=== PATIENT | female | born 1995 | race Two or more races ===

== ENCOUNTER 2023-10-29 06:31 | Emergency (ER) | payer OTHER, SELFPAY ==
[2023-10-29 06:33] VITALS: BP 134/87; PULSE 90; RESP 18; TEMP 36.7; O2SAT 97; BMI 39.5
[2023-10-29 06:59] LABS: Basophils Absolute Auto 0.1 10^3/uL (0.0-0.1); Basophils Percent Auto 0.5 % (0.2-2.0); Eosinophils Absolute Auto 0.4 10^3/uL (0.0-0.7); Eosinophils Percent Auto 3.2 % (0.9-7.0); Hematocrit 44.5 % (36.0-48.0); Hemoglobin 14.8 g/dL (12.0-16.0); Immature Granulocytes Abs Auto 0.02 10^3/uL (0.00-0.03); Immature Granulocytes Pct Auto 0.2 % (0.0-0.5); Lymphocytes Absolute Auto 3.5 10^3/uL (1.2-3.8); Lymphocytes Percent Auto 31.6 % (20.5-60.0); Mean Corpuscular HGB Conc 33.3 g/dL (29.9-35.2); Mean Corpuscular Hemoglobin 29.4 pg (26.7-34.0); Mean Corpuscular Volume 88.5 fL (81.0-99.0); Mean Platelet Volume 10.3 fL (9.5-13.5); Monocytes Absolute Auto 0.6 10^3/uL (0.3-0.8); Monocytes Percent Auto 5.1 % (1.7-12.0); Neutrophils Absolute Auto 6.6 10^3/uL (1.4-6.5); Neutrophils Percent Auto 59.4 % (43.0-75.0); Platelet Count 331 10^3/uL (150-450); Red Blood Count 5.03 10^6/uL (4.20-5.40); Red Cell Distribution Width 12.1 % (11.0-15.0); White Blood Count 11.1 10^3/uL (4.0-11.0)
[2023-10-29] MEDS: 0.9 % SODIUM CHLORIDE 1,000 ML 1000 ML IV (06:59)
[2023-10-29] MEDS: ONDANSETRON PF 4 MG/2 ML VIAL IV (07:00)
[2023-10-29 07:07] LABS: Anion Gap 16.4; BUN Creatinine Ratio 17.5; Calcium 9.3 mg/dL (8.5-10.1); Carbon Dioxide 25.1 mmol/L (21.0-32.0); Chloride 100 mmol/L (98-107); Estimated GFR (African America >60 (>=60); Estimated GFR (Non-African Ame >60 (>=60); Glucose 107 mg/dL (74-106); Potassium 3.5 mmol/L (3.5-5.1); Sodium 138 mmol/L (136-145)
[2023-10-29 07:09] LABS: HCG Qualitative NEGATIVE (NEGATIVE)
[2023-10-29 07:17] LABS: Bilirubin Urine NEGATIVE (NEGATIVE); Blood Urine NEGATIVE (NEGATIVE); Clarity Urine CLEAR (CLEAR); Color Urine YELLOW (YELLOW); Glucose Urine UA NEGATIVE (NEGATIVE); Ketones Urine NEGATIVE (NEGATIVE); Leukocyte Esterase Urine TRACE (NEGATIVE); Nitrite Urine NEGATIVE (NEGATIVE); Protein Urine 100 mg/dL (NEG/TRACE); Specific Gravity Urine >=1.030 (1.005-1.025); Urobilinogen Urine 0.2 EU/dL (0.2-1.0)
[2023-10-29 07:28] LABS: Urine Microscopic Indicated YES
--- NOTE | 2023-10-29 07:28 | ED.GENADUL1 ---
HPI - General Adult General Chief complaint: Abdominal Pain Stated complaint: abd pain Time Seen by Provider: 10/29/23 06:41 Source: patient Mode of arrival: walk-in Limitations: no limitations History of Present Illness HPI narrative: Patient is a 28-year-old female who is presenting to the Emergency Room today with chief complaint of 3-4 day history of nausea, vomiting with no diarrhea. Patient is a full-time homemaker, patient has 3 children at home. Patient states that she has been diagnosed with gastritis many years ago. Patient is not lightheaded dizzy, she has no headache. Patient has no chest pain or shortness of breath, patient does have midepigastric pain. Patient states she does not have her gallbladder. Patient has not been able to keep any liquid or food and yesterday, and she ate a piece of pizza last night it o'clock p.m. Patient had additional nausea and vomiting this morning with midepigastric pain. Patient had loose stool, no clear consistent black stool. Patient's not using any [id number]-[id number] antacid medication, no other acute complaints. All systems are negative except as noted/marked. All systems reviewed and otherwise negative. . Nurses note and vital signs reviewed and patient is not hypoxic. General: The patient appears well and in no apparent distress. Patient is resting comfortably on cart. Patient is not toxic, lethargic, or listless Skin: Warm, dry, no pallor noted. There is no rash noted. No petechiae, purpura. Head: Normocephalic, atraumatic Eye: Normal conjunctiva, no drainage, EOMI. PERRL Ears, Nose, Mouth, and Throat: oral mucosa is moist. Nares patent. Mouth without vesicles. Cardiovascular: Regular Rate and Rhythm, no murmur, gallop, rub Respiratory: Patient is in no distress, no accessory muscle use, lungs are clear to auscultation, no wheezing, rales or rhonchi Back: non-tender, no CVA tenderness bilaterally to percussion. No CT LS midline pain GI: soft, obese, Moderate midepigastric tenderness palpation, soft, no peritoneal signs, otherwise no tenderness to palpation, no masses appreciated. No rebound, Mild midepigastric guarding, or rigidity noted. No flank pain bilateral, No distention. Musculoskeletal: Patient has full range of motion of all of the extremities, no motor, sensory, or focal neurological deficits Neurological: A&O x3, normal speech Psychiatric: Cooperative Related Data Previous Rx's Medication Instructions Recorded dicyclomine 20 mg tablet 20 mg PO TID PRN abdominal pain #7 10/29/23 tabs ondansetron 4 mg disintegrating 4 mg PO Q4H PRN nausea and 10/29/23 tablet vomiting 3 days #6 tabs Allergies Allergy/AdvReac Type Severity Reaction Status Date / Time No Known Drug Allergies Allergy Verified 10/29/23 06:36 PFSH PFSH Social History Smoking status: Current every day smoker Exam Constitutional Vital Signs, click to edit/add: Last Vital Signs Temp 98.0 F 10/29/23 06:33 Pulse 90 10/29/23 06:33 Resp 18 10/29/23 06:33 BP 134/87 10/29/23 06:33 Pulse Ox 97 10/29/23 06:33 O2 Del Method Room Air 10/29/23 06:33 Course Vital Signs Vital signs: Vital Signs Temperature 98.0 F 10/29/23 06:33 Pulse Rate 90 10/29/23 06:33 Respiratory Rate 18 10/29/23 06:33 Blood Pressure 134/87 10/29/23 06:33 Pulse Oximetry 97 10/29/23 06:33 Oxygen Delivery Method Room Air 10/29/23 06:33 Temperature 98.0 F 10/29/23 06:33 Pulse Rate 90 10/29/23 06:33 Respiratory Rate 18 10/29/23 06:33 Blood Pressure 134/87 10/29/23 06:33 Pulse Oximetry 97 10/29/23 06:33 Oxygen Delivery Method Room Air 10/29/23 06:33 Medical Decision Making MDM Narrative Medical decision making narrative: Patient was initially given 1 L of IV fluid and IV Zofran. Patient was still having nausea, patient was given additional Compazine and Bentyl. Patient had a mild reaction to Bentyl Or Compazine were she felt slightly anxious, Flushed, a significant have one reading that was hypertensive. Patient labwork in urination no significant findings. Patient was given Pepcid gastrointestinal cocktail. Patient was sent home with prescription for Zofran, Bentyl, and use [id number] Maalox or Mylanta needed. Patient understands increase fluids at home. No questions at discharge. Patient looks well, feels much better than she did when she initially arrived. Lab Data Lab results reviewed: Yes I reviewed the patient's lab results Labs: Lab Results 10/29/23 Range/Units 06:45 WBC 11.1 H (4.0-11.0) 10^3/uL RBC 5.03 (4.20-5.40) 10^6/uL Hgb 14.8 (12.0-16.0) g/dL Hct 44.5 (36.0-48.0) % MCV 88.5 (81.0-99.0) fL MCH 29.4 (26.7-34.0) pg MCHC 33.3 (29.9-35.2) g/dL RDW 12.1 (11.0-15.0) % Plt Count 331 (150-450) 10^3/uL MPV 10.3 (9.5-13.5) fL Neut % (Auto) 59.4 (43.0-75.0) % Lymph % (Auto) 31.6 (20.5-60.0) % [place] % (Auto) 5.1 (1.7-12.0) % Eos % (Auto) 3.2 (0.9-7.0) % Baso % (Auto) 0.5 (0.2-2.0) % Neut # (Auto) 6.6 H (1.4-6.5) 10^3/uL Lymph # (Auto) 3.5 (1.2-3.8) 10^3/uL [place] # (Auto) 0.6 (0.3-0.8) 10^3/uL Eos # (Auto) 0.4 (0.0-0.7) 10^3/uL Baso # (Auto) 0.1 (0.0-0.1) 10^3/uL Abs Immat Gran (auto) 0.02 (0.00-0.03) 10^3/uL Imm/Tot Granulo (auto) 0.2 (0.0-0.5) % Sodium 138 (136-145) mmol/L Potassium 3.5 (3.5-5.1) mmol/L Chloride 100 (98-107) mmol/L Carbon Dioxide 25.1 (21.0-32.0) mmol/L Anion Gap 16.4 BUN 11.0 (7.0-18.0) mg/dL Creatinine 0.63 (0.55-1.02) mg/dL Est GFR ( Amer) >60 (>=60) Est GFR (Non-Af Amer) >60 (>=60) BUN/Creatinine Ratio 17.5 Glucose 107 H (74-106) mg/dL Calcium 9.3 (8.5-10.1) mg/dL Serum HCG, Qual Negative (NEGATIVE) Urine Color Yellow (YELLOW) Urine Clarity Clear (CLEAR) Urine pH 6.0 (5.0-9.0) Ur Specific [place] >=1.030 A (1.005-1.025) Urine Protein 100 A (NEG/TRACE) mg/dL Urine Glucose (UA) Negative (NEGATIVE) mg/dL Urine Ketones Negative (NEGATIVE) mg/dL Urine Occult Blood Negative (NEGATIVE) Urine Nitrite Negative (NEGATIVE) Urine Bilirubin Negative (NEGATIVE) Urine Urobilinogen 0.2 (0.2-1.0) EU/dL Ur Leukocyte Esterase Trace A (NEGATIVE) Urine RBC 0-2 (0-2) #/HPF Urine WBC 5-10 A (NONE SEEN) #/HPF Ur Squamous Epith Cells Moderate A (NONE/RARE) #/LPF Urine Crystals None seen (None Seen) #/HPF Urine Bacteria Small A (NONE SEEN) #/HPF Urine Casts None seen (NONE SEEN) #/LPF Urine Mucus Moderate A (NONE SEEN) Ur Culture Indicated? Yes Discharge Plan Discharge Chief Complaint: Abdominal Pain Clinical Impression: Gastritis, Flu-like symptoms, Midepigastric pain, Nausea & vomiting Patient Disposition: Home, Self-Care Time of Disposition Decision: 08:24 Condition: Fair Prescriptions / Home Meds: New dicyclomine 20 mg tablet 20 mg PO TID PRN (Reason: abdominal pain) Qty: 7 0RF ondansetron 4 mg tablet,disintegrating 4 mg PO Q4H PRN (Reason: nausea and vomiting) 3 Days Qty: 6 0RF Instructions: Gastritis (ED), Acute Nausea and Vomiting (ED), Abdominal Pain (ED) Additional Instructions: If having midepigastric discomfort of pain, use [id number] Maalox or Mylanta. Use nausea medicine help increase fluids at home. Use Bentyl as needed to help with abdominal cramping. Increase fluids at home,Clear liquid diet for the next 2-3 days. Follow-up with PCP if any other acute concerns. Stand Alone Forms: Portal Instructions Referrals: Physician,Non-Staff, MD [Primary Care Provider] - 1 week
[2023-10-29 07:35] LABS: Bacteria Urine SMALL #/HPF (NONE SEEN); RBC Urine 0-2 #/HPF (0-2)
[2023-10-29 07:36] LABS: Cast Seen? NONE SEEN #/LPF (NONE SEEN); Crystals Seen? None Seen #/HPF (None Seen); Mucus Urine MODERATE (NONE SEEN); Squamous Epithelial Cell Urine MODERATE #/LPF (NONE/RARE); Urine Culture Indicated YES
[2023-10-29] MEDS: DICYCLOMINE HCL 20 MG/2 ML VIAL 10 MG IM (07:36)
[2023-10-29] MEDS: PROCHLORPERAZINE 10 MG/2 ML VIAL IV (07:36)
[2023-10-29] MEDS: lidocaine HCL 15 ML, MAG HYDROX/ALUMINUM HYD/SIMETH 30 ML, HYOSCYAMINE SULFATE 0.25 MG PO (08:38)
[2023-10-29] MEDS: FAMOTIDINE/PF 20 MG/2 ML VIAL IV (08:38)
[2023-10-29 08:43] VITALS: BP 158/97; PULSE 74; RESP 16; O2SAT 97
== END 2023-10-29 08:46 | disposition home or self-care (01) ==
PROVIDERS: Emergency Provider Emergency Medicine
DX: K29.70 Gastritis, unspecified, without bleeding (principal); R10.13 Epigastric pain; R11.2 Nausea with vomiting, unspecified; F17.210 Nicotine dependence, cigarettes, uncomplicated
CPT/HCPCS: 36415; 80048; 81001; 84703; 85025; 87086; 96361; 96372; 96374; 96375; 99284; J0500; J0780; J2405

== ENCOUNTER 2024-01-19 13:42 | Outpatient (OUT) | payer OTHER, SELFPAY ==
--- NOTE | 2024-01-19 13:45 | US_ITS ---
The [address] [address] Patient Name: JUDIE RODRIGUEZ MRN: [id number] date: 1995 Sex: F Assigned Patient Location: [place] Current Patient Location: [place] Accession/Order Number: [id number] Exam Date: 01/19/2024 13:52 Report Date: 01/19/2024 16:27 At the request of: JUANCHO DE LEON Procedure: US extremity nonvascular RT EXAM: US extremity nonvascular RT HISTORY: Subcutaneous nodule of right lower extremity R22.41 COMPARISON: None. TECHNIQUE: Grayscale and color ultrasound FINDINGS: Ultrasound in the region of the patient's abnormality right medial thigh extending to the knee demonstrates normal skin, subcutaneous fat and muscle. No focal ultrasound abnormality US/US extremity nonvascular RT IMPRESSION: No focal ultrasound abnormality is observed to correspond to the patient's palpable abnormality Electronically authenticated by: JOLANTA REYNOLDS Date: 01/19/2024 16:27
== END 2024-01-19 13:43 | disposition home or self-care (01) ==
LOC: US 13:42
PROVIDERS: Visit Provider Nurse Practitioner Family
DX: R22.41 Localized swelling, mass and lump, right lower limb (principal)
CPT/HCPCS: 76882

== ENCOUNTER 2024-01-22 19:31 | Emergency (ER) | payer OTHER, SELFPAY ==
--- OUTSIDE RECORDS SUMMARY | 2024-01-22 19:38 | XMS_ITS | CCD ---
Author Organization [facility] Care Team Providers Care Track Grinder Operator Name Role Phone AMAURY, DR SHIVAM Bautista Primary Care Unavailable DAVID SILVA Attending Unavailable RODOLFO, DR JOLANTA Grant Consulting Unavailable DAVID SILVA Admitting Unavailable TEO ., DR SAM Consulting Unavailable DAVID SILVA Consulting Unavailable KANU .JOSE ROBERTO Attending Unavailable KANU ., JOSE ROBERTO Admitting Unavailable AMAURY, DR SHIVAM Bautista Primary Care Unavailable RICK, DR MAURICIO Killian Consulting Unavailable KANU ., JOSE ROBERTO Consulting Unavailable TEO ., DR SAM Admitting Unavailable TEO ., DR SAM Attending Unavailable JOSELO LEWIS Consulting Unavailable AMAURY, DR SHIVAM Bautista Primary Care Unavailable TEO ., DR SAM Consulting Unavailable TEO ., DR SAM Procedure Practitioner Unavail destin Oliveira APRN-POOJA, Gissel Mckenna Primary Care Provider Medications Current Medications Medication Drug Class(es) Dates Sig (Normalized) Sig (Original) DULoxetine 30 mg delayed release oral capsule (5 sources) Serotonin and Norepinephrine Reuptake Inhibitor Start: 01-16-2024 take 1 capsule by mouth once daily in the morning DULoxetine (CYMBALTA) 30 mg capsule Indications: Reactive depression take 1 capsule by mouth every morning for 14 days 14 capsule 0 01/16/2024 Active Start: 01-13-2024 End: 01-27-2024 take 1 capsule by mouth in the morning DULoxetine (CYMBALTA) 30 mg capsule Indications: Reactive depression Take 1 capsule (30 mg total) by mouth in the morning for 14 days. 14 capsule 0 01/13/2024 01/16/2024 Discontinued Start: 01-13-2024 take 1 capsule by [facility] in the morning DULoxetine (CYMBALTA) 60 mg capsule Indications: Reactive depression Take 1 capsule (60 mg total) by mouth in the morning. 30 capsule 2 01/13/2024 Active 168 hr ethinyl estradiol 0.67161 mg/hr / norelgestromin 0.50836 mg/hr transdermal system (2 sources) Progestin, Estrogen Start: 01-13-2024 apply 1 dose transdermal route every week norelgestromin-ethin.estradioL (XULANE) 150-35 mcg/24 hr Indications: Encounter for surveillance of transdermal patch hormonal contraceptive device Place 1 patch on the skin once a week. 3 patch 12 01/13/2024 Active labetalol hydrochloride 200 mg oral tablet (2 sources) beta-Adrener gic Leti Start: 01-13-2024 take 1 tablet by mouth in the morning, then take 1 tablet by mouth at bedtime labetaloL (NORMODYNE) 200 mg tablet Indications: Essential hypertension Take 1 tablet (200 mg total) by mouth in the morning and 1 tablet (200 mg total) before bedtime. 60 tablet 5 01/13/2024 Active Problems Active Problems Problem Classification Problem Date Documented Date Episodic/Chronic Contraceptive and procreative management (2 sources) Contraception status; Translations: [Encounter for surveillance of transdermal patch hormonal contraceptive device] 01-13-2024 Episodic Essential hypertension (1 source) Essential hypertension; Translations: [Essential (primary) hypertension] 01-13-2024 Chronic Hypertension complicating ; childbirth and the puerperium (2 sources) Pre-existing hypertension in obstetric context; Translations: [Unspecified pre-existing hypertension complicating , unspecified trimester] Onset: 03-12-2016 Resolved: 01-13-2024 01-13-2024 Chronic Mood disorders (2 sources) Reactive depression (situational); Translations: [Major depressive disorder, single episode, unspecified] 01-13-2024 Chronic Nonmalignant breast conditions (4 sources) Unspecified lump in unspecified breast; Translations: [Unspecified lump in the right breast, lower outer quadrant] Onset: 01-27-2023 Episodic Other nutritional; endocrine; and metabolic disorders (1 source) Obesity caused by energy imbalance; Translations: [Other obesity due to excess calories] 01-13-2024 Chronic Other skin disorders (1 source) Nodule of subcutaneous tissue of right lower limb; Translations: [Localized swelling, mass and lump, right lower limb] 01-13-2024 Episodic Unclassified (1 source) CONTACT W/AND (SUSP) EXPOS COVID-19; Translations: [CONTACT W/AND (SUSP) EXPOS COVID-19] Onset: 02-17-2022 Past or Other Problems Problem Classification Problem Date Documented Da te Episodic/Chronic Blindness and vision defects (4 sources) Myopia; Translations: [Myopia, unspecified eye] Onset: 04-05-2017 04-05-2017 Episodic Hypertension complicating ; childbirth and the puerperium (1 source) Unspecified pre-eclampsia, complicating the puerperium; Translations: [UNSPEC PRE-ECLAMP COMP PUERPERIUM] Onset: 02-17-2022 Episodic Mood disorders (2 sources) Mood disorders Onset: 01-13-2024 01-13-2024 Other complications of (2 sources) Maternal obesity complicating , childbirth and the puerperium, antepartum; Translations: [Obesity complicating , unspecified trimester] Onset: 01-22-2016 Resolved: 01-13-2024 01-13-2024 Chronic Other complications of (4 sources) Maternal care for excessive growth, third trimester, not applicable or unspecified; Translations: [MAT CARE EXCSS FTL GRTH 3RD TRI UNS] Onset: 02-09-2022 Episodic Other complications of (2 sources) Abnormal findings on screening of mother; Translations: [Unspecified abnormal findings on screening of mother] Onset: 01-22-2016 Resolved: 01-13-2024 01-13-2024 Episodic Other complications of (2 sources) High risk ; Translations: [Supervision of high risk , unspecified, unspecified trimester] Onset: 10-29-2015 Resolved: 01-13-2024 01-13-2024 Episodic Other complications of (2 sources) Maternal infection; Translations: [Unspecified maternal infectious and parasitic disease complicating , unspecified trimester] Onset: 10-29-2015 Resolved: 01-13-2024 01-13-2024 Episodic Other complications of (2 sources) Disorder of ; Translations: [Other specified related conditions, unspecified trimester] Onset: 01-22-2016 Resolved: 01-13-2024 01-13-2024 Episodic Other and delivery including normal (3 sources) Single live ; Translations: [Delivery normal] Onset: 06-04-2016 Resolved: 01-13-2024 01-13-2024 Episodic Residual codes; unclassified (1 source) 39 weeks gestation of ; Translations: [39 WEEKS GESTATION OF ] Onset: 02-17-2022 Episodic Residual codes; unclassified (1 source) Acquired absence of other specified parts of digestive tract; Translations: [ACQ ABSENCE OTH PART DIGESTV TRACT] Onset: 02-17-2022 Episodic Residual codes; unclassified (1 source) 38 weeks gestation of ; Translations: [38 WEEKS GESTATION OF ] Onset: 02-11-2022 Episodic Screening and history of mental health and substance abuse codes (2 sources) Tobacco use and exposure - finding; Translations: [Personal history of nicotine dependence] Onset: 10-29-2015 01-13-2024 Episodic Results Test Name Value Interpretation Reference Range Facil ity MG MAMM DIAGNOSTIC 3D NATHAN CA Don 01-27-2023 MG MAMM DIAGNOSTIC 3D NATHAN CAD Patient: JUDIE RODRIGUEZ Exam Date: 01/27/2023 : 1995 Gender:F Ordering : FATOU BOBBY . Admission #: [id number] Family : Order #: [id number] CLICK HERE TO VIEW EXAM RADIOLOGY REPORT PROCEDURE: MAMMOGRAM DIAGNOSTIC 3D BILATERAL CAD, 01/27/2023, 13:46 ULTRASOUND BREAST RIGHT LIMITED, 01/27/2023, 14:23 COMPARISON: None. INDICATIONS: Breast lump Calculator Name NCI Breast Cancer Risk Assessment Tool 5 Year Breast Cancer Risk Not Applicable. Lifetime Breast Cancer Risk Not Applicable. Personal Breast Cancer No Personal Ovarian Cancer No Treatments None Family Cancers None LOCATION: [facility] BREAST COMPOSITION: Scattered areas fibroglandular density. FINDINGS: DIAGNOSTIC CATEGORY 1--NEGATIVE. RIGHT BREAST: No significant suspicious finding on mammography and during ultrasound evaluation with specific attention to the posterior lower breast approximately 6 o'clock position where patient localizes the palpable lump. LEFT BREAST: No significant suspicious finding. RECOMMENDATIONS: CLINICAL EVALUATION. PLEASE NOTE: A NORMAL MAMMOGRAM DOES NOT EXCLUDE THE POSSIBILITY OF BREAST CANCER. A CLINICALLY SUSPICIOUS PALPABLE LUMP SHOULD BE BIOPSIED. Dictated by: Mauricio Baldwin M.D. on 01/27/2023 at 14:58 Approved by: Mauricio Baldwin M.D. on 01/27/2023 at 15:02 Normal [facility] US BREAST RIGHT LIMITEDon US BREAST RIGHT LIMITED Patient: JUDIE RODRIGUEZ Exam Date: 01/27/2023 : 1995 Gender:F Ordering : FATOU BOBBY . Admission #: [id number] Family : Order #: [id number] CLICK HERE TO VIEW EXAM RADIOLOGY REPORT PROCEDURE: MAMMOGRAM DIAGNOSTIC 3D BILATERAL CAD, 01/27/2023, 13:46 ULTRASOUND BREAST RIGHT LIMITED, 01/27/2023, 14:23 COMPARISON: None. INDICATIONS: Breast lump Calculator Name NCI Breast Cancer Risk Assessment Tool 5 Year Breast Cancer Risk Not Applicable. Lifetime Breast Cancer Risk Not Applicable. Personal Breast Cancer No Personal Ovarian Cancer No Treatments None Family Cancers None LOCATION: [facility] BREAST COMPOSITION: Scattered areas fibroglandular density. FINDINGS: DIAGNOSTIC CATEGORY 1--NEGATIVE. RIGHT BREAST: No significant suspicious finding on mammography and during ultrasound evaluation with specific attention to the posterior lower breast approximately 6 o'clock position where patient localizes the palpable lump. LEFT BREAST: No significant suspicious finding. RECOMMENDATIONS: CLINICAL EVALUATION. PLEASE NOTE: A NORMAL MAMMOGRAM DOES NOT EXCLUDE THE POSSIBILITY OF BREAST CANCER. A CLINICALLY SUSPICIOUS PALPABLE LUMP SHOULD BE BIOPSIED. Dictated by: Mauricio Baldwin M.D. on 01/27/2023 at 14:58 Approved by: Mauricio Baldwin M.D. on 01/27/2023 at 15:02 Normal [facility] PROTEIN 24HR URINEon 022 T PROT, 24 HR UR 554.3 mg/24 hr Critically high <=149.1 [facility] Comment on above: Performed By: #### P [id number] #### [facility] [address] [address] [address] Zainab John UR PROT 24.1 mg/dL Critically high <=11.9 [facility] Comment on above: Performed By: #### P [id number] #### [facility] [address] [address] [address] Zainab John UR TOT VOL 2300 ml/24 HR Normal [facility] Comment on above: Performed By: #### P [id number] #### [facility] [address] [place] [address] Dr. Zainab John UA (CLEAN/CATCH) INDUSTRIAL REFRIGERATION MECHANIC/MICRO I F IND.on 02-12-2022 Bilirubin Ql (U) Negative Normal NEGATIVE [facility] Comment on above: Performed By: #### T NS #### [facility] [address] [place] [address] Dr. Zainab John Clarity (U) CLEAR Normal CLEAR [facility] Comment on above: Performed By: #### T NS #### [facility] [address] [place] [address] Dr. Zainab John Color (U) LT. YELLOW Normal YELLOW [facility] Comment on above: Performed By: #### T NS #### [facility] [address] [place] [address] Dr. Zainab John Glucose Ql (U) Negative Normal NEGATIVE [facility] Comment on above: Performed By: #### T NS #### [facility] [address] [place] [address] Dr. Zainab John Hemoglobin Ql (U) LARGE Abnormal NEGATIVE [facility] Comment on above: Performed By: #### T NS #### [facility] [address] [place] [address] Dr. Zainab John Ketones Ql (U) Negative Normal NEGATIVE [facility] Comment on above: Performed By: #### T NS #### [facility] [address] [place] [address] Dr. Zainab John LEUKOCYTES Negative Normal NEGATIVE [facility] Comment on above: Performed By: #### T NS #### [facility] [address] [place] [address] Dr. Zainab John Nitrite Ql (U) Negative Normal NEGATIVE [facility] Comment on above: Performed By: #### T NS #### [facility] [address] [place] [address] Dr. Zainab John pH (U) 5.5 [pH] Normal 5-9 [facility] Comment on above: Performed By: #### T NS #### [facility] [address] [place] [address] Dr. Zainab John SPEC GRAVITY 1.030 Abnormal 1.005-<=1.025 [facility] Comment on above: Performed By: #### T NS #### [facility] [address] [place] [address] Dr. Zainab John UA PROTEIN Negative Normal NEGATIVE/ TRACE [facility] Comment on above: Performed By: #### T NS #### [facility] [address] [place] [address] Dr. Zainab John UR MICRO IND INDICATED Normal [facility] Comment on above: Performed By: #### T NS #### [facility] [address] [place] [address] Dr. Zainab John Urobilinogen Qn (U) 0.2 {Sarabjit'U}/dL Normal 0.2 - 1. 0 [facility] Comment on above: Performed By: #### T NS #### [facility] [address] [place] [address] Dr. Zainab John URINE MICROSCOPIC ONLYon BACTERIA NONE SEEN Normal NONE SEEN [facility] Comment on above: Performed By: #### T NS #### [facility] [address] [place] [address] Dr. Zainab John Bacteria identified Cx Nom (U) NOT INDICATED Normal [facility] Comment on above: Performed By: #### T NS #### [facility] [address] [place] [address] Dr. Zainab John CAST NONE SEEN Normal NONE SEEN [facility] Comment on above: Performed By: #### T NS #### [facility] [address] [place] [address] Dr. Zainab John Crystals LM Nom (Urine sed) NONE SEEN Normal NONE SEEN [facility] Comment on above: Performed By: #### T NS #### [facility] [address] [place] [address] Dr. Zainab John Epithelial cells LM Ql (Urine sed) RARE Normal NONE SEEN /RARE [facility] Comment on above: Performed By: #### T NS #### [facility] [address] [place] [address] Dr. Zainab John MUCOUS NONE SEEN Normal NONE SEEN [facility] Comment on above: Performed By: #### T NS #### [facility] [address] [place] [address] Dr. Zainab John RBC 20-50 Abnormal 0-2 [facility] Comment on above: Performed By: #### T NS #### [facility] [address] [place] [address] Dr. Zainab John WBC 0-2 Abnormal NONE SEEN [facility] Comment on above: Performed By: #### T NS #### [facility] [address] [place] [address] Dr. Zainab John CBC AUTO DIFFon 02-11-2022 BASO # 0.0 103/ul Normal 0.0-0.1 [facility] Comment on above: Performed By: #### C BC #### [facility] [address] [place] [address] Dr. Zainab John Basophils/100 WBC (Bld) 0.4 % Normal 0.2-2.0 [facility] Comment on above: Performed By: #### C BC #### [facility] [address] [place] [address] Dr. Zainab John EO # 0.3 103/ul Normal 0.0-0.7 [facility] Comment on above: Performed By: #### C BC #### [facility] [address] [place] [address] Dr. Zainab John Eosinophils/100 WBC (Bld) 2.5 % Normal 0.9-7.0 [facility] Comment on above: Performed By: #### C BC #### [facility] [address] [place] [address] Dr. Zainab John Erythrocyte distribution width (RBC) [Ratio] 13.2 % Normal 11.0-15.0 [facility] Comment on above: Performed By: #### C BC #### [facility] [address] [place] [address] Dr. Zainab John Hematocrit (Bld) [Volume fraction] 27.8 % Critically low 36.0-48.0 [facility] Comment on above: Performed By: #### C BC #### [facility] [address] [address] [address] Zainab John Hemoglobin (Bld) [Mass/Vol] 9.3 g/dL Critically low 12.0-16.0 [facility] Comment on above: Performed By: #### C BC #### [facility] [address] [address] [address] Zainab John IG # 0.08 10e3/ul Critically high 0.00-0.03 [facility] Comment on above: Performed By: #### C BC #### [facility] [address] [place] [address] Dr. Zainab John IG % 0.7 % Critically high 0.0-0.5 [facility] Comment on above: Performed By: #### C BC #### [facility] [address] [place] [address] Dr. Zainab John LYMPH # 2.7 103/ul Normal 1.2-3.8 [facility] Comment on above: Performed By: #### C BC #### [facility] [address] [place] [address] Dr. Zainab John Lymphocytes/100 WBC (Bld) 23.6 % Normal 20.5-60.0 [facility] Comment on above: Performed By: #### C BC #### [facility] [address] [place] [address] Dr. Zainab John MANUAL DIFF REQ NO Normal [facility] Comment on above: Performed By: #### C BC #### [facility] [address] [place] [address] Dr. Zainab John MCH (RBC) [Entitic mass] 29.6 pg Normal 26.7-34.0 [facility] Comment on above: Performed By: #### C BC #### [facility] [address] [place] [address] Dr. Zainab John MCHC (RBC) [Mass/Vol] 33.5 g/dL Normal 29.9-35.2 [facility] Comment on above: Performed By: #### C BC #### [facility] [address] [address] [address] Zainab John MCV (RBC) [Entitic vol] 88.5 fL Normal 81.0-99.0 [facility] Comment on above: Performed By: #### C BC #### [facility] [address] [address] [address] Zainab John MONO # 0.6 103/ul Normal 0.3-0.8 [facility] Comment on above: Performed By: #### C BC #### [facility] [address] [address] [address] Zainab John Monocytes/100 WBC (Bld) 5.1 % Normal 1.7-12.0 [facility] Comment on above: Performed By: #### C BC #### [facility] [address] [address] [address] Zainab John NEUT # 7.7 103/ul Critically high 1.4-6.5 [facility] Comment on above: Performed By: #### C BC #### [facility] [address] [address] [address] Zainab John Neutrophils/100 WBC (Bld) 67.7 % Normal 43.0-75.0 [facility] Comment on above: Performed By: #### C BC #### [facility] [address] [address] [address] Zainab John Platelet mean volume (Bld) [Entitic vol] 10.7 fL Normal 9.5-13.5 [facility] Comment on above: Performed By: #### C BC #### [facility] [address] [address] [address] Zainab John PLT 267 103/ul Normal 150-450 [facility] Comment on above: Performed By: #### C BC #### [facility] [address] [address] [address] Zainab John RBC 3.14 106/ul Critically low 4.20-5.40 [facility] Comment on above: Performed By: #### C BC #### [facility] [address] [place] [address] Dr. Zainab John WBC 11.4 103/ul Critically high 4.0-11.0 [facility] Comment on above: Performed By: #### C BC #### [facility] [address] [place] [address] Dr. Zainab John LDHon 02-11-2022 LDH 214 U/L Normal 81-234 [facility] Comment on above: Performed By: #### T NS #### [facility] [address] [place] [address] Dr. Zainab John PROF 14(COMP METB)on 022 Albumin [Mass/Vol] 2.4 g/dL Critically low 3.4-5.0 [facility] Comment on above: Performed By: #### T NS #### [facility] [address] [place] [address] Dr. Zainab John Albumin/Globulin [Mass ratio] 0.7 {ratio} Normal [facility] Comment on above: Performed By: #### T NS #### [facility] [address] [place] [address] Dr. Zainab John ALP [Catalytic activity/Vol] 98 U/L Normal 46-116 [facility] Comment on above: Performed By: #### T NS #### [facility] [address] [place] [address] Dr. Zainab John ALT [Catalytic activity/Vol] 12 U/L Critically low 14-59 [facility] Comment on above: Performed By: #### T NS #### [facility] [address] [place] [address] Dr. Zainab John Anion gap [Moles/Vol] 15.4 mmol/L Normal [facility] Comment on above: Performed By: #### T NS #### [facility] [address] [place] [address] Dr. Zainab John AST [Catalytic activity/Vol] 20 U/L Normal 15-37 [facility] Comment on above: Performed By: #### T NS #### [facility] [address] [address] [address] Zainab John Bilirubin [Mass/Vol] 0.1 mg/dL Critically low 0.2-1.0 [facility] Comment on above: Performed By: #### T NS #### [facility] [address] [address] [address] Zainab John Calcium [Mass/Vol] 8.1 mg/dL Critically low 8.5-10.1 [facility] Comment on above: Performed By: #### T NS #### [facility] [address] [address] [address] Zainab John Chloride [Moles/Vol] 102 mmol/L Normal 98-107 [facility] Comment on above: Performed By: #### T NS #### [facility] [address] [place] [address] Dr. Zainab John CO2 [Moles/Vol] 24.2 mmol/L Normal 21.0-32.0 [facility] Comment on above: Performed By: #### T NS #### [facility] [address] [place] [address] Dr. Zainab John Creatinine [Mass/Vol] 0.52 mg/dL Critically low 0.55-1.02 [facility] Comment on above: Performed By: #### T NS #### [facility] [address] [place] [address] Dr. Zainab John EGFR-AF CITIZEN OF [place] >60 Normal >=60 [facility] Comment on above: Performed By: #### T NS #### [facility] [address] [place] [address] Dr. Zainab John EGFR-NON AF CITIZEN OF [place] >60 Normal >=60 [facility] Comment on above: Performed By: #### T NS #### [facility] [address] [place] [address] Dr. Zainab John Globulin (S) [Mass/Vol] 3.4 g/dL Normal [facility] Comment on above: Performed By: #### T NS #### [facility] [address] [place] [address] Dr. Zainab John Glucose [Mass/Vol] 91 mg/dL Normal 74-106 [facility] Comment on above: Performed By: #### T NS #### [facility] [address] [place] [address] Dr. Zainab John Potassium [Moles/Vol] 3.6 mmol/L Normal 3.5-5.1 [facility] Comment on above: Performed By: #### T NS #### [facility] [address] [place] [address] Dr. Zainab John Protein [Mass/Vol] 5.8 g/dL Critically low 6.1-8.2 [facility] Comment on above: Performed By: #### T NS #### [facility] [address] [place] [address] Dr. Zainab John Sodium [Moles/Vol] 138 mmol/L Normal 136-145 [facility] Comment on above: Performed By: #### T NS #### [facility] [address] [place] [address] Dr. Zainab John Urea nitrogen [Mass/Vol] 8.0 mg/dL Normal 7.0-18.0 [facility] Comment on above: Performed By: #### T NS #### [facility] [address] [place] [address] Dr. Zainab John Urea nitrogen/Creatinine [Mass ratio] 15.4 mg/mg Normal [facility] Comment on above: Performed By: #### T NS #### [facility] [address] [place] [address] Dr. Zainab John URIC ACID SERUMon 02-11-2022 Urate [Mass/Vol] 5.2 mg/dL Normal 2.5-6.2 [facility] Comment on above: Performed By: #### U TRUPTI, LDH, CMP #### [facility] [address] [place] [address] Dr. Zainab John CBC AUTO DIFFon 02-10-2022 BASO # 0.0 103/ul Normal 0.0-0.1 [facility] [facility] Comment on above: Performed By: #### C BC #### [facility] [address] [place] [address] Dr. Zainab John Basophils/100 WBC (Bld) 0.3 % Normal 0.2-2.0 [facility] Comment on above: Performed By: #### C BC #### [facility] [address] [place] [address] Dr. Zainab John EO # 0.1 103/ul Normal 0.0-0.7 [facility] Comment on above: Performed By: #### C BC #### [facility] [address] [place] [address] Dr. Zainab John Eosinophils/100 WBC (Bld) 1.1 % Normal 0.9-7.0 [facility] Comment on above: Performed By: #### C BC #### [facility] [address] [place] [address] Dr. Zainab John Erythrocyte distribution width (RBC) [Ratio] 13.1 % Normal 11.0-15.0 [facility] Comment on above: Performed By: #### C BC #### [facility] [address] [place] [address] Dr. Zainab John Hematocrit (Bld) [Volume fraction] 27.9 % Critically low 36.0-48.0 [facility] Comment on above: Performed By: #### C BC #### [facility] [address] [place] [address] Dr. Zainab John Hemoglobin (Bld) [Mass/Vol] 9.4 g/dL Critically low 12.0-16.0 [facility] Comment on above: Performed By: #### C BC #### [facility] [address] [place] [address] Dr. Zainab John IG # 0.05 10e3/ul Critically high 0.00-0.03 [facility] Comment on above: Performed By: #### C BC #### [facility] [address] [place] [address] Dr. Zainab John IG % 0.4 % Normal 0.0-0.5 [facility] Comment on above: Performed By: #### C BC #### [facility] [address] [place] [address] Dr. Zainab John LYMPH # 2.6 103/ul Normal 1.2-3.8 [facility] Comment on above: Performed By: #### C BC #### [facility] [address] [place] [address] Dr. Zainab John Lymphocytes/100 WBC (Bld) 22.1 % Normal 20.5-60.0 [facility] Comment on above: Performed By: #### C BC #### [facility] [address] [place] [address] Dr. Zainab John MANUAL DIFF REQ NO Normal [facility] Comment on above: Performed By: #### C BC #### [facility] [address] [place] [address] Dr. Zainab John MCH (RBC) [Entitic mass] 30.1 pg Normal 26.7-34.0 [facility] Comment on above: Performed By: #### C BC #### [facility] [address] [place] [address] Dr. Zainab John MCHC (RBC) [Mass/Vol] 33.7 g/dL Normal 29.9-35.2 [facility] Comment on above: Performed By: #### C BC #### [facility] [address] [place] [address] Dr. Zainab John MCV (RBC) [Entitic vol] 89.4 fL Normal 81.0-99.0 [facility] Comment on above: Performed By: #### C BC #### [facility] [address] [place] [address] Dr. Zainab John MONO # 0.9 103/ul Critically high 0.3-0.8 [facility] Comment on above: Performed By: #### C BC #### [facility] [address] [place] [address] Dr. Zainab John Monocytes/100 WBC (Bld) 7.7 % Normal 1.7-12.0 [facility] Comment on above: Performed By: #### C BC #### [facility] [address] [place] [address] Dr. Zainab John NEUT # 8.1 103/ul Critically high 1.4-6.5 [facility] Comment on above: Performed By: #### C BC #### [facility] [address] [place] [address] Dr. Zainab John Neutrophils/100 WBC (Bld) 68.4 % Normal 43.0-75.0 [facility] Comment on above: Performed By: #### C BC #### [facility] [address] [place] [address] Dr. Zainab John Platelet mean volume (Bld) [Entitic vol] 10.4 fL Normal 9.5-13.5 [facility] Comment on above: Performed By: #### C BC #### [facility] [address] [place] [address] Dr. Zainab John PLT 224 103/ul Normal 150-450 [facility] Comment on above: Performed By: #### C BC #### [facility] [address] [place] [address] Dr. Zainab John RBC 3.12 106/ul Critically low 4.20-5.40 [facility] Comment on above: Performed By: #### C BC #### [facility] [address] [place] [address] Dr. Zainab John WBC 11.8 103/ul Critically high 4.0-11.0 [facility] Comment on above: Performed By: #### C BC #### [facility] [address] [place] [address] Dr. Zainab John CBC AUTO DIFFon 02-09-2022 BASO # 0.0 103/ul Normal 0.0-0.1 [facility] Comment on above: Performed By: #### C BC #### [facility] [address] [place] [address] Dr. Zainab John Basophils/100 WBC (Bld) 0.3 % Normal 0.2-2.0 [facility] Comment on above: Performed By: #### C BC #### [facility] [address] [place] [address] Dr. Zainab John EO # 0.2 103/ul Normal 0.0-0.7 [facility] Comment on above: Performed By: #### C BC #### [facility] [address] [place] [address] Dr. Zainab John Eosinophils/100 WBC (Bld) 1.1 % Normal 0.9-7.0 [facility] Comment on above: Performed By: #### C BC #### [facility] [address] [place] [address] Dr. Zainab John Erythrocyte distribution width (RBC) [Ratio] 12.9 % Normal 11.0-15.0 [facility] Comment on above: Performed By: #### C BC #### [facility] [address] [place] [address] Dr. Zainab John Hematocrit (Bld) [Volume fraction] 32.9 % Critically low 36.0-48.0 [facility] Comment on above: Performed By: #### C BC #### [facility] [address] [place] [address] Dr. Zainab John Hemoglobin (Bld) [Mass/Vol] 11.3 g/dL Critically low 12.0-16.0 [facility] Comment on above: Performed By: #### C BC #### [facility] [address] [place] [address] Dr. Zainab John IG # 0.07 10e3/ul Critically high 0.00-0.03 [facility] Comment on above: Performed By: #### C BC #### [facility] [address] [place] [address] Dr. Zainab John IG % 0.5 % Normal 0.0-0.5 [facility] Comment on above: Performed By: #### C BC #### [facility] [address] [place] [address] Dr. Zainab John LYMPH # 2.8 103/ul Normal 1.2-3.8 [facility] Comment on above: Performed By: #### C BC #### [facility] [address] [place] [address] Dr. Zainab John Lymphocytes/100 WBC (Bld) 21.5 % Normal 20.5-60.0 [facility] Comment on above: Performed By: #### C BC #### [facility] [address] [place] [address] Dr. Zainab John MANUAL DIFF REQ NO Normal [facility] Comment on above: Performed By: #### C BC #### [facility] [address] [place] [address] Dr. Zainab John MCH (RBC) [Entitic mass] 29.9 pg Normal 26.7-34.0 [facility] Comment on above: Performed By: #### C BC #### [facility] [address] [place] [address] Dr. Zainab John MCHC (RBC) [Mass/Vol] 34.3 g/dL Normal 29.9-35.2 [facility] Comment on above: Performed By: #### C BC #### [facility] [address] [place] [address] Dr. Zainab John MCV (RBC) [Entitic vol] 87.0 fL Normal 81.0-99.0 [facility] Comment on above: Performed By: #### C BC #### [facility] [address] [place] [address] Dr. Zainab John MONO # 0.9 103/ul Critically high 0.3-0.8 [facility] Comment on above: Performed By: #### C BC #### [facility] [address] [place] [address] Dr. Zainab John Monocytes/100 WBC (Bld) 6.5 % Normal 1.7-12.0 [facility] Comment on above: Performed By: #### C BC #### [facility] [address] [place] [address] Dr. Zainab John NEUT # 9.3 103/ul Critically high 1.4-6.5 [facility] Comment on above: Performed By: #### C BC #### [facility] [address] [place] [address] Dr. Zainab John Neutrophils/100 WBC (Bld) 70.1 % Normal 43.0-75.0 [facility] Comment on above: Performed By: #### C BC #### [facility] [address] [address] [address] Zainab John Platelet mean volume (Bld) [Entitic vol] 10.1 fL Normal 9.5-13.5 [facility] Comment on above: Performed By: #### C BC #### [facility] [address] [address] [address] Zainab John PLT 271 103/ul Normal 150-450 [facility] Comment on above: Performed By: #### C BC #### [facility] [address] [address] [address] Zainab John RBC 3.78 106/ul Critically low 4.20-5.40 [facility] Comment on above: Performed By: #### C BC #### [facility] [address] [address] [address] Zainab John WBC 13.2 103/ul Critically high 4.0-11.0 [facility] Comment on above: Performed By: #### C BC #### [facility] [address] [address] [address] Zainab John Covid-19 PCR ([facility])on SARS-CoV-2 (COVID-19) RNA PAOLA+probe Ql (Unsp spec) Not detected Normal NOT DETECTED [facility] Comment on above: Result Comment: When diagnostic testing is negative, the possibility of a false negative should be considered in the context of a patient's recent exposures and the presence of clinical signs and symptoms consistent with SARS-CoV-2. This test is not yet approved or cleared by the [place] FDA. When there are no FDA-approved or cleared tests available, and other criteria are met, FDA can make tests available under an emergency access mechanism called an Emergency Use Authorization (EUA). The EUA for this test is supported by the Pool Coordinator of Health and Human Service's declaration that circumstances exist to justify the emergency use of in vitro diagnostics for the detection and/or diagnosis of the virus that causes COVID-19. This EUA will remain in effect for the duration of the COVID-19 declaration justifying emergency of IVDs, unless it is terminated or revoked by the FDA (after which the test may no longer be used). Performed By: #### C VDTBH #### [facility] [address] [place] [address] Dr. Zainab John DRUG SCREEN RAPID (URINE)on 02-09-2022 AMP Negative Normal NEGATIVE [facility] Comment on above: Performed By: #### D RUGRPD #### [facility] [address] [place] [address] Dr. Zainab John BAR Negative Normal NEGATIVE [facility] Comment on above: Performed By: #### D RUGRPD #### [facility] [address] [place] [address] Dr. Zainab John BUP Negative Normal NEGATIVE [facility] Comment on above: Performed By: #### D RUGRPD #### [facility] [address] [place] [address] Dr. Zainab John BZO Negative Normal NEGATIVE [facility] Comment on above: Performed By: #### D RUGRPD #### [facility] [address] [place] [address] Dr. Zainab John BRISA Negative Normal NEGATIVE [facility] Comment on above: Performed By: #### D RUGRPD #### [facility] [address] [place] [address] Dr. Zainab John CUT-OFFS SEE BELOW Normal [facility] Comment on above: Result Comment: AMP (Amphetamine): 500ng/mL, BAR (Barbituates): 200 ng/mL, BZO (Benzodiazepines): 150 ng/mL, BUP (Buprenorphine): 10 ng/mL, BRISA (Cocaine): 150 ng/mL, mAMP (Methamphetamine): 500 ng/mL, MTD (Methadone): 200 ng/mL, OPI (Opiates): 100 ng/mL, OXY (Oxycodone): 100 ng/mL, PCP (Phencyclidine): 25 ng/mL, PPX (Propoxyphene): 300 ng/mL, THC (Cannabinoids): 50 ng/mL, TCA (Trycyclic Antidepressants): 300 ng/mL Performed By: #### D RUGRPD #### [facility] [address] [place] [address] Dr. Zainab John DRUG CUT HEADER DRUG CLASS TEST SYSTEM CUT-OFF CONCENTRATIONS ARE FOLLOWS: Normal [facility] Comment on above: Performed By: #### D RUGRPD #### [facility] [address] [place] [address] Dr. Zainab John mAMP Negative Normal NEGATIVE [facility] Comment on above: Performed By: #### D RUGRPD #### [facility] [address] [place] [address] Dr. Zainab John MTD Negative Normal NEGATIVE [facility] Comment on above: Performed By: #### D RUGRPD #### [facility] [address] [place] [address] Dr. Zainab John OPI Negative Normal NEGATIVE [facility] Comment on above: Performed By: #### D RUGRPD #### [facility] [address] [place] [address] Dr. Zainab John OXY Negative Normal NEGATIVE [facility] Comment on above: Performed By: #### D RUGRPD #### [facility] [address] [place] [address] Dr. Zainab John PCP Negative Normal NEGATIVE [facility] Comment on above: Performed By: #### D RUGRPD #### [facility] [address] [place] [address] Dr. Zainab John PPX Negative Normal NEGATIVE [facility] Comment on above: Performed By: #### D RUGRPD #### [facility] [address] [place] [address] Dr. Zainab John TCA Negative Normal NEGATIVE [facility] Comment on above: Performed By: #### D RUGRPD #### [facility] [address] [place] [address] Dr. Zainab John THC Negative Normal NEGATIVE [facility] Comment on above: Performed By: #### D RUGRPD #### [facility] [address] [place] [address] Dr. Zainab John TYPE AND SCREENon 05-02-2022 TYPE AND SCREEN Antibody Screen NEGATIVE ABO Rh Typing O Rh Positive Blood Bank Notes performed by ANTONIO Otto [facility] Comment on above: Performed By: #### T NS #### [facility] [address] [place] [address] Dr. Zainab John US PREG BIOPHY W NON STRESSo n 2022 US PREG BIOPHY W NON STRESS EXAMINATION: US PREG BIOPHY W NON STRESS HISTORY: Large for gestation age fetus COMPARISON: No relevant comparison available. TECHNIQUE: Ultrasound biophysical profile was performed in the radiology department. FINDINGS: BREATHING MOVEMENTS: 2.0 GROSS BODY MOVEMENTS: 2.0 TONE: 2.0 QUALITATIVE AMNIOTIC FLUID VOLUME: 2.0 PRESENTATION: CEPHALIC HEART RATE: 147.7 bpm H.B./min AMNIOTIC FLUID VOLUME: 16.9 cm cm GESTATIONAL AGE: 38 weeks 4 days CONCLUSION: Total biophysical profile score: 8.0 Electronically authenticated by: JOLANTA REYNOLDS Date: 2022 16:[address] [facility] Vital Signs Date Time Vital Sign Value Performing Clinician Facility 01-13-2024 13:190400 Body height 168.1 cm Gissel Oliveira APRN-WINDOW TREATMENT INSTALLER Work Phone: [facility] 01-13-2024 13:19-0400 Body mass index (BMI) [Ratio] 39.81 kg/m2 Gissel Oliveira APRN-WINDOW TREATMENT INSTALLER Work Phone: [facility] 01-13-2024 13:040 Body temperature 98.49 [degF] Gissel Oliveira APRNPamelaWINDOW TREATMENT INSTALLER Work Phone: [facility] 01-13-2024 13:19040 Body weight 112.49 kg Gissel Oliveira PHOTOGRAPHIC LITHOGRAPHER-WINDOW TREATMENT INSTALLER Work Phone: [facility] 01-13-2024 13:19040 Diastolic blood pressure 88 mm[Hg] Gissel Oliveira APRN-WINDOW TREATMENT INSTALLER Work Phone: [facility] 01-13-2024 13:19-0400 Heart rate 88 /min Gissel Oliveira APRN-WINDOW TREATMENT INSTALLER Work Phone: [facility] 01-13-2024 13:19-0400 Respiratory rate 20 /min Gissel Oliveira PHOTOGRAPHIC LITHOGRAPHER-WINDOW TREATMENT INSTALLER Work Phone: [employer] 01-13-2024 13:190400 SaO2% (BldA) [Mass fraction] 98 % Gissel Oliveira PHOTOGRAPHIC LITHOGRAPHER-WINDOW TREATMENT INSTALLER Work Phone: [employer] 01-13-2024 13:0400 Systolic blood pressure 150 mm[Hg] Gissel Oliveira PHOTOGRAPHIC LITHOGRAPHER-WINDOW TREATMENT INSTALLER [facility] Encounters Encounter Date Encounter Type Care Provider Facility Start: 01-16-2024 Refill Gissel Oliveira PHOTOGRAPHIC LITHOGRAPHER-WINDOW TREATMENT INSTALLER [facility] Comment on above: Reactive depression Start: 01-13-2024 End: 01-13-2024 Initial preventive medicine new pt age 18-39yrs Gissel Oliveira PHOTOGRAPHIC LITHOGRAPHER-WINDOW TREATMENT INSTALLER Work Phone: [facility] Internal Medicine - Family Medicine Comment on above: Encounter for [facility] ss examination (Primary Dx); Essential hypertension; Encounter for surveillance of transdermal patch hormonal contraceptive device; Subcutaneous nodule of right lower extremity; Consultation for female sterilization; Reactive depression; Class 2 obesity due to excess calories without serious comorbidity with body mass index (BMI) of 39.0 to 39.9 in adult Start: 01-13-2024 End: 01-13-2024 Patient encounter status Gissel Oliveira PHOTOGRAPHIC LITHOGRAPHER-WINDOW TREATMENT INSTALLER Work Phone: [employer] Work Phone: Start: 01-27-2023 End: 01-28-2023 ambulatory JOSE ROBERTO BOBBY . Facility:[facility] Start: 02-09-2022 End: 02-13-2022 Evaluation and management of inpatient DR FLACO FORD . Facility:[facility] Start: 2022 End: [address] SHIVAM REBOLLEDO Facility:[facility] Procedures Date Procedure Procedure Detail Performing Clinician Start: 01-13-2024 Adult depression scr eening assessment Gissel Oliveira PHOTOGRAPHIC LITHOGRAPHER-WINDOW TREATMENT INSTALLER Work Phone: Start: 02-09-2022 Delivery of Products of Conception, External Approach DR SHIVAM REBOLLEDO Start: 02-09-2022 Drainage of Amniotic Fluid, Therapeutic from Products of Conception, Via Natural or Artificial Opening DR SHIVAM REBOLLEDO Start: 02-09-2022 Introduction of Othe r Hormone into Peripheral Vein, Percutaneous Approach DR SHIVAM REBOLLEDO Plan of Treatment Date Care Activity Detail Author Start: 03-26-2026 DTaP,Tdap and Td Vac cines (7 - Td or Tdap) DTaP,Tdap and Td Vaccines (7 - Td or Tdap) [facility] Start: 01-12-2025 Adult BMI Screening Adult BMI Screen ing [facility] Start: 01-12-2025 Depression Screening Depression Scre ening [facility] Start: 01-12-2025 Tobacco Screening Tobacco Screening [facility] Start: 06-11-2024 Influenza vaccination Influenza Vacc ine [facility] Start: 03-07-2024 End: 03-07-2024 Patient encounter procedure 03/07/2024 11:00 AM EDT Appointment [facility] [address] [place] [id number] [facility] Start: 01-31-2024 End: 01-31-2024 Patient encounter procedure 01/31/2024 10:00 AM EDT Office Visit [facility] Obst[facility]/Gynecology [address] [id number] Betina aSravia MD [address] [address] [facility] Obstetrics/Gynecolog y Start: 01-13-2024 End: 01-12-2025 US Extremity musculoskeletal tissue Ultrasound extremity non vascular complete right for [facility] Imaging Routine Subcutaneous Nodule Of Right Lower Extremity Expected: 01/13/2024, Expires: 01/12/2025 [facility] Work Phone: Comment on above: Expected: 01/13/2024 , Expires: 01/12/2025 Start: 2014 Screening for malign ant neoplasm of cervix Pap Smear [facility] Start: 2011 Adult BMI Follow Up Plan Adult BMI Follow Up Plan [facility] Immunizations Immunization Date Immunization Notes Care Provider Fa lobo 03-26-2016 tetanus toxoid, redu sally diphtheria toxoid, and acellular pertussis vaccine, adsorbed Gissel Oliveira PHOTOGRAPHIC LITHOGRAPHER-WINDOW TREATMENT INSTALLER Work Phone: [facility] 08-16-2012 influenza virus vaccine, whole virus Gissel Oliveira PHOTOGRAPHIC LITHOGRAPHER-WINDOW TREATMENT INSTALLER Work Phone: [facility] 08-16-2012 influenza virus vaccine, unspecified formulation Gissel Oliveira PHOTOGRAPHIC LITHOGRAPHER-WINDOW TREATMENT INSTALLER Work Phone: [facility] 02-22-1998 diphtheria, tetanus toxoids and acellular pertussis vaccine, unspecified formulation Gissel Oliveira PHOTOGRAPHIC LITHOGRAPHER-WINDOW TREATMENT INSTALLER Work Phone: [facility] 02-22-1998 measles, mumps and rubella virus vaccine Gissel Oliveira PHOTOGRAPHIC LITHOGRAPHER-WINDOW TREATMENT INSTALLER Work Phone: [facility] 02-22-1998 trivalent poliovirus vaccine, live, oral Gissel Oliveira PHOTOGRAPHIC LITHOGRAPHER-WINDOW TREATMENT INSTALLER Work Phone: [facility] 04-26-1995 diphtheria, tetanus toxoids and acellular pertussis vaccine, unspecified formulation Gissel Oliveira PHOTOGRAPHIC LITHOGRAPHER-WINDOW TREATMENT INSTALLER Work Phone: [facility] 04-26-1995 haemophilus influenz ae type b vaccine, conjugate unspecified formulation Gissel Oliveira PHOTOGRAPHIC LITHOGRAPHER-WINDOW TREATMENT INSTALLER Work Phone: [facility] 04-26-1995 measles, mumps and rubella virus vaccine Gissel Oliveira PHOTOGRAPHIC LITHOGRAPHER-WINDOW TREATMENT INSTALLER Work Phone: [facility] 04-26-1995 trivalent poliovirus vaccine, live, oral Gissel Oliveira PHOTOGRAPHIC LITHOGRAPHER-WINDOW TREATMENT INSTALLER Work Phone: [facility] 1993 diphtheria, tetanus toxoids and pertussis vaccine Gissel Oliveira PHOTOGRAPHIC LITHOGRAPHER-WINDOW TREATMENT INSTALLER Work Phone: [facility] 1993 haemophilus influenz ae type b vaccine, conjugate unspecified formulation Gissel Oliveira PHOTOGRAPHIC LITHOGRAPHER-WINDOW TREATMENT INSTALLER Work Phone: [facility] 1993 hepatitis B vaccine, pediatric or pediatric/adolescent dosage Gissel Oliveira PHOTOGRAPHIC LITHOGRAPHER-WINDOW TREATMENT INSTALLER Work Phone: [facility] 1993 diphtheria, tetanus toxoids and pertussis vaccine Gissel Oliveira PHOTOGRAPHIC LITHOGRAPHER-WINDOW TREATMENT INSTALLER Work Phone: [facility] 1993 haemophilus influenz ae type b vaccine, conjugate unspecified formulation Gissel Oliveira PHOTOGRAPHIC LITHOGRAPHER-WINDOW TREATMENT INSTALLER Work Phone: [facility] 1993 trivalent poliovirus vaccine, live, oral Gissel Oliveira PHOTOGRAPHIC LITHOGRAPHER-WINDOW TREATMENT INSTALLER Work Phone: [facility] 1993 diphtheria, tetanus toxoids and pertussis vaccine Gissel Oliveira PHOTOGRAPHIC LITHOGRAPHER-WINDOW TREATMENT INSTALLER Work Phone: [facility] 1993 haemophilus influenz ae type b vaccine, conjugate unspecified formulation Gissel Oliveira PHOTOGRAPHIC LITHOGRAPHER-WINDOW TREATMENT INSTALLER Work Phone: [facility] 1993 trivalent poliovirus vaccine, live, oral Gissel Oliveira PHOTOGRAPHIC LITHOGRAPHER-WINDOW TREATMENT INSTALLER Work Phone: [facility] 1993 hepatitis B vaccine, pediatric or pediatric/adolescent dosage Gissel Oliveira PHOTOGRAPHIC LITHOGRAPHER-WINDOW TREATMENT INSTALLER Work Phone: [facility] 1993 hepatitis B vaccine, pediatric or pediatric/adolescent dosage Gissel Oliveira PHOTOGRAPHIC LITHOGRAPHER-WINDOW TREATMENT INSTALLER Work Phone: [facility] Payers Date Payer Category Payer Medicaid [employer] [place] [id number] 2023-Present [phone] [address] [place] [address] [id number] 1993 Unknown [id number] 1993 Unknown [id number] 1993 Unknown [id number] 1959 Unknown [id number] 1959 Unknown [id number] Social History Date Type Detail Facility Start: 01-13-2024 Tobacco smoking stat [facility] Never smoked tobacco [facility] Start: 01-13-2024 Tobacco use and exposure Smokeless tobacco non-user [facility] Start: 01-13-2024 Alcohol intake Ex-drinker (finding) [facility] Start: 11-21-2020 End: 01-13-2024 History of Social function [facility] Start: 11-21-2020 End: 01-13-2024 Tobacco use panel [facility] Adolescent depressio n screening assessment 11 [facility] Start: 1995 Sex Assigned At Not on file P [facility] History of Present illness Narrative 01-13-2024 Amy Kuns, PHOTOGRAPHIC LITHOGRAPHER-WINDOW TREATMENT INSTALLER - 01/13/2024 1:00 PM EDT Note Date & Type Note Facility 01-13-2024 History of Present illness Narrative Images from the original note were not included. Subjective Patient ID: Judie Rodriguez is a 28 y.o. female. Here today to get established She is not currently using anything for control except condoms as she was seeing Dr Ford but he no longer takes her insurance Her periods are now very heavy with lots of cramping and she would like to get back on the patch She has 3 children, the youngest of which is 2 years old and is interested in getting a tubal ligation Her last pap was 2 years ago and was normal, she is currently in a relationship of 10 years and feels very settled in this, they are going to be purchasing a home together She was on blood pressure medication as well but she has been off of that as well since she hasn't been able to see Dr Ford - she needs to get back on this She had previously been on celexa and it helped with her mood, lately she has been crying easily, been very [place] When asked how well celexa worked she states it was helpful but it didn't manage all of her symptoms she still felt some irritability and she was in the midst of adjustments when her insurance changed and she couldn't see Dr Ford anymore She also is complaining of some lumps in the medial aspect of her right thigh that are very painful to touch since her last child They are never prominent that you can see them, never red, but when touched they are tender and painful New Patient Associated symptoms include myalgias. The following portions of the patient's history were reviewed and updated as appropriate: allergies, current medications, past family history, past medical history, past social history, past surgical history, problem list, and medication reconciliation was completed including current medication and post discharge medication. Review of Systems Constitutional: Negative. HENT: Negative. Eyes: Negative. Respiratory: Negative. Cardiovascular: Negative. Gastrointestinal: Negative. Endocrine: Negative. Genitourinary: Positive for menstrual problem. Musculoskeletal: Positive for myalgias. Skin: Negative. Allergic/Immunologic: Negative. Neurological: Negative. Psychiatric/Behavioral: Positive for agitation and dysphoric mood. Objective Physical Exam Vitals and nursing note reviewed. Constitutional: Appearance: She is obese. HENT: Head: Normocephalic. Eyes: Conjunctiva/sclera: Conjunctivae normal. Cardiovascular: Rate and Rhythm: Normal rate and regular rhythm. Pulses: Normal pulses. Heart sounds: Normal heart sounds. No murmur heard. Pulmonary: Effort: Pulmonary effort is normal. No respiratory distress. Breath sounds: Normal breath sounds. Musculoskeletal: Cervical back: Neck supple. No tenderness. Right lower leg: No edema. Left lower leg: No edema. Legs: Comments: In the groove of mid thigh there is a tender cord that has multiple small tender nodules along its course they are firm but mobile In the calf area there is a similar tender area but unable to define any nodularity Lymphadenopathy: Cervical: No cervical adenopathy. Skin: General: Skin is warm and dry. Capillary Refill: Capillary refill takes less than 2 seconds. Neurological: Mental Status: She is alert and oriented to person, place, and time. Psychiatric: Attention and Perception: Attention normal. Mood and Affect: Mood is depressed. Affect is tearful. Speech: Speech normal. Behavior: Behavior normal. Thought Content: Thought content normal. Cognition and Memory: Cognition normal. Judgment: Judgment normal. Comments: Tearful when discussing current mood swings Assessment/Plan Judie was seen today for new patient. Diagnoses and all orders for this visit: Encounter for wellness examination Essential hypertension - labetaloL (NORMODYNE) 200 mg tablet; Take 1 tablet (200 mg total) by mouth in the morning and 1 tablet (200 mg total) before bedtime. Encounter for surveillance of transdermal patch hormonal contraceptive device - norelgestromin-ethin.estradioL (XULANE) 150-35 mcg/24 hr; Place 1 patch on the skin once a week. Subcutaneous nodule of right lower extremity - Ultrasound extremity non vascular complete right for MSK; Future Consultation for female sterilization - [facility] Physician's FOOD SELECTOR - [facility] - [place], [place] - Consult; Future Reactive depression - DULoxetine (CYMBALTA) 30 mg capsule; Take 1 capsule (30 mg total) by mouth in the morning for 14 days. - DULoxetine (CYMBALTA) 60 mg capsule; Take 1 capsule (60 mg total) by mouth in the morning. Class 2 obesity due to excess calories without serious comorbidity with body mass index (BMI) of 39.0 to 39.9 in adult Will obtain her pap results from Dr Ford Her blood pressure is elevated today initially and on recheck was still 140/90 She did have high blood pressure associated with her 3 pregnancies and it persisted following her deliveries Will resume the labetalol which worked well in the past and then she may resume her contraceptive patch Will recheck this in one month She is depressed and has had a somewhat adequate response to celexa in the past but would like something different, will try duloxetine at 30 mg for two weeks then titrate to 60 mg and see her back in one month Unsure what the nodules are on the medial aspect of the thigh, will get an ultrasound for further evaluation She does desire a tubal ligation, will make a referral for this Ultimately we will need to address her weight - deferred that for today MARY Rodriguez 01/13/24 1443 documented in this encounter [facility] Evaluation note Note Date & Type Note Facility Evaluation note Diagnosis Encounter for wellness examination- Primary Essential hypertension Unspecified essential hypertension Encounter for surveillance of transdermal patch hormonal contraceptive device Subcutaneous nodule of right lower extremity Consultation for female sterilization Reactive depression Class 2 obesity due to excess calories without serious comorbidity with body mass index (BMI) of 39.0 to 39.9 in adult documented in this encounter [facility] Evaluation note Note Date & Type Note Facility Evaluation note Diagnosis Reactive depression documented in this encounter [facility] Instructions Note Date & Type Note Facility Instructions Not on filedocumented in this en counter [facility] Instructions Note Date & Type Note Facility Instructions Not on filedocumented in this en counter [facility] Reason for referral (narrative) Consultation (Routine) - Authorized Note Date & Type Note Facility Reason for referral (narrati ve) Specialty Diagnoses / Procedures Referred By Karsten t Referred To Contact Obstetrics and Gynecology Diagnoses Consultation for female sterilization Gissel Oliveira APRN-FNP [address] [place] [address] [facility] [address] [place] [address] Referral ID Status Reason Start Date Expiration Date Visits Requested Visits Authorized [id number] Authorized Specialty Services Required 01/13/2024 01/12/2025 1 1 [facility] Summary Purpose Family History No Family History Records Found Advance Directives No Advanced Directives Records Found Additional Source Comments INFORMATION SOURCE (unrecogn ized section and content) DATE CREATED AUTHOR 01/31/2023 [facility] Reason for Visit (unrecogniz ed section and content) Reason Comments New Patient Lumps in legs Reason Comments Med Refill Care Teams (unrecognized sec tion and content) Track Grinder Operator Relationship Specialty Start Date End Date Gissel Oliveira APRN-FNP [address] [place] [address] PCP - General Internal Medicine 01/13/24 Track Grinder Operator Relationship Specialty Start Date End Date Gissel Oliveira, PHOTOGRAPHIC LITHOGRAPHER-WINDOW TREATMENT INSTALLER [address] [id number] PCP - General Internal Medicine 01/13/24 FOR RECORDS PERTAINING TO PATIENTS WHO ARE OR HAVE BEEN ENROLLED IN A CHEMICAL DEPENDENCY/SUBSTANCEABUSE PROGRAM, SOME INFORMATION MAY BE OMITTED. This clinical summary was aggregated from multiple sources. Caution should be exercised in using it in the provision of clinical care. This summary normalizes information from multiple sources, and as a consequence, information in this document may materially change the coding, format and clinical context of patient data. In addition, data may be omitted in some cases. CLINICAL DECISIONS SHOULD BE BASED ON THE PRIMARY CLINICAL RECORDS. [employer] provides no warranty or guarantee of the accuracy or completeness of information in this document.
[2024-01-22 19:48] VITALS: BP 188/94; PULSE 102; TEMP 36.7; O2SAT 99; BMI 40.4
--- NOTE | 2024-01-22 19:53 | XR_ITS ---
The [address] [address] Patient Name: JUDIE RODRIGUEZ MRN: [id number] date: 1995 Sex: F Assigned Patient Location: ER Current Patient Location: ER Accession/Order Number: [id number] Exam Date: 01/22/2024 20:12 Report Date: 01/22/2024 20:55 At the request of: KHADIJAH MENENDEZ Procedure: XR ankle LT min 3V EXAM: XR ankle LT min 3V HISTORY: FALL, MAY TAKE FROM LOBBY COMPARISON: None. TECHNIQUE: 3 views left ankle FINDINGS: The tibiotalar joint is congruent without large osteochondral defect. No acute fracture or aggressive osseous abnormality. No joint effusion. Soft tissue swelling overlies the medial malleolus. XR/XR ankle LT min 3V IMPRESSION: No acute osseous abnormality of the left ankle. Electronically authenticated by: HERMINIO ENGLE Date: 01/22/2024 20:55
--- NOTE | 2024-01-22 20:27 | ED_ITS ---
HPI HPI - Extremity Injury (Lower) General Chief Complaint: Extremity Injury, Lower Stated Complaint: LOWER EXTREMITY INJURY Time Seen by Provider: 01/22/24 20:24 Source: patient Mode of arrival: Wheelchair Limitations: no limitations History of Present Illness HPI Narrative: 28-year-old female presents to the emergency department for pain in her left ankle. An hour ago she was chasing her toddler and slipped on some steps because she was wearing slippers and she injured the lateral aspect of her left ankle. No other injury was sustained, she did not hit her head. The pain is severe. Related Data Previous Rx's ?Medication ?Instructions ?Recorded dicyclomine 20 mg tablet 20 mg PO TID PRN abdominal pain #7 10/29/23 tabs ondansetron 4 mg disintegrating 4 mg PO Q4H PRN nausea and 10/29/23 tablet vomiting 3 days #6 tabs Allergies Allergy/AdvReac Type Severity Reaction Status Date / Time No Known Drug Allergies Allergy Verified 01/22/24 19:48 Opioid HPI Opioid Management Most Recent Pain and Opioid Data: Last Pain Scale 7 01/22/24 20:11 Review of Systems ROS Narrative A ten point review of systems is negative except as noted above. PFSH PFSH Social History Smoking status: Current every day smoker Exam Narrative Exam Narrative: Nurses note and vital signs reviewed and patient is not hypoxic. General: The patient appears well and in no apparent distress. Patient is resting comfortably on cart. Skin: Warm, dry, no pallor noted. There is no rash noted. Head: Normocephalic, atraumatic Eye: Normal conjunctiva, no drainage Ears, Nose, Mouth, and Throat: oral mucosa is moist. Nares patent. Cardiovascular: Regular Rate and Rhythm Respiratory: Patient is in no distress, no accessory muscle use, lungs are clear to auscultation, no wheezing, rales or rhonchi Back: non-tender GI: Soft and nontender Musculoskeletal: No tenderness in the left foot including the fifth metatarsal area. She has some tenderness and swelling over the left lateral malleolar area and the skin is intact. Neurological: A&O, normal speech Psychiatric: Cooperative Constitutional Vital Signs, click to edit/add: Last Vital Signs Temp 98.1 F 01/22/24 19:48 Pulse 102 H 01/22/24 19:48 Resp 18 01/22/24 19:48 BP 188/94 H 01/22/24 19:48 Pulse Ox 99 01/22/24 19:48 O2 Del Method Room Air 01/22/24 19:48 Course Vital Signs Vital signs: Vital Signs Temperature 98.1 F 01/22/24 19:48 Pulse Rate 102 H 01/22/24 19:48 Respiratory Rate 18 01/22/24 19:48 Blood Pressure 188/94 H 01/22/24 19:48 Pulse Oximetry 99 01/22/24 19:48 Oxygen Delivery Method Room Air 01/22/24 19:48 Temperature 98.1 F 01/22/24 19:48 Pulse Rate 102 H 01/22/24 19:48 Respiratory Rate 18 01/22/24 19:48 Blood Pressure 188/94 H 01/22/24 19:48 Pulse Oximetry 99 01/22/24 19:48 Oxygen Delivery Method Room Air 01/22/24 19:48 MDM - Extremity Injury (Lower) MDM Narrative Medical decision making narrative: X-rays are negative per radiologist. Sergei wrap and air splint applied, application checked by me and found to be appropriate, she is neurovascular intact. She already has crutches. Treatment diagnosis and follow-up were discussed with the patient. Differential Diagnosis Differential diagnosis: Likely ankle sprain and strain and ankle fracture Imaging Data Ankle x-ray: Radiologist's impression: ITS Impressions Ankle X-Ray 01/22/24 19:53 IMPRESSION: No acute osseous abnormality of the left ankle. Electronically authenticated by: HERMINIO ENGLE Date: 01/22/2024 20:55 Discharge Plan Discharge Stand Alone Forms: Portal Instructions Chief Complaint: Extremity Injury, Lower Clinical Impression: Left ankle sprain Patient Disposition: Home, Self-Care Time of Disposition Decision: 21:07 Condition: Good Mode of Transportation: Private Vehicle Prescriptions / Home Meds: No Action dicyclomine 20 mg tablet 20 mg PO TID PRN (Reason: abdominal pain) Qty: 7 0RF ondansetron 4 mg tablet,disintegrating 4 mg PO Q4H PRN (Reason: nausea and vomiting) 3 Days Qty: 6 0RF Print Language: Amharic Instructions: Ankle Sprain (ED) Referrals: JUANCHO DE LEON [Primary Care Provider] - 1 week
== END 2024-01-22 21:26 | disposition home or self-care (01) ==
PROVIDERS: Emergency Provider Emergency Medicine; PCP Nurse Practitioner Family
DX: S93.402A Sprain of unspecified ligament of left ankle, initial encounter (principal); W18.40XA Slipping, tripping and stumbling without falling, unspecified, initial encounter; F17.210 Nicotine dependence, cigarettes, uncomplicated
CPT/HCPCS: 73610; 99283

== ENCOUNTER 2024-05-12 20:54 | Emergency (ER) | payer OTHER, SELFPAY ==
[2024-05-12 21:02] VITALS: BP 139/82; PULSE 99; TEMP 36.7; O2SAT 97; BMI 39.2
--- OUTSIDE RECORDS SUMMARY | 2024-05-12 21:03 | XMS_ITS | CCD ---
Author Organization [facility] Care Team Providers Care Crude Unit Operator Name Role Phone FURLOFARIHA, DR SHIVAM Bautista Primary Care Unavailable DAVID SILVA Attending Unavailable RODOLFO, DR JOLANTA Grant Consulting Unavailable DAVID SILVA Admitting Unavailable TEO ., DR SAM Consulting Unavailable DAVID SILVA Consulting Unavailable KANU ., JOSE ROBERTO Attending Unavailable KANU ., JOSE ROBERTO Admitting Unavailable JUANANG, DR SHIVAM Bautista Primary Care Unavailable RICK, DR MAURICIO Killian Consulting Unavailable KANU ., JOSE ROBERTO Consulting Unavailable TEO ., DR SAM Admitting Unavailable TEO ., DR SAM Attending Unavailable JOSELO LEWIS Consulting Unavailable JUANANG, DR SHIVAM Bautista Primary Care Unavailable TEO ., DR SAM Consulting Unavailable TEO ., DR SAM Procedure Practitioner Unavail able Moises CASAS-Gissel PATTON Primary Care Provider GISSEL OLIVEIRA Referring Unavailable KUNS, ANUPAM Primary Care Unavailable JOLANTA BEY Attending Unavailable JOLANTA BEY Referring Unavailable KUNS, ANUPAM Primary Care Unavailable JOLANTA BEY Referring Unavailable KUNS, ANUPAM Primary Care Unavailable ASPEN, BETINA L Admitting Unavailable ASPEN, BETINA L Attending Unavailable KUNS, ANUPAM Primary Care Unavailable JOLANTA BEY Attending Unavailable GREGGSGISSEL Primary Care Unavailable GREGGSGISSEL Attending Unavailable GREGGS, ANUPAM Primary Care Unavailable ASPEN, BETINA L Attending Unavailable KUNS, ANUPAM Referring Unavailable KUNS, ANUPAM Primary Care Unavailable SHIVAM REBOLLEDO Attending Unavailable GREGGS, ANUPAM Referring Unavailable KUNS, ANUPAM Primary Care Unavailable ELTON HERNANDEZ Attending Unavailable MOISES, GISSEL MILLER Referring Unavailable ELTON HERNANDEZ Primary Care Unavailable ELTON HERNANDEZ Referring Unavailable ELTON HERNANDEZ Primary Care Unavailable Medications Current Medications Medication Drug Class(es) Dates [...] Discontinued Start: 01-13-2024 take 1 capsule by mo uth in the morning DULoxetine (CYMBALTA) 60 mg capsule Indications: Reactive depression Take 1 capsule (60 mg total) by mouth in the morning. 30 capsule 2 01/13/2024 Active 168 hr ethinyl estradiol 0.51715 mg/hr / norelgestromin 0.84196 mg/hr transdermal system (2 sources) Progestin, Estrogen [...] Problem Classification Problem Date Documented Date Episodic/Chronic Essential hypertension (2 sources) Essential hypertension; Translations: [Essential (primary) hypertension] Onset: 01-13-2024 01-13-2024 Chronic Hypertension complicating ; childbirth and the puerperium (2 sources) Pre-existing hypertension in obstetric context; Translations: [Unspecified pre-existing hypertension complicating , unspecified trimester] Onset: 03-12-2016 Resolved: 01-13-2024 01-13-2024 Chronic Mood disorders (3 sources) Reactive depression (situational); Translations: [Major depressive disorder, single episode, unspecified] Onset: 01-13-2024 01-13-2024 Chronic Nonmalignant breast conditions (4 sources) Unspecified lump in unspecified breast; Translations: [Unspecified lump in the right breast, lower outer quadrant] Onset: 01-27-2023 Episodic Nutritional deficiencies (2 sources) Vitamin D deficiency, unspecified; Translations: [Vitamin D deficiency, unspecified] Onset: 04-26-2024 Chronic Other hematologic conditions (2 sources) Personal history of diseases of the blood and blood-forming organs and certain disorders involving the immune mechanism; Translations: [Personal history of diseases of the blood and blood-forming organs and certain disorders involving the immune mechanism] Onset: 04-26-2024 Episodic Other nervous system disorders (1 source) Other acute postprocedural pain; Translations: [Other acute postprocedural pain] Onset: 03-13-2024 Episodic Other nervous system disorders (2 sources) Anesthesia of skin; Translations: [Anesthesia of skin] Onset: 04-26-2024 Episodic Other nervous system disorders (2 sources) Paresthesia of skin; Translations: [Paresthesia of skin] Onset: 04-26-2024 Episodic Other nervous system disorders (1 source) Numbness Onset: 04-26-2024 Episodic Other nutritional; endocrine; and metabolic disorders (1 source) Obesity caused by energy imbalance; Translations: [Other obesity due to excess calories] 01-13-2024 Chronic Other nutritional; endocrine; and metabolic disorders (1 source) Body mass index (BMI) 40.0-44.9, adult; Translations: [Body mass index (BMI) 40.0-44.9, adult] Onset: 02-21-2024 Chronic Other skin disorders (1 source) Nodule of subcutaneous tissue of right lower limb; Translations: [Localized swelling, mass and lump, right lower limb] 01-13-2024 Episodic Screening and history of mental health and substance abuse codes (3 sources) Tobacco use and exposure - finding; Translations: [Personal history of nicotine dependence] Onset: 10-29-2015 01-13-2024 Episodic Unclassified (1 source) CONTACT W/AND (SUSP) EXPOS COVID-19; Translations: [CONTACT W/AND (SUSP) EXPOS COVID-19] Onset: 02-17-2022 Unclassified (1 source) undesired fertility Onset: 03-13-2024 Unclassified (1 source) Restless Leg Onset: 04-26-2024 Unclassified (1 source) Pre-op Exam Onset: 02-28-2024 Unclassified (1 source) Tubal Consult Onset: 01-31-2024 Unclassified (1 source) New Patient Onset: 01-13-2024 Past or Other Problems Problem Classification Problem Date Documented Date Episodic/Chronic Blindness and vision defects (4 sources) Myopia; Translations: [Myopia, unspecified eye] Onset: 04-05-2017 04-05-2017 Episodic Contraceptive and procreative management (4 sources) Contraception status; Translations: [Encounter for surveillance of transdermal patch hormonal contraceptive device] Onset: 01-13-2024 01-13-2024 Episodic Hypertension complicating ; childbirth and the [...] normal] Onset: 06-04-2016 Resolved: 01-13-2024 01-13-2024 Episodic Other skin disorders (1 source) Localized swelling, mass and lump, right lower limb; Translations: [Localized swelling, mass and lump, right lower limb] Onset: 01-13-2024 Episodic Residual codes; unclassified (1 source) [...] WEEKS GESTATION OF ] Onset: 02-11-2022 Episodic Results Test Name Value Interpretation Reference Range Facil ity CBC AND AUTO DIFFon 04-26-20 24 ABSOLUTE BASOPHIL 0.1 X10E9/L Normal 0.0-0.2 [facility] Comment on above: Performed By: #### C BCA, CMP, FEPR, 60015-3, 6-4, 2132-06, 71759-0 #### [facility] ([id number]) [address], [address] [place] [address] ABSOLUTE NEUTROPHIL 5.3 X10E9/L Normal 1.5-6.6 [facility] Comment on above: Performed By: #### C BCA, CMP, FEPR, 16640-9, 2275-4, 9, 37882-8 #### [facility] ([id number]) [address], [address] [place] [address] Basophils/100 WBC (Bld) 0.8 % Normal [facility] Comment on above: Performed By: #### C BCA, CMP, FEPR, 88060-1, 2275-4, 9, 74559-0 #### [facility] ([id number]) [address], [facility] [address] [place] [address] Eosinophils (Bld) [#/Vol] 0.4 10*3/uL Normal 0.0-0.4 [facility] Comment on above: Performed By: #### C BCA, CMP, FEPR, 73511-3, 2275-4, 2132-06, 06260-8 #### [facility] ([id number]) [address], [address] [place] [address] Eosinophils/100 WBC (Bld) 4.1 % Normal [facility] Comment on above: Performed By: #### C BCA, CMP, FEPR, 20564-8, 2275-, 2132-06, 84235-5 #### [facility] ([id number]) [address], [facility] [address] [place] [address] Erythrocyte distribution width (RBC) [Ratio] 13.6 % Normal 11.5-15.0 [facility] Comment on above: Performed By: #### C BCA, CMP, FEPR, 54171-5, 2275-4, 2131-9, 91580-7 #### [facility] ([id number]) [address], [address] [place] [address] Hematocrit (Bld) [Volume fraction] 39.2 % Normal 35-47 [facility] Comment on above: Performed By: #### C BCA, CMP, FEPR, 23858-6, 2275-4, 2132-06, 10033-6 #### [facility] ([id number]) [address], [address] [place] [address] Hemoglobin (Bld) [Mass/Vol] 13.4 g/dL Normal 11.7-15.5 [facility] Comment on above: Performed By: #### C BCA, CMP, FEPR, 06731-2, 2275-4, 9, 50501-2 #### [facility] ([id number]) [address], [address] [place] [address] Lymphocytes (Bld) [#/Vol] 2.7 10*3/uL Normal 1.0-3.5 [facility] Comment on above: Performed By: #### C BCA, CMP, FEPR, 72526-6, 2275-, 2132-06, 12134-9 #### [facility] ([id number]) [address], [address] [place] [address] Lymphocytes/100 WBC (Bld) 30.3 % Normal [facility] Comment on above: Performed By: #### C BCA, CMP, FEPR, , 2275-, 2132-06, 84800-0 #### [facility] ([id number]) [address], [address] [place] [address] MCH (RBC) [Entitic mass] 31.4 pg Normal 27-34 [facility] Comment on above: Performed By: #### C BCA, CMP, FEPR, 83825-7, 2275-4, 2132-06, 12940-1 #### [facility] ([id number]) [address], [address] [place] [address] MCHC (RBC) [Mass/Vol] 34.1 g/dL Normal 32-36 [facility] Comment on above: Performed By: #### C BCA, CMP, FEPR, 59538-3, 2275-, 2132-06, 81638-5 #### [facility] ([id number]) [address], [address] [place] [address] MCV (RBC) [Entitic vol] 92 fL Normal 80-100 [facility] Comment on above: Performed By: #### C BCA, CMP, FEPR, 46858-0, 6-4, 2131-9, 79042-3 #### [facility] ([id number]) [address], [address] [place] [address] Monocytes (Bld) [#/Vol] 0.4 10*3/uL Normal 0-0.9 [facility] Comment on above: Performed By: #### C BCA, CMP, FEPR, 56230-7, 2275-, 2132-06, 31333-3 #### [facility] ([id number]) [address], [address] [place] [address] Monocytes/100 WBC (Bld) 4.1 % Normal [facility] Comment on above: Performed By: #### C BCA, CMP, FEPR, 73548-9, 2275-, 2132-06, 78414-7 #### [facility] ([id number]) [address], [address] [place] [address] Neutrophils/100 WBC (Bld) 60.7 % Normal [facility] Comment on above: Performed By: #### C BCA, CMP, FEPR, 75540-6, 2275-4, 2132-06, 17869-7 #### [facility] ([id number]) [address], [address] [place] [address] Platelet mean volume (Bld) [Entitic vol] 8.9 fL Normal 7-12 [facility] Comment on above: Performed By: #### C BCA, CMP, FEPR, 04723-0, 2275-4, 9, 42112-4 #### [facility] ([id number]) [address], [address] [place] [address] Platelets (Bld) [#/Vol] 266 10*3/uL Normal 150-450 [facility] Comment on above: Performed By: #### C BCA, CMP, FEPR, 84712-9, 6-4, 2131-9, 24562-6 #### [facility] ([id number]) [address], [address] [place] [address] RBC COUNT 4.26 X10E12/L Normal 3.80-5.20 [facility] Comment on above: Performed By: #### C BCA, CMP, FEPR, 40129-6, 2275-4, 2131-9, 04966-4 #### [facility] ([id number]) [address], [address] [place] [address] WBC (Bld) [#/Vol] 8.8 10*3/uL Normal 4.0-11.0 [facility] Comment on above: Performed By: #### C BCA, CMP, FEPR, 20524-3, 2275-4, 2131-9, 43405-0 #### [facility] ([id number]) [address], [address] [place] [address] COMPREHENSIVE METABOLIC PANE [facility] 04-26-2024 Albumin [Mass/Vol] 4.4 g/dL Normal 3.2-5.3 [facility] Comment on above: Performed By: #### C BCA, CMP, FEPR, 12425-6, 2275-4, 2131-9, 87084-2 #### [facility] ([id number]) [address], [address] [place] [address] ALP [Catalytic activity/Vol] 71 U/L Normal 39-130 [facility] Comment on above: Performed By: #### C BCA, CMP, FEPR, 32923-4, 6-4, 2131-9, 24191-5 #### [facility] ([id number]) [address], [address] [place] [address] ALT [Catalytic activity/Vol] 145 U/L High 0-31 [facility] Comment on above: Performed By: #### C BCA, CMP, FEPR, 15151-8, 2275-, 2132-06, 73137-7 #### [facility] ([id number]) [address], [address] [place] [address] Anion gap [Moles/Vol] 11 mmol/L Normal 5-15 [facility] Comment on above: Performed By: #### C BCA, CMP, FEPR, , 2276-01, 2132-06, 44354-1 #### [facility] ([id number]) [address], [address] [place] [address] AST [Catalytic activity/Vol] 157 U/L High 0-41 [facility] Comment on above: Performed By: #### C BCA, CMP, FEPR, , 2276-01, 2132-06, 37044-1 #### [facility] ([id number]) [address], [address] [place] [address] Bilirubin [Mass/Vol] 0.3 mg/dL Normal 0.3-1.2 [facility] Comment on above: Performed By: #### C BCA, CMP, FEPR, , 2276-01, 2132-06, 04363-4 #### [facility] ([id number]) [address], [address] [place] [address] Calcium [Mass/Vol] 9.7 mg/dL Normal 8.5-10.5 [facility] Comment on above: Performed By: #### C BCA, CMP, FEPR, , 2276-01, 2132-06, 54220-2 #### [facility] ([id number]) [address], [address] [place] [address] Chloride [Moles/Vol] 104 mmol/L Normal 98-109 [facility] Comment on above: Performed By: #### C BCA, CMP, FEPR, 26648-2, 6-4, 2131-9, 76502-5 #### [facility] ([id number]) [address], [address] [place] [address] CO2 [Moles/Vol] 23 mmol/L Normal 22-32 [facility] Comment on above: Performed By: #### C BCA, CMP, FEPR, 29397-5, 6-4, 2131-9, 96443-5 #### [facility] ([id number]) [address] [facility] [address] [place] [address] Creatinine [Mass/Vol] 0.56 mg/dL Normal 0.40-1.00 [facility] Comment on above: Result Comment: METH OD TRACEABLE TO IDMS STANDARD Performed By: #### C BCA, CMP, FEPR, 50020-7, 2275-4, 9, 79535-0 #### [facility] ([id number]) [address], [facility] [address] [place] [address] eGFR (CKD-EPI) NON-RACE DEPENDENT >90 Normal >59 [facility] Comment on above: Result Comment: Reported eGFR is based on the CKD-EPI 2020 equation that does not use a race coefficient. Performed By: #### C BCA, CMP, FEPR, 49957-8, 2275-4, 9, 07376-9 #### [facility] ([id number]) [address], [address] [place] [address] Glucose [Mass/Vol] 118 mg/dL High 65-99 [facility] Comment on above: Performed By: #### C BCA, CMP, FEPR, 72072-1, 6-4, 2131-9, 68557-1 #### [facility] ([id number]) [address], [address] [place] [address] Potassium [Moles/Vol] 4.1 mmol/L Normal 3.5-5.0 [facility] Comment on above: Performed By: #### C BCA, CMP, FEPR, 15552-6, 2275-4, 9, 83060-5 #### [facility] ([id number]) [address], [facility] [address] [place] [address] Protein [Mass/Vol] 7.6 g/dL Normal 6.0-8.0 [facility] Comment on above: Performed By: #### C BCA, CMP, FEPR, 09412-0, 2276-01, 2132-06, 78235-0 #### [facility] ([id number]) [address], [address] [address] Sodium [Moles/Vol] 138 mmol/L Normal 134-146 [facility] Comment on above: Performed By: #### C BCA, CMP, FEPR, 52308-6, 2275-, 9, 91694-7 #### [facility] ([id number]) [address], [address] [address] Urea nitrogen [Mass/Vol] 11 mg/dL Normal 5-23 [facility] Comment on above: Performed By: #### C BCA, CMP, FEPR, 82748-6, 2275-, 2132-06, 57086-5 #### [facility] ([id number]) [address], [facility] [address] [place] [address] FERRITINon 04-26-2024 Ferritin [Mass/Vol] 94 ng/mL Normal 11-307 [facility] Comment on above: Performed By: #### C BCA, CMP, FEPR, 09267-1, 2275-, 9, 61020-5 #### [facility] ([id number]) [address], [facility] [address] [place] [address] IRON PROFILEon 04-26-2024 Iron [Mass/Vol] 66 ug/dL Normal 50-170 [facility] Comment on above: Performed By: #### C BCA, CMP, FEPR, 14026-3, 2275-4, 2132-06, 07872-6 #### [facility] ([id number]) [address], [address] [place] [address] IRON BINDING 451 ug/dL High 250-425 [facility] Comment on above: Performed By: #### C BCA, CMP, FEPR, 02251-8, 2275-, 9, 40738-5 #### [facility] ([id number]) [address], [address] [place] [address] IRON SATURATION 15 % SATURATION Normal 15-50 [facility] Comment on above: Performed By: #### C BCA, CMP, FEPR, , 2276-01, 2132-06, 71259-0 #### [facility] ([id number]) [address], [address] [place] [address] MAGNESIUMon 04-26-2024 Magnesium [Mass/Vol] 1.5 mg/dL Low 1.8-2.6 [facility] Comment on above: Performed By: #### C BCA, CMP, FEPR, 28419-8, 2276-01, 2132-06, 05043-7 #### [facility] ([id number]) [address], [address] [place] [address] VITAMIN B12on 04-26-2024 Cobalamin (Vitamin B12) [Mass/Vol] 416 pg/mL Normal 180-914 [facility] Comment on above: Performed By: #### C BCA, CMP, FEPR, 01236-7, 2275-, 2132-06, 65137-6 #### [facility] ([id number]) [address], [address] [place] [address] Vitamin D+Metabolites [Mass/ Vol]on 04-26-2024 VITAMIN D 25 HYD TOT 18.0 ng/mL Low 30-100 [facility] Comment on above: Result Comment: Vitamin D status 25 [place] Vitamin D Deficiency <20 ng/mL Insufficiency 20-29 ng/mL Sufficiency 30-100 ng/mL Toxicity >100 ng/mL NOTE: A pediatric reference range has not been established by the clinical quality analyst of this kit. The [place] [employer] recommends a Vitamin D level of = or >20ng/mL in infants and children. Performed By: #### C BCA, CMP, FEPR, 61353-8, 2276-4, 2132-9, 39598-3 #### [facility] ([id number]) [address] [place] [address], [address] [place] [address] HCG ( test) Ql (U)o n 03-13-2024 Beta HCG ( test) Ql (U) Negative Normal NEG [facility] Comment on above: Performed By: #### 2 106-3 #### [facility] ([id number]) [address] [place] [address], [place] [address] Surgical Pathologyon 024 Surgical Pathology Normal [facility] Comment on above: Result Comment: [facility] [address] [place] [address] Surgical Pathology Consultation Patient Name:JUDIE RODRIGUEZ:1995 (Age: 29)Gender:FTaken:4Reported:03/17/2024hysician(s):Betina Saravia M.D. ([phone])Copy To: Rec. #:[id number]: #[id number] Final Pathologic Diagnosis 1. Right fallopian tube, salpingectomy: Benign fallopian tube with fimbriated end, showing completely transected lumen. 2. Left fallopian tube, salpingectomy: Benign fallopian tube with fimbriated end, showing completely transected lumen. Report Electronically Signed Out /03/17/2024gina Ceja MD Interpretation performed at [facility], [address] [place] [address], License number: [id number]. Clinical History Undesired fertility. Gross Description 1. Received in formalin labeled RODRIGUEZ, right fallopian tube is a fimbriated fallopian tube segment, 5.5 x 0.6 cm. The serosa is purple-garcia, smooth and glistening. The fimbria are trisected and the remainder of the tubal segment is sectioned to reveal a pinpoint lumen. The entirety of the fimbria and community health representative cross-sections are submitted in a single cassette. (1, , [id number], m1) . 2. Received in formalin labeled RODRIGUEZ, left fallopian tube is a fimbriated fallopian tube segment, 3.5 x 0.6 cm. The serosa is purple-garcia, smooth and glistening. The fimbria are trisected and the remainder of the tubal segment is sectioned to reveal a pinpoint lumen. The entirety of the fimbria and community health representative cross-sections are submitted in a single cassette. (1, , [id number], m1) . 03/14/2024 Specimen(s) Received 1: Right fallopian tube 2: Left fallopian tube Fee Codes(s): 1; 03390 2; 96757 BASIC METABOLIC PANLon 02-20 Anion gap [Moles/Vol] 9 mmol/L Normal 5-15 [facility] Comment on above: Performed By: #### C BCA, BMP #### [facility] ([id number]) [address], [address] [place] [address] Calcium [Mass/Vol] 9.1 mg/dL Normal 8.5-10.5 [facility] Comment on above: Performed By: #### C BCA, BMP #### [facility] ([id number]) [address], [address] [place] [address] Chloride [Moles/Vol] 103 mmol/L Normal 98-109 [facility] Comment on above: Performed By: #### C KARINE, BMP #### [facility] ([id number]) [address], [facility] [address] [place] [address] CO2 [Moles/Vol] 26 mmol/L Normal 22-32 [facility] Comment on above: Performed By: #### C KARINE, BMP #### [facility] ([id number]) [address] [address] [place] [address] Creatinine [Mass/Vol] 0.49 mg/dL Normal 0.40-1.00 [facility] Comment on above: Result Comment: METH OD TRACEABLE TO IDMS STANDARD Performed By: #### C KARINE, BMP #### [facility] ([id number]) [address] [address] eGFR (CKD-EPI) NON-RACE DEPENDENT >90 Normal >59 [facility] Comment on above: Result Comment: Reported eGFR is based on the CKD-EPI 2020 equation that does not use a race coefficient. Performed By: #### C KARINE, BMP #### [facility] ([id number]) [address] [address] [place] [address] Glucose [Mass/Vol] 99 mg/dL Normal 65-99 [facility] Comment on above: Performed By: #### C KARINE, BMP #### [facility] ([id number]) [address] [address] [place] [address] Potassium [Moles/Vol] 3.8 mmol/L Normal 3.5-5.0 [facility] Comment on above: Performed By: #### C KARINE, BMP #### [facility] ([id number]) [address] [address] [place] [address] Sodium [Moles/Vol] 138 mmol/L Normal 134-146 [facility] Comment on above: Performed By: #### C KARINE, BMP #### [facility] ([id number]) [address], [address] [place] [address] Urea nitrogen [Mass/Vol] 11 mg/dL Normal 5-23 [facility] Comment on above: Performed By: #### C KARINE, BMP #### [facility] ([id number]) [address], [address] [place] [address] CBC AND AUTO DIFFon 02-21-20 24 ABSOLUTE BASOPHIL 0.0 X10E9/L Normal 0.0-0.2 [facility] Comment on above: Performed By: #### C KARINE, BMP #### [facility] ([id number]) [address] [address] [place] [address] ABSOLUTE NEUTROPHIL 5.3 X10E9/L Normal 1.5-6.6 [facility] Comment on above: Performed By: #### C KARINE, BMP #### [facility] ([id number]) [address], [address] [place] [address] Basophils/100 WBC (Bld) 0.5 % Normal [facility] Comment on above: Performed By: #### C KARINE, BMP #### [facility] ([id number]) [address], [address] [place] [address] Eosinophils (Bld) [#/Vol] 0.4 10*3/uL Normal 0.0-0.4 [facility] Comment on above: Performed By: #### C KARINE, BMP #### [facility] ([id number]) [address], [address] [place] [address] Eosinophils/100 WBC (Bld) 4.6 % Normal [facility] Comment on above: Performed By: #### C KARINE, BMP #### [facility] ([id number]) [address], [address] [place] [address] Erythrocyte distribution width (RBC) [Ratio] 12.9 % Normal 11.5-15.0 [facility] Comment on above: Performed By: #### C KARINE, BMP #### [facility] ([id number]) [address], [address] [place] [address] Hematocrit (Bld) [Volume fraction] 38.9 % Normal 35-47 [facility] Comment on above: Performed By: #### C KARINE, BMP #### [facility] ([id number]) [address] [address] [place] [address] Hemoglobin (Bld) [Mass/Vol] 13.0 g/dL Normal 11.7-15.5 [facility] Comment on above: Performed By: #### C KARINE, BMP #### [facility] ([id number]) [address], [address] [place] [address] Lymphocytes (Bld) [#/Vol] 2.9 10*3/uL Normal 1.0-3.5 [facility] Comment on above: Performed By: #### C KARINE, BMP #### [facility] ([id number]) [address] [place] [address] Lymphocytes/100 WBC (Bld) 31.5 % Normal [facility] Comment on above: Performed By: #### C KARINE, BMP #### [facility] ([id number]) [address] [place] [address] MCH (RBC) [Entitic mass] 30.1 pg Normal 27-34 [facility] Comment on above: Performed By: #### C BCA, BMP #### [facility] ([id number]) [address] [address] [place] [address] MCHC (RBC) [Mass/Vol] 33.3 g/dL Normal 32-36 [facility] Comment on above: Performed By: #### C BCA, BMP #### [facility] ([id number]) [address], [address] [place] [address] MCV (RBC) [Entitic vol] 90 fL Normal 80-100 [facility] Comment on above: Performed By: #### Kashif MILTON, BMP #### [facility] ([id number]) [address], [address] [place] [address] Monocytes (Bld) [#/Vol] 0.5 10*3/uL Normal 0-0.9 [facility] Comment on above: Performed By: #### Kashif MILTON, BMP #### [facility] ([id number]) [address], [address] [place] [address] Monocytes/100 WBC (Bld) 5.5 % Normal [facility] Comment on above: Performed By: #### Kashif MILTON, BMP #### [facility] ([id number]) [address], [address] [place] [address] Neutrophils/100 WBC (Bld) 57.9 % Normal [facility] Comment on above: Performed By: #### Kashif MILTON, BMP #### [facility] ([id number]) [address], [address] [place] [address] Platelet mean volume (Bld) [Entitic vol] 9.0 fL Normal 7-12 [facility] Comment on above: Performed By: #### Kashif MILTON, BMP #### [facility] ([id number]) [address], [address] [place] [address] Platelets (Bld) [#/Vol] 273 10*3/uL Normal 150-450 [facility] Comment on above: Performed By: #### Kashif MILTON, BMP #### [facility] ([id number]) [address], [address] [place] [address] RBC COUNT 4.30 X10E12/L Normal 3.80-5.20 [facility] Comment on above: Performed By: #### C BCA, BMP #### [facility] ([id number]) [address] [place] [address] WBC (Bld) [#/Vol] 9.1 10*3/uL Normal 4.0-11.0 [facility] Comment on above: Performed By: #### C BCA, BMP #### [facility] ([id number]) [address] [place] [address] MG MAMM DIAGNOSTIC 3D NATHAN CA Don 01-27-2023 MG MAMM DIAGNOSTIC 3D NATHAN CAD Patient: JUDIE RODRIGUEZ Exam Date: 01/27/2023 : 1995 Gender:F Ordering : FATOU BOBBY . Admission #: [id number] Family : Order #: [id number] CLICK HERE TO VIEW EXAM RADIOLOGY REPORT PROCEDURE: MAMMOGRAM DIAGNOSTIC 3D BILATERAL CAD, 01/27/2023, 13:46 ULTRASOUND BREAST RIGHT LIMITED, 01/27/2023, 14:23 COMPARISON: None. INDICATIONS: Breast lump Calculator Name NCI Breast Cancer Risk Assessment Tool 5 Year Breast Cancer Risk Not Applicable. Lifetime Breast Cancer Risk Not Applicable. Personal Breast Cancer No Personal Ovarian Cancer No Treatments None Family Cancers None LOCATION: [facility] BREAST COMPOSITION: Scattered areas fibroglandular density. FINDINGS: [...] LUMP SHOULD BE BIOPSIED. Dictated by: Mauricio aBldwin M.D. on 01/27/2023 at 14:58 Approved by: Mauricio Baldwin M.D. on 01/27/2023 at 15:02 Normal [facility] US BREAST RIGHT LIMITEDon US BREAST RIGHT LIMITED Patient: JUDIE RODRIGUEZ Exam Date: 01/27/2023 : 1995 Gender:F Ordering : FATUO BOBBY . Admission #: [id number] Family : Order #: [id number] CLICK HERE TO VIEW EXAM RADIOLOGY REPORT PROCEDURE: MAMMOGRAM DIAGNOSTIC 3D BILATERAL CAD, 01/27/2023, 13:46 ULTRASOUND BREAST RIGHT LIMITED, 01/27/2023, 14:23 COMPARISON: None. INDICATIONS: Breast lump Calculator Name NCI Breast Cancer Risk Assessment Tool 5 Year Breast Cancer Risk Not Applicable. Lifetime Breast Cancer Risk Not Applicable. Personal Breast Cancer No Personal Ovarian Cancer No Treatments None Family Cancers None LOCATION: [facility] BREAST COMPOSITION: Scattered areas fibroglandular density. [...] M.D. on 01/27/2023 at 15:02 Normal [facility] PROTEIN 24HR URINEon 022 T PROT, 24 HR UR 554.3 mg/24 hr Critically high <=149.1 [facility] Comment on above: Performed By: #### P [id number] #### [facility] [address] [place] [address] Dr. Zainab John UR PROT 24.1 mg/dL Critically high <=11.9 [facility] Comment on above: Performed By: #### P [id number] #### [facility] [address] [place] [address] Dr. Zainab John UR TOT VOL 2300 ml/24 HR Normal The [facility] Comment on above: Performed By: #### P [id number] #### [facility] [address] [place] [address] Dr. Zainab John UA (CLEAN/CATCH) ELECTROMECHANIC/MICRO I F IND.on 02-12-2022 Bilirubin Ql (U) Negative Normal NEGATIVE [facility] Comment on above: Performed By: #### T NS #### [facility] [address] [place] [address] Dr. Zainab John Clarity (U) CLEAR Normal CLEAR [facility] Comment on above: Performed By: #### T NS #### [facility] [address] [place] [address] Dr. Zainab John Color (U) LT. YELLOW Normal YELLOW [facility] Comment on above: Performed By: #### T NS #### [facility] [address] [place] [address] Dr. Zainab John Glucose Ql (U) Negative Normal NEGATIVE [facility] Comment on above: Performed By: #### T NS #### [facility] [address] [place] [address] Dr. Zainab John Hemoglobin Ql (U) LARGE Abnormal NEGATIVE [facility] Comment on above: Performed By: #### T NS #### [facility] [address] [place] [address] Dr. Zainab John Ketones Ql (U) Negative Normal NEGATIVE [facility] Comment on above: Performed By: #### T NS #### [facility] [address] [place] [address] Dr. Zainab John LEUKOCYTES Negative Normal NEGATIVE [facility] Comment on above: Performed By: #### T NS #### [facility] [address] [place] [address] Dr. Zainab John Nitrite Ql (U) Negative Normal NEGATIVE [facility] Comment on above: Performed By: #### T NS #### [facility] [address] [place] [address] Dr. Zainab John pH (U) 5.5 [pH] Normal 5-9 [facility] Comment on above: Performed By: #### T NS #### [facility] [address] [place] [address] Dr. Zainab John SPEC GRAVITY 1.030 Abnormal 1.005-<=1.025 [facility] Comment on above: Performed By: #### T NS #### [facility] [address] [place] [address] Dr. Zainab John UA PROTEIN Negative Normal NEGATIVE/ TRACE [facility] Comment on above: Performed By: #### T NS #### [facility] [address] [place] [address] Dr. Zainab John UR MICRO IND INDICATED Normal [facility] Comment on above: Performed By: #### T NS #### [facility] [address] [place] [address] Dr. Zainab John Urobilinogen Qn (U) 0.2 {Sarabjit'U}/dL Normal 0.2 - 1. 0 [facility] Comment on above: Performed By: #### T NS #### [facility] [address] [place] [address] Dr. Zainab John URINE MICROSCOPIC ONLYon BACTERIA NONE SEEN Normal NONE SEEN [facility] Comment on above: Performed By: #### T NS #### [facility] [address] [place] [address] Dr. Zainab John Bacteria identified Cx Nom (U) NOT INDICATED Normal [facility] Comment on above: Performed By: #### T NS #### [facility] [address] [place] [address] Dr. Zainab John CAST NONE SEEN Normal NONE SEEN [facility] Comment on above: Performed By: #### T NS #### [facility] [address] [place] [address] Dr. Zainab John Crystals LM Nom (Urine sed) NONE SEEN Normal NONE SEEN [facility] Comment on above: Performed By: #### T NS #### [facility] [address] [place] [address] Dr. Zainab John Epithelial cells LM Ql (Urine sed) RARE Normal NONE SEEN /RARE [facility] Comment on above: Performed By: #### T NS #### [facility] [address] [place] [address] Dr. Zainab John MUCOUS NONE SEEN Normal NONE SEEN [facility] Comment on above: Performed By: #### T NS #### [facility] [address] [place] [address] Dr. Zainab John RBC 20-50 Abnormal 0-2 [facility] Comment on above: Performed By: #### T NS #### [facility] [address] [address] [address] Zainab John WBC 0-2 Abnormal NONE SEEN [facility] Comment on above: Performed By: #### T NS #### [facility] [address] [place] [address] Dr. Zainab John CBC AUTO DIFFon 02-11-2022 BASO # 0.0 103/ul Normal 0.0-0.1 [facility] Comment on above: Performed By: #### C BC #### [facility] [address] [place] [address] Dr. Zainab John Basophils/100 WBC (Bld) 0.4 % Normal 0.2-2.0 [facility] Comment on above: Performed By: #### C BC #### [facility] [address] [place] [address] Dr. Zainab John EO # 0.3 103/ul Normal 0.0-0.7 [facility] Comment on above: Performed By: #### C BC #### [facility] [address] [place] [address] Dr. Zainab John Eosinophils/100 WBC (Bld) 2.5 % Normal 0.9-7.0 [facility] Comment on above: Performed By: #### C BC #### [facility] [address] [place] [address] Dr. Zainab John Erythrocyte distribution width (RBC) [Ratio] 13.2 % Normal 11.0-15.0 [facility] Comment on above: Performed By: #### C BC #### [facility] [address] [place] [address] Dr. Zainab John Hematocrit (Bld) [Volume fraction] 27.8 % Critically low 36.0-48.0 [facility] Comment on above: Performed By: #### C BC #### [facility] [address] [place] [address] Dr. Zainab John Hemoglobin (Bld) [Mass/Vol] 9.3 g/dL Critically low 12.0-16.0 [facility] Comment on above: Performed By: #### C BC #### [facility] [address] [address] [address] Zainab John IG # 0.08 10e3/ul Critically high 0.00-0.03 [facility] Comment on above: Performed By: #### C BC #### [facility] [address] [address] [address] Zainab John IG % 0.7 % Critically high 0.0-0.5 [facility] Comment on above: Performed By: #### C BC #### [facility] [address] [place] [address] Dr. Zainab John LYMPH # 2.7 103/ul Normal 1.2-3.8 [facility] Comment on above: Performed By: #### C BC #### [facility] [address] [place] [address] Dr. Zainab John Lymphocytes/100 WBC (Bld) 23.6 % Normal 20.5-60.0 [facility] Comment on above: Performed By: #### C BC #### [facility] [address] [place] [address] Dr. Zainab John MANUAL DIFF REQ NO Normal [facility] Comment on above: Performed By: #### C BC #### [facility] [address] [place] [address] Dr. Zainab John MCH (RBC) [Entitic mass] 29.6 pg Normal 26.7-34.0 [facility] Comment on above: Performed By: #### C BC #### [facility] [address] [place] [address] Dr. Zainab John MCHC (RBC) [Mass/Vol] 33.5 g/dL Normal 29.9-35.2 [facility] Comment on above: Performed By: #### C BC #### [facility] [address] [place] [address] Dr. Zainab John MCV (RBC) [Entitic vol] 88.5 fL Normal 81.0-99.0 [facility] Comment on above: Performed By: #### C BC #### [facility] [address] [place] [address] Dr. Zainab John MONO # 0.6 103/ul Normal 0.3-0.8 [facility] Comment on above: Performed By: #### C BC #### [facility] [address] [address] [address] Zainab John Monocytes/100 WBC (Bld) 5.1 % Normal 1.7-12.0 [facility] Comment on above: Performed By: #### C BC #### [facility] [address] [place] [address] Dr. Zainab John NEUT # 7.7 103/ul Critically high 1.4-6.5 [facility] Comment on above: Performed By: #### C BC #### [facility] [address] [place] [address] Dr. Zainab John Neutrophils/100 WBC (Bld) 67.7 % Normal 43.0-75.0 [facility] Comment on above: Performed By: #### C BC #### [facility] [address] [place] [address] Dr. Zainab John Platelet mean volume (Bld) [Entitic vol] 10.7 fL Normal 9.5-13.5 [facility] Comment on above: Performed By: #### C BC #### [facility] [address] [place] [address] Dr. Zainab John PLT 267 103/ul Normal 150-450 [facility] Comment on above: Performed By: #### C BC #### [facility] [address] [place] [address] Dr. Zainab John RBC 3.14 106/ul Critically low 4.20-5.40 [facility] Comment on above: Performed By: #### C BC #### [facility] [address] [place] [address] Dr. Zainab John WBC 11.4 103/ul Critically high 4.0-11.0 [facility] Comment on above: Performed By: #### C BC #### [facility] [address] [place] [address] Dr. Zainab John LDHon 02-11-2022 LDH 214 U/L Normal 81-234 [facility] Comment on above: Performed By: #### T NS #### [facility] [address] [place] [address] Dr. Zainab John PROF 14(COMP METB)on 022 Albumin [Mass/Vol] 2.4 g/dL Critically low 3.4-5.0 [facility] Comment on above: Performed By: #### T NS #### [facility] [address] [place] [address] Dr. Zainab John Albumin/Globulin [Mass ratio] 0.7 {ratio} Normal [facility] Comment on above: Performed By: #### T NS #### [facility] [address] [place] [address] Dr. Zainab John ALP [Catalytic activity/Vol] 98 U/L Normal 46-116 [facility] Comment on above: Performed By: #### T NS #### [facility] [address] [place] [address] Dr. Zainab John ALT [Catalytic activity/Vol] 12 U/L Critically low 14-59 [facility] Comment on above: Performed By: #### T NS #### [facility] [address] [place] [address] Dr. Zainab John Anion gap [Moles/Vol] 15.4 mmol/L Normal [facility] Comment on above: Performed By: #### T NS #### [facility] [address] [place] [address] Dr. Zainab John AST [Catalytic activity/Vol] 20 U/L Normal 15-37 [facility] Comment on above: Performed By: #### T NS #### [facility] [address] [place] [address] Dr. Zainab John Bilirubin [Mass/Vol] 0.1 mg/dL Critically low 0.2-1.0 [facility] Comment on above: Performed By: #### T NS #### [facility] [address] [place] [address] Dr. Zainab John Calcium [Mass/Vol] 8.1 mg/dL Critically low 8.5-10.1 [facility] Comment on above: Performed By: #### T NS #### [facility] [address] [place] [address] Dr. Zainab John Chloride [Moles/Vol] 102 mmol/L Normal 98-107 [facility] Comment on above: Performed By: #### T NS #### [facility] [address] [address] [address] Zainab John CO2 [Moles/Vol] 24.2 mmol/L Normal 21.0-32.0 [facility] Comment on above: Performed By: #### T NS #### [facility] [address] [place] [address] Dr. Zainab John Creatinine [Mass/Vol] 0.52 mg/dL Critically low 0.55-1.02 [facility] Comment on above: Performed By: #### T NS #### [facility] [address] [place] [address] Dr. Zainab John EGFR-AF SAUDI ARABIAN >60 Normal >=60 [facility] Comment on above: Performed By: #### T NS #### [facility] [address] [place] [address] Dr. Zainab John EGFR-NON AF SAUDI ARABIAN >60 Normal >=60 [facility] Comment on above: Performed By: #### T NS #### [facility] [address] [place] [address] Dr. Zainab John Globulin (S) [Mass/Vol] 3.4 g/dL Normal [facility] Comment on above: Performed By: #### T NS #### [facility] [address] [place] [address] Dr. Zainab John Glucose [Mass/Vol] 91 mg/dL Normal 74-106 [facility] Comment on above: Performed By: #### T NS #### [facility] [address] [place] [address] Dr. Zainab John Potassium [Moles/Vol] 3.6 mmol/L Normal 3.5-5.1 [facility] Comment on above: Performed By: #### T NS #### [facility] [address] [place] [address] Dr. Zainab John Protein [Mass/Vol] 5.8 g/dL Critically low 6.1-8.2 [facility] Comment on above: Performed By: #### T NS #### [facility] [address] [place] [address] Dr. Zainab John Sodium [Moles/Vol] 138 mmol/L Normal 136-145 [facility] Comment on above: Performed By: #### T NS #### [facility] [address] [place] [address] Dr. Zainab John Urea nitrogen [Mass/Vol] 8.0 mg/dL Normal 7.0-18.0 [facility] Comment on above: Performed By: #### T NS #### [facility] [address] [place] [address] Dr. Zainab John Urea nitrogen/Creatinine [Mass ratio] 15.4 mg/mg Normal [facility] Comment on above: Performed By: #### T NS #### [facility] [address] [place] [address] Dr. Zainab John URIC ACID SERUMon 02-11-2022 Urate [Mass/Vol] 5.2 mg/dL Normal 2.5-6.2 [facility] Comment on above: Performed By: #### U TRUPTI, LDH, CMP #### [facility] [address] [place] [address] Dr. Zainab John CBC AUTO DIFFon 02-10-2022 BASO # 0.0 103/ul Normal 0.0-0.1 [facility] Comment on above: Performed By: #### C BC #### [facility] [address] [place] [address] Dr. Zainab John Basophils/100 WBC (Bld) 0.3 % Normal 0.2-2.0 [facility] Comment on above: Performed By: #### C BC #### [facility] [address] [place] [address] Dr. Zainab John EO # 0.1 103/ul Normal 0.0-0.7 [facility] Comment on above: Performed By: #### C BC #### [facility] [address] [place] [address] Dr. Zainab John Eosinophils/100 WBC (Bld) 1.1 % Normal 0.9-7.0 [facility] Comment on above: Performed By: #### C BC #### [facility] [address] [place] [address] Dr. Zainab John Erythrocyte distribution width (RBC) [Ratio] 13.1 % Normal 11.0-15.0 [facility] Comment on above: Performed By: #### C BC #### [facility] [address] [place] [address] Dr. Zainab John Hematocrit (Bld) [Volume fraction] 27.9 % Critically low 36.0-48.0 [facility] Comment on above: Performed By: #### C BC #### [facility] [address] [place] [address] Dr. Zainab John Hemoglobin (Bld) [Mass/Vol] 9.4 g/dL Critically low 12.0-16.0 [facility] Comment on above: Performed By: #### C BC #### [facility] [address] [place] [address] Dr. Zainab John IG # 0.05 10e3/ul Critically high 0.00-0.03 [facility] Comment on above: Performed By: #### C BC #### [facility] [address] [place] [address] Dr. Zainab John IG % 0.4 % Normal 0.0-0.5 [facility] Comment on above: Performed By: #### C BC #### [facility] [address] [place] [address] Dr. Zainab John LYMPH # 2.6 103/ul Normal 1.2-3.8 [facility] Comment on above: Performed By: #### C BC #### [facility] [address] [place] [address] Dr. Zainab John Lymphocytes/100 WBC (Bld) 22.1 % Normal 20.5-60.0 [facility] Comment on above: Performed By: #### C BC #### [facility] [address] [place] [address] Dr. Zainab John MANUAL DIFF REQ NO Normal [facility] Comment on above: Performed By: #### C BC #### [facility] [address] [place] [address] Dr. Zainab John MCH (RBC) [Entitic mass] 30.1 pg Normal 26.7-34.0 [facility] Comment on above: Performed By: #### C BC #### [facility] [address] [place] [address] Dr. Zainab John MCHC (RBC) [Mass/Vol] 33.7 g/dL Normal 29.9-35.2 [facility] [facility] Comment on above: Performed By: #### C BC #### [facility] [address] [place] [address] Dr. Zainab John MCV (RBC) [Entitic vol] 89.4 fL Normal 81.0-99.0 [facility] Comment on above: Performed By: #### C BC #### [facility] [address] [place] [address] Dr. Zainab John MONO # 0.9 103/ul Critically high 0.3-0.8 [facility] Comment on above: Performed By: #### C BC #### [facility] [address] [place] [address] Dr. Zainab John Monocytes/100 WBC (Bld) 7.7 % Normal 1.7-12.0 [facility] Comment on above: Performed By: #### C BC #### [facility] [address] [place] [address] Dr. Zainab John NEUT # 8.1 103/ul Critically high 1.4-6.5 [facility] Comment on above: Performed By: #### C BC #### [facility] [address] [place] [address] Dr. Zainab John Neutrophils/100 WBC (Bld) 68.4 % Normal 43.0-75.0 [facility] Comment on above: Performed By: #### C BC #### [facility] [address] [place] [address] Dr. Zainab John Platelet mean volume (Bld) [Entitic vol] 10.4 fL Normal 9.5-13.5 [facility] Comment on above: Performed By: #### C BC #### [facility] [address] [place] [address] Dr. Zainab John PLT 224 103/ul Normal 150-450 [facility] Comment on above: Performed By: #### C BC #### [facility] [address] [place] [address] Dr. Zainab John RBC 3.12 106/ul Critically low 4.20-5.40 [facility] Comment on above: Performed By: #### C BC #### [facility] [address] [place] [address] Dr. Zainab John WBC 11.8 103/ul Critically high 4.0-11.0 [facility] Comment on above: Performed By: #### C BC #### [facility] [address] [place] [address] Dr. Zainab John CBC AUTO DIFFon 02-09-2022 BASO # 0.0 103/ul Normal 0.0-0.1 [facility] Comment on above: Performed By: #### C BC #### [facility] [address] [place] [address] Dr. Zainab John Basophils/100 WBC (Bld) 0.3 % Normal 0.2-2.0 [facility] Comment on above: Performed By: #### C BC #### [facility] [address] [place] [address] Dr. Zainab John EO # 0.2 103/ul Normal 0.0-0.7 [facility] Comment on above: Performed By: #### C BC #### [facility] [address] [place] [address] Dr. Zainab John Eosinophils/100 WBC (Bld) 1.1 % Normal 0.9-7.0 [facility] Comment on above: Performed By: #### C BC #### [facility] [address] [place] [address] Dr. Zainab John Erythrocyte distribution width (RBC) [Ratio] 12.9 % Normal 11.0-15.0 [facility] Comment on above: Performed By: #### C BC #### [facility] [address] [place] [address] Dr. Zainab John Hematocrit (Bld) [Volume fraction] 32.9 % Critically low 36.0-48.0 [facility] Comment on above: Performed By: #### C BC #### [facility] [address] [place] [address] Dr. Zainab John Hemoglobin (Bld) [Mass/Vol] 11.3 g/dL Critically low 12.0-16.0 [facility] Comment on above: Performed By: #### C BC #### [facility] [address] [place] [address] Dr. Zainab John IG # 0.07 10e3/ul Critically high 0.00-0.03 [facility] Comment on above: Performed By: #### C BC #### [facility] [address] [place] [address] Dr. Zainab John IG % 0.5 % Normal 0.0-0.5 [facility] Comment on above: Performed By: #### C BC #### [facility] [address] [place] [address] Dr. Zainab John LYMPH # 2.8 103/ul Normal 1.2-3.8 [facility] Comment on above: Performed By: #### C BC #### [facility] [address] [place] [address] Dr. Zainab John Lymphocytes/100 WBC (Bld) 21.5 % Normal 20.5-60.0 [facility] Comment on above: Performed By: #### C BC #### [facility] [address] [place] [address] Dr. Zainab John MANUAL DIFF REQ NO Normal [facility] Comment on above: Performed By: #### C BC #### [facility] [address] [address] [address] Zainab John MCH (RBC) [Entitic mass] 29.9 pg Normal 26.7-34.0 [facility] Comment on above: Performed By: #### C BC #### [facility] [address] [place] [address] Dr. Zainab John MCHC (RBC) [Mass/Vol] 34.3 g/dL Normal 29.9-35.2 [facility] Comment on above: Performed By: #### C BC #### [facility] [address] [place] [address] Dr. Zainab John MCV (RBC) [Entitic vol] 87.0 fL Normal 81.0-99.0 [facility] Comment on above: Performed By: #### C BC #### [facility] [address] [place] [address] Dr. Zainab John MONO # 0.9 103/ul Critically high 0.3-0.8 [facility] Comment on above: Performed By: #### C BC #### [facility] [address] [place] [address] Dr. Zainab John Monocytes/100 WBC (Bld) 6.5 % Normal 1.7-12.0 [facility] Comment on above: Performed By: #### C BC #### [facility] [address] [place] [address] Dr. Zainab John NEUT # 9.3 103/ul Critically high 1.4-6.5 [facility] Comment on above: Performed By: #### C BC #### [facility] [address] [place] [address] Dr. Zainab John Neutrophils/100 WBC (Bld) 70.1 % Normal 43.0-75.0 [facility] Comment on above: Performed By: #### C BC #### [facility] [address] [place] [address] Dr. Zainab John Platelet mean volume (Bld) [Entitic vol] 10.1 fL Normal 9.5-13.5 [facility] Comment on above: Performed By: #### C BC #### [facility] [address] [address] [address] Zainab John PLT 271 103/ul Normal 150-450 [facility] Comment on above: Performed By: #### C BC #### [facility] [address] [address] [address] Zainab John RBC 3.78 106/ul Critically low 4.20-5.40 [facility] Comment on above: Performed By: #### C BC #### [facility] [address] [place] [address] Dr. Zainab John WBC 13.2 103/ul Critically high 4.0-11.0 [facility] Comment on above: Performed By: #### C BC #### [facility] [address] [place] [address] Dr. Zainab John Covid-19 PCR ([facility])on SARS-CoV-2 (COVID-19) RNA PAOLA+probe Ql (Unsp spec) Not detected Normal NOT DETECTED [facility] Comment on above: Result Comment: When [...] for this test is supported by the [place] of [employer] and Human Service's declaration that [...] used). Performed By: #### C VDTBH #### [facility] [address] [place] [address] Dr. Zainab John DRUG SCREEN RAPID (URINE)on 02-09-2022 AMP Negative Normal NEGATIVE [facility] Comment on above: Performed By: #### D RUGRPD #### [facility] [address] [place] [address] Dr. Zainab John BAR Negative Normal NEGATIVE [facility] Comment on above: Performed By: #### D RUGRPD #### [facility] [address] [place] [address] Dr. Zaniab John BUP Negative Normal NEGATIVE [facility] Comment on above: Performed By: #### D RUGRPD #### [facility] [address] [place] [address] Dr. Zainab John BZO Negative Normal NEGATIVE [facility] Comment on above: Performed By: #### D RUGRPD #### [facility] [address] [place] [address] Dr. Zainab John BRISA Negative Normal NEGATIVE [facility] Comment on above: Performed By: #### D RUGRPD #### [facility] [address] [place] [address] Dr. Zainab John CUT-OFFS SEE BELOW Normal [facility] Comment on above: Result Comment: AMP (Amphetamine): 500ng/mL, BAR (Barbituates): 200 ng/mL, BZO (Benzodiazepines): 150 ng/mL, BUP (Buprenorphine): 10 ng/mL, BRISA (Cocaine): 150 ng/mL, mAMP (Methamphetamine): 500 ng/mL, MTD (Methadone): 200 ng/mL, OPI (Opiates): 100 ng/mL, OXY (Oxycodone): 100 ng/mL, PCP (Phencyclidine): 25 ng/mL, PPX (Propoxyphene): 300 ng/mL, THC (Cannabinoids): 50 ng/mL, TCA (Trycyclic Antidepressants): 300 ng/mL Performed By: #### D RUGRPD #### [facility] [address] [place] [address] Dr. Zainab John DRUG CUT HEADER DRUG CLASS TEST SYSTEM CUT-OFF CONCENTRATIONS ARE FOLLOWS: Normal [facility] Comment on above: Performed By: #### D RUGRPD #### [facility] [address] [place] [address] Dr. Zainab John mAMP Negative Normal NEGATIVE [facility] Comment on above: Performed By: #### D RUGRPD #### [facility] [address] [address] [address] Zainab John MTD Negative Normal NEGATIVE [facility] Comment on above: Performed By: #### D RUGRPD #### [facility] [address] [place] [address] Dr. Zainab John OPI Negative Normal NEGATIVE [facility] Comment on above: Performed By: #### D RUGRPD #### [facility] [address] [place] [address] Dr. Zainab John OXY Negative Normal NEGATIVE [facility] Comment on above: Performed By: #### D RUGRPD #### [facility] [address] [place] [address] Dr. Zainab John PCP Negative Normal NEGATIVE [facility] Comment on above: Performed By: #### D RUGRPD #### [facility] [address] [place] [address] Dr. Zainab John PPX Negative Normal NEGATIVE [facility] Comment on above: Performed By: #### D RUGRPD #### [facility] [address] [place] [address] Dr. Zainab John TCA Negative Normal NEGATIVE [facility] Comment on above: Performed By: #### D RUGRPD #### [facility] [address] [place] [address] Dr. Zainab John THC Negative Normal NEGATIVE [facility] Comment on above: Performed By: #### D RUGRPD #### [facility] [address] [place] [address] Dr. Zainab John TYPE AND SCREENon 02-09-2022 TYPE AND SCREEN Antibody Screen NEGATIVE ABO Rh Typing O Rh Positive Blood Bank Notes performed by ANTONIO [facility] Comment on above: Performed By: #### T NS #### [facility] [address] [place] [address] Dr. Zainab John US PREG BIOPHY W [...] authenticated by: JOLANTA REYNOLDS Date: 2022 16:57 Normal [facility] Vital Signs Date Time Vital Sign Value Performing Clinician Facility 01-13-2024 13:190400 Body height 168.1 cm Gissel HANNALEGAL COORDINATOR Work Phone: [facility] 01-13-2024 13:19-0400 Body mass index (BMI) [Ratio] 39.81 kg/m2 Gissel HANNALEGAL COORDINATOR Work Phone: [facility] 01-13-2024 13:19-0400 Body temperature 98.49 [degF] Gissel Oliveira APRN-LEGAL COORDINATOR Work Phone: [facility] 01-13-2024 13:19-0400 Body weight 112.49 kg Gissel Oliveira APRN-LEGAL COORDINATOR Work Phone: [facility] 01-13-2024 13:19-0400 Diastolic blood pressure 88 mm[Hg] Gissel HANNALEGAL COORDINATOR Work Phone: [facility] 01-13-2024 13:19-0400 Heart rate 88 /min Gissel Oliveira APRN-LEGAL COORDINATOR Work Phone: [facility] 01-13-2024 13:19-0400 Respiratory rate 20 /min Gissel Olievira APRN-LEGAL COORDINATOR Work Phone: [facility] 01-13-2024 13:19-0400 SaO2% (BldA) [Mass fraction] 98 % Gissel Oliveira APRN-LEGAL COORDINATOR Work Phone: [facility] 01-13-2024 13:19-0400 Systolic blood pressure 150 mm[Hg] Gissel Oliveira QUALITY CONTROL TESTER-LEGAL COORDINATOR Work Phone: [facility] Encounters Encounter Date Encounter Type Care Provider Facility Start: 04-26-2024 End: 04-26-2024 ambulatory [facility] Start: 04-26-2024 End: 04-26-2024 ambulatory [facility] Start: 03-13-2024 End: 03-13-2024 Evaluation and management of inpatient [facility] Start: 03-13-2024 End: 03-13-2024 Evaluation and management of inpatient [facility] Start: 02-28-2024 End: 02-28-2024 ambulatory SHIVAM G [facility] Start: 02-21-2024 End: 02-21-2024 ambulatory [facility] Start: 02-21-2024 Encounter for other preprocedural examination [facility] Start: 01-31-2024 End: 01-31-2024 ambulatory [facility] Start: 01-16-2024 Refill Gissel Oliveira QUALITY CONTROL TESTER-LEGAL COORDINATOR [facility] Comment on above: Reactive depression Start: 01-13-2024 End: 01-13-2024 ambulatory [facility] Start: 01-13-2024 Encounter for genera l adult medical examination without abnormal findings [facility] Start: 01-13-2024 End: 01-13-2024 Initial preventive medicine new pt age 18-39yrs Gissel Oliveira QUALITY CONTROL TESTER-LEGAL COORDINATOR Work Phone: [facility] Comment on above: Encounter for wellne ss examination (Primary Dx); Essential hypertension; Encounter for surveillance of transdermal patch hormonal contraceptive device; Subcutaneous nodule of right lower extremity; Consultation for female sterilization; Reactive depression; Class 2 obesity due to excess calories without serious comorbidity with body mass index (BMI) of 39.0 to 39.9 in adult Start: 01-13-2024 End: 01-13-2024 Patient encounter status Gissel Oliveira QUALITY CONTROL TESTER-LEGAL COORDINATOR Work Phone: [facility] Work Phone: Start: 01-27-2023 End: 01-28-2023 ambulatory JOSE ROBERTO BOBBY . Facility: Start: 02-09-2022 End: 02-13-2022 Evaluation and management of inpatient DR FLACO FORD . Facility:[facility] Start: 2022 End: [address] SHIVAM REBOLLEDO Facility: Procedures Date Procedure Procedure Detail Performing Clinician Start: 01-13-2024 Adult depression scr eening assessment Gissel Oliveira QUALITY CONTROL TESTER-LEGAL COORDINATOR Work Phone: Start: 02-09-2022 Delivery of Products [...] Td Vaccines (7 - Td or Tdap) [facility] Start: 01-12-2025 Adult BMI Screening Adult BMI Screen ing [facility] Start: 01-12-2025 Depression Screening Depression Scre ening [facility] Start: 01-12-2025 Tobacco Screening Tobacco Screening [facility] Start: 06-11-2024 Influenza vaccination Influenza Vacc ine [facility] Start: 03-07-2024 End: 03-07-2024 Patient encounter procedure 03/07/2024 11:00 AM EDT Appointment [facility] -Ul[facility]ound [address] [place] [id number] [facility] Start: 01-31-2024 End: 01-31-2024 Patient encounter procedure 01/31/2024 10:00 AM EDT Office Visit [facility] [address] [place] [address] Betina Saravia MD [address] [place] [address] [facility] Start: 01-13-2024 End: 01-12-2025 US Extremity musculoskeletal tissue Ultrasound extremity non vascular complete right for [facility] Imaging Routine Subcutaneous Nodule Of Right Lower Extremity Expected: 01/13/2024, Expires: 01/12/2025 [facility] Work Phone: Comment on above: Expected: 01/13/2024 , Expires: 01/12/2025 Start: 2014 Screening for malign ant neoplasm of cervix Pap Smear [facility] Start: 2011 Adult BMI Follow Up Plan Adult BMI Follow Up Plan [facility] Immunizations Immunization Date Immunization Notes Care Provider Fa cility 03-26-2016 tetanus toxoid, redu sally diphtheria toxoid, and acellular pertussis vaccine, adsorbed Gissel Oliveira QUALITY CONTROL TESTER-LEGAL COORDINATOR Work Phone: [facility] 08-16-2012 influenza virus vaccine, whole virus Gissel Oliveira QUALITY CONTROL TESTER-LEGAL COORDINATOR Work Phone: [facility] 08-16-2012 influenza virus vaccine, unspecified formulation Gissel Oliveira QUALITY CONTROL TESTER-LEGAL COORDINATOR Work Phone: [facility] 02-22-1998 diphtheria, tetanus toxoids and acellular pertussis vaccine, unspecified formulation Gissel Oliveira QUALITY CONTROL TESTER-LEGAL COORDINATOR Work Phone: [facility] 02-22-1998 measles, mumps and rubella virus vaccine Gissel Oliveira QUALITY CONTROL TESTER-LEGAL COORDINATOR Work Phone: [facility] 02-22-1998 trivalent poliovirus vaccine, live, oral Gissel Oliveira QUALITY CONTROL TESTER-LEGAL COORDINATOR Work Phone: [facility] 04-26-1995 diphtheria, tetanus toxoids and acellular pertussis vaccine, unspecified formulation Gissel Oliveira QUALITY CONTROL TESTER-LEGAL COORDINATOR Work Phone: [facility] 04-26-1995 haemophilus influenz ae type b vaccine, conjugate unspecified formulation Gissel Oliveira QUALITY CONTROL TESTER-LEGAL COORDINATOR Work Phone: [facility] 04-26-1995 measles, mumps and rubella virus vaccine Gissel Oliveira QUALITY CONTROL TESTER-LEGAL COORDINATOR Work Phone: [facility] 04-26-1995 trivalent poliovirus vaccine, live, oral Gissel Oliveira QUALITY CONTROL TESTER-LEGAL COORDINATOR Work Phone: [facility] 1993 diphtheria, tetanus toxoids and pertussis vaccine Gissel Oliveira QUALITY CONTROL TESTER-LEGAL COORDINATOR Work Phone: [facility] 1993 haemophilus influenz ae type b vaccine, conjugate unspecified formulation Gissel Oliveira QUALITY CONTROL TESTER-[facility] Work Phone: [facility] 1993 hepatitis B vaccine, pediatric or pediatric/adolescent dosage Gissel Oliveira QUALITY CONTROL TESTER-LEGAL COORDINATOR Work Phone: [facility] 1993 diphtheria, tetanus toxoids and pertussis vaccine Gissel Oliveira QUALITY CONTROL TESTER-LEGAL COORDINATOR Work Phone: [facility] 1993 haemophilus influenz ae type b vaccine, conjugate unspecified formulation Gissel Oliveira QUALITY CONTROL TESTER-[facility] Work Phone: [facility] 1993 trivalent poliovirus vaccine, live, oral Gissel Oliveira QUALITY CONTROL TESTER-LEGAL COORDINATOR Work Phone: [facility] 1993 diphtheria, tetanus toxoids and pertussis vaccine Gissel Oliveira QUALITY CONTROL TESTER-LEGAL COORDINATOR Work Phone: [facility] 1993 haemophilus influenz ae type b vaccine, conjugate unspecified formulation Gissel Oliveira QUALITY CONTROL TESTER-LEGAL COORDINATOR Work Phone: [facility] 1993 trivalent poliovirus vaccine, live, oral Gissel Oliveira QUALITY CONTROL TESTER-LEGAL COORDINATOR Work Phone: [facility] 1993 hepatitis B vaccine, pediatric or pediatric/adolescent dosage Gissel Oliveira QUALITY CONTROL TESTER-LEGAL COORDINATOR Work Phone: [facility] 1993 hepatitis B vaccine, pediatric or pediatric/adolescent dosage Gissel Oliveira QUALITY CONTROL TESTER-LEGAL COORDINATOR Work Phone: [facility] Payers Date Payer Category Payer Medicaid [employer] [place] [id number] 2023-Present [phone] [address] [place] [id number] 1993 Unknown [id number] 1993 Unknown [id number] 1993 Unknown [id number] 1993 Unknown [id number] [id number] 1993 Unknown [id number] 1993 Unknown [id number] 1993 Unknown [id number] [id number] 1993 Unknown [id number] [id number] 1993 Unknown [id number] [id number] 1993 Unknown [id number] [id number] 1993 Unknown [id number] [id number] 1993 Unknown [id number] [id number] 1993 Unknown [id number] [id number] 1993 Unknown [id number] 1959 Unknown [id number] 1959 Unknown [id number] Social History Date Type Detail Facility Start: 01-13-2024 Tobacco smoking stat [facility] Never smoked tobacco [facility] Start: 01-13-2024 Tobacco use and exposure Smokeless tobacco non-user [facility] Start: 01-13-2024 Alcohol intake Ex-drinker (finding) [facility] Start: 11-21-2020 End: 01-13-2024 History of Social function [facility] Start: 11-21-2020 End: 01-13-2024 Tobacco use panel [facility] Adolescent depressio n screening assessment 11 [facility] Start: 1993 Sex Assigned At Not on file [facility] History of Present illness Narrative 01-13-2024 Gissel Oliveira, QUALITY CONTROL TESTER-LEGAL COORDINATOR - 01/13/2024 1:00 PM EDT Note Date [...] [facility]; Future Consultation for female sterilization - [facility] - [facility] [place], [place] - Consult; Future Reactive depression - [...] Rodriguez 01/13/24 1443 documented in this encounter [facility] Evaluation note Note Date [...] 39.9 in adult documented in this encounter [facility] Evaluation note Note Date & Type Note Facility Evaluation note Diagnosis Reactive depression documented in this encounter [facility] Instructions Note Date & Type Note Facility Instructions Not on filedocumented in this en counter [facility] Instructions Note Date & Type Note Facility Instructions Not on filedocumented in this en counter [facility] Reason for referral (narrative) Consultation (Routine) - Authorized Note Date & Type Note Facility Reason for referral (narrati ve) Specialty Diagnoses / Procedures Referred By Karsten friedman Referred To Contact Obstetrics and Gynecology Diagnoses Consultation for female sterilization Gissel Oliveira APRN-FNP [address] [place] [address] [facility] [address] [place] [address] Referral ID Status Reason Start Date Expiration Date Visits Requested Visits Authorized [id number] Authorized Specialty Services Required 01/13/2024 01/12/2025 1 1 [facility] Summary Purpose Family History No Family History Records FoundNo Family History Records FoundNo Family History Records FoundNo Family History Records Found Advance Directives No Advanced Directives Records FoundNo Advanced Directives Records FoundNo Advanced Directives Records FoundNo Advanced Directives Records Found Additional Source Comments INFORMATION SOURCE (unrecogn ized section and content) DATE CREATED AUTHOR 01/31/2023 [facility] DATE CREATED AUTHOR AUTHOR'S ORGANIZ ATION 03/18/2024 [facility] DATE CREATED AUTHOR AUTHOR'S ORGANIZ ATION 04/29/2024 [facility] DATE CREATED AUTHOR AUTHOR'S ORGANIZ ATION 04/30/2024 [facility] Reason for Visit (unrecogniz ed section and content) Reason Comments New Patient Lumps in legs Reason Comments Med Refill Care Teams (unrecognized sec tion and content) Crude Unit Operator Relationship Specialty Start Date End Date Gissel Oliveira, QUALITY CONTROL TESTER[facility] [address] [place] [address] PCP - General Internal Medicine 01/13/24 Crude Unit Operator Relationship Specialty Start Date End Date Gissel Oliveira, AUGUSTO-LEGAL COORDINATOR [address] [place] [address] PCP - General Internal Medicine 01/13/24 FOR [...] BE BASED ON THE PRIMARY CLINICAL RECORDS. [employer] provides no warranty or guarantee of the accuracy or completeness of information in this document.
--- NOTE | 2024-05-12 21:16 | XR_ITS ---
The [address] [address] Patient Name: JUDIE RODRIGUEZ MRN: [id number] date: 1995 Sex: F Assigned Patient Location: ED.MAIN Current Patient Location: ER Accession/Order Number: [id number] Exam Date: 05/12/2024 22:20 Report Date: 05/12/2024 22:55 At the request of: JOSE ROBERTO BOBBY Procedure: XR elbow LT min 3V EXAM: XR elbow LT min 3V HISTORY: The patient is a 29-year-old female, fall COMPARISON: None. FINDINGS: The lateral view demonstrates elevation of the anterior and posterior elbow fat pads. In the setting of acute trauma this typically indicates the presence of a radial head fracture. The AP view demonstrates a subtle longitudinal lucency within the radial head, and this could represent a nondisplaced radial head fracture. No fractures or cortical discontinuities are seen within the distal humerus or proximal ulna. The articular surfaces are anatomically aligned. XR/XR elbow LT min 3V IMPRESSION: Nondisplaced radial head fracture. Electronically authenticated by: SALVADOR HAWTHORNE Date: 05/12/2024 22:55
--- NOTE | 2024-05-12 21:25 | ED_ITS ---
Documented by User: Rahel Ramirez 05/12/24 21:30 HPI HPI - General Adult General Chief complaint: Extremity Injury, Upper Stated complaint: UPPER EXTREMITY INJURY Time Seen by Provider: 05/12/24 21:15 Source: patient Mode of arrival: walk-in Limitations: no limitations History of Present Illness HPI narrative: 29-year-old female presents for chief complaint of left elbow injury. Patient was wrestling with her around 330. She felt immediate pop in her elbow and they were wrestling. Now she has difficulty supinating and pronating. She states she took Tylenol earlier today without help. She is tearful. Had previous fracture to this extremity Related Data Home Medications ?Medication ?Instructions ?Recorded ?Confirmed duloxetine 60 mg capsule,delayed 60 mg PO DAILY 05/12/24 05/12/24 release lisinopril 20 mg tablet 40 mg PO DAILY 05/12/24 05/12/24 magnesium oxide 400 mg (241.3 mg 400 mg PO DAILY 05/12/24 05/12/24 magnesium) tablet Allergies Allergy/AdvReac Type Severity Reaction Status Date / Time No Known Drug Allergies Allergy Verified 01/22/24 19:48 Opioid HPI Opioid Management Most Recent Opioid Data: Last Pain Scale 10 05/12/24 21:30 Review of Systems ROS Narrative All Systems are negative except as noted/marked.All systems reviewed and otherwise negative PFSH PFSH Social History Smoking status: Current every day smoker Exam Narrative Exam Narrative: Nurses note and vital signs reviewed and patient is not hypoxic. General: The patient appears well and in no apparent distress. Patient is resting comfortably on cart. Skin: Warm, dry, no pallor noted. There is no rash noted. Head: Normocephalic, atraumatic Eye: Normal conjunctiva, no drainage, EOMI. PERRL Ears, Nose, Mouth, and Throat: oral mucosa is moist. Nares patent. Mouth without vesicles. Ear canals patent. Tm's without Erythema Musculoskeletal: Left elbow extremities neurovascularly intact difficulty with supination and pronation. The patient has no evidence of calf tenderness, no pitting edema, symmetrical pulses noted bilaterally Neurological: A&O x4, normal speech Psychiatric: Cooperative Constitutional Vital Signs, click to edit/add: Last Vital Signs Temp 98.1 F 05/12/24 21:02 Pulse 99 H 05/12/24 21:02 Resp 18 05/12/24 21:02 BP 139/82 05/12/24 21:02 Pulse Ox 97 05/12/24 21:02 O2 Del Method Room Air 05/12/24 21:02 Course Vital Signs Vital signs: Vital Signs Temperature 98.1 F 05/12/24 21:02 Pulse Rate 99 H 05/12/24 21:02 Respiratory Rate 18 05/12/24 21:02 Blood Pressure 139/82 05/12/24 21:02 Pulse Oximetry 97 05/12/24 21:02 Oxygen Delivery Method Room Air 05/12/24 21:02 Temperature 98.1 F 05/12/24 21:02 Pulse Rate 99 H 05/12/24 21:02 Respiratory Rate 18 05/12/24 21:02 Blood Pressure 139/82 05/12/24 21:02 Pulse Oximetry 97 05/12/24 21:02 Oxygen Delivery Method Room Air 05/12/24 21:02 Medical Decision Making Differential Diagnosis Differential Diagnosis: sprain, Fracture, contusion Medical Records Medical records reviewed: Yes I reviewed the patient's medical records Imaging Data elbow: Radiologist's impression: ITS Impressions Elbow X-Ray 05/12/24 21:16 IMPRESSION: Nondisplaced radial head fracture. Electronically authenticated by: SALVADOR HAWTHORNE Date: 05/12/2024 22:55 Discharge Plan Discharge Stand Alone Forms: Portal Instructions Chief Complaint: Extremity Injury, Upper Clinical Impression: Closed fracture of left elbow Patient Disposition: Home, Self-Care Condition: Good Prescriptions / Home Meds: No Action lisinopril 20 mg tablet 40 mg PO DAILY magnesium oxide 400 mg (241.3 mg magnesium) tablet 400 mg PO DAILY duloxetine 60 mg capsule,delayed release(DR/EC) 60 mg PO DAILY Print Language: Lithuanian Instructions: Elbow Fracture (ED), How to Use a Sling (ED), P.R.I.C.E. Treatment (ED) Referrals: JUANCHO DE LEON [Primary Care Provider] - 1 week Mauricio Pandya MD [Physician] - 05/15/24 11:30 am Documented by User: Tadeo Iverson MD 05/12/24 23:32 HPI HPI - General Adult General Chief complaint: Extremity Injury, Upper Stated complaint: UPPER EXTREMITY INJURY Time Seen by Provider: 05/12/24 21:15 Related Data Home Medications ?Medication ?Instructions ?Recorded ?Confirmed duloxetine 60 mg capsule,delayed 60 mg PO DAILY 05/12/24 05/12/24 release lisinopril 20 mg tablet 40 mg PO DAILY 05/12/24 05/12/24 magnesium oxide 400 mg (241.3 mg 400 mg PO DAILY 05/12/24 05/12/24 magnesium) tablet Allergies Allergy/AdvReac Type Severity Reaction Status Date / Time No Known Drug Allergies Allergy Verified 01/22/24 19:48 Opioid HPI Opioid Management Most Recent Opioid Data: Last Pain Scale 10 05/12/24 21:30 PFSH PFSH Social History Smoking status: Current every day smoker Exam Constitutional Vital Signs, click to edit/add: Last Vital Signs Temp 98.1 F 05/12/24 21:02 Pulse 99 H 05/12/24 21:02 Resp 18 05/12/24 21:02 BP 139/82 05/12/24 21:02 Pulse Ox 97 05/12/24 21:02 O2 Del Method Room Air 05/12/24 21:02 Course Vital Signs Vital signs: Vital Signs Temperature 98.1 F 05/12/24 21:02 Pulse Rate 99 H 05/12/24 21:02 Respiratory Rate 18 05/12/24 21:02 Blood Pressure 139/82 05/12/24 21:02 Pulse Oximetry 97 05/12/24 21:02 Oxygen Delivery Method Room Air 05/12/24 21:02 Temperature 98.1 F 05/12/24 21:02 Pulse Rate 99 H 05/12/24 21:02 Respiratory Rate 18 05/12/24 21:02 Blood Pressure 139/82 05/12/24 21:02 Pulse Oximetry 97 05/12/24 21:02 Oxygen Delivery Method Room Air 05/12/24 21:02 Medical Decision Making MDM Narrative Medical decision making narrative: patient wrestling with her boyfriend and injured left elbow. xray with nondisplaced radial head fracture. Patient place in a sling and splint and disc harged to followup with ortho Imaging Data elbow: Radiologist's impression: ITS Impressions Elbow X-Ray 05/12/24 21:16 IMPRESSION: Nondisplaced radial head fracture. Electronically authenticated by: SALVADOR HAWTHORNE Date: 05/12/2024 22:55 Discharge Plan Discharge Stand Alone Forms: Portal Instructions Chief Complaint: Extremity Injury, Upper Clinical Impression: Closed fracture of left elbow Patient Disposition: Home, Self-Care Condition: Good Prescriptions / Home Meds: No Action lisinopril 20 mg tablet 40 mg PO DAILY magnesium oxide 400 mg (241.3 mg magnesium) tablet 400 mg PO DAILY duloxetine 60 mg capsule,delayed release(DR/EC) 60 mg PO DAILY Print Language: Lithuanian Instructions: Elbow Fracture (ED), How to Use a Sling (ED), P.R.I.C.EVesna friedman (ED) Referrals: JUANCHO DE LEON [Primary Care Provider] - 1 week Mauricio Pandya MD [Physician] - 05/15/24 11:30 am Procedures ED Procedure Instructions Procedures Procedures: left radial head fracture. nondisplaced. fiber glass splint placed. Posterior elbow splint. Tolerated well. N/V post splint placement WNL
[2024-05-12] MEDS: HYDROCODONE/ACET 5-325 MG TABLET 1 TAB PO (21:30)
== END 2024-05-12 23:39 | disposition home or self-care (01) ==
PROVIDERS: Emergency Provider Internal Medicine; PCP Nurse Practitioner Family
DX: S52.125A Nondisplaced fracture of head of left radius, initial encounter for closed fracture (principal); X50.9XXA Other and unspecified overexertion or strenuous movements or postures, initial encounter; Y93.83 Activity, rough housing and horseplay; F17.210 Nicotine dependence, cigarettes, uncomplicated
CPT/HCPCS: 29105; 73080; 99284

== ENCOUNTER 2024-05-16 15:21 | Emergency (ER) | payer OTHER, SELFPAY ==
[2024-05-16] VITALS (12 sets, daily range): BP systolic 148; BP diastolic 100; PULSE 77–99; TEMP 37; O2SAT 99; BMI 39.2
--- NOTE | 2024-05-16 15:47 | ECG_ITS ---
The [facility] Test Date: 2024-05-16 Pat Name: JUDIE RODRIGUEZ Department: Room: - Gender: Female Side Stitcher: : 1995 Requested By: SHIVAM REBOLLEDO Order Number: [id number] Reading MD: ELIANA LAWLER Measurements Intervals [place] Rate: 84 P: 24 NM: 176 QRS: 88 QRSD: 94 T: 40 QT: 400 QTc: 440 Interpretive Statements 1100 Sinus rhythm low voltage across the precordium 9110 normal ECG No previous ECG available for comparison Electronically Signed On 05-16-2024 22:29:55 EDT by ELIANA LAWLER
--- NOTE | 2024-05-16 15:48 | XR_ITS ---
The [address] [address] Patient Name: JUDIE RODRIGUEZ MRN: [id number] date: 1995 Sex: F Assigned Patient Location: ER Current Patient Location: ER Accession/Order Number: [id number] Exam Date: 05/16/2024 16:00 Report Date: 05/16/2024 16:19 At the request of: PAVEL DUNBAR Procedure: XR chest 1V EXAM: XR chest 1V HISTORY: Palpitations. COMPARISON: None. TECHNIQUE: Single AP portable chest x-ray. FINDINGS: The lungs are clear bilaterally and the cardiomediastinal silhouette is within normal limits. XR/XR chest 1V IMPRESSION: 1. No acute cardiopulmonary disease. Electronically authenticated by: ANILA HERNANDEZ Date: 05/16/2024 16:19
--- NOTE | 2024-05-16 15:49 | ED_ITS ---
HPI HPI - General Adult General Chief complaint: Abdominal Pain Stated complaint: Abdominal Pain Time Seen by Provider: 05/16/24 15:41 Source: patient Mode of arrival: walk-in Limitations: no limitations History of Present Illness HPI narrative: Patient presented to the emergency department for evaluation of multiple complaints. Patient states for the last 3 to 4 days she has not felt well. Patient states that she cannot exactly explain what that means, but she notes she is felt crying, tearful, she states that her right pinky has been numb and tingling, she is feeling diffuse cramping to every muscle in her body, her feet, her legs, her abdominal wall. She states she not having any abdominal pain, but it is included in the muscles that are cramping all over her body. Patient states that she has also been feeling flushed, feeling palpitations, feels like sometimes she is going to pass out. Has not fully passed out, has noted her head, no blurry vision, double vision. Mom is at bedside states that she is not altered. No other, at this time Related Data Home Medications ?Medication ?Instructions ?Recorded ?Confirmed duloxetine 60 mg capsule,delayed 60 mg PO DAILY 05/12/24 05/16/24 release lisinopril 20 mg tablet 40 mg PO DAILY 05/12/24 05/16/24 magnesium oxide 400 mg (241.3 mg 400 mg PO DAILY 05/12/24 05/16/24 magnesium) tablet hydrocodone 5 mg-acetaminophen 325 1 tab PO Q6H PRN pain 05/16/24 05/16/24 mg tablet Previous Rx's ?Medication ?Instructions ?Recorded cyclobenzaprine 10 mg tablet 10 mg PO TID PRN muscle spasm #14 05/16/24 tabs naproxen 500 mg tablet 500 mg PO Q12H PRN pain #20 tabs 05/16/24 Allergies Allergy/AdvReac Type Severity Reaction Status Date / Time No Known Drug Allergies Allergy Verified 05/16/24 15:32 Opioid HPI Opioid Management Most Recent Opioid Data: Last Pain Scale 1 05/16/24 16:11 Last MAR Pain Assessment 05/16/24 16:11 Ur Phencyclidine Scrn Negative (NEGATIVE) 05/16/24 15:54 Review of Systems ROS Narrative Negative unless otherwise stated in the HPI [facility] Medical History (Updated 05/16/24 @ 17:37 by Donnell Nam MD) Hypertension ?I10 - Essential (primary) hypertension (ICD-10) Surgical History (Updated 05/16/24 @ 15:34 by Inna Del Valle) H/O right knee surgery ?Z98.890 - Other specified postprocedural states (ICD-10) Tubal ligation status ?Z98.51 - Tubal ligation status (ICD-10) Social History Smoking status: Current every day smoker Exam Narrative Exam Narrative: General: NAD, AAOx3, no distress Neck: Supple, no LAD, negative Kernig/Brudzinski, non meningeal, no bruit Respiratory: respiratory effort normal, speaks in full sentences, no tripod position, no accessory muscle use. Lungs clear to auscultation without rhonchi, wheezes, rales Cardiac: Regular rate and rhythm, no edema, regular s1/s2, no m/g/r Abdomen: Soft, ND/NT. No evidence of fluid wave. No pulsatile masses on exam, rebound tenderness, Enriquez sign or pain over Mcburney's point. Ext: No abnormal range of motion, no swelling. Neuro: Speech is clear and appropriate. Normal level of consciousness. Gait and coordination are normal. 5/5 strength in all extremities. Psych: Normal mood and affect. Judgement/competence is appropriate Constitutional Vital Signs, click to edit/add: Last Vital Signs Temp 98.6 F 05/16/24 15:26 Pulse 89 05/16/24 15:26 Resp 18 05/16/24 15:26 BP 148/100 H 05/16/24 15:26 Pulse Ox 99 05/16/24 15:26 Course Vital Signs Vital signs: Vital Signs Temperature 98.6 F 05/16/24 15:26 Pulse Rate 89 05/16/24 15:26 Respiratory Rate 18 05/16/24 15:26 Blood Pressure 148/100 H 05/16/24 15:26 Pulse Oximetry 99 05/16/24 15:26 Temperature 98.6 F 05/16/24 15:26 Pulse Rate 89 05/16/24 15:26 Respiratory Rate 18 05/16/24 15:26 Blood Pressure 148/100 H 05/16/24 15:26 Pulse Oximetry 99 05/16/24 15:26 Medical Decision Making MDM Narrative Medical decision making narrative: MDM Patient with history as above presented with palpitations, shortness of breath, flushing, muscle cramping. History obtained from patient. Patient was nontoxic, stable. Ambulatory. Exam as above. EKG reviewed. Labs reviewed. PERC negative Independently reviewed imaging. Reviewed external records. Differential diagnosis considered. Overall presentation is consistent with hyponatremia, muscle cramping, improved after Toradol and Valium. Patient is asymptomatic on reevaluation Advanced guidance has been given. Vss, pex is benign at this time. Pt to fu with pcp 1-2 days for reeval, rter should sx worsen, persist or become worrysome in any way. All incidental laboratory studies, EKG, radiologic findings have been noted and discussed with patient. Patient was reevaluated with a benign exam at this time. Pt expressed understanding and agreement with plan of care at this time. Will fu as planned. Pt stable for discharge. Medical Records Medical records reviewed: Yes I reviewed the patient's medical records Lab Data Lab results reviewed: Yes I reviewed the patient's lab results Labs: Lab Results 05/16/24 05/16/24 Range/Units 15:54 16:00 WBC 14.6 H (4.0-11.0) 10^3/uL RBC 5.13 (4.20-5.40) 10^6/uL Hgb 15.5 (12.0-16.0) g/dL Hct 45.4 (36.0-48.0) % MCV 88.5 (81.0-99.0) fL MCH 30.2 (26.7-34.0) pg MCHC 34.1 (29.9-35.2) g/dL RDW 12.1 (11.0-15.0) % Plt Count 378 (150-450) 10^3/uL MPV 10.0 (9.5-13.5) fL Neut % (Auto) 64.1 (43.0-75.0) % Lymph % (Auto) 26.5 (20.5-60.0) % Barton % (Auto) 6.3 (1.7-12.0) % Eos % (Auto) 2.3 (0.9-7.0) % Baso % (Auto) 0.5 (0.2-2.0) % Neut # (Auto) 9.4 H (1.4-6.5) 10^3/uL Lymph # (Auto) 3.9 H (1.2-3.8) 10^3/uL Barton # (Auto) 0.9 H (0.3-0.8) 10^3/uL Eos # (Auto) 0.3 (0.0-0.7) 10^3/uL Baso # (Auto) 0.1 (0.0-0.1) 10^3/uL Abs Immat Gran (auto) 0.05 H (0.00-0.03) 10^3/uL Imm/Tot Granulo (auto) 0.3 (0.0-0.5) % Sodium 132 L (136-145) mmol/L Potassium 3.7 (3.5-5.1) mmol/L Chloride 97 L (98-107) mmol/L Carbon Dioxide 23.9 (21.0-32.0) mmol/L Anion Gap 14.8 BUN 15.0 (7.0-18.0) mg/dL Creatinine 0.63 (0.55-1.02) mg/dL Est GFR ( Amer) >60 (>=60) Est GFR (Non-Af Amer) >60 (>=60) BUN/Creatinine Ratio 23.8 Glucose 114 H (74-106) mg/dL Calcium 9.6 (8.5-10.1) mg/dL Magnesium 1.8 (1.8-2.4) mg/dL TSH & Free T4 Interp 2.154 (0.358-3.740) uIU/mL Urine Color Yellow (YELLOW) Urine Clarity Clear (CLEAR) Urine pH 6.5 (5.0-9.0) Ur Specific [place] 1.020 (1.005-1.025) Urine Protein Trace (NEG/TRACE) mg/dL Urine Glucose (UA) Negative (NEGATIVE) mg/dL Urine Ketones Negative (NEGATIVE) mg/dL Urine Occult Blood Negative (NEGATIVE) Urine Nitrite Negative (NEGATIVE) Urine Bilirubin Negative (NEGATIVE) Urine Urobilinogen 0.2 (0.2-1.0) EU/dL Ur Leukocyte Esterase Negative (NEGATIVE) Urine HCG, Qual Negative (NEGATIVE) Urine Opiates Screen Positive A (NEGATIVE) Ur Buprenorphine Scrn Negative (NEGATIVE) Ur Oxycodone Screen Negative (NEGATIVE) Urine Methadone Screen Negative (NEGATIVE) Ur Barbiturates Screen Negative (NEGATIVE) U Tricyclic Antidepress Negative (NEGATIVE) Ur Phencyclidine Scrn Negative (NEGATIVE) Ur Amphetamines Screen Negative (NEGATIVE) U Methamphetamines Scrn Negative (NEGATIVE) U Benzodiazepines Scrn Negative (NEGATIVE) Urine Cocaine Screen Negative (NEGATIVE) U Cannabinoids Screen Positive A (NEGATIVE) Imaging Data Abdominal x-ray: Radiologist's impression: ITS Impressions Chest X-Ray 05/16/24 15:48 IMPRESSION: 1. No acute cardiopulmonary disease. Electronically authenticated by: ANILA HERNANDEZ Date: 05/16/2024 16:19 Discharge Plan Discharge Stand Alone Forms: Portal Instructions Chief Complaint: Abdominal Pain Clinical Impression: Acute hyponatremia, Muscle spasm, Heart palpitations Patient Disposition: Home, Self-Care Prescriptions / Home Meds: New naproxen 500 mg tablet 500 mg PO Q12H PRN (Reason: pain) Qty: 20 0RF cyclobenzaprine 10 mg tablet 10 mg PO TID PRN (Reason: muscle spasm) Qty: 14 0RF No Action hydrocodone-acetaminophen 5-325 mg tablet 1 tab PO Q6H PRN (Reason: pain) lisinopril 20 mg tablet 40 mg PO DAILY magnesium oxide 400 mg (241.3 mg magnesium) tablet 400 mg PO DAILY duloxetine 60 mg capsule,delayed release(DR/EC) 60 mg PO DAILY Print Language: Filipino Instructions: Heart Palpitations (ED), Hyponatremia (ED), Muscle Spasm (ED) Additional Instructions: Follow-up with your PCP in the next 1 to 2 days. Return to the emergency department should symptoms worsen or become worrisome in any way. Referrals: SHIVAM REBOLLEDO [Primary Care Provider] - 1 week
[2024-05-16 16:08] LABS: Basophils Absolute Auto 0.1 10^3/uL (0.0-0.1); Basophils Percent Auto 0.5 % (0.2-2.0); Eosinophils Absolute Auto 0.3 10^3/uL (0.0-0.7); Eosinophils Percent Auto 2.3 % (0.9-7.0); Hematocrit 45.4 % (36.0-48.0); Hemoglobin 15.5 g/dL (12.0-16.0); Immature Granulocytes Abs Auto 0.05 10^3/uL (0.00-0.03); Immature Granulocytes Pct Auto 0.3 % (0.0-0.5); Lymphocytes Absolute Auto 3.9 10^3/uL (1.2-3.8); Lymphocytes Percent Auto 26.5 % (20.5-60.0); Mean Corpuscular HGB Conc 34.1 g/dL (29.9-35.2); Mean Corpuscular Hemoglobin 30.2 pg (26.7-34.0); Mean Corpuscular Volume 88.5 fL (81.0-99.0); Monocytes Absolute Auto 0.9 10^3/uL (0.3-0.8); Monocytes Percent Auto 6.3 % (1.7-12.0); Neutrophils Absolute Auto 9.4 10^3/uL (1.4-6.5); Neutrophils Percent Auto 64.1 % (43.0-75.0); Platelet Count 378 10^3/uL (150-450); Red Blood Count 5.13 10^6/uL (4.20-5.40); Red Cell Distribution Width 12.1 % (11.0-15.0); White Blood Count 14.6 10^3/uL (4.0-11.0)
[2024-05-16] MEDS: DIAZEPAM 10 MG/2 ML SYRINGE 5 MG IV (16:10)
[2024-05-16 16:11] LABS: Bilirubin Urine NEGATIVE (NEGATIVE); Blood Urine NEGATIVE (NEGATIVE); Clarity Urine CLEAR (CLEAR); Color Urine YELLOW (YELLOW); Glucose Urine UA NEGATIVE (NEGATIVE); Ketones Urine NEGATIVE (NEGATIVE); Leukocyte Esterase Urine NEGATIVE (NEGATIVE); Nitrite Urine NEGATIVE (NEGATIVE); Protein Urine TRACE mg/dL (NEG/TRACE); Urobilinogen Urine 0.2 EU/dL (0.2-1.0); pH Urine 6.5 (5.0-9.0)
[2024-05-16] MEDS: KETOROLAC TROMETHAMINE 30 MG/ML VIAL 15 MG IVP (16:11)
--- OUTSIDE RECORDS SUMMARY | 2024-05-16 16:12 | XMS_ITS | CCD ---
Author Organization [facility] Care Team Providers Care Taxonomy Teacher Name Role Phone FURLOFARIHA, DR SHIVAM Bautista [...] Unavailable ASPEN, BETINA L Admitting Unavailable ASPEN, BETIAN L Attending Unavailable KUNS, ANUPAM Primary Care [...] 2 01/13/2024 Active 168 hr ethinyl estradiol 0.14946 mg/hr / norelgestromin 0.40273 mg/hr transdermal system (2 sources) Progestin, Estrogen [...] 24 ABSOLUTE BASOPHIL 0.1 X10E9/L Normal 0.0-0.2 [facility] Comment on above: Performed By: #### C BCA, CMP, FEPR, 04193-7, 6-4, 2132-06, 94401-8 #### [facility] ([id number]) [address], [address] [place] [address] ABSOLUTE NEUTROPHIL 5.3 X10E9/L Normal 1.5-6.6 [facility] Comment on above: Performed By: #### C BCA, CMP, FEPR, 88714-3, 2275-4, 9, 80219-2 #### [facility] ([id number]) [address], [address] [place] [address] Basophils/100 WBC (Bld) 0.8 % Normal [facility] Comment on above: Performed By: #### C BCA, CMP, FEPR, 62697-3, 2275-4, 9, 19327-5 #### [facility] ([id number]) [address], [facility] [address] [place] [address] Eosinophils (Bld) [#/Vol] 0.4 10*3/uL Normal 0.0-0.4 [facility] Comment on above: Performed By: #### C BCA, CMP, FEPR, 89470-4, 2275-4, 2132-06, 74909-5 #### [facility] ([id number]) [address], [address] [place] [address] Eosinophils/100 WBC (Bld) 4.1 % Normal [facility] Comment on above: Performed By: #### C BCA, CMP, FEPR, 04162-2, 2275-, 2132-06, 39105-4 #### [facility] ([id number]) [address], [facility] [address] [place] [address] Erythrocyte distribution width (RBC) [Ratio] 13.6 % Normal 11.5-15.0 [facility] Comment on above: Performed By: #### C BCA, CMP, FEPR, 88483-3, 2275-4, 2131-9, 95998-1 #### [facility] ([id number]) [address], [address] [place] [address] Hematocrit (Bld) [Volume fraction] 39.2 % Normal 35-47 [facility] Comment on above: Performed By: #### C BCA, CMP, FEPR, 06309-4, 2275-4, 2132-06, 77499-3 #### [facility] ([id number]) [address], [address] [place] [address] Hemoglobin (Bld) [Mass/Vol] 13.4 g/dL Normal 11.7-15.5 [facility] Comment on above: Performed By: #### C BCA, CMP, FEPR, 14172-5, 2275-4, 9, 54218-6 #### [facility] ([id number]) [address], [address] [place] [address] Lymphocytes (Bld) [#/Vol] 2.7 10*3/uL Normal 1.0-3.5 [facility] Comment on above: Performed By: #### C BCA, CMP, FEPR, 95433-3, 2275-, 2132-06, 24291-1 #### [facility] ([id number]) [address], [address] [place] [address] Lymphocytes/100 WBC (Bld) 30.3 % Normal [facility] Comment on above: Performed By: #### C BCA, CMP, FEPR, , 2275-, 2132-06, 38517-6 #### [facility] ([id number]) [address], [address] [place] [address] MCH (RBC) [Entitic mass] 31.4 pg Normal 27-34 [facility] Comment on above: Performed By: #### C BCA, CMP, FEPR, 71613-8, 2275-4, 2132-06, 20640-7 #### [facility] ([id number]) [address], [address] [place] [address] MCHC (RBC) [Mass/Vol] 34.1 g/dL Normal 32-36 [facility] Comment on above: Performed By: #### C BCA, CMP, FEPR, 74434-6, 2275-, 2132-06, 19324-8 #### [facility] ([id number]) [address], [address] [place] [address] MCV (RBC) [Entitic vol] 92 fL Normal 80-100 [facility] Comment on above: Performed By: #### C BCA, CMP, FEPR, 41232-7, 6-4, 2131-9, 21830-2 #### [facility] ([id number]) [address], [address] [place] [address] Monocytes (Bld) [#/Vol] 0.4 10*3/uL Normal 0-0.9 [facility] Comment on above: Performed By: #### C BCA, CMP, FEPR, 21110-2, 2275-, 2132-06, 37793-8 #### [facility] ([id number]) [address], [address] [place] [address] Monocytes/100 WBC (Bld) 4.1 % Normal [facility] Comment on above: Performed By: #### C BCA, CMP, FEPR, 11269-7, 2275-, 2132-06, 36950-6 #### [facility] ([id number]) [address], [address] [place] [address] Neutrophils/100 WBC (Bld) 60.7 % Normal [facility] Comment on above: Performed By: #### C BCA, CMP, FEPR, 88058-4, 2275-4, 2132-06, 51650-4 #### [facility] ([id number]) [address], [address] [place] [address] Platelet mean volume (Bld) [Entitic vol] 8.9 fL Normal 7-12 [facility] Comment on above: Performed By: #### C BCA, CMP, FEPR, 16736-2, 2275-4, 9, 04220-5 #### [facility] ([id number]) [address], [address] [place] [address] Platelets (Bld) [#/Vol] 266 10*3/uL Normal 150-450 [facility] Comment on above: Performed By: #### C BCA, CMP, FEPR, 22157-4, 6-4, 2131-9, 24775-2 #### [facility] ([id number]) [address], [address] [place] [address] RBC COUNT 4.26 X10E12/L Normal 3.80-5.20 [facility] Comment on above: Performed By: #### C BCA, CMP, FEPR, 24713-0, 2275-4, 2131-9, 11297-6 #### [facility] ([id number]) [address], [address] [place] [address] WBC (Bld) [#/Vol] 8.8 10*3/uL Normal 4.0-11.0 [facility] Comment on above: Performed By: #### C BCA, CMP, FEPR, 46205-3, 2275-4, 2131-9, 24381-1 #### [facility] ([id number]) [address] [place] [address] COMPREHENSIVE METABOLIC PANE [facility] 04-26-2024 Albumin [Mass/Vol] 4.4 g/dL Normal 3.2-5.3 [facility] Comment on above: Performed By: #### C BCA, CMP, FEPR, 37859-5, 2275-4, 2131-9, 40100-9 #### [facility] ([id number]) [address], [address] [place] [address] ALP [Catalytic activity/Vol] 71 U/L Normal 39-130 [facility] Comment on above: Performed By: #### C BCA, CMP, FEPR, 27016-3, 6-4, 2131-9, 87050-1 #### [facility] ([id number]) [address], [address] [place] [address] ALT [Catalytic activity/Vol] 145 U/L High 0-31 [facility] Comment on above: Performed By: #### C BCA, CMP, FEPR, 73022-8, 2275-, 2132-06, 04346-6 #### [facility] ([id number]) [address], [address] [place] [address] Anion gap [Moles/Vol] 11 mmol/L Normal 5-15 [facility] Comment on above: Performed By: #### C BCA, CMP, FEPR, , 2276-01, 2132-06, 69823-8 #### [facility] ([id number]) [address], [address] [place] [address] AST [Catalytic activity/Vol] 157 U/L High 0-41 [facility] Comment on above: Performed By: #### C BCA, CMP, FEPR, , 2276-01, 2132-06, 96079-4 #### [facility] ([id number]) [address], [address] [place] [address] Bilirubin [Mass/Vol] 0.3 mg/dL Normal 0.3-1.2 [facility] Comment on above: Performed By: #### C BCA, CMP, FEPR, , 2276-01, 2132-06, 05048-5 #### [facility] ([id number]) [address], [address] [place] [address] Calcium [Mass/Vol] 9.7 mg/dL Normal 8.5-10.5 [facility] Comment on above: Performed By: #### C BCA, CMP, FEPR, , 2276-01, 2132-06, 75263-2 #### [facility] ([id number]) [address], [address] [place] [address] Chloride [Moles/Vol] 104 mmol/L Normal 98-109 [facility] Comment on above: Performed By: #### C BCA, CMP, FEPR, 28889-6, 6-4, 2131-9, 66406-2 #### [facility] ([id number]) [address], [address] [place] [address] CO2 [Moles/Vol] 23 mmol/L Normal 22-32 [facility] Comment on above: Performed By: #### C BCA, CMP, FEPR, 29537-7, 6-4, 2131-9, 31326-2 #### [facility] ([id number]) [address], [facility] [address] [place] [address] Creatinine [Mass/Vol] 0.56 mg/dL Normal 0.40-1.00 [facility] Comment on above: Result Comment: METH OD TRACEABLE TO IDMS STANDARD Performed By: #### C BCA, CMP, FEPR, 71350-9, 2275-4, 9, 57749-1 #### [facility] ([id number]) [address], [facility] [address] [place] [address] eGFR (CKD-EPI) NON-RACE DEPENDENT >90 Normal >59 [facility] Comment on above: Result Comment: Reported eGFR is based on the CKD-EPI 2020 equation that does not use a race coefficient. Performed By: #### C BCA, CMP, FEPR, 99625-0, 2275-4, 9, 50892-1 #### [facility] ([id number]) [address], [address] [place] [address] Glucose [Mass/Vol] 118 mg/dL High 65-99 [facility] Comment on above: Performed By: #### C BCA, CMP, FEPR, 65644-9, 6-4, 2131-9, 29337-6 #### [facility] ([id number]) [address], [address] [place] [address] Potassium [Moles/Vol] 4.1 mmol/L Normal 3.5-5.0 [facility] Comment on above: Performed By: #### C BCA, CMP, FEPR, 46334-3, 2275-4, 9, 31081-7 #### [facility] ([id number]) [address], [facility] [address] [place] [address] Protein [Mass/Vol] 7.6 g/dL Normal 6.0-8.0 [facility] Comment on above: Performed By: #### C BCA, CMP, FEPR, 72056-2, 2276-01, 2132-06, 25967-6 #### [facility] ([id number]) [address], [address] [address] Sodium [Moles/Vol] 138 mmol/L Normal 134-146 [facility] Comment on above: Performed By: #### C BCA, CMP, FEPR, 70942-4, 2275-, 9, 01813-2 #### [facility] ([id number]) [address], [address] [address] Urea nitrogen [Mass/Vol] 11 mg/dL Normal 5-23 [facility] Comment on above: Performed By: #### C BCA, CMP, FEPR, 42815-6, 2275-, 2132-06, 62650-4 #### [facility] ([id number]) [address], [facility] [address] [place] [address] FERRITINon 04-26-2024 Ferritin [Mass/Vol] 94 ng/mL Normal 11-307 [facility] Comment on above: Performed By: #### C BCA, CMP, FEPR, 15840-3, 2275-, 9, 51996-4 #### [facility] ([id number]) [address], [facility] [address] [place] [address] IRON PROFILEon 04-26-2024 Iron [Mass/Vol] 66 ug/dL Normal 50-170 [facility] Comment on above: Performed By: #### C BCA, CMP, FEPR, 48762-3, 2275-4, 2132-06, 11604-2 #### [facility] ([id number]) [address], [address] [place] [address] IRON BINDING 451 ug/dL High 250-425 [facility] Comment on above: Performed By: #### C BCA, CMP, FEPR, 81887-3, 2275-, 9, 66146-2 #### [facility] ([id number]) [address], [address] [place] [address] IRON SATURATION 15 % SATURATION Normal 15-50 [facility] Comment on above: Performed By: #### C BCA, CMP, FEPR, , 2276-01, 2132-06, 15615-2 #### [facility] ([id number]) [address], [address] [place] [address] MAGNESIUMon 04-26-2024 Magnesium [Mass/Vol] 1.5 mg/dL Low 1.8-2.6 [facility] Comment on above: Performed By: #### C BCA, CMP, FEPR, 29031-3, 2276-01, 2132-06, 68255-3 #### [facility] ([id number]) [address], [address] [place] [address] VITAMIN B12on 04-26-2024 Cobalamin (Vitamin B12) [Mass/Vol] 416 pg/mL Normal 180-914 [facility] Comment on above: Performed By: #### C BCA, CMP, FEPR, 30670-8, 2275-, 2132-06, 60597-4 #### [facility] ([id number]) [address], [address] [place] [address] Vitamin D+Metabolites [Mass/ Vol]on 04-26-2024 VITAMIN D 25 HYD TOT 18.0 ng/mL Low 30-100 [facility] Comment on above: Result Comment: Vitamin D status 25 [place] Vitamin D Deficiency <20 ng/mL Insufficiency 20-29 ng/mL Sufficiency 30-100 ng/mL Toxicity >100 ng/mL NOTE: A pediatric reference range has not been established by the slab lifting supervisor of this kit. The [place] [employer] recommends a Vitamin D level of = or >20ng/mL in infants and children. Performed By: #### C BCA, CMP, FEPR, 71736-7, 2276-4, 2132-9, 49321-3 #### [facility] ([id number]) [address] [place] [address], [address] [place] [address] HCG ( test) Ql (U)o n 03-13-2024 Beta HCG ( test) Ql (U) Negative Normal NEG [facility] Comment on above: Performed By: #### 2 106-3 #### [facility] ([id number]) [address] [place] [address], [place] [address] Surgical Pathologyon 024 Surgical Pathology Normal [facility] Comment on above: Result Comment: [facility] [address] [place] [address] Surgical Pathology Consultation Patient Name:JUDIE RODRIGUEZ:1995 (Age: 29)Gender:FTaken:4Reported:03/17/2024hysician(s):Betina Saravia M.D. ([phone])Copy To: Rec. #:[id number]: #[id number] Final Pathologic Diagnosis 1. Right fallopian tube, salpingectomy: Benign fallopian tube with fimbriated end, showing completely transected lumen. 2. Left fallopian tube, salpingectomy: Benign fallopian tube with fimbriated end, showing completely transected lumen. Report Electronically Signed Out /03/17/2024gina Ceja MD Interpretation performed at [facility], [address] [place] [address], License number: [id number]. Clinical History Undesired fertility. Gross Description 1. Received in formalin labeled RODRIGUEZ, right fallopian tube is a fimbriated fallopian tube segment, 5.5 x 0.6 cm. The serosa is purple-garcia, smooth and glistening. The fimbria are trisected and the remainder of the tubal segment is sectioned to reveal a pinpoint lumen. The entirety of the fimbria and sales representative meats cross-sections are submitted in a single cassette. (1, , [id number], m1) . 2. Received in formalin labeled RODRIGUEZ, left fallopian tube is a fimbriated fallopian tube segment, 3.5 x 0.6 cm. The serosa is purple-garcia, smooth and glistening. The fimbria are trisected and the remainder of the tubal segment is sectioned to reveal a pinpoint lumen. The entirety of the fimbria and sales representative meats cross-sections are submitted in a single cassette. (1, , [id number], m1) . 03/14/2024 Specimen(s) Received 1: Right fallopian tube 2: Left fallopian tube Fee Codes(s): 1; 20954 2; 33180 BASIC METABOLIC PANLon 02-20 Anion gap [Moles/Vol] 9 mmol/L Normal 5-15 [facility] Comment on above: Performed By: #### C BCA, BMP #### [facility] ([id number]) [address], [address] [place] [address] Calcium [Mass/Vol] 9.1 mg/dL Normal 8.5-10.5 [facility] Comment on above: Performed By: #### C BCA, BMP #### [facility] ([id number]) [address], [address] [place] [address] Chloride [Moles/Vol] 103 mmol/L Normal 98-109 [facility] Comment on above: Performed By: #### C KARINE, BMP #### [facility] ([id number]) [address], [facility] [address] [place] [address] CO2 [Moles/Vol] 26 mmol/L Normal 22-32 [facility] Comment on above: Performed By: #### C KARINE, BMP #### [facility] ([id number]) [address] [address] [place] [address] Creatinine [Mass/Vol] 0.49 mg/dL Normal 0.40-1.00 [facility] Comment on above: Result Comment: METH OD TRACEABLE TO IDMS STANDARD Performed By: #### C KARINE, BMP #### [facility] ([id number]) [address] [address] eGFR (CKD-EPI) NON-RACE DEPENDENT >90 Normal >59 [facility] Comment on above: Result Comment: Reported eGFR is based on the CKD-EPI 2020 equation that does not use a race coefficient. Performed By: #### C KARINE, BMP #### [facility] ([id number]) [address] [address] [place] [address] Glucose [Mass/Vol] 99 mg/dL Normal 65-99 [facility] Comment on above: Performed By: #### C KARINE, BMP #### [facility] ([id number]) [address] [address] [place] [address] Potassium [Moles/Vol] 3.8 mmol/L Normal 3.5-5.0 [facility] Comment on above: Performed By: #### C KARINE, BMP #### [facility] ([id number]) [address] [address] [place] [address] Sodium [Moles/Vol] 138 mmol/L Normal 134-146 [facility] Comment on above: Performed By: #### C KARINE, BMP #### [facility] ([id number]) [address], [address] [place] [address] Urea nitrogen [Mass/Vol] 11 mg/dL Normal 5-23 [facility] Comment on above: Performed By: #### C KARINE, BMP #### [facility] ([id number]) [address], [address] [place] [address] CBC AND AUTO DIFFon 02-21-20 24 ABSOLUTE BASOPHIL 0.0 X10E9/L Normal 0.0-0.2 [facility] Comment on above: Performed By: #### C KARINE, BMP #### [facility] ([id number]) [address] [address] [place] [address] ABSOLUTE NEUTROPHIL 5.3 X10E9/L Normal 1.5-6.6 [facility] Comment on above: Performed By: #### C KARINE, BMP #### [facility] ([id number]) [address], [address] [place] [address] Basophils/100 WBC (Bld) 0.5 % Normal [facility] Comment on above: Performed By: #### C KARINE, BMP #### [facility] ([id number]) [address], [address] [place] [address] Eosinophils (Bld) [#/Vol] 0.4 10*3/uL Normal 0.0-0.4 [facility] Comment on above: Performed By: #### C KARINE, BMP #### [facility] ([id number]) [address], [address] [place] [address] Eosinophils/100 WBC (Bld) 4.6 % Normal [facility] Comment on above: Performed By: #### C KARINE, BMP #### [facility] ([id number]) [address], [address] [place] [address] Erythrocyte distribution width (RBC) [Ratio] 12.9 % Normal 11.5-15.0 [facility] Comment on above: Performed By: #### C KARINE, BMP #### [facility] ([id number]) [address], [address] [place] [address] Hematocrit (Bld) [Volume fraction] 38.9 % Normal 35-47 [facility] Comment on above: Performed By: #### C KARINE, BMP #### [facility] ([id number]) [address] [address] [place] [address] Hemoglobin (Bld) [Mass/Vol] 13.0 g/dL Normal 11.7-15.5 [facility] Comment on above: Performed By: #### C KARINE, BMP #### [facility] ([id number]) [address], [address] [place] [address] Lymphocytes (Bld) [#/Vol] 2.9 10*3/uL Normal 1.0-3.5 [facility] Comment on above: Performed By: #### C KARINE, BMP #### [facility] ([id number]) [address], [address] [place] [address] Lymphocytes/100 WBC (Bld) 31.5 % Normal [facility] Comment on above: Performed By: #### C KARINE, BMP #### [facility] ([id number]) [address], [address] [place] [address] MCH (RBC) [Entitic mass] 30.1 pg Normal 27-34 [facility] Comment on above: Performed By: #### C BCA, BMP #### [facility] ([id number]) [address] [address] [place] [address] MCHC (RBC) [Mass/Vol] 33.3 g/dL Normal 32-36 [facility] Comment on above: Performed By: #### C BCA, BMP #### [facility] ([id number]) [address], [address] [place] [address] MCV (RBC) [Entitic vol] 90 fL Normal 80-100 [facility] Comment on above: Performed By: #### Kashif MILTON, BMP #### [facility] ([id number]) [address], [address] [place] [address] Monocytes (Bld) [#/Vol] 0.5 10*3/uL Normal 0-0.9 [facility] Comment on above: Performed By: #### Kashif MILTON, BMP #### [facility] ([id number]) [address], [address] [place] [address] Monocytes/100 WBC (Bld) 5.5 % Normal [facility] Comment on above: Performed By: #### Kashif MILTON, BMP #### [facility] ([id number]) [address], [address] [place] [address] Neutrophils/100 WBC (Bld) 57.9 % Normal [facility] Comment on above: Performed By: #### Kashif MILTON, BMP #### [facility] ([id number]) [address], [address] [place] [address] Platelet mean volume (Bld) [Entitic vol] 9.0 fL Normal 7-12 [facility] Comment on above: Performed By: #### Kashif MILTON, BMP #### [facility] ([id number]) [address], [address] [place] [address] Platelets (Bld) [#/Vol] 273 10*3/uL Normal 150-450 [facility] Comment on above: Performed By: #### Kashif MILTON, BMP #### [facility] ([id number]) [address], [address] [place] [address] RBC COUNT 4.30 X10E12/L Normal 3.80-5.20 [facility] Comment on above: Performed By: #### C BCA, BMP #### [facility] ([id number]) [address], [address] [place] [address] WBC (Bld) [#/Vol] 9.1 10*3/uL Normal 4.0-11.0 [facility] Comment on above: Performed By: #### C BCA, BMP #### [facility] ([id number]) [address], [address] [place] [address] [facility] 3D NATHAN CA Don 01-27-2023 [facility] 3D NATHAN CAD Patient: JUDIE RODRIGUEZ Exam Date: 01/27/2023 : 1995 Gender:F Ordering : FATOU BOBBY . Admission #: [id number] Family : Order #: [id number] CLICK HERE TO VIEW EXAM RADIOLOGY REPORT PROCEDURE: MAMMOGRAM DIAGNOSTIC 3D BILATERAL CAD, 01/27/2023, 13:46 ULTRASOUND BREAST RIGHT LIMITED, 01/27/2023, 14:23 COMPARISON: None. INDICATIONS: Breast lump Calculator Name NCI Breast Cancer Risk Assessment Tool 5 Year Breast Cancer Risk Not Applicable. Lifetime Breast Cancer Risk Not Applicable. Personal Breast Cancer No Personal Ovarian Cancer No Treatments None Family Cancers None LOCATION: [facility] BREAST COMPOSITION: Scattered areas fibroglandular density. [...] M.D. on 01/27/2023 at 15:02 Normal [facility] US BREAST RIGHT LIMITEDon US BREAST RIGHT LIMITED Patient: JUDIE RODRIGUEZ Exam Date: 01/27/2023 : 1995 Gender:F Ordering : FATOU BOBBY . Admission #: [id number] Family : Order #: [id number] CLICK HERE TO VIEW EXAM RADIOLOGY REPORT PROCEDURE: MAMMOGRAM DIAGNOSTIC 3D BILATERAL CAD, 01/27/2023, 13:46 ULTRASOUND BREAST RIGHT LIMITED, 01/27/2023, 14:23 COMPARISON: None. INDICATIONS: Breast lump Calculator Name NCI Breast Cancer Risk Assessment Tool 5 Year Breast Cancer Risk Not Applicable. Lifetime Breast Cancer Risk Not Applicable. Personal Breast Cancer No Personal Ovarian Cancer No Treatments None Family Cancers None LOCATION: [facility] BREAST COMPOSITION: Scattered areas fibroglandular density. [...] PALPABLE LUMP SHOULD BE BIOPSIED. Dictated by: Mauircio Baldwin M.D. on 01/27/2023 at 14:58 Approved by: Mauricio Baldwin M.D. on 01/27/2023 at 15:02 Normal [facility] PROTEIN 24HR URINEon 022 T PROT, 24 HR UR 554.3 mg/24 hr Critically high <=149.1 [facility] Comment on above: Performed By: #### P [id number] #### [facility] [address] [place] [address] Dr. Zainab John UR PROT 24.1 mg/dL Critically high <=11.9 [facility] Comment on above: Performed By: #### P [id number] #### [facility] [address] [place] [address] Dr. Zainab John UR TOT VOL 2300 ml/24 HR Normal [facility] Comment on above: Performed By: #### P [id number] #### [facility] [address] [place] [address] Dr. Zainab John UA (CLEAN/CATCH) CORPORATE INVESTIGATOR/MICRO I F IND.on 02-12-2022 Bilirubin Ql (U) Negative Normal NEGATIVE [facility] Comment on above: Performed By: #### T NS #### [facility] [address] [place] [address] Dr. Zainab John Clarity (U) CLEAR Normal CLEAR [facility] Comment on above: Performed By: #### T NS #### [facility] [address] [place] [address] Dr. Zainab John Color (U) LT. YELLOW Normal YELLOW [facility] Comment on above: Performed By: #### T NS #### [facility] [address] [place] [address] Dr. Zainab John Glucose Ql (U) Negative Normal NEGATIVE [facility] Comment on above: Performed By: #### T NS #### [facility] [address] [place] [address] Dr. Zainab John Hemoglobin Ql (U) LARGE Abnormal NEGATIVE [facility] Comment on above: Performed By: #### T NS #### [facility] [address] [place] [address] Dr. Zainab John Ketones Ql (U) Negative Normal NEGATIVE [facility] Comment on above: Performed By: #### T NS #### [facility] [address] [place] [address] Dr. Zainab John LEUKOCYTES Negative Normal NEGATIVE [facility] Comment on above: Performed By: #### T NS #### [facility] [address] [place] [address] Dr. Zainab John Nitrite Ql (U) Negative Normal NEGATIVE [facility] Comment on above: Performed By: #### T NS #### [facility] [address] [place] [address] Dr. Zainab John pH (U) 5.5 [pH] Normal 5-9 [facility] Comment on above: Performed By: #### T NS #### [facility] [address] [place] [address] Dr. Zainab John SPEC GRAVITY 1.030 Abnormal 1.005-<=1.025 [facility] Comment on above: Performed By: #### T NS #### [facility] [address] [place] [address] Dr. Zainab John UA PROTEIN Negative Normal NEGATIVE/ TRACE [facility] Comment on above: Performed By: #### T NS #### [facility] [address] [place] [address] Dr. Zainab John UR MICRO IND INDICATED Normal [facility] Comment on above: Performed By: #### T NS #### [facility] [address] [place] [address] Dr. Zainab John Urobilinogen Qn (U) 0.2 {Sarabjit'U}/dL Normal 0.2 - 1. 0 [facility] Comment on above: Performed By: #### T NS #### [facility] [address] [place] [address] Dr. Zainab John URINE MICROSCOPIC ONLYon BACTERIA NONE SEEN Normal NONE SEEN [facility] Comment on above: Performed By: #### T NS #### [facility] [address] [place] [address] Dr. Zainab John Bacteria identified Cx Nom (U) NOT INDICATED Normal [facility] Comment on above: Performed By: #### T NS #### [facility] [address] [place] [address] Dr. Zainab John CAST NONE SEEN Normal NONE SEEN [facility] Comment on above: Performed By: #### T NS #### [facility] [address] [place] [address] Dr. Zainab John Crystals LM Nom (Urine sed) NONE SEEN Normal NONE SEEN [facility] Comment on above: Performed By: #### T NS #### [facility] [address] [place] [address] Dr. Zainab John Epithelial cells LM Ql (Urine sed) RARE Normal NONE SEEN /RARE [facility] Comment on above: Performed By: #### T NS #### [facility] [address] [place] [address] Dr. Zainab John MUCOUS NONE SEEN Normal NONE SEEN [facility] Comment on above: Performed By: #### T NS #### [facility] [address] [place] [address] Dr. Zainab John RBC 20-50 Abnormal 0-2 [facility] Comment on above: Performed By: #### T NS #### [facility] [address] [address] [address] Zainab John WBC 0-2 Abnormal NONE SEEN [facility] Comment on above: Performed By: #### T NS #### [facility] [address] [place] [address] Dr. Zainab John CBC AUTO DIFFon 02-11-2022 BASO # 0.0 103/ul Normal 0.0-0.1 [facility] Comment on above: Performed By: #### C BC #### [facility] [address] [place] [address] Dr. Zainab John Basophils/100 WBC (Bld) 0.4 % Normal 0.2-2.0 [facility] Comment on above: Performed By: #### C BC #### [facility] [address] [place] [address] Dr. Zainab John EO # 0.3 103/ul Normal 0.0-0.7 [facility] Comment on above: Performed By: #### C BC #### [facility] [address] [place] [address] Dr. Zainab John Eosinophils/100 WBC (Bld) 2.5 % Normal 0.9-7.0 [facility] Comment on above: Performed By: #### C BC #### [facility] [address] [place] [address] Dr. Zainab John Erythrocyte distribution width (RBC) [Ratio] 13.2 % Normal 11.0-15.0 [facility] Comment on above: Performed By: #### C BC #### [facility] [address] [place] [address] Dr. Zainab John Hematocrit (Bld) [Volume fraction] 27.8 % Critically low 36.0-48.0 [facility] Comment on above: Performed By: #### C BC #### [facility] [address] [place] [address] Dr. Zainab John Hemoglobin (Bld) [Mass/Vol] 9.3 g/dL Critically low 12.0-16.0 [facility] Comment on above: Performed By: #### C BC #### [facility] [address] [address] [address] Zainab John IG # 0.08 10e3/ul Critically high 0.00-0.03 [facility] Comment on above: Performed By: #### C BC #### [facility] [address] [address] [address] Zainab John IG % 0.7 % Critically high 0.0-0.5 [facility] Comment on above: Performed By: #### C BC #### [facility] [address] [place] [address] Dr. Zainab John LYMPH # 2.7 103/ul Normal 1.2-3.8 [facility] Comment on above: Performed By: #### C BC #### [facility] [address] [place] [address] Dr. Zainab John Lymphocytes/100 WBC (Bld) 23.6 % Normal 20.5-60.0 [facility] Comment on above: Performed By: #### C BC #### [facility] [address] [place] [address] Dr. Zainab John MANUAL DIFF REQ NO Normal [facility] Comment on above: Performed By: #### C BC #### [facility] [address] [place] [address] Dr. Zainab John MCH (RBC) [Entitic mass] 29.6 pg Normal 26.7-34.0 [facility] Comment on above: Performed By: #### C BC #### [facility] [address] [place] [address] Dr. Zainab John MCHC (RBC) [Mass/Vol] 33.5 g/dL Normal 29.9-35.2 [facility] Comment on above: Performed By: #### C BC #### [facility] [address] [place] [address] Dr. Zainab John MCV (RBC) [Entitic vol] 88.5 fL Normal 81.0-99.0 [facility] Comment on above: Performed By: #### C BC #### [facility] [address] [place] [address] Dr. Zainab John MONO # 0.6 103/ul Normal 0.3-0.8 [facility] Comment on above: Performed By: #### C BC #### [facility] [address] [address] [address] Zainab John Monocytes/100 WBC (Bld) 5.1 % Normal 1.7-12.0 [facility] Comment on above: Performed By: #### C BC #### [facility] [address] [place] [address] Dr. Zainab John NEUT # 7.7 103/ul Critically high 1.4-6.5 [facility] Comment on above: Performed By: #### C BC #### [facility] [address] [place] [address] Dr. Zainab John Neutrophils/100 WBC (Bld) 67.7 % Normal 43.0-75.0 [facility] Comment on above: Performed By: #### C BC #### [facility] [address] [place] [address] Dr. Zainab John Platelet mean volume (Bld) [Entitic vol] 10.7 fL Normal 9.5-13.5 [facility] Comment on above: Performed By: #### C BC #### [facility] [address] [place] [address] Dr. Zainab John PLT 267 103/ul Normal 150-450 [facility] Comment on above: Performed By: #### C BC #### [facility] [address] [place] [address] Dr. Zainab John RBC 3.14 106/ul Critically low 4.20-5.40 [facility] Comment on above: Performed By: #### C BC #### [facility] [address] [place] [address] Dr. Zainab John WBC 11.4 103/ul Critically high 4.0-11.0 [facility] Comment on above: Performed By: #### C BC #### [facility] [address] [place] [address] Dr. Zainab John LDHon 02-11-2022 LDH 214 U/L Normal 81-234 [facility] Comment on above: Performed By: #### T NS #### [facility] [address] [place] [address] Dr. Zainab John PROF 14(COMP METB)on 022 Albumin [Mass/Vol] 2.4 g/dL Critically low 3.4-5.0 Th e [facility] Comment on above: Performed By: #### T NS #### [facility] [address] [place] [address] Dr. Zainab John Albumin/Globulin [Mass ratio] 0.7 {ratio} Normal [facility] Comment on above: Performed By: #### T NS #### [facility] [address] [place] [address] Dr. Zainab John ALP [Catalytic activity/Vol] 98 U/L Normal 46-116 [facility] Comment on above: Performed By: #### T NS #### [facility] [address] [place] [address] Dr. Zainab John ALT [Catalytic activity/Vol] 12 U/L Critically low 14-59 [facility] Comment on above: Performed By: #### T NS #### [facility] [address] [place] [address] Dr. Zainab John Anion gap [Moles/Vol] 15.4 mmol/L Normal [facility] Comment on above: Performed By: #### T NS #### [facility] [address] [place] [address] Dr. Zainab John AST [Catalytic activity/Vol] 20 U/L Normal 15-37 [facility] Comment on above: Performed By: #### T NS #### [facility] [address] [place] [address] Dr. Zainab John Bilirubin [Mass/Vol] 0.1 mg/dL Critically low 0.2-1.0 [facility] Comment on above: Performed By: #### T NS #### [facility] [address] [place] [address] Dr. Zainab John Calcium [Mass/Vol] 8.1 mg/dL Critically low 8.5-10.1 Th [facility] Comment on above: Performed By: #### T NS #### [facility] [address] [place] [address] Dr. Zainab John Chloride [Moles/Vol] 102 mmol/L Normal 98-107 [facility] Comment on above: Performed By: #### T NS #### [facility] [address] [address] [address] Zainab John CO2 [Moles/Vol] 24.2 mmol/L Normal 21.0-32.0 [facility] Comment on above: Performed By: #### T NS #### [facility] [address] [place] [address] Dr. Zainab John Creatinine [Mass/Vol] 0.52 mg/dL Critically low 0.55-1.02 [facility] Comment on above: Performed By: #### T NS #### [facility] [address] [place] [address] Dr. Zainab John EGFR-AF UKRAINIAN >60 Normal >=60 [facility] Comment on above: Performed By: #### T NS #### [facility] [address] [place] [address] Dr. Zainab John EGFR-NON AF UKRAINIAN >60 Normal >=60 [facility] Comment on above: Performed By: #### T NS #### [facility] [address] [place] [address] Dr. Zainab John Globulin (S) [Mass/Vol] 3.4 g/dL Normal [facility] Comment on above: Performed By: #### T NS #### [facility] [address] [place] [address] Dr. Zainab John Glucose [Mass/Vol] 91 mg/dL Normal 74-106 [facility] Comment on above: Performed By: #### T NS #### [facility] [address] [place] [address] Dr. Zainab John Potassium [Moles/Vol] 3.6 mmol/L Normal 3.5-5.1 [facility] Comment on above: Performed By: #### T NS #### [facility] [address] [place] [address] Dr. Zainab John Protein [Mass/Vol] 5.8 g/dL Critically low 6.1-8.2 Th e [facility] Comment on above: Performed By: #### T NS #### [facility] [address] [place] [address] Dr. Zainab John Sodium [Moles/Vol] 138 mmol/L Normal 136-145 [facility] Comment on above: Performed By: #### T NS #### [facility] [address] [place] [address] Dr. Zainab John Urea nitrogen [Mass/Vol] 8.0 mg/dL Normal 7.0-18.0 [facility] Comment on above: Performed By: #### T NS #### [facility] [address] [place] [address] Dr. Zainab John Urea nitrogen/Creatinine [Mass ratio] 15.4 mg/mg Normal [facility] Comment on above: Performed By: #### T NS #### [facility] [address] [place] [address] Dr. Zainab John URIC ACID SERUMon 02-11-2022 Urate [Mass/Vol] 5.2 mg/dL Normal 2.5-6.2 [facility] Comment on above: Performed By: #### U TRUPTI, LDH, CMP #### [facility] [address] [place] [address] Dr. Zainab John CBC AUTO DIFFon 02-10-2022 BASO # 0.0 103/ul Normal 0.0-0.1 [facility] Comment on above: Performed By: #### C BC #### [facility] [address] [place] [address] Dr. Zainab John Basophils/100 WBC (Bld) 0.3 % Normal 0.2-2.0 [facility] Comment on above: Performed By: #### C BC #### [facility] [address] [place] [address] Dr. Zainab John EO # 0.1 103/ul Normal 0.0-0.7 [facility] Comment on above: Performed By: #### C BC #### [facility] [address] [place] [address] Dr. Zainab John Eosinophils/100 WBC (Bld) 1.1 % Normal 0.9-7.0 [facility] Comment on above: Performed By: #### C BC #### [facility] [address] [place] [address] Dr. Zainab John Erythrocyte distribution width (RBC) [Ratio] 13.1 % Normal 11.0-15.0 [facility] Comment on above: Performed By: #### C BC #### [facility] [address] [place] [address] Dr. Zainab John Hematocrit (Bld) [Volume fraction] 27.9 % Critically low 36.0-48.0 [facility] Comment on above: Performed By: #### C BC #### [facility] [address] [place] [address] Dr. Zainab John Hemoglobin (Bld) [Mass/Vol] 9.4 g/dL Critically low 12.0-16.0 [facility] Comment on above: Performed By: #### C BC #### [facility] [address] [place] [address] Dr. Zainab John IG # 0.05 10e3/ul Critically high 0.00-0.03 [facility] Comment on above: Performed By: #### C BC #### [facility] [address] [place] [address] Dr. Zainab John IG % 0.4 % Normal 0.0-0.5 [facility] Comment on above: Performed By: #### C BC #### [facility] [address] [place] [address] Dr. Zainab John LYMPH # 2.6 103/ul Normal 1.2-3.8 [facility] Comment on above: Performed By: #### C BC #### [facility] [address] [place] [address] Dr. Zainab John Lymphocytes/100 WBC (Bld) 22.1 % Normal 20.5-60.0 [facility] Comment on above: Performed By: #### C BC #### [facility] [address] [place] [address] Dr. Zainab John MANUAL DIFF REQ NO Normal [facility] Comment on above: Performed By: #### C BC #### [facility] [address] [place] [address] Dr. Zainab John MCH (RBC) [Entitic mass] 30.1 pg Normal 26.7-34.0 [facility] Comment on above: Performed By: #### C BC #### [facility] [address] [place] [address] Dr. Zainab John MCHC (RBC) [Mass/Vol] 33.7 g/dL Normal 29.9-35.2 [facility] Comment on above: Performed By: #### C BC #### [facility] [address] [place] [address] Dr. Zainab John MCV (RBC) [Entitic vol] 89.4 fL Normal 81.0-99.0 [facility] Comment on above: Performed By: #### C BC #### [facility] [address] [place] [address] Dr. Zainab John MONO # 0.9 103/ul Critically high 0.3-0.8 [facility] Comment on above: Performed By: #### C BC #### [facility] [address] [place] [address] Dr. Zainab John Monocytes/100 WBC (Bld) 7.7 % Normal 1.7-12.0 [facility] Comment on above: Performed By: #### C BC #### [facility] [address] [place] [address] Dr. Zainab John NEUT # 8.1 103/ul Critically high 1.4-6.5 [facility] Comment on above: Performed By: #### C BC #### [facility] [address] [place] [address] Dr. Zainab John Neutrophils/100 WBC (Bld) 68.4 % Normal 43.0-75.0 [facility] Comment on above: Performed By: #### C BC #### [facility] [address] [place] [address] Dr. Zainab John Platelet mean volume (Bld) [Entitic vol] 10.4 fL Normal 9.5-13.5 [facility] Comment on above: Performed By: #### C BC #### [facility] [address] [place] [address] Dr. Zainab John PLT 224 103/ul Normal 150-450 [facility] Comment on above: Performed By: #### C BC #### [facility] [address] [place] [address] Dr. Zainab John RBC 3.12 106/ul Critically low 4.20-5.40 [facility] Comment on above: Performed By: #### C BC #### [facility] [address] [place] [address] Dr. Zainab John WBC 11.8 103/ul Critically high 4.0-11.0 [facility] Comment on above: Performed By: #### C BC #### [facility] [address] [place] [address] Dr. Zainab John CBC AUTO DIFFon 02-09-2022 BASO # 0.0 103/ul Normal 0.0-0.1 [facility] Comment on above: Performed By: #### C BC #### [facility] [address] [place] [address] Dr. Zainab John Basophils/100 WBC (Bld) 0.3 % Normal 0.2-2.0 [facility] Comment on above: Performed By: #### C BC #### [facility] [address] [place] [address] Dr. Zainab John EO # 0.2 103/ul Normal 0.0-0.7 [facility] Comment on above: Performed By: #### C BC #### [facility] [address] [place] [address] Dr. Zainab John Eosinophils/100 WBC (Bld) 1.1 % Normal 0.9-7.0 [facility] Comment on above: Performed By: #### C BC #### [facility] [address] [place] [address] Dr. Zainab John Erythrocyte distribution width (RBC) [Ratio] 12.9 % Normal 11.0-15.0 [facility] Comment on above: Performed By: #### C BC #### [facility] [address] [place] [address] Dr. Zainab John Hematocrit (Bld) [Volume fraction] 32.9 % Critically low 36.0-48.0 [facility] Comment on above: Performed By: #### C BC #### [facility] [address] [place] [address] Dr. Zainab John Hemoglobin (Bld) [Mass/Vol] 11.3 g/dL Critically low 12.0-16.0 [facility] Comment on above: Performed By: #### C BC #### [facility] [address] [place] [address] Dr. Zainab John IG # 0.07 10e3/ul Critically high 0.00-0.03 [facility] Comment on above: Performed By: #### C BC #### [facility] [address] [place] [address] Dr. Zainab John IG % 0.5 % Normal 0.0-0.5 [facility] Comment on above: Performed By: #### C BC #### [facility] [address] [place] [address] Dr. Zainab John LYMPH # 2.8 103/ul Normal 1.2-3.8 [facility] Comment on above: Performed By: #### C BC #### [facility] [address] [place] [address] Dr. Zainab John Lymphocytes/100 WBC (Bld) 21.5 % Normal 20.5-60.0 [facility] Comment on above: Performed By: #### C BC #### [facility] [address] [place] [address] Dr. Zainab John MANUAL DIFF REQ NO Normal [facility] Comment on above: Performed By: #### C BC #### [facility] [address] [address] [address] Zainab John MCH (RBC) [Entitic mass] 29.9 pg Normal 26.7-34.0 [facility] Comment on above: Performed By: #### C BC #### [facility] [address] [place] [address] Dr. Zainab John MCHC (RBC) [Mass/Vol] 34.3 g/dL Normal 29.9-35.2 [facility] Comment on above: Performed By: #### C BC #### [facility] [address] [place] [address] Dr. Zainab John MCV (RBC) [Entitic vol] 87.0 fL Normal 81.0-99.0 [facility] Comment on above: Performed By: #### C BC #### [facility] [address] [place] [address] Dr. Zainab John MONO # 0.9 103/ul Critically high 0.3-0.8 [facility] Comment on above: Performed By: #### C BC #### [facility] [address] [place] [address] Dr. Zainab John Monocytes/100 WBC (Bld) 6.5 % Normal 1.7-12.0 [facility] Comment on above: Performed By: #### C BC #### [facility] [address] [place] [address] Dr. Zainab John NEUT # 9.3 103/ul Critically high 1.4-6.5 [facility] Comment on above: Performed By: #### C BC #### [facility] [address] [place] [address] Dr. Zainab John Neutrophils/100 WBC (Bld) 70.1 % Normal 43.0-75.0 [facility] Comment on above: Performed By: #### C BC #### [facility] [address] [place] [address] Dr. Zainab John Platelet mean volume (Bld) [Entitic vol] 10.1 fL Normal 9.5-13.5 [facility] Comment on above: Performed By: #### C BC #### [facility] [address] [address] [address] Zainab John PLT 271 103/ul Normal 150-450 [facility] Comment on above: Performed By: #### C BC #### [facility] [address] [address] [address] Zainab John RBC 3.78 106/ul Critically low 4.20-5.40 [facility] Comment on above: Performed By: #### C BC #### [facility] [address] [place] [address] Dr. Zainab John WBC 13.2 103/ul Critically high 4.0-11.0 [facility] Comment on above: Performed By: #### C BC #### [facility] [address] [place] [address] Dr. Zainab John Covid-19 PCR ([facility])on SARS-CoV-2 (COVID-19) RNA PAOLA+probe Ql (Unsp spec) Not detected Normal NOT DETECTED [facility] Comment on above: Result Comment: When [...] for this test is supported by the [place] of [employer] and Human Service's declaration that [...] used). Performed By: #### C VDTBH #### [facility] [address] [place] [address] Dr. Zainab John DRUG SCREEN RAPID (URINE)on 02-09-2022 AMP Negative Normal NEGATIVE [facility] Comment on above: Performed By: #### D RUGRPD #### [facility] [address] [place] [address] Dr. Zaniab John BAR Negative Normal NEGATIVE [facility] Comment on above: Performed By: #### D RUGRPD #### [facility] [address] [place] [address] Dr. Zainab John BUP Negative Normal NEGATIVE [facility] Comment on above: Performed By: #### D RUGRPD #### [facility] [address] [place] [address] Dr. Zainab John BZO Negative Normal NEGATIVE [facility] Comment on above: Performed By: #### D RUGRPD #### [facility] [address] [place] [address] Dr. Zainab John BRISA Negative Normal NEGATIVE [facility] Comment on above: Performed By: #### D RUGRPD #### [facility] [address] [place] [address] Dr. Zainab John CUT-OFFS SEE BELOW Normal [facility] Comment on above: Result Comment: AMP [...] ng/mL Performed By: #### D RUGRPD #### [facility] [address] [place] [address] Dr. Zainab John DRUG CUT HEADER DRUG CLASS TEST SYSTEM CUT-OFF CONCENTRATIONS ARE FOLLOWS: Normal [facility] Comment on above: Performed By: #### D RUGRPD #### [facility] [address] [place] [address] Dr. Zainab John mAMP Negative Normal NEGATIVE [facility] Comment on above: Performed By: #### D RUGRPD #### [facility] [address] [address] [address] Zainab John MTD Negative Normal NEGATIVE [facility] Comment on above: Performed By: #### D RUGRPD #### [facility] [address] [place] [address] Dr. Zainab John OPI Negative Normal NEGATIVE [facility] Comment on above: Performed By: #### D RUGRPD #### [facility] [address] [place] [address] Dr. Zainab John OXY Negative Normal NEGATIVE [facility] Comment on above: Performed By: #### D RUGRPD #### [facility] [address] [place] [address] Dr. Zainab John PCP Negative Normal NEGATIVE [facility] Comment on above: Performed By: #### D RUGRPD #### [facility] [address] [place] [address] Dr. Zainab John PPX Negative Normal NEGATIVE [facility] Comment on above: Performed By: #### D RUGRPD #### [facility] [address] [place] [address] Dr. Zainab John TCA Negative Normal NEGATIVE [facility] Comment on above: Performed By: #### D RUGRPD #### [facility] [address] [place] [address] Dr. Zainab John THC Negative Normal NEGATIVE [facility] Comment on above: Performed By: #### D RUGRPD #### [facility] [address] [place] [address] Dr. Zainab John TYPE AND SCREENon 02-09-2022 TYPE AND SCREEN Antibody Screen NEGATIVE ABO Rh Typing O Rh Positive Blood Bank Notes performed by ANTONIO [facility] Comment on above: Performed By: #### T NS #### [facility] [address] [place] [address] Dr. Zainab John US PREG BIOPHY W [...] by: JOLANTA REYNOLDS Date: 2022 16:57 Normal [facility] Vital Signs Date Time Vital Sign Value Performing Clinician Facility 01-13-2024 13:190400 Body height 168.1 cm Gissel HANNARELIABILITY SPECIALIST Work Phone: [facility] 01-13-2024 13:19-0400 Body mass index (BMI) [Ratio] 39.81 kg/m2 Gissel HANNARELIABILITY SPECIALIST Work Phone: [facility] 01-13-2024 13:19-0400 Body temperature 98.49 [degF] Gissel Oliveira APRN-RELIABILITY SPECIALIST Work Phone: [facility] 01-13-2024 13:19-0400 Body weight 112.49 kg Gissel Oliveira APRN-RELIABILITY SPECIALIST Work Phone: [facility] 01-13-2024 13:19-0400 Diastolic blood pressure 88 mm[Hg] Gissel HANNARELIABILITY SPECIALIST Work Phone: [facility] 01-13-2024 13:19-0400 Heart rate 88 /min Gissel Oliveira APRN-RELIABILITY SPECIALIST Work Phone: [facility] 01-13-2024 13:19-0400 Respiratory rate 20 /min Gissel Oliveira APRN-RELIABILITY SPECIALIST Work Phone: [facility] 01-13-2024 13:19-0400 SaO2% (BldA) [Mass fraction] 98 % Gissel Oliveira APRN-RELIABILITY SPECIALIST Work Phone: [facility] 01-13-2024 13:19-0400 Systolic blood pressure 150 mm[Hg] Gissel Oliveira INTEGRITY ENGINEER-RELIABILITY SPECIALIST Work Phone: [facility] Encounters Encounter Date Encounter Type Care Provider Facility Start: 04-26-2024 End: 04-26-2024 ambulatory [facility] Start: 04-26-2024 End: 04-26-2024 ambulatory [facility] Start: 03-13-2024 End: 03-13-2024 Evaluation and management of inpatient [facility] Start: 03-13-2024 End: 03-13-2024 Evaluation and management of inpatient [facility] Start: 02-28-2024 End: 02-28-2024 ambulatory SHIVAM G [facility] Start: 02-21-2024 End: 02-21-2024 ambulatory [facility] Start: 02-21-2024 Encounter for other preprocedural examination [facility] Start: 01-31-2024 End: 01-31-2024 ambulatory [facility] Start: 01-16-2024 Refill Gissel Oliveira INTEGRITY ENGINEER-RELIABILITY SPECIALIST [facility] Phone[facility] Comment on above: Reactive depression Start: 01-13-2024 End: 01-13-2024 ambulatory [facility] Start: 01-13-2024 Encounter for genera l adult medical examination without abnormal findings [facility] Start: 01-13-2024 End: 01-13-2024 Initial preventive medicine new pt age 18-39yrs Gissel Oliveira INTEGRITY ENGINEER-RELIABILITY SPECIALIST Work Phone: [facility] - [facility] Medicine Comment [...] End: 01-13-2024 Patient encounter status Gissel Oliveira INTEGRITY ENGINEER-RELIABILITY SPECIALIST Work Phone: [facility] Work Phone: Start: 01-27-2023 End: 01-28-2023 ambulatory JOSE ROBERTO BOBBY . Facility: Start: 02-09-2022 End: 02-13-2022 Evaluation and management of inpatient DR FLACO FORD . Facility:[facility] Start: 2022 End: [address] SHIVAM REBOLLEDO Facility: Procedures Date Procedure Procedure Detail Performing Clinician Start: 01-13-2024 Adult depression scr eening assessment Gissel Oliveira INTEGRITY ENGINEER-RELIABILITY SPECIALIST Work Phone: Start: 02-09-2022 Delivery of Products [...] Td Vaccines (7 - Td or Tdap) [facility] Start: 01-12-2025 Adult BMI Screening Adult BMI Screen ing [facility] Start: 01-12-2025 Depression Screening Depression Scre ening [facility] Start: 01-12-2025 Tobacco Screening Tobacco Screening [facility] Start: 06-11-2024 Influenza vaccination Influenza Vacc ine [facility] Start: 03-07-2024 End: 03-07-2024 Patient encounter procedure 03/07/2024 11:00 AM EDT Appointment [facility] -[facility] [address] [place] [id number] [facility] -[facility]tras[facility] Start: 01-31-2024 End: 01-31-2024 Patient encounter procedure 01/31/2024 10:00 AM EDT Office Visit [facility] [address] [place] [address] Betina Saravia MD [address] [place] [address] [facility] Start: 01-13-2024 End: 01-12-2025 US Extremity musculoskeletal tissue Ultrasound extremity non vascular complete right for [facility] Imaging Routine Subcutaneous Nodule Of Right Lower Extremity Expected: 01/13/2024, Expires: 01/12/2025 [facility] Work Phone: Comment on above: Expected: 01/13/2024 , Expires: 01/12/2025 Start: 2014 Screening for malign ant neoplasm of cervix Pap Smear [facility] Start: 2011 Adult BMI Follow Up Plan Adult BMI Follow Up Plan [facility] Immunizations Immunization Date Immunization Notes Care Provider Fa cility 03-26-2016 tetanus toxoid, redu sally diphtheria toxoid, and acellular pertussis vaccine, adsorbed Gissel Oliveira INTEGRITY ENGINEER-RELIABILITY SPECIALIST Work Phone: [facility] 08-16-2012 influenza virus vaccine, whole virus Gissel Oliveira INTEGRITY ENGINEER-RELIABILITY SPECIALIST Work Phone: [facility] 08-16-2012 influenza virus vaccine, unspecified formulation Gissel Oliveira INTEGRITY ENGINEER-RELIABILITY SPECIALIST Work Phone: [facility] 02-22-1998 diphtheria, tetanus toxoids and acellular pertussis vaccine, unspecified formulation Gissel Oliveira INTEGRITY ENGINEER-RELIABILITY SPECIALIST Work Phone: [facility] 02-22-1998 measles, mumps and rubella virus vaccine Gissel Oliveira INTEGRITY ENGINEER-RELIABILITY SPECIALIST Work Phone: [facility] 02-22-1998 trivalent poliovirus vaccine, live, oral Gissel Oliviera INTEGRITY ENGINEER-RELIABILITY SPECIALIST Work Phone: [facility] 04-26-1995 diphtheria, tetanus toxoids and acellular pertussis vaccine, unspecified formulation Gissel Oliveira INTEGRITY ENGINEER-RELIABILITY SPECIALIST Work Phone: [facility] 04-26-1995 haemophilus influenz ae type b vaccine, conjugate unspecified formulation Gissel Oliveira INTEGRITY ENGINEER-RELIABILITY SPECIALIST Work Phone: [facility] 04-26-1995 measles, mumps and rubella virus vaccine Gissel Oliveira INTEGRITY ENGINEER-RELIABILITY SPECIALIST Work Phone: [facility] 04-26-1995 trivalent poliovirus vaccine, live, oral Gissel Oliveira INTEGRITY ENGINEER-RELIABILITY SPECIALIST Work Phone: [facility] 1993 diphtheria, tetanus toxoids and pertussis vaccine Gissel Oliveira INTEGRITY ENGINEER-RELIABILITY SPECIALIST Work Phone: [facility] 1993 haemophilus influenz ae type b vaccine, conjugate unspecified formulation Gissel Oliveira INTEGRITY ENGINEER-[facility] Work Phone: [facility] 1993 hepatitis B vaccine, pediatric or pediatric/adolescent dosage Gissel Oliveira INTEGRITY ENGINEER-RELIABILITY SPECIALIST Work Phone: [facility] 1993 diphtheria, tetanus toxoids and pertussis vaccine Gissel Oliveira INTEGRITY ENGINEER-RELIABILITY SPECIALIST Work Phone: [facility] 1993 haemophilus influenz ae type b vaccine, conjugate unspecified formulation Gissel Oliveira INTEGRITY ENGINEER-[facility] Work Phone: [facility] 1993 trivalent poliovirus vaccine, live, oral Gissel Oliveira INTEGRITY ENGINEER-RELIABILITY SPECIALIST Work Phone: [facility] 1993 diphtheria, tetanus toxoids and pertussis vaccine Gissel Oliveira INTEGRITY ENGINEER-RELIABILITY SPECIALIST Work Phone: [facility] 1993 haemophilus influenz ae type b vaccine, conjugate unspecified formulation Gissel Oliveira INTEGRITY ENGINEER-RELIABILITY SPECIALIST Work Phone: [facility] 1993 trivalent poliovirus vaccine, live, oral Gissel Oliveira INTEGRITY ENGINEER-RELIABILITY SPECIALIST Work Phone: [facility] 1993 hepatitis B vaccine, pediatric or pediatric/adolescent dosage Gissel Oliveira INTEGRITY ENGINEER-RELIABILITY SPECIALIST Work Phone: [facility] 1993 hepatitis B vaccine, pediatric or pediatric/adolescent dosage Gissel Oliveira INTEGRITY ENGINEER-RELIABILITY SPECIALIST Work Phone: [facility] Payers Date Payer Category Payer Medicaid [employer] [place] [id number] 2023-Present [phone] [address] [place] [id number] 1993 Unknown [id number] 1993 Unknown [id number] 1993 Unknown [id number] [id number] 1993 Unknown [id number] [id number] 1993 Unknown [id number] [id number] 1993 Unknown [id number] [id number] 1993 Unknown [id number] [id number] 1993 Unknown [id number] [id number] 1993 Unknown [id number] 2.16.840.1.863459.3.579.2.1286 1993 Unknown [id number] 2.16.840.1.500116.3.579.2.1286 1993 Unknown [id number] [id number] 1993 Unknown [id number] 2.16.840.1.446411.3.579.2.1286 1993 Unknown [id number] [id number] 1993 Unknown [id number] [id number] 1959 Unknown [id number] 1959 Unknown [id number] Social History Date Type Detail Facility Start: 01-13-2024 Tobacco smoking stat [facility] Never smoked tobacco [facility] Start: 01-13-2024 Tobacco use and exposure Smokeless tobacco non-user [facility] Start: 01-13-2024 Alcohol intake Ex-drinker (finding) [facility] Start: 11-21-2020 End: 01-13-2024 History of Social function [facility] Start: 11-21-2020 End: 01-13-2024 Tobacco use panel [facility] Adolescent depressio n screening assessment 11 [facility] Start: 1995 Sex Assigned At Not on file P [facility] History of Present illness Narrative 01-13-2024 Gissel Oliveira, INTEGRITY ENGINEER-RELIABILITY SPECIALIST - 01/13/2024 1:00 PM EDT Note Date [...] Consultation for female sterilization - [facility] SEAL DELIVERY VEHICLE TEAM TECHNICIAN - [facility] [place], [place] - Consult; Future Reactive depression - [...] Rodriguez 01/13/24 1443 documented in this encounter [facility] Evaluation note Note Date & [...] 39.9 in adult documented in this encounter [facility] Evaluation note Note Date & Type Note Facility Evaluation note Diagnosis Reactive depression documented in this encounter [facility] Instructions Note Date & Type Note Facility Instructions Not on filedocumented in this en counter [facility] Instructions Note Date & Type Note Facility Instructions Not on filedocumented in this en counter [facility] Reason for referral (narrative) Consultation (Routine) - Authorized Note Date & Type Note Facility Reason for referral (narrati ve) Specialty Diagnoses / Procedures Referred By Karsten friedman Referred To Contact Obstetrics and Gynecology Diagnoses Consultation for female sterilization Gissel Oliveira APRN-FNP [address] [place] [address] [facility] [address] [place] [address] Referral ID Status Reason Start Date Expiration Date Visits Requested Visits Authorized [id number] Authorized Specialty Services Required 01/13/2024 01/12/2025 1 1 [facility] Summary Purpose Family History No Family History Records FoundNo Family History Records FoundNo Family History Records FoundNo Family History Records Found Advance Directives No Advanced Directives Records FoundNo Advanced Directives Records FoundNo Advanced Directives Records FoundNo Advanced Directives Records Found Additional Source Comments INFORMATION SOURCE (unrecogn ized section and content) DATE CREATED AUTHOR 01/31/2023 [facility] DATE CREATED AUTHOR AUTHOR'S ORGANIZ ATION 03/18/2024 [facility] DATE CREATED AUTHOR AUTHOR'S ORGANIZ ATION 04/29/2024 [facility] DATE CREATED AUTHOR AUTHOR'S ORGANIZ ATION 04/30/2024 [facility] Reason for Visit (unrecogniz ed section and content) Reason Comments New Patient Lumps in legs Reason Comments Med Refill Care Teams (unrecognized sec tion and content) Taxonomy Teacher Relationship Specialty Start Date End Date Gissel Oliveira, INTEGRITY ENGINEER-[facility] [address] [place] [address] PCP - General Internal Medicine 01/13/24 Taxonomy Teacher Relationship Specialty Start Date End Date Gissel Oliveira, AUGUSTO-RELIABILITY SPECIALIST [address] [place] [address] PCP - General Internal Medicine 01/13/24 FOR [...] BE BASED ON THE PRIMARY CLINICAL RECORDS. [employer] provides no warranty or guarantee of the accuracy or completeness of information in this document.
[2024-05-16 16:17] LABS: HCG Qualitative Urine* NEGATIVE (NEGATIVE); Internal Control Within Normal Limits
[2024-05-16 16:18] LABS: Urine Microscopic Indicated NO
[2024-05-16 16:21] LABS: Amphetamine Screen Urine NEGATIVE (NEGATIVE); Barbiturates Screen Urine NEGATIVE (NEGATIVE); Benzodiazepines Screen Urine NEGATIVE (NEGATIVE); Buprenorphine Screen Urine NEGATIVE (NEGATIVE); Cannabinoid Screen Urine POSITIVE (NEGATIVE); Cocaine Screen Urine NEGATIVE (NEGATIVE); Methadone Screen Urine NEGATIVE (NEGATIVE); Methamphetamines Screen Urine NEGATIVE (NEGATIVE); Opiate Screen Urine POSITIVE (NEGATIVE); Oxycodone Screen Urine NEGATIVE (NEGATIVE); Phencyclidine Screen Urine NEGATIVE (NEGATIVE); Tricyclic Antidepressant Urine NEGATIVE (NEGATIVE)
[2024-05-16 16:31] LABS: Anion Gap 14.8; BUN Creatinine Ratio 23.8; Calcium 9.6 mg/dL (8.5-10.1); Carbon Dioxide 23.9 mmol/L (21.0-32.0); Chloride 97 mmol/L (98-107); Estimated GFR (African America >60 (>=60); Estimated GFR (Non-African Ame >60 (>=60); Glucose 114 mg/dL (74-106); Magnesium 1.8 mg/dL (1.8-2.4); Potassium 3.7 mmol/L (3.5-5.1); Sodium 132 mmol/L (136-145); TSH W/ REFLEX FT4 2.154 uIU/mL (0.358-3.740)
[2024-05-16] MEDS: 0.9 % SODIUM CHLORIDE 1,000 ML 999 ML IV (17:25)
== END 2024-05-16 18:16 | disposition home or self-care (01) ==
PROVIDERS: Emergency Provider Emergency Medicine; PCP Family Medicine
DX: E87.1 Hypo-osmolality and hyponatremia (principal); R00.2 Palpitations; M62.838 Other muscle spasm; F17.200 Nicotine dependence, unspecified, uncomplicated
CPT/HCPCS: 36415; 71045; 80048; 80307; 81003; 83735; 84443; 84703; 85025; 93005; 96374; 96375; 99285; J1885; J3360

== ENCOUNTER 2024-05-22 13:20 | Outpatient (OUT) | payer OTHER, SELFPAY ==
--- NOTE | 2024-05-22 13:24 | MR_ITS ---
[facility] [place] [id number] Patient Name: JUDIE RODRIGUEZ MRN: [id number] date: 1995 Sex: F Assigned Patient Location: MRI Current Patient Location: Accession/Order Number: [id number] Exam Date: 05/22/2024 13:35 Report Date: 05/23/2024 16:39 At the request of: AISHA ESCOBAR Procedure: MR elbow LT wo con EXAM: MR elbow LT wo con REASON FOR EXAM: Closed Nondisplaced Fracture Of Left Radius S52.125A. TECHNIQUE: Multiplanar, multisequence imaging of the left elbow was performed without contrast COMPARISON: Radiographs 05/30/2024. FINDINGS: Laterally, the common extensor tendon origin demonstrates normal thickness and signal without tendinosis or tear. Visualized portions of the radial collateral, lateral ulnar collateral and annular ligaments are grossly intact. Medially, the common flexor tendon origin demonstrates normal thickness and signal without tendinosis or tear. The ulnar collateral ligament appears intact. The cubital tunnel is patent. The ulnar nerve is nonedematous. The distal triceps tendon is intact. The distal biceps and brachialis tendons are intact. The bone marrow signal is without fracture. Trace nonspecific joint effusion. No osteoarthritis. Soft tissues are unremarkable. MR/MR elbow LT wo con IMPRESSION: 1. No MRI evidence of fracture. 2. No acute ligamentous or tendinous injury. Electronically authenticated by: LAURENCE CRAWFORD Date: 05/23/2024 16:39
== END 2024-05-22 13:21 | disposition home or self-care (01) ==
LOC: MRI 13:20
PROVIDERS: PCP Family Medicine; Visit Provider Orthopaedic Surgery
DX: S52.125A Nondisplaced fracture of head of left radius, initial encounter for closed fracture (principal)
CPT/HCPCS: 73221

== ENCOUNTER 2024-12-26 23:33 | Emergency (ER) | payer OTHER, SELFPAY ==
[2024-12-26 23:36] VITALS: BP 159/93; PULSE 98; TEMP 36.9; O2SAT 99; BMI 38.0
--- NOTE | 2024-12-26 23:50 | ED_ITS ---
HPI HPI - General Adult General Chief complaint: Skin/Abscess/Foreign Body Stated complaint: SKIN IRRITATION, FACE Time Seen by Provider: 12/26/24 23:35 Source: patient Mode of arrival: walk-in Limitations: no limitations History of Present Illness HPI narrative: 29-year-old female presents for a lump in front of her right ear. She states has been there for 2 to 3 months and over the past week or so it has been getting a little bit bigger. No drainage or injury. Related Data Home Medications ?Medication ?Instructions ?Recorded ?Confirmed duloxetine 60 mg capsule,delayed 60 mg PO DAILY 05/12/24 12/26/24 release magnesium oxide 400 mg (241.3 mg 400 mg PO DAILY 05/12/24 12/26/24 magnesium) tablet cholecalciferol (vitamin D3) 125 12/26/24 mcg (5,000 unit) tablet fluoxetine 10 mg capsule mg 12/26/24 lisinopril 40 mg tablet 40 mg PO DAILY 12/26/24 12/26/24 ropinirole 0.25 mg tablet mg 12/26/24 Previous Rx's ?Medication ?Instructions ?Recorded cyclobenzaprine 10 mg tablet 10 mg PO TID PRN muscle spasm #14 05/16/24 tabs naproxen 500 mg tablet 500 mg PO Q12H PRN pain #20 tabs 05/16/24 cephalexin 500 mg capsule 500 mg PO QID 10 days #40 caps 12/26/24 ibuprofen 800 mg tablet 800 mg PO Q8H PRN pain #20 tabs 12/26/24 Allergies Allergy/AdvReac Type Severity Reaction Status Date / Time No Known Drug Allergies Allergy Verified 12/26/24 23:39 Opioid HPI Opioid Management Most Recent Opioid Data: Last Pain Scale 8 12/26/24 23:45 12/26/24 Ur Phencyclidine Scrn Negative (NEGATIVE) 05/16/24 15:54 08/0 04/03 Review of Systems ROS Narrative A ten point review of systems is negative except as noted above. PFSH PFSH Medical History (Updated 12/26/24 @ 23:48 by Tam Danielle MD) Hypertension ?I10 - Essential (primary) hypertension (ICD-10) Surgical History (Updated 05/16/24 @ 15:34 by Inna Del Valle) H/O right knee surgery ?Z98.890 - Other specified postprocedural states (ICD-10) Tubal ligation status ?Z98.51 - Tubal ligation status (ICD-10) Social History Smoking status: Current every day smoker Little interest or pleasure in doing things: not at all Feeling down, depressed, or hopeless: not at all Exam Narrative Exam Narrative: Nurses note and vital signs reviewed and patient is not hypoxic. General: The patient appears well and in no apparent distress. Patient is resting comfortably on cart. Skin: Warm, dry, no pallor noted. There is no rash noted. Head: Normocephalic, atraumatic. Anterior to her right ear is a subcutaneous nodule which appears to be spherical. There is no overlying erythema or open area or drainage. It is tender but not fluctuant. She has a burn on her hairline on the right side but that only happened 2 weeks ago from a curling iron. Eye: Normal conjunctiva, no drainage Ears, Nose, Mouth, and Throat: oral mucosa is moist. Nares patent. Cardiovascular: Regular Rate and Rhythm Respiratory: Patient is in no distress, no accessory muscle use, lungs are clear to auscultation, no wheezing, rales or rhonchi Back: non-tender GI: Soft and nontender Musculoskeletal: No joint spine Neurological: A&O, normal speech Psychiatric: Cooperative Constitutional Vital Signs, click to edit/add: Last Vital Signs Temp 98.4 F 12/26/24 23:36 Pulse 98 H 12/26/24 23:36 Resp 20 12/26/24 23:36 BP 159/93 H 12/26/24 23:36 Pulse Ox 99 12/26/24 23:36 O2 Del Method Room Air 12/26/24 23:36 Course Vital Signs Vital signs: Vital Signs Temperature 98.4 F 12/26/24 23:36 Pulse Rate 98 H 12/26/24 23:36 Respiratory Rate 20 12/26/24 23:36 Blood Pressure 159/93 H 12/26/24 23:36 Pulse Oximetry 99 12/26/24 23:36 Oxygen Delivery Method Room Air 12/26/24 23:36 Temperature 98.4 F 12/26/24 23:36 Pulse Rate 98 H 12/26/24 23:36 Respiratory Rate 20 12/26/24 23:36 Blood Pressure 159/93 H 12/26/24 23:36 Pulse Oximetry 99 12/26/24 23:36 Oxygen Delivery Method Room Air 12/26/24 23:36 Medical Decision Making MDM Narrative Medical decision making narrative: She likely has a cyst. She was prescribed Keflex and ibuprofen and referred to general surgery for follow-up. Treatment diagnosis and follow-up were discussed with the patient. Discharge Plan Discharge Chief Complaint: Skin/Abscess/Foreign Body Clinical Impression: Cyst Patient Disposition: Home, Self-Care Time of Disposition Decision: 23:48 Condition: Good Mode of Transportation: Private Vehicle Prescriptions / Home Meds: New ibuprofen 800 mg tablet 800 mg PO Q8H PRN (Reason: pain) Qty: 20 0RF cephalexin 500 mg capsule 500 mg PO QID 10 Days Qty: 40 0RF No Action naproxen 500 mg tablet 500 mg PO Q12H PRN (Reason: pain) Qty: 20 0RF cyclobenzaprine 10 mg tablet 10 mg PO TID PRN (Reason: muscle spasm) Qty: 14 0RF magnesium oxide 400 mg (241.3 mg magnesium) tablet 400 mg PO DAILY duloxetine 60 mg capsule,delayed release(DR/EC) 60 mg PO DAILY ropinirole 0.25 mg tablet fluoxetine 10 mg capsule lisinopril 40 mg tablet 40 mg PO DAILY cholecalciferol (vitamin D3) 125 mcg (5,000 unit) tablet Print Language: Czech Instructions: Cyst (ED) Referrals: SHIVAM REBOLLEDO [Primary Care Provider] - 1 week Solo Sheehan MD [Physician] - 1 week Solo Whitten MD [Physician] - 1 week
--- OUTSIDE RECORDS SUMMARY | 2024-12-26 23:51 | XMS_ITS | CCD ---
Author Organization [facility] Care Team Providers Care Surveying Technician Name Role Phone AMAURY, DR GEORGES Bautista Primary Care Unavailable DAVID SILVA Attending Unavailable RODOLFO, DR JOLANTA Grant Consulting Unavailable DAVID SILVA Admitting Unavailable TEO ., DR SAM Consulting Unavailable DAVID SILVA Consulting Unavailable KANU ., JOSE ROBERTO Attending Unavailable KANU ., JOSE ROBERTO Admitting Unavailable FURLONG, DR GEORGES Bautista Primary Care Unavailable ZIEBER, DR AISHA Killian Consulting Unavailable KANU ., JOSE ROBERTO Consulting Unavailable TEO ., DR SAM Admitting Unavailable TEO ., DR SAM Attending Unavailable JOSELO LEWIS Consulting Unavailable FURIRA, DR GEORGES Bautista Primary Care Unavailable TEO ., DR SAM Consulting Unavailable TEO ., DR SAM Procedure Practitioner Unavail able GISSEL OLIVEIRA Referring Unavailable KUNS, ANUPAM Primary Care Unavailable JOLANTA BEY Attending Unavailable JOLANTA BEY Referring Unavailable GREGGS, ANUPAM Primary Care Unavailable JOLANTA BEY Referring Unavailable GREGGS, ANUPAM Primary Care Unavailable BETINA LOUISE Admitting Unavailable BETINA LOUISE Attending Unavailable MOISES ANUPAM Primary Care Unavailable JOLANTA BEY Attending Unavailable GERGGS, ANUPAM Primary Care Unavailable ELTON YARBROUGH Referring Unavailable ELTON YARBROUGH Primary Care Unavailable Zenon COMPUTER TRAINING SPECIALIST-AS400 PROGRAMMERElton Primary Care Provid er GISSEL OLIVEIRA Attending Unavailable GREGGS, ANUPAM Primary Care Unavailable BETINA LOIUSE Attending Unavailable GREGGS ANUPAM Referring Unavailable KUNS, ANUPAM Primary Care Unavailable GEORGES PINEDA Attending Unavailable GREGGSGISSEL Referring Unavailable KUNS, ANUPAM Primary Care Unavailable ELTON YARBROUGH Attending Unavailable GREGGS, ANUPAM Referring Unavailable ELTON YARBROUGH Primary Care Unavailable ELTON YARBROUGH Attending Unavailable ELTON YARBROUGH Referring Unavailable ELTON YARBROUGH Primary Care Unavailable ELTON YARBROUGH Attending Unavailable ELTON YARBROUGH Referring Unavailable ELTON YARBROUGH Primary Care Unavailable Moises HERNANDEZ, Gissel Mckenna Primary Care Provider Medications Current Medications Medication Drug Class(es) Dates Sig (Normalized) Sig (Original) cariprazine 1.5 mg oral capsule (1 source) Atypical Antipsychotic Start: 12-26-2024 take 1 capsule by mouth in the morning cariprazine (VRAYLAR) 1.5 mg capsule Indications: Current severe episode of major depressive disorder without psychotic features without prior episode (CMS-HCC) Take 1 capsule (1.5 mg total) by mouth in the morning. 30 capsule 2 12/26/2024 Active Start: 12-26-2024 take 1 capsule by mo uth in the morning cariprazine (VRAYLAR) 1.5 mg capsule Indications: Current severe episode of major depressive disorder without psychotic features without prior episode (CMS-HCC) Take 1 capsule (1.5 mg total) by mouth in the morning. 30 capsule 2 12/26/2024 Active cholecalciferol 0.125 mg oral tablet (18 sources) Vitamin D Start: 12-25-2024 take 1 tablet by mouth once in the morning cholecalciferol, vitamin D3, 5,000 units tablet Indications: Vitamin D deficiency Take 1 tablet (5,000 Units total) by mouth in the morning. 30 each 5 12/25/2024 Active Start: 10-09-2024 End: 12-25-2024 take 1 tablet by mouth once in the morning cholecalciferol, vitamin D3, 5,000 units tablet Indications: Vitamin D deficiency Take 1 tablet (5,000 Units total) by mouth in the morning. 30 each 5 11/23/2024 12/25/2024 Discontinued (Reorder) Start: 09-25-2024 take 1 tablet by hermes th once in the morning cholecalciferol, vitamin D3, 5,000 units tablet Indications: Vitamin D deficiency Take 1 tablet (5,000 Units total) by mouth in the morning. 30 each 5 09/25/2024 Active Start: 04-27-2024 End: 09-22-2024 take 1 tablet by mouth once in the morning cholecalciferol, vitamin D3, 5,000 units tablet Indications: Vitamin D deficiency Take 1 tablet (5,000 Units total) by mouth in the morning. 30 each 5 08/23/2024 09/22/2024 Discontinued (Reorder) DULoxetine 60 mg delayed release oral capsule (20 sources) Serotonin and Norepinephrine Reuptake Inhibitor Start: 12-25-2024 take 1 capsule by mouth in the morning DULoxetine (CYMBALTA) 60 mg capsule Indications: Reactive depression Take 1 capsule (60 mg total) by mouth in the morning. 30 capsule 5 12/25/2024 Active Start: 10-09-2024 End: 12-25-2024 take 1 capsule by mouth in the morning DULoxetine (CYMBALTA) 60 mg capsule Indications: Reactive depression Take 1 capsule (60 mg total) by mouth in the morning. 30 capsule 2 11/23/2024 12/25/2024 Discontinued (Reorder) Start: 01-16-2024 take 1 capsule by mo ut once daily in the morning DULoxetine (CYMBALTA) 30 mg capsule Indications: Reactive depression take 1 capsule by mouth every morning for 14 days 14 capsule 0 01/16/2024 Active Start: 01-13-2024 End: 09-04-2024 take 1 capsule by mouth in the morning DULoxetine (CYMBALTA) 60 mg capsule Indications: Reactive depression Take 1 capsule (60 mg total) by mouth in the morning. 30 capsule 2 09/04/2024 Active Start: 01-13-2024 End: 01-31-2024 take 1 capsule by mouth once daily in the morning DULoxetine (CYMBALTA) 30 mg capsule Indications: Reactive depression take 1 capsule by mouth every morning for 14 days 14 capsule 01/16/2024 01/31/2024 Discontinued FLUoxetine 10 mg oral capsule (10 sources) Serotonin Reuptake Inhibitor Start: 12-25-2024 take 1 capsule by mouth in the morning FLUoxetine (PROzac) 10 mg capsule Indications: Reactive depression Take 1 capsule (10 mg total) by mouth in the morning. 30 capsule 5 12/25/2024 Active Start: 09-25-2024 End: 12-25-2024 take 1 capsule by mouth in the morning FLUoxetine (PROzac) 10 mg capsule Indications: Reactive depression Take 1 capsule (10 mg total) by mouth in the morning. 30 capsule 2 11/23/2024 12/25/2024 Discontinued (Reorder) Start: 08-23-2024 End: 09-22-2024 take 1 capsule by mouth in the morning FLUoxetine (PROzac) 10 mg capsule Indications: Reactive depression Take 1 capsule (10 mg total) by mouth in the morning. 30 capsule 2 08/23/2024 09/22/2024 Discontinued (Reorder) lisinopril 40 mg oral tablet (18 sources) Angiotensin Converting Enzyme Inhibitor Start: 12-25-2024 take 1 tablet by mouth in the morning lisinopriL (PRINIVIL,ZESTRIL) 40 mg tablet Indications: Essential hypertension Take 1 tablet (40 mg total) by mouth in the morning. 90 tablet 1 12/25/2024 Active Start: 10-09-2024 End: 12-25-2024 take 1 tablet by mouth in the morning lisinopriL (PRINIVIL,ZESTRIL) 40 mg tablet Indications: Essential hypertension Take 1 tablet (40 mg total) by mouth in the morning. 90 tablet 1 10/09/2024 12/25/2024 Discontinued (Reorder) Start: 06-26-2024 take 1 tablet by hermes th in the morning lisinopriL (PRINIVIL,ZESTRIL) 40 mg tablet Indications: Essential hypertension Take 1 tablet (40 mg total) by mouth in the morning. 90 tablet 1 06/26/2024 Active Start: 05-03-2024 End: 06-23-2024 take 1 tablet by mouth in the morning lisinopriL (PRINIVIL,ZESTRIL) 40 mg tablet Indications: Essential hypertension Take 1 tablet (40 mg total) by mouth in the morning. 30 tablet 3 05/03/2024 06/23/2024 Discontinued (Reorder) Start: 04-26-2024 End: 05-03-2024 take 1 tablet by mouth in the morning lisinopriL (PRINIVIL,ZESTRIL) 20 mg tablet Indications: Essential hypertension Take 1 tablet (20 mg total) by mouth in the morning. 90 tablet 1 04/26/2024 05/03/2024 Discontinued (Reorder) magnesium oxide 400 mg oral tablet (17 sources) Start: 12-25-2024 take 1 tablet by mouth in the morning magnesium oxide (MAGOX) 400 mg tablet Indications: Hypomagnesemia Take 1 tablet (400 mg total) by mouth in the morning. 30 tablet 5 12/25/2024 Active Start: 10-09-2024 End: 12-25-2024 take 1 tablet by mouth in the morning magnesium oxide (MAGOX) 400 mg tablet Indications: Hypomagnesemia Take 1 tablet (400 mg total) by mouth in the morning. 30 tablet 5 11/23/2024 12/25/2024 Discontinued (Reorder) Start: 04-27-2024 End: 09-04-2024 take 1 tablet by mouth in the morning magnesium oxide (MAGOX) 400 mg tablet Indications: Hypomagnesemia Take 1 tablet (400 mg total) by mouth in the morning. 30 tablet 5 09/04/2024 Active norethindrone 0.35 mg oral tablet (5 sources) Start: 01-31-2024 take 1 tablet by mouth in the morning norethindrone (MICRONOR) 0.35 mg tablet Indications: Consultation for female sterilization Take 1 tablet (0.35 mg total) by mouth in the morning. 28 tablet 11 01/31/2024 Active rOPINIRole 0.25 mg oral tablet (1 source) Nonergot Dopamine Agonist Start: 12-26-2024 take 1 tablet by mouth once daily rOPINIRole (REQUIP) 0.25 mg tablet Indications: Restless leg syndrome Take 1 tablet (0.25 mg total) by mouth nightly. 30 tablet 1 12/26/2024 Active Start: 12-26-2024 take 1 tablet by hermes once daily rOPINIRole (REQUIP) 0.25 mg tablet Indications: Restless leg syndrome Take 1 tablet (0.25 mg total) by mouth nightly. 30 tablet 1 12/26/2024 Active Completed/Discontinued Medications Medication Drug Class(es) Dates Sig (Normalized) Sig (Original) 168 hr ethinyl estradiol 0.80129 mg/hr / norelgestromin 0.80306 mg/hr transdermal system (4 sources) Progestin, Estrogen Start: 01-13-2024 End: 01-31-2024 apply 1 dose transdermal route every week norelgestromin-eth in.estradioL (XULANE) 150-35 mcg/24 hr Indications: Encounter for surveillance of transdermal patch hormonal contraceptive device Place 1 patch on the skin once a week. 3 patch 12 01/13/2024 01/31/2024 Discontinued (Side effects) ibuprofen 800 mg oral tablet (10 sources) Nonsteroidal Anti-inflammatory Drug Start: 03-13-2024 End: 08-23-2024 take 1 tablet by mouth every eight hours as needed for pain ibuprofen (MOTRIN) 800 mg tablet Take 1 tablet (800 mg total) by mouth every 8 (eight) hours as needed for pain. 30 tablet 03/13/2024 08/23/2024 Discontinued (Therapy completed) labetalol hydrochloride 200 mg oral tablet (11 sources) beta-Adrenergic Leti Start: 01-13-2024 End: 04-26-2024 take 1 tablet by mouth in the morning, then take 1 tablet by mouth at bedtime labetaloL (NORMODYNE) 200 mg tablet Indications: Essential hypertension Take 1 tablet (200 mg total) by mouth in the morning and 1 tablet (200 mg total) before bedtime. 60 tablet 5 01/13/2024 04/26/2024 Discontinued (Therapy completed) tiZANidine 2 mg oral tablet (6 sources) Central alpha-2 Adrenergic Agonist Start: 05-03-2024 End: 08-23-2024 take 1 tablet by mouth every six hours as needed for muscle spasms and muscle spasms tiZANidine (ZANAFLEX) 2 mg tablet Indications: Muscle spasm Take 1 tablet (2 mg total) by mouth every 6 (six) hours as needed for muscle spasms. May cause drowsiness 30 tablet 05/03/2024 08/23/2024 Discontinued (Therapy completed) Problems Active Problems Problem Classification Problem Date Documented Date Episodic/Chronic Essential hypertension (7 sources) Essential (primary) hypertension; Translations: [Essential hypertension] Onset: 01-13-2024 02-28-2024 Chronic Hypertension complicating ; childbirth and the puerperium (20 sources) Pre-existing hypertension in obstetric context; Translations: [Unspecified pre-existing hypertension complicating , unspecified trimester] Onset: 03-12-2016 Resolved: 01-13-2024 02-28-2024 Chronic Mood disorders (14 sources) Reactive depression (situational); Translations: [Major depressive disorder, single episode, unspecified] Onset: 01-13-2024 08-21-2024 Chronic Nonmalignant breast conditions (6 sources) Unspecified lump in unspecified breast; Translations: [Unspecified lump in the right breast, lower outer quadrant] Onset: 01-27-2023 Episodic Nutritional deficiencies (8 sources) Vitamin D deficiency, unspecified; Translations: [Vitamin D deficiency] Onset: 04-26-2024 11-23-2024 Chronic Other hereditary and degenerative nervous system conditions (1 source) Restless legs; Translations: [Restless legs syndrome] 12-26-2024 Chronic Other nervous system disorders (1 source) Other acute postprocedural pain; Translations: [Other acute postprocedural pain] Onset: 03-13-2024 Episodic Other nervous system disorders (2 sources) Paresthesia of hand ; Translations: [Anesthesia of skin] 04-26-2024 Episodic Other nutritional; endocrine; and metabolic disorders (1 source) Body mass index (BMI) 40.0-44.9, adult; Translations: [Body mass index (BMI) 40.0-44.9, adult] Onset: 02-21-2024 Chronic Other nutritional; endocrine; and metabolic disorders (5 sources) Hypomagnesemia; Translations: [Hypomagnesemia] 11-23-2024 Chronic Other nutritional; endocrine; and metabolic disorders (1 source) Body mass index 40+ - severely obese; Translations: [Body mass index (BMI) 40.0-44.9, adult] 02-15-2024 Chronic Other nutritional; endocrine; and metabolic disorders (1 source) Obesity caused by energy imbalance; Translations: [Other obesity due to excess calories] 01-13-2024 Chronic Unclassified (1 source) CONTACT W/AND (SUSP) EXPOS COVID-19; Translations: [CONTACT W/AND (SUSP) EXPOS COVID-19] Onset: 02-17-2022 Unclassified (1 source) undesired fertility Onset: 03-13-2024 Unclassified (1 source) Breast Mass Onset: 08-23-2024 Unclassified (1 source) Restless Leg Onset: 04-26-2024 Unclassified (1 source) Pre-op Exam Onset: 02-28-2024 Unclassified (1 source) Tubal Consult Onset: 01-31-2024 Unclassified (1 source) New Patient Onset: 01-13-2024 Past or Other Problems Problem Classification Problem Date Documented Date Episodic/Chronic Blindness and vision defects (20 sources) Myopia; Translations: [Myopia, unspecified eye] Onset: 04-05-2017 04-05-2017 Episodic Contraceptive and procreative management (5 sources) Encounter for surveillance of transdermal patch hormonal contraceptive device; Translations: [Encounter for other general counseling and advice on contraception] Onset: 01-13-2024 01-31-2024 Episodic Hypertension complicating ; childbirth and the puerperium (1 source) Unspecified pre-eclampsia, complicating the puerperium; Translations: [UNSPEC PRE-ECLAMP COMP PUERPERIUM] Onset: 02-17-2022 Episodic Mood disorders (20 sources) Mood disorders Onset: 04-26-2024 Resolved: 12-26-2024 04-26-2024 Other complications of (20 sources) Maternal obesity complicating , childbirth and the puerperium, antepartum; Translations: [Obesity complicating , unspecified trimester] Onset: 01-22-2016 Resolved: 01-13-2024 01-13-2024 Chronic Other complications of (4 sources) Maternal care for excessive growth, third trimester, not applicable or unspecified; Translations: [MAT CARE EXCSS FTL GRTH 3RD TRI UNS] Onset: 02-09-2022 Episodic Other complications of (20 sources) Abnormal findings on screening of mother; Translations: [Unspecified abnormal findings on screening of mother] Onset: 01-22-2016 Resolved: 01-13-2024 01-13-2024 Episodic Other complications of (20 sources) High risk ; Translations: [Supervision of high risk , unspecified, unspecified trimester] Onset: 10-29-2015 Resolved: 01-13-2024 01-13-2024 Episodic Other complications of (20 sources) Maternal infection; Translations: [Unspecified maternal infectious and parasitic disease complicating , unspecified trimester] Onset: 10-29-2015 Resolved: 01-13-2024 01-13-2024 Episodic Other complications of (20 sources) Disorder of ; Translations: [Other specified related conditions, unspecified trimester] Onset: 01-22-2016 Resolved: 01-13-2024 01-13-2024 Episodic Other connective tissue disease (1 source) Other muscle spasm; Translations: [Other muscle spasm] Onset: 05-03-2024 Episodic Other connective tissue disease (1 source) Hand pain Onset: 05-03-2024 Episodic Other connective tissue disease (1 source) Spasm; Translations: [Other muscle spasm] 05-03-2024 Episodic Other hematologic conditions (2 sources) Personal history of diseases of the blood and blood-forming organs and certain disorders involving the immune mechanism; Translations: [Personal history of diseases of the blood and blood-forming organs and certain disorders involving the immune mechanism] Onset: 04-26-2024 Episodic Other hematologic conditions (1 source) History of anemia; Translations: [Personal history of diseases of the blood and blood-forming organs and certain disorders involving the immune mechanism] 04-26-2024 Episodic Other nervous system disorders (2 sources) Anesthesia of skin; Translations: [Anesthesia of skin] Onset: 04-26-2024 Episodic Other nervous system disorders (2 sources) Paresthesia of skin; Translations: [Paresthesia of skin] Onset: 04-26-2024 Episodic Other nervous system disorders (1 source) Numbness Onset: 04-26-2024 Episodic Other and delivery including normal (20 sources) Single live ; Translations: [Delivery normal] Onset: 06-04-2016 Resolved: 01-13-2024 01-13-2024 Episodic Other skin disorders (1 source) Localized swelling, mass and lump, right lower limb; Translations: [Localized swelling, mass and lump, right lower limb] Onset: 01-13-2024 Episodic Other skin disorders (1 source) Nodule of subcutaneous tissue of right lower limb; Translations: [Localized swelling, mass and lump, right lower limb] 01-13-2024 Episodic Residual codes; unclassified (1 source) [...] of mental health and substance abuse codes (20 sources) Personal history of nicotine dependence; Translations: [Tobacco use and exposure - finding] Onset: 10-29-2015 01-13-2024 Episodic Unclassified (15 sources) Onset: 05-03-2024 Resolved: 12-26-2024 05-03-2024 Results Test Name Value Interpretation Reference Range Facility CBC AND AUTO DIFFon 04-26-20 ABSOLUTE BASOPHIL 0.1 X10E9/L Normal 0.0-0.2 [facility] Comment on above: Performed By: #### C BCA, CMP, FEPR, 55993-9, 2275-4, 9, 82389-1 #### [facility] ([id number]) [address], [address] [place] [address] ABSOLUTE NEUTROPHIL 5.3 X10E9/L Normal 1.5-6.6 [facility] Comment on above: Performed By: #### C BCA, CMP, FEPR, 10523-1, 2276-01, 2132-06, 29623-8 #### [facility] ([id number]) [address], [address] [place] [address] Basophils/100 WBC (Bld) 0.8 % Normal [facility] Comment on above: Performed By: #### C BCA, CMP, FEPR, 22993-6, 2275-, 9, 60293-1 #### [facility] ([id number]) [address], [address] [place] [address] Eosinophils (Bld) [#/Vol] 0.4 10*3/uL Normal 0.0-0.4 [facility] Comment on above: Performed By: #### C BCA, CMP, FEPR, 29040-1, 2275-, 9, 46757-4 #### [facility] ([id number]) [address], [address] [place] [address] Eosinophils/100 WBC (Bld) 4.1 % Normal [facility] Comment on above: Performed By: #### C BCA, CMP, FEPR, , 2275-, 2132-06, 77514-0 #### [facility] ([id number]) [address] [place] [address] Erythrocyte distribution width (RBC) [Ratio] 13.6 % Normal 11.5-15.0 [facility] Comment on above: Performed By: #### C BCA, CMP, FEPR, , 2276-01, 2132-06, 52617-7 #### [facility] ([id number]) [address] [address] Hematocrit (Bld) [Volume fraction] 39.2 % Normal 35-47 [facility] Comment on above: Performed By: #### C BCA, CMP, FEPR, , 2276-01, 2132-06, 89475-1 #### [facility] ([id number]) [address] [address] Hemoglobin (Bld) [Mass/Vol] 13.4 g/dL Normal 11.7-15.5 [facility] Comment on above: Performed By: #### C BCA, CMP, FEPR, , 2276-01, 2132-06, 24753-1 #### [facility] ([id number]) [address] [address] Lymphocytes (Bld) [#/Vol] 2.7 10*3/uL Normal 1.0-3.5 [facility] Comment on above: Performed By: #### C BCA, CMP, FEPR, , 2276-01, 2132-06, 09538-1 #### [facility] ([id number]) [address] [address] Lymphocytes/100 WBC (Bld) 30.3 % Normal [facility] Comment on above: Performed By: #### C BCA, CMP, FEPR, , 2275-4, 2132-06, 46119-0 #### [facility] ([id number]) [address], [address] [place] [address] MCH (RBC) [Entitic mass] 31.4 pg Normal 27-34 [facility] Comment on above: Performed By: #### C BCA, CMP, FEPR, 20506-3, 2275-4, 2132-06, 80896-5 #### [facility] ([id number]) [address], [address] [place] [address] MCHC (RBC) [Mass/Vol] 34.1 g/dL Normal 32-36 [facility] Comment on above: Performed By: #### C BCA, CMP, FEPR, 91419-5, 2275-, 2132-06, 10509-3 #### [facility] ([id number]) [address], [address] [place] [address] MCV (RBC) [Entitic vol] 92 fL Normal 80-100 [facility] Comment on above: Performed By: #### C BCA, CMP, FEPR, 32300-2, 2275-, 2132-06, 83707-9 #### [facility] ([id number]) [address], [address] [place] [address] Monocytes (Bld) [#/Vol] 0.4 10*3/uL Normal 0-0.9 [facility] Comment on above: Performed By: #### C BCA, CMP, FEPR, 68357-9, 2275-4, 2132-06, 65035-3 #### [facility] ([id number]) [address], [address] [place] [address] Monocytes/100 WBC (Bld) 4.1 % Normal [facility] Comment on above: Performed By: #### C BCA, CMP, FEPR, 17128-3, 2275-, 2132-06, 77102-2 #### [facility] ([id number]) [address], [address] [place] [address] Neutrophils/100 WBC (Bld) 60.7 % Normal [facility] Comment on above: Performed By: #### C BCA, CMP, FEPR, 17677-7, 6-4, 9, 20602-8 #### [facility] ([id number]) [address], [address] [place] [address] Platelet mean volume (Bld) [Entitic vol] 8.9 fL Normal 7-12 [facility] Comment on above: Performed By: #### C BCA, CMP, FEPR, 68361-1, 2275-4, 2132-06, 19010-7 #### [facility] ([id number]) [address], [address] [place] [address] Platelets (Bld) [#/Vol] 266 10*3/uL Normal 150-450 [facility] Comment on above: Performed By: #### C BCA, CMP, FEPR, 33830-1, 2275-4, 2132-06, 65734-8 #### [facility] ([id number]) [address], [address] [place] [address] RBC COUNT 4.26 X10E12/L Normal 3.80-5.20 [facility] Comment on above: Performed By: #### C BCA, CMP, FEPR, 41611-3, 2275-4, 2132-06, 71386-8 #### [facility] ([id number]) [address], [address] [place] [address] WBC (Bld) [#/Vol] 8.8 10*3/uL Normal 4.0-11.0 [facility] Comment on above: Performed By: #### C BCA, CMP, FEPR, 02377-9, 2275-4, 9, 99782-5 #### [facility] ([id number]) [address], [address] [place] [address] COMPREHENSIVE METABOLIC PANE Wilver 04-26-2024 Albumin [Mass/Vol] 4.4 g/dL Normal 3.2-5.3 [facility] Comment on above: Performed By: #### C BCA, CMP, FEPR, 11691-2, 6-4, 9, 77285-9 #### [facility] ([id number]) [address], [address] [place] [address] ALP [Catalytic activity/Vol] 71 U/L Normal 39-130 [facility] Comment on above: Performed By: #### C BCA, CMP, FEPR, 14337-4, 2275-4, 2131-9, 32824-8 #### [facility] ([id number]) [address], [address] [place] [address] ALT [Catalytic activity/Vol] 145 U/L High 0-31 [facility] Comment on above: Performed By: #### C BCA, CMP, FEPR, 46629-6, 2275-4, 2131-9, 97937-6 #### [facility] ([id number]) [address], [address] [place] [address] Anion gap [Moles/Vol] 11 mmol/L Normal 5-15 [facility] Comment on above: Performed By: #### C BCA, CMP, FEPR, 44166-6, 2275-4, 2131-9, 44559-7 #### [facility] ([id number]) [address], [address] [place] [address] AST [Catalytic activity/Vol] 157 U/L High 0-41 [facility] Comment on above: Performed By: #### C BCA, CMP, FEPR, 23275-8, 6-4, 2131-9, 31362-8 #### [facility] ([id number]) [address], [address] [place] [address] Bilirubin [Mass/Vol] 0.3 mg/dL Normal 0.3-1.2 [facility] Comment on above: Performed By: #### C BCA, CMP, FEPR, 22706-5, 6-4, 2131-9, 85686-8 #### [facility] ([id number]) [address], [address] [place] [address] Calcium [Mass/Vol] 9.7 mg/dL Normal 8.5-10.5 [facility] Comment on above: Performed By: #### C BCA, CMP, FEPR, 65114-6, 2275-4, 2132-06, 30129-1 #### [facility] ([id number]) [address], [address] [place] [address] Chloride [Moles/Vol] 104 mmol/L Normal 98-109 [facility] Comment on above: Performed By: #### C BCA, CMP, FEPR, 73486-5, 6-4, 2131-9, 31176-6 #### [facility] ([id number]) [address], [address] [place] [address] CO2 [Moles/Vol] 23 mmol/L Normal 22-32 [facility] Comment on above: Performed By: #### C BCA, CMP, FEPR, 29408-4, 6-4, 2131-9, 62413-2 #### [facility] ([id number]) [address], [address] [place] [address] Creatinine [Mass/Vol] 0.56 mg/dL Normal 0.40-1.00 [facility] Comment on above: Result Comment: METH OD TRACEABLE TO IDMS STANDARD Performed By: #### C BCA, CMP, FEPR, 21209-1, 6-4, 2131-9, 69881-6 #### [facility] ([id number]) [address], [address] [place] [address] eGFR (CKD-EPI) NON-RACE DEPENDENT >90 Normal >59 [facility] Comment on above: Result Comment: Reported eGFR is based on the CKD-EPI 2020 equation that does not use a race coefficient. Performed By: #### C BCA, CMP, FEPR, 19828-2, 2276-4, 2131-9, 87207-5 #### [facility] ([id number]) [address], [address] [place] [address] Glucose [Mass/Vol] 118 mg/dL High 65-99 [facility] Comment on above: Performed By: #### C BCA, CMP, FEPR, 13797-2, 6-4, 9, 58621-2 #### [facility] ([id number]) [address] [address] Potassium [Moles/Vol] 4.1 mmol/L Normal 3.5-5.0 [facility] Comment on above: Performed By: #### C BCA, CMP, FEPR, 10341-1, 6-4, 2131-9, 17084-5 #### [facility] ([id number]) [address] [address] Protein [Mass/Vol] 7.6 g/dL Normal 6.0-8.0 [facility] Comment on above: Performed By: #### C BCA, CMP, FEPR, 93963-8, 6-4, 2131-9, 21383-1 #### [facility] ([id number]) [address] [address] [place] [address] Sodium [Moles/Vol] 138 mmol/L Normal 134-146 [facility] Comment on above: Performed By: #### C BCA, CMP, FEPR, 52781-2, 6-4, 2131-9, 02163-2 #### [facility] ([id number]) [address] [place] [address] Urea nitrogen [Mass/Vol] 11 mg/dL Normal 5-23 [facility] Comment on above: Performed By: #### C BCA, CMP, FEPR, 01765-0, 2275-4, 9, 01567-6 #### [facility] ([id number]) [address] [place] [address] FERRITINon 04-26-2024 Ferritin [Mass/Vol] 94 ng/mL Normal 11-307 [facility] Comment on above: Performed By: #### C BCA, CMP, FEPR, 39091-5, 2275-4, 2132-06, 47317-3 #### [facility] ([id number]) [address] [place] [address] IRON PROFILEon 04-26-2024 Iron [Mass/Vol] 66 ug/dL Normal 50-170 [facility] Comment on above: Performed By: #### C BCA, CMP, FEPR, 48047-4, 2275-4, 2131-9, 17459-9 #### [facility] ([id number]) [address] [place] [address] IRON BINDING 451 ug/dL High 250-425 [facility] Comment on above: Performed By: #### C BCA, CMP, FEPR, 71948-6, 2275-4, 9, 58197-0 #### [facility] ([id number]) [address], [address] [place] [address] IRON SATURATION 15 % SATURATION Normal 15-50 [facility] Comment on above: Performed By: #### C BCA, CMP, FEPR, 74700-3, 2275-4, 9, 10843-7 #### [facility] ([id number]) [address] [place] [address] MAGNESIUMon 04-26-2024 Magnesium [Mass/Vol] 1.5 mg/dL Low 1.8-2.6 [facility] Comment on above: Performed By: #### C BCA, CMP, FEPR, 99678-6, 2275-4, 2132-06, 31516-4 #### [facility] ([id number]) [address], [address] [place] [address] VITAMIN B12on 04-26-2024 Cobalamin (Vitamin B12) [Mass/Vol] 416 pg/mL Normal 180-914 [facility] Comment on above: Performed By: #### C BCA, CMP, FEPR, 11629-7, 2276-01, 2132-06, 75384-9 #### [facility] ([id number]) [address] [place] [address] Vitamin D+Metabolites [Mass/ Vol]on 04-26-2024 VITAMIN D 25 HYD TOT 18.0 ng/mL Low 30-100 [facility] Comment on above: Result Comment: Vitamin D status 25 [place] Vitamin D Deficiency <20 ng/mL Insufficiency 20-29 ng/mL Sufficiency 30-100 ng/mL Toxicity >100 ng/mL NOTE: A pediatric reference range has not been established by the repairer kiln car of this kit. The [place] [employer] recommends a Vitamin D level of = or >20ng/mL in infants and children. Performed By: #### C BCA, CMP, FEPR, 27534-6, 2275-4, 9, 75920-8 #### [facility] ([id number]) [address] [place] [address] HCG ( test) Ql (U)o n 03-13-2024 Beta HCG ( test) Ql (U) Negative Normal NEG [facility] Comment on above: Performed By: #### 2 106-3 #### [facility] ([id number]) [address] [facility], [place] [address] Surgical Pathologyon 024 Surgical Pathology Normal [facility] Comment on above: Result Comment: [facility] [address] [place] [address] Surgical Pathology Consultation Patient Name:JUDIE RODRIGUEZ:1995 (Age: 29)Gender:FTaken:4Reported:4Physician(s):Betina Louise M.D. ([phone])Copy To: Rec. #:[id number]: #[id number] Final Pathologic Diagnosis 1. Right fallopian tube, salpingectomy: Benign fallopian tube with fimbriated end, showing completely transected lumen. 2. Left fallopian tube, salpingectomy: Benign fallopian tube with fimbriated end, showing completely transected lumen. Report Electronically Signed Out ao/4Agina Ceja MD Interpretation performed at [facility], [address] [place] [address], License number: [id number]. Clinical History Undesired fertility. Gross Description 1. Received in formalin labeled RODRIGUEZ, right fallopian tube is a fimbriated fallopian tube segment, 5.5 x 0.6 cm. The serosa is purple-garcia, smooth and glistening. The fimbria are trisected and the remainder of the tubal segment is sectioned to reveal a pinpoint lumen. The entirety of the fimbria and event sales representative cross-sections are submitted in a single cassette. (1, , [id number], m1) . 2. Received in formalin labeled RODRIGUEZ, left fallopian tube is a fimbriated fallopian tube segment, 3.5 x 0.6 cm. The serosa is purple-garcia, smooth and glistening. The fimbria are trisected and the remainder of the tubal segment is sectioned to reveal a pinpoint lumen. The entirety of the fimbria and event sales representative cross-sections are submitted in a single cassette. (1, ss, [id number], m1) /03/14/2024O Specimen(s) Received 1: Right fallopian tube 2: Left fallopian tube Fee Codes(s): 1; 64809 2; 83361 BASIC METABOLIC PANLon 02-20 Anion gap [Moles/Vol] 9 mmol/L Normal 5-15 [facility] Comment on above: Performed By: #### C BCA, BMP #### [facility] ([id number]) [address] [place] [address] Calcium [Mass/Vol] 9.1 mg/dL Normal 8.5-10.5 [facility] Comment on above: Performed By: #### C BCA, BMP #### [facility] ([id number]) [address] [place] [address] Chloride [Moles/Vol] 103 mmol/L Normal 98-109 [facility] Comment on above: Performed By: #### C BCA, BMP #### [facility] ([id number]) [address] [place] [address] CO2 [Moles/Vol] 26 mmol/L Normal 22-32 [facility] Comment on above: Performed By: #### C BCA, BMP #### [facility] ([id number]) [address] [place] [address] Creatinine [Mass/Vol] 0.49 mg/dL Normal 0.40-1.00 [facility] Comment on above: Result Comment: METH OD TRACEABLE TO IDMS STANDARD Performed By: #### C BCA, BMP #### [facility] ([id number]) [address] [place] [address] eGFR (CKD-EPI) NON-RACE DEPENDENT >90 Normal >59 [facility] Comment on above: Result Comment: Reported eGFR is based on the CKD-EPI 2020 equation that does not use a race coefficient. Performed By: #### C BCA, BMP #### [facility] ([id number]) [address] [place] [address] Glucose [Mass/Vol] 99 mg/dL Normal 65-99 [facility] Comment on above: Performed By: #### C BCA, BMP #### [facility] ([id number]) [address] [place] [address] Potassium [Moles/Vol] 3.8 mmol/L Normal 3.5-5.0 [facility] Comment on above: Performed By: #### C BCA, BMP #### [facility] ([id number]) [address] [place] [address] Sodium [Moles/Vol] 138 mmol/L Normal 134-146 [facility] Comment on above: Performed By: #### C BCA, BMP #### [facility] ([id number]) [address] [place] [address] Urea nitrogen [Mass/Vol] 11 mg/dL Normal 5-23 [facility] Comment on above: Performed By: #### C BCA, BMP #### [facility] ([id number]) [address] [place] [address] Basic Metabolic Panelon 05-1 Anion gap [Moles/Vol] 9 mmol/L 5 - 15 mmol/L [facility] Calcium [Mass/Vol] 9.1 mg/dL 8.5 - 10. 5 mg/dL [facility] Chloride [Moles/Vol] 103 mmol/L 98 - 109 mmol/L [facility] CO2 [Moles/Vol] 26 mmol/L 22 - 32 mmol/L [facility] Creatinine [Mass/Vol] 0.49 mg/dL 0.40 - 1.00 mg/dL [facility] Comment on above: METHOD TRACEABLE TO IDMS STANDARD eGFR (CKD-EPI)non-race dependent - PINF [facility] Comment on above: Reported eGFR is based on the CKD-EPI 2020 equation that does not use a race coefficient. Glucose [Mass/Vol] 99 mg/dL 65 - 99 mg/dL [facility] Potassium [Moles/Vol] 3.8 mmol/L 3.5 - 5.0 mmol/L [facility] Sodium [Moles/Vol] 138 mmol/L 134 - 146 mmol/L [facility] Urea nitrogen [Mass/Vol] 11 mg/dL 5 - 23 mg/dL [facility] CBC AND AUTO DIFFon 02-21-20 ABSOLUTE BASOPHIL 0.0 X10E9/L Normal 0.0-0.2 [facility] Comment on above: Performed By: #### Kashif MILTON, BMP #### [facility] ([id number]) [address] [place] [address] ABSOLUTE NEUTROPHIL 5.3 X10E9/L Normal 1.5-6.6 [facility] Comment on above: Performed By: #### Kashif MILTON, BMP #### [facility] ([id number]) [address] [address] [place] [address] Basophils/100 WBC (Bld) 0.5 % Normal [facility] Comment on above: Performed By: #### Kashif MILTON, BMP #### [facility] ([id number]) [address] [address] [place] [address] Eosinophils (Bld) [#/Vol] 0.4 10*3/uL Normal 0.0-0.4 [facility] Comment on above: Performed By: #### Kashif MILTON, BMP #### [facility] ([id number]) [address] [address] [place] [address] Eosinophils/100 WBC (Bld) 4.6 % Normal [facility] Comment on above: Performed By: #### Kashif MILTON, BMP #### [facility] ([id number]) [address] [place] [address] Erythrocyte distribution width (RBC) [Ratio] 12.9 % Normal 11.5-15.0 [facility] Comment on above: Performed By: #### C KARINE, BMP #### [facility] ([id number]) [address] [place] [address] Hematocrit (Bld) [Volume fraction] 38.9 % Normal 35-47 [facility] Comment on above: Performed By: #### C KARINE, BMP #### [facility] ([id number]) [address] [address] [place] [address] Hemoglobin (Bld) [Mass/Vol] 13.0 g/dL Normal 11.7-15.5 [facility] Comment on above: Performed By: #### C KARINE, BMP #### [facility] ([id number]) [address] [place] [address] Lymphocytes (Bld) [#/Vol] 2.9 10*3/uL Normal 1.0-3.5 [facility] Comment on above: Performed By: #### C KARINE, BMP #### [facility] ([id number]) [address] [place] [address] Lymphocytes/100 WBC (Bld) 31.5 % Normal [facility] Comment on above: Performed By: #### C KARINE, BMP #### [facility] ([id number]) [address] [place] [address] MCH (RBC) [Entitic mass] 30.1 pg Normal 27-34 [facility] Comment on above: Performed By: #### C BCA, BMP #### [facility] ([id number]) [address] [address] [place] [address] MCHC (RBC) [Mass/Vol] 33.3 g/dL Normal 32-36 [facility] Comment on above: Performed By: #### C BCA, BMP #### [facility] ([id number]) [address] [place] [address] MCV (RBC) [Entitic vol] 90 fL Normal 80-100 [facility] Comment on above: Performed By: #### Kashif MILTON, BMP #### [facility] ([id number]) [address] [place] [address] Monocytes (Bld) [#/Vol] 0.5 10*3/uL Normal 0-0.9 [facility] Comment on above: Performed By: #### Kashif MILTON, BMP #### [facility] ([id number]) [address] [place] [address] Monocytes/100 WBC (Bld) 5.5 % Normal [facility] Comment on above: Performed By: #### Kashif MILTON, BMP #### [facility] ([id number]) [address] [place] [address] Neutrophils/100 WBC (Bld) 57.9 % Normal [facility] Comment on above: Performed By: #### Kashif MILTON, BMP #### [facility] ([id number]) [address] [place] [address] Platelet mean volume (Bld) [Entitic vol] 9.0 fL Normal 7-12 [facility] Comment on above: Performed By: #### Kashif MILTON, BMP #### [facility] ([id number]) [address] [place] [address] Platelets (Bld) [#/Vol] 273 10*3/uL Normal 150-450 [facility] Comment on above: Performed By: #### Kashif MILTON, BMP #### [facility] ([id number]) [address] [place] [address] RBC COUNT 4.30 X10E12/L Normal 3.80-5.20 [facility] Comment on above: Performed By: #### C KARINE, CATA #### [facility] ([id number]) [address] [place] [address] WBC (Bld) [#/Vol] 9.1 10*3/uL Normal 4.0-11.0 [facility] Comment on above: Performed By: #### Kashif MILTON, BMP #### [facility] ([id number]) [address] [place] [address] CBC auto differentialon 05- Basophils (Bld) [#/Vol] 0.0 10*3/uL [facility] Basophils/100 WBC (Bld) 0.5 % [facility] Eosinophils (Bld) [#/Vol] 0.4 10*3/uL [facility] Eosinophils/100 WBC (Bld) 4.6 % [facility] Erythrocyte distribution width (RBC) [Ratio] 12.9 % 11.5 - 15.0 % [facility] Hematocrit (Bld) [Volume fraction] 38.9 % 35 - 47 % [facility] Hemoglobin (Bld) [Mass/Vol] 13.0 g/dL 11.7 - 15.5 g/dL [facility] Lymphocytes (Bld) [#/Vol] 2.9 10*3/uL [facility] Lymphocytes/100 WBC (Bld) 31.5 % [facility] MCH (RBC) [Entitic mass] 30.1 pg 27 - 34 pg [facility] MCHC (RBC) [Mass/Vol] 33.3 g/dL 32 - 36 g/dL [facility] MCV (RBC) [Entitic vol] 90 fL 80 - 100 fL [facility] Monocytes (Bld) [#/Vol] 0.5 10*3/uL [facility] Monocytes/100 WBC (Bld) 5.5 % [facility] Neutrophils (Bld) [#/Vol] 5.3 10*3/uL [facility] Neutrophils/100 WBC (Bld) 57.9 % [facility] Platelet mean volume (Bld) [Entitic vol] 9.0 fL 7 - 12 fL [facility] Platelets (Bld) [#/Vol] 273 10*3/uL [facility] RBC (Bld) [#/Vol] 4.30 10*6/uL [facility] WBC corrected for nucl RBC Auto (Bld) [#/Vol] 9.1 [facility] ECG 12 leadon 02-21-2024 TRACEMASTERVUE [facility] MG MAMM DIAGNOSTIC 3D NATHAN CA Don 01-27-2023 MG MAMM DIAGNOSTIC 3D NATHAN CAD Patient: JUDIE RODRIGUEZ Exam Date: 01/27/2023 : 1995 Gender:F Ordering : FATOU BOBBY . Admission #: [id number] Family : Order #: [id number] CLICK HERE TO VIEW EXAM RADIOLOGY REPORT PROCEDURE: MAMMOGRAM DIAGNOSTIC 3D BILATERAL CAD, 01/27/2023, 13:46 ULTRASOUND BREAST RIGHT LIMITED, 01/27/2023, 14:23 COMPARISON: None. INDICATIONS: Breast lump Calculator Name NCI Breast Cancer Risk Assessment Tool 5 Year Breast Cancer Risk Not Applicable. Lifetime Breast Cancer Risk Not Applicable. Personal Breast Cancer No Personal Ovarian Cancer No Treatments None Family Cancers None LOCATION: [facility] BREAST COMPOSITION: Scattered areas fibroglandular density. [...] PALPABLE LUMP SHOULD BE BIOPSIED. Dictated by: Aisha Baldwin M.D. on 01/27/2023 at 14:58 Approved by: Aisha Baldwin M.D. on 01/27/2023 at 15:02 Normal [facility] US BREAST RIGHT LIMITEDon US BREAST RIGHT LIMITED Patient: JUDIE RODIRGUEZ Exam Date: 01/27/2023 : 1995 Gender:F Ordering : FATOU BOBBY . Admission #: [id number] Family : Order #: [id number] CLICK HERE TO VIEW EXAM RADIOLOGY REPORT PROCEDURE: MAMMOGRAM DIAGNOSTIC 3D BILATERAL CAD, 01/27/2023, 13:46 ULTRASOUND BREAST RIGHT LIMITED, 01/27/2023, 14:23 COMPARISON: None. INDICATIONS: Breast lump Calculator Name NCI Breast Cancer Risk Assessment Tool 5 Year Breast Cancer Risk Not Applicable. Lifetime Breast Cancer Risk Not Applicable. Personal Breast Cancer No Personal Ovarian Cancer No Treatments None Family Cancers None LOCATION: [facility] BREAST COMPOSITION: Scattered areas fibroglandular density. [...] PALPABLE LUMP SHOULD BE BIOPSIED. Dictated by: Aisha Baldwin M.D. on 01/27/2023 at 14:58 Approved by: Aisha Baldwin M.D. on 01/27/2023 at 15:02 Normal [facility] PROTEIN 24HR URINEon 022 T PROT, 24 HR UR 554.3 mg/24 hr Critically high <=149.1 [facility] Comment on above: Performed By: #### P ROT24U #### [facility] [address] [place] [address] Dr. Zainab John UR PROT 24.1 mg/dL Critically high <=11.9 [facility] Comment on above: Performed By: #### P ROT24U #### [facility] [address] [address] [address] Zainab John UR TOT VOL 2300 ml/24 HR Normal [facility] Comment on above: Performed By: #### P ROT24U #### [facility] [address] [place] [address] Dr. Zainab John UA (CLEAN/CATCH) FOXING CUTTING MACHINE OPERATOR/MICRO I F IND.on 02-12-2022 Bilirubin Ql (U) Negative Normal NEGATIVE [facility] Comment on above: Performed By: #### T NS #### [facility] [address] [place] [address] Dr. Zainab John Clarity (U) CLEAR Normal CLEAR [facility] Comment on above: Performed By: #### T NS #### [facility] [address] [place] [address] Dr. Zainab John Color (U) LT. YELLOW Normal YELLOW [facility] Comment on above: Performed By: #### T NS #### [facility] [address] [place] [address] Dr. Zainab John Glucose Ql (U) Negative Normal NEGATIVE [facility] Comment on above: Performed By: #### T NS #### [facility] [address] [place] [address] Dr. Zainab John Hemoglobin Ql (U) LARGE Abnormal NEGATIVE [facility] Comment on above: Performed By: #### T NS #### [facility] [address] [place] [address] Dr. Zainab John Ketones Ql (U) Negative Normal NEGATIVE [facility] Comment on above: Performed By: #### T NS #### [facility] [address] [place] [address] Dr. Zainab John LEUKOCYTES Negative Normal NEGATIVE [facility] Comment on above: Performed By: #### T NS #### [facility] [address] [place] [address] Dr. Zainab John Nitrite Ql (U) Negative Normal NEGATIVE [facility] Comment on above: Performed By: #### T NS #### [facility] [address] [place] [address] Dr. Zainab John pH (U) 5.5 [pH] Normal 5-9 [facility] Comment on above: Performed By: #### T NS #### [facility] [address] [place] [address] Dr. Zainab John SPEC GRAVITY 1.030 Abnormal 1.005-<=1.025 [facility] Comment on above: Performed By: #### T NS #### [facility] [address] [place] [address] Dr. Zainab John UA PROTEIN Negative Normal NEGATIVE/ TRACE [facility] Comment on above: Performed By: #### T NS #### [facility] [address] [place] [address] Dr. Zainab John UR MICRO IND INDICATED Normal [facility] Comment on above: Performed By: #### T NS #### [facility] [address] [place] [address] Dr. Zainab John Urobilinogen Qn (U) 0.2 {Sarabjit'U}/dL Normal 0.2 - 1. 0 [facility] Comment on above: Performed By: #### T NS #### [facility] [address] [place] [address] Dr. Zainab John URINE MICROSCOPIC ONLYon BACTERIA NONE SEEN Normal NONE SEEN [facility] Comment on above: Performed By: #### T NS #### [facility] [address] [place] [address] Dr. Zainab John Bacteria identified Cx Nom (U) NOT INDICATED Normal [facility] Comment on above: Performed By: #### T NS #### [facility] [address] [place] [address] Dr. Zainab John CAST NONE SEEN Normal NONE SEEN [facility] Comment on above: Performed By: #### T NS #### [facility] [address] [place] [address] Dr. Zainab John Crystals LM Nom (Urine sed) NONE SEEN Normal NONE SEEN [facility] Comment on above: Performed By: #### T NS #### [facility] [address] [place] [address] Dr. Zainab John Epithelial cells LM Ql (Urine sed) RARE Normal NONE SEEN /RARE [facility] Comment on above: Performed By: #### T NS #### [facility] [address] [place] [address] Dr. Zainab John MUCOUS NONE SEEN Normal NONE SEEN [facility] Comment on above: Performed By: #### T NS #### [facility] [address] [place] [address] Dr. Zainab John RBC 20-50 Abnormal 0-2 [facility] Comment on above: Performed By: #### T NS #### [facility] [address] [place] [address] Dr. Zainab John WBC 0-2 Abnormal NONE SEEN [facility] Comment on above: Performed By: #### T NS #### [facility] [address] [place] [address] Dr. Zainab John CBC AUTO DIFFon 02-11-2022 BASO # 0.0 103/ul Normal 0.0-0.1 [facility] Comment on above: Performed By: #### C BC #### [facility] [address] [place] [address] Dr. Zainab John Basophils/100 WBC (Bld) 0.4 % Normal 0.2-2.0 [facility] Comment on above: Performed By: #### C BC #### [facility] [address] [place] [address] Dr. Zainab John EO # 0.3 103/ul Normal 0.0-0.7 [facility] Comment on above: Performed By: #### C BC #### [facility] [address] [place] [address] Dr. Zainab John Eosinophils/100 WBC (Bld) 2.5 % Normal 0.9-7.0 [facility] Comment on above: Performed By: #### C BC #### [facility] [address] [place] [address] Dr. Zainab John Erythrocyte distribution width (RBC) [Ratio] 13.2 % Normal 11.0-15.0 [facility] Comment on above: Performed By: #### C BC #### [facility] [address] [place] [address] Dr. Zainab John Hematocrit (Bld) [Volume fraction] 27.8 % Critically low 36.0-48.0 [facility] Comment on above: Performed By: #### C BC #### [facility] [address] [place] [address] Dr. Zainab John Hemoglobin (Bld) [Mass/Vol] 9.3 g/dL Critically low 12.0-16.0 [facility] Comment on above: Performed By: #### C BC #### [facility] [address] [address] [address] Zainab John IG # 0.08 10e3/ul Critically high 0.00-0.03 [facility] Comment on above: Performed By: #### C BC #### [facility] [address] [address] [address] Zainab John IG % 0.7 % Critically high 0.0-0.5 [facility] Comment on above: Performed By: #### C BC #### [facility] [address] [address] [address] Zainab John LYMPH # 2.7 103/ul Normal 1.2-3.8 [facility] Comment on above: Performed By: #### C BC #### [facility] [address] [place] [address] Dr. Zainab John Lymphocytes/100 WBC (Bld) 23.6 % Normal 20.5-60.0 [facility] Comment on above: Performed By: #### C BC #### [facility] [address] [place] [address] Dr. Zainab John MANUAL DIFF REQ NO Normal [facility] Comment on above: Performed By: #### C BC #### [facility] [address] [place] [address] Dr. Zainab John MCH (RBC) [Entitic mass] 29.6 pg Normal 26.7-34.0 [facility] Comment on above: Performed By: #### C BC #### [facility] [address] [address] [address] Zainab John MCHC (RBC) [Mass/Vol] 33.5 g/dL Normal 29.9-35.2 [facility] Comment on above: Performed By: #### C BC #### [facility] [address] [place] [address] Dr. Zainab John MCV (RBC) [Entitic vol] 88.5 fL Normal 81.0-99.0 [facility] Comment on above: Performed By: #### C BC #### [facility] [address] [address] [address] Zainab John MONO # 0.6 103/ul Normal 0.3-0.8 [facility] Comment on above: Performed By: #### C BC #### [facility] [address] [place] [address] Dr. Zainab John Monocytes/100 WBC (Bld) 5.1 % Normal 1.7-12.0 [facility] Comment on above: Performed By: #### C BC #### [facility] [address] [place] [address] Dr. Zainab John NEUT # 7.7 103/ul Critically high 1.4-6.5 [facility] Comment on above: Performed By: #### C BC #### [facility] [address] [place] [address] Dr. Zainab John Neutrophils/100 WBC (Bld) 67.7 % Normal 43.0-75.0 [facility] Comment on above: Performed By: #### C BC #### [facility] [address] [place] [address] Dr. Zainab John Platelet mean volume (Bld) [Entitic vol] 10.7 fL Normal 9.5-13.5 [facility] Comment on above: Performed By: #### C BC #### [facility] [address] [place] [address] Dr. Zainab John PLT 267 103/ul Normal 150-450 [facility] Comment on above: Performed By: #### C BC #### [facility] [address] [place] [address] Dr. Zainab John RBC 3.14 106/ul Critically low 4.20-5.40 [facility] Comment on above: Performed By: #### C BC #### [facility] [address] [place] [address] Dr. Zainab John WBC 11.4 103/ul Critically high 4.0-11.0 [facility] Comment on above: Performed By: #### C BC #### [facility] [address] [place] [address] Dr. Zainab John LDHon 02-11-2022 LDH 214 U/L Normal 81-234 [facility] Comment on above: Performed By: #### T NS #### [facility] [address] [place] [address] Dr. Zainab John PROF 14(COMP METB)on 022 Albumin [Mass/Vol] 2.4 g/dL Critically low 3.4-5.0 [facility] Comment on above: Performed By: #### T NS #### [facility] [address] [place] [address] Dr. Zainab John Albumin/Globulin [Mass ratio] 0.7 {ratio} Normal [facility] Comment on above: Performed By: #### T NS #### [facility] [address] [place] [address] Dr. Zainab John ALP [Catalytic activity/Vol] 98 U/L Normal 46-116 [facility] Comment on above: Performed By: #### T NS #### [facility] [address] [place] [address] Dr. Zainab John ALT [Catalytic activity/Vol] 12 U/L Critically low 14-59 [facility] Comment on above: Performed By: #### T NS #### [facility] [address] [place] [address] Dr. Zainab John Anion gap [Moles/Vol] 15.4 mmol/L Normal [facility] Comment on above: Performed By: #### T NS #### [facility] [address] [place] [address] Dr. Zainab John AST [Catalytic activity/Vol] 20 U/L Normal 15-37 [facility] Comment on above: Performed By: #### T NS #### [facility] [address] [place] [address] Dr. Zainab John Bilirubin [Mass/Vol] 0.1 mg/dL Critically low 0.2-1.0 [facility] Comment on above: Performed By: #### T NS #### [facility] [address] [place] [address] Dr. Zainab John Calcium [Mass/Vol] 8.1 mg/dL Critically low 8.5-10.1 [facility] Comment on above: Performed By: #### T NS #### [facility] [address] [place] [address] Dr. Zainab John Chloride [Moles/Vol] 102 mmol/L Normal 98-107 [facility] Comment on above: Performed By: #### T NS #### [facility] [address] [address] [address] Zainab John CO2 [Moles/Vol] 24.2 mmol/L Normal 21.0-32.0 [facility] Comment on above: Performed By: #### T NS #### [facility] [address] [place] [address] Dr. Zainab John Creatinine [Mass/Vol] 0.52 mg/dL Critically low 0.55-1.02 [facility] Comment on above: Performed By: #### T NS #### [facility] [address] [place] [address] Dr. Zainab John EGFR-AF TAIWANESE >60 Normal >=60 [facility] Comment on above: Performed By: #### T NS #### [facility] [address] [place] [address] Dr. Zainab John EGFR-NON AF TAIWANESE >60 Normal >=60 [facility] Comment on above: Performed By: #### T NS #### [facility] [address] [place] [address] Dr. Zainab John Globulin (S) [Mass/Vol] 3.4 g/dL Normal [facility] Comment on above: Performed By: #### T NS #### [facility] [address] [place] [address] Dr. Zainab John Glucose [Mass/Vol] 91 mg/dL Normal 74-106 [facility] Comment on above: Performed By: #### T NS #### [facility] [address] [place] [address] Dr. Zainab John Potassium [Moles/Vol] 3.6 mmol/L Normal 3.5-5.1 [facility] Comment on above: Performed By: #### T NS #### [facility] [address] [address] [address] Zainab John Protein [Mass/Vol] 5.8 g/dL Critically low 6.1-8.[address] [facility] Comment on above: Performed By: #### T NS #### [facility] [address] [address] [address] Zainab John Sodium [Moles/Vol] 138 mmol/L Normal 136-145 [facility] Comment on above: Performed By: #### T NS #### [facility] [address] [address] [address] Zainab John Urea nitrogen [Mass/Vol] 8.0 mg/dL Normal 7.0-18.0 [facility] Comment on above: Performed By: #### T NS #### [facility] [address] [place] [address] Dr. Zianab John Urea nitrogen/Creatinine [Mass ratio] 15.4 mg/mg Normal [facility] Comment on above: Performed By: #### T NS #### [facility] [address] [place] [address] Dr. Zainab John URIC ACID SERUMon 02-11-2022 Urate [Mass/Vol] 5.2 mg/dL Normal 2.5-6.2 [facility] Comment on above: Performed By: #### U TRUPTI, LDH, CMP #### [facility] [address] [place] [address] Dr. Zainab John CBC AUTO DIFFon 02-10-2022 BASO # 0.0 103/ul Normal 0.0-0.1 [facility] Comment on above: Performed By: #### C BC #### [facility] [address] [place] [address] Dr. Zainab John Basophils/100 WBC (Bld) 0.3 % Normal 0.2-2.0 [facility] Comment on above: Performed By: #### C BC #### [facility] [address] [place] [address] Dr. Zainab John EO # 0.1 103/ul Normal 0.0-0.7 [facility] Comment on above: Performed By: #### C BC #### [facility] [address] [place] [address] Dr. Zainab John Eosinophils/100 WBC (Bld) 1.1 % Normal 0.9-7.0 [facility] Comment on above: Performed By: #### C BC #### [facility] [address] [place] [address] Dr. Zainab John Erythrocyte distribution width (RBC) [Ratio] 13.1 % Normal 11.0-15.0 [facility] Comment on above: Performed By: #### C BC #### [facility] [address] [place] [address] Dr. Zainab John Hematocrit (Bld) [Volume fraction] 27.9 % Critically low 36.0-48.0 [facility] Comment on above: Performed By: #### C BC #### [facility] [address] [place] [address] Dr. Zainab John Hemoglobin (Bld) [Mass/Vol] 9.4 g/dL Critically low 12.0-16.0 [facility] Comment on above: Performed By: #### C BC #### [facility] [address] [place] [address] Dr. Zainab John IG # 0.05 10e3/ul Critically high 0.00-0.03 [facility] Comment on above: Performed By: #### C BC #### [facility] [address] [place] [address] Dr. Zainab John IG % 0.4 % Normal 0.0-0.5 [facility] Comment on above: Performed By: #### C BC #### [facility] [address] [place] [address] Dr. Zainab John LYMPH # 2.6 103/ul Normal 1.2-3.8 [facility] Comment on above: Performed By: #### C BC #### [facility] [address] [place] [address] Dr. Zainab John Lymphocytes/100 WBC (Bld) 22.1 % Normal 20.5-60.0 [facility] Comment on above: Performed By: #### C BC #### [facility] [address] [place] [address] Dr. Zainab John MANUAL DIFF REQ NO Normal [facility] Comment on above: Performed By: #### C BC #### [facility] [address] [place] [address] Dr. Zainab John MCH (RBC) [Entitic mass] 30.1 pg Normal 26.7-34.0 [facility] Comment on above: Performed By: #### C BC #### [facility] [address] [place] [address] Dr. Zainab John MCHC (RBC) [Mass/Vol] 33.7 g/dL Normal 29.9-35.2 [facility] Comment on above: Performed By: #### C BC #### [facility] [address] [place] [address] Dr. Zainab John MCV (RBC) [Entitic vol] 89.4 fL Normal 81.0-99.0 [facility] Comment on above: Performed By: #### C BC #### [facility] [address] [place] [address] Dr. Zainab John MONO # 0.9 103/ul Critically high 0.3-0.8 [facility] Comment on above: Performed By: #### C BC #### [facility] [address] [place] [address] Dr. Zainab John Monocytes/100 WBC (Bld) 7.7 % Normal 1.7-12.0 [facility] Comment on above: Performed By: #### C BC #### [facility] [address] [place] [address] Dr. Zainab John NEUT # 8.1 103/ul Critically high 1.4-6.5 [facility] Comment on above: Performed By: #### C BC #### [facility] [address] [place] [address] Dr. Zainab John Neutrophils/100 WBC (Bld) 68.4 % Normal 43.0-75.0 [facility] Comment on above: Performed By: #### C BC #### [facility] [address] [place] [address] Dr. Zainab John Platelet mean volume (Bld) [Entitic vol] 10.4 fL Normal 9.5-13.5 [facility] Comment on above: Performed By: #### C BC #### [facility] [address] [place] [address] Dr. Zainab John PLT 224 103/ul Normal 150-450 [facility] Comment on above: Performed By: #### C BC #### [facility] [address] [place] [address] Dr. Zainab John RBC 3.12 106/ul Critically low 4.20-5.40 [facility] Comment on above: Performed By: #### C BC #### [facility] [address] [place] [address] Dr. Zainab John WBC 11.8 103/ul Critically high 4.0-11.0 [facility] Comment on above: Performed By: #### C BC #### [facility] [address] [place] [address] Dr. Zainab John CBC AUTO DIFFon 02-09-2022 BASO # 0.0 103/ul Normal 0.0-0.1 [facility] Comment on above: Performed By: #### C BC #### [facility] [address] [place] [address] Dr. Zainab John Basophils/100 WBC (Bld) 0.3 % Normal 0.2-2.0 [facility] Comment on above: Performed By: #### C BC #### [facility] [address] [place] [address] Dr. Zainab John EO # 0.2 103/ul Normal 0.0-0.7 [facility] Comment on above: Performed By: #### C BC #### [facility] [address] [place] [address] Dr. Zainab John Eosinophils/100 WBC (Bld) 1.1 % Normal 0.9-7.0 [facility] Comment on above: Performed By: #### C BC #### [facility] [address] [place] [address] Dr. Zainab John Erythrocyte distribution width (RBC) [Ratio] 12.9 % Normal 11.0-15.0 [facility] Comment on above: Performed By: #### C BC #### [facility] [address] [place] [address] Dr. Zainab John Hematocrit (Bld) [Volume fraction] 32.9 % Critically low 36.0-48.0 [facility] Comment on above: Performed By: #### C BC #### [facility] [address] [place] [address] Dr. Zainab John Hemoglobin (Bld) [Mass/Vol] 11.3 g/dL Critically low 12.0-16.0 [facility] Comment on above: Performed By: #### C BC #### [facility] [address] [place] [address] Dr. Zainab John IG # 0.07 10e3/ul Critically high 0.00-0.03 [facility] Comment on above: Performed By: #### C BC #### [facility] [address] [place] [address] Dr. Zainab John IG % 0.5 % Normal 0.0-0.5 [facility] Comment on above: Performed By: #### C BC #### [facility] [address] [place] [address] Dr. Zainab John LYMPH # 2.8 103/ul Normal 1.2-3.8 [facility] Comment on above: Performed By: #### C BC #### [facility] [address] [place] [address] Dr. Zainab John Lymphocytes/100 WBC (Bld) 21.5 % Normal 20.5-60.0 [facility] Comment on above: Performed By: #### C BC #### [facility] [address] [place] [address] Dr. Zainab John MANUAL DIFF REQ NO Normal [facility] Comment on above: Performed By: #### C BC #### [facility] [address] [address] [address] Zainab John MCH (RBC) [Entitic mass] 29.9 pg Normal 26.7-34.0 [facility] Comment on above: Performed By: #### C BC #### [facility] [address] [place] [address] Dr. Zainab John MCHC (RBC) [Mass/Vol] 34.3 g/dL Normal 29.9-35.2 [facility] Comment on above: Performed By: #### C BC #### [facility] [address] [place] [address] Dr. Zainab John MCV (RBC) [Entitic vol] 87.0 fL Normal 81.0-99.0 [facility] Comment on above: Performed By: #### C BC #### [facility] [address] [place] [address] Dr. Zainab John MONO # 0.9 103/ul Critically high 0.3-0.8 [facility] Comment on above: Performed By: #### C BC #### [facility] [address] [place] [address] Dr. Zainab John Monocytes/100 WBC (Bld) 6.5 % Normal 1.7-12.0 [facility] Comment on above: Performed By: #### C BC #### [facility] [address] [place] [address] Dr. Zainab John NEUT # 9.3 103/ul Critically high 1.4-6.5 [facility] Comment on above: Performed By: #### C BC #### [facility] [address] [place] [address] Dr. Zainab John Neutrophils/100 WBC (Bld) 70.1 % Normal 43.0-75.0 [facility] Comment on above: Performed By: #### C BC #### [facility] [address] [place] [address] Dr. Zainab John Platelet mean volume (Bld) [Entitic vol] 10.1 fL Normal 9.5-13.5 [facility] Comment on above: Performed By: #### C BC #### [facility] [address] [address] [address] Zainab John PLT 271 103/ul Normal 150-450 [facility] Comment on above: Performed By: #### C BC #### [facility] [address] [address] [address] Zainab John RBC 3.78 106/ul Critically low 4.20-5.40 [facility] Comment on above: Performed By: #### C BC #### [facility] [address] [address] [address] Zainab John WBC 13.2 103/ul Critically high 4.0-11.0 [facility] Comment on above: Performed By: #### C BC #### [facility] [address] [place] [address] Dr. Zainab John Covid-19 PCR ([facility])on SARS-CoV-2 (COVID-19) RNA PAOLA+probe Ql (Unsp spec) Not detected Normal NOT DETECTED [facility] Comment on above: Result Comment: When [...] for this test is supported by the [employer] of [employer] and Human Service's declaration that [...] used). Performed By: #### C VDTBH #### [facility] [address] [place] [address] Dr. Zainab John DRUG SCREEN RAPID (URINE)on 02-09-2022 AMP Negative Normal NEGATIVE [facility] Comment on above: Performed By: #### D RUGRPD #### [facility] [address] [place] [address] Dr. Zainab John BAR Negative Normal NEGATIVE [facility] Comment on above: Performed By: #### D RUGRPD #### [facility] [address] [place] [address] Dr. Zainab John BUP Negative Normal NEGATIVE [facility] Comment on above: Performed By: #### D RUGRPD #### [facility] [address] [place] [address] Dr. Zainab John BZO Negative Normal NEGATIVE [facility] Comment on above: Performed By: #### D RUGRPD #### [facility] [address] [place] [address] Dr. Zainab John BRISA Negative Normal NEGATIVE [facility] Comment on above: Performed By: #### D RUGRPD #### [facility] [address] [place] [address] Dr. Zainab John CUT-OFFS SEE BELOW Normal [facility] Comment on above: Result Comment: AMP [...] ng/mL Performed By: #### D RUGRPD #### [facility] [address] [place] [address] Dr. Zainab John DRUG CUT HEADER DRUG CLASS TEST SYSTEM CUT-OFF CONCENTRATIONS ARE FOLLOWS: Normal [facility] Comment on above: Performed By: #### D RUGRPD #### [facility] [address] [place] [address] Dr. Zainab John mAMP Negative Normal NEGATIVE [facility] Comment on above: Performed By: #### D RUGRPD #### [facility] [address] [address] [address] Zainab John MTD Negative Normal NEGATIVE [facility] Comment on above: Performed By: #### D RUGRPD #### [facility] [address] [place] [address] Dr. Zainab John OPI Negative Normal NEGATIVE [facility] Comment on above: Performed By: #### D RUGRPD #### [facility] [address] [place] [address] Dr. Zainab John OXY Negative Normal NEGATIVE [facility] Comment on above: Performed By: #### D RUGRPD #### [facility] [address] [place] [address] Dr. Zainab John PCP Negative Normal NEGATIVE [facility] Comment on above: Performed By: #### D RUGRPD #### [facility] [address] [place] [address] Dr. Zainab John PPX Negative Normal NEGATIVE [facility] Comment on above: Performed By: #### D RUGRPD #### [facility] [address] [place] [address] Dr. Zainab John TCA Negative Normal NEGATIVE [facility] Comment on above: Performed By: #### D RUGRPD #### [facility] [address] [place] [address] Dr. Zainab John THC Negative Normal NEGATIVE [facility] Comment on above: Performed By: #### D RUGRPD #### [facility] [address] [place] [address] Dr. Zainab John TYPE AND SCREENon 02-09-2022 TYPE AND SCREEN Antibody Screen NEGATIVE ABO Rh Typing O Rh Positive Blood Bank Notes performed by [facility] Comment on above: Performed By: #### T NS #### [facility] [address] [place] [address] Dr. Zainab John US PREG BIOPHY W [...] by: JOLANTA REYNOLDS Date: 2022 16:57 Normal [facility] Vital Signs Date Time Vital Sign Value Performing Clinician Facility 12-26-2024 06:49-0400 Body height 167 cm Elton Yarbrough APRN-AS400 PROGRAMMER Work Phone: [facility] 12-26-2024 06:49-0400 Body mass index (BMI) [Ratio] 42.12 kg/m2 Elton Yarbrough APRN-AS400 PROGRAMMER Work Phone: [facility] 12-26-2024 06:49-0400 Body temperature 97.81 [degF] Elton Yarbrough APRN-AS400 PROGRAMMER Work Phone: [facility] 12-26-2024 06:49-0400 Body weight 117.48 kg Elton Yarbrough APRN-AS400 PROGRAMMER Work Phone: [facility] 12-26-2024 06:49-0400 Diastolic blood pressure 70 mm[Hg] Elton Yarbrough APRN-AS400 PROGRAMMER Work Phone: [facility] 12-26-2024 06:49-0400 Heart rate 108 /min Elton Yarbrough APRN-AS400 PROGRAMMER [facility] 12-26-2024 06:49-0400 Respiratory rate 18 /min Elton Yarbrough APRN-AS400 PROGRAMMER Work Phone: [facility] 12-26-2024 06:49-0400 SaO2% (BldA) [Mass fraction] 99 % Elton Yarbrough APRN-AS400 PROGRAMMER Work Phone: [facility] 12-26-2024 06:49-0400 Systolic blood pressure 120 mm[Hg] Elton Yarbrough COMPUTER TRAINING SPECIALIST-[employer] PROGRAMMER Work Phone: [facility] 08-23-2024 13:40-0500 Body height 167 cm Elton Yarbrough APRN-AS400 PROGRAMMER Work Phone: [facility] 08-23-2024 13:40-0500 Body mass index (BMI) [Ratio] 41.7 kg/m2 Elton Yarbrough COMPUTER TRAINING SPECIALIST-AS400 PROGRAMMER Work Phone: [facility] 08-23-2024 13:40-0500 Body temperature 98.01 [degF] Elton Yarbrough APRN-AS400 PROGRAMMER Work Phone: [facility] 08-23-2024 13:40-0500 Body weight 116.3 kg Elton Yarbrough APRN-AS400 PROGRAMMER Work Phone: [facility] 08-23-2024 13:40-0500 Diastolic blood pressure 78 mm[Hg] Elton Yarbrough APRN-AS400 PROGRAMMER Work Phone: [facility] 08-23-2024 13:40-0500 Heart rate 90 /min Elton Yarbrough APRN-AS400 PROGRAMMER Work Phone: [facility] 08-23-2024 13:40-0500 Respiratory rate 18 /min Elton Yarbrough APRN-AS400 PROGRAMMER Work Phone: [facility] 08-23-2024 13:40-0500 SaO2% (BldA) [Mass fraction] 98 % Elton Yarbrough COMPUTER TRAINING SPECIALIST-AS400 PROGRAMMER Work Phone: [facility] 08-23-2024 13:40-0500 Systolic blood pressure 112 mm[Hg] Elton Yarbrough COMPUTER TRAINING SPECIALIST-AS400 PROGRAMMER Work Phone: [facility] 05-03-2024 14:55-0400 Body height 167 cm Elton Yarbrough COMPUTER TRAINING SPECIALIST-AS400 PROGRAMMER Work Phone: [facility] 05-03-2024 14:55-0400 Body mass index (BMI) [Ratio] 42.5 kg/m2 Elton Yarbrough COMPUTER TRAINING SPECIALIST-AS400 PROGRAMMER Work Phone: [facility] 05-03-2024 14:55-0400 Body temperature 98.49 [degF] Elton Yarbrough COMPUTER TRAINING SPECIALIST-AS400 PROGRAMMER Work Phone: [facility] 05-03-2024 14:55-0400 Body weight 118.53 kg Elton Yarbrough COMPUTER TRAINING SPECIALIST-AS400 PROGRAMMER Work Phone: [facility] 05-03-2024 14:55-0400 Diastolic blood pressure 90 mm[Hg] Elton Yarbrough COMPUTER TRAINING SPECIALIST-AS400 PROGRAMMER Work Phone: [facility] 05-03-2024 14:55-0400 Heart rate 99 /min Elton Yarbrough COMPUTER TRAINING SPECIALIST-AS400 PROGRAMMER Work Phone: [facility] 05-03-2024 14:55-0400 Respiratory rate 18 /min Elton Yarbrough COMPUTER TRAINING SPECIALIST-AS400 PROGRAMMER Work Phone: [facility] 05-03-2024 14:55-0400 SaO2% (BldA) [Mass fraction] 97 % Elton Yarbrough APRN-AS400 PROGRAMMER Work Phone: [facility] 05-03-2024 14:55-0400 Systolic blood pressure 150 mm[Hg] Elton Yarbrough COMPUTER TRAINING SPECIALIST-AS400 PROGRAMMER Work Phone: [facility] 04-26-2024 09:48-0400 Body height 167 cm Elton Yarbrough COMPUTER TRAINING SPECIALIST-AS400 PROGRAMMER Work Phone: [facility] 04-26-2024 09:48-0400 Body mass index (BMI) [Ratio] 41.44 kg/m2 Elton Yarbrough COMPUTER TRAINING SPECIALIST-AS400 PROGRAMMER Work Phone: [facility] 04-26-2024 09:48-0400 Body temperature 98.29 [degF] Eltonfawn SANTOS Work Phone: [facility] 04-26-2024 09:48-0400 Body weight 115.58 kg Elton SANTOS Work Phone: [facility] 04-26-2024 09:48-0400 Diastolic blood pressure 80 mm[Hg] Elton Yarbrough APRN-SONALI Work Phone: [facility] 04-26-2024 09:48-0400 Heart rate 84 /min Elton SANTOS Work Phone: [facility] 04-26-2024 09:48-0400 Respiratory rate 18 /min Elton SANTOS Work Phone: [facility] 04-26-2024 09:48-0400 SaO2% (BldA) [Mass fraction] 99 % Elton SANTOS Work Phone: [facility] 04-26-2024 09:48-0400 Systolic blood pressure 110 mm[Hg] Elton SANTOS Work Phone: [facility] 02-28-2024 14:21-0400 Body height 167.6 cm Georges Furlong DO Work Phone: [facility] 02-28-2024 14:21-0400 Body mass index (BMI) [Ratio] 41.05 kg/m2 Georges Furlong DO Work Phone: [facility] 02-28-2024 14:21-0400 Body temperature 98.4 [degF] Georges Furlong DO Work Phone: [facility] 02-28-2024 14:21-0400 Body weight 115.35 kg Georges Furlong DO Work Phone: [facility] 02-28-2024 14:21-0400 Diastolic blood pressure 80 mm[Hg] Georges Furlong DO Work Phone: [facility] 02-28-2024 14:21-0400 Heart rate 86 /min Georges Amayang DO Work Phone: [facility] 02-28-2024 14:21-0400 Respiratory rate 18 /min Georges Amayang DO Work Phone: [facility] 02-28-2024 14:21-0400 SaO2% (BldA) [Mass fraction] 98 % Georges Amayang DO Work Phone: [facility] 02-28-2024 14:21-0400 Systolic blood pressure 110 mm[Hg] Georges Pineda DO Work Phone: [facility] 02-21-2024 09:03-0400 Body height 167.6 cm Pm 2 [facility] 02-21-2024 09:03-0400 Body mass index (BMI) [Ratio] 40.35 kg/m2 Pm 2 [facility] 02-21-2024 09:03-0400 Body weight 113.4 kg Pm 2 [facility] 01-31-2024 10:19-0400 Body height 167.6 cm Betina Louise MD Work Phone: [facility] 01-31-2024 10:19-0400 Body mass index (BMI) [Ratio] 40.96 kg/m2 Betina Louise MD Work Phone: [facility] 01-31-2024 10:19-0400 Body weight 115.12 kg Betina Louise MD Work Phone: [facility] 01-31-2024 10:19-0400 Diastolic blood pressure 108 mm[Hg] Betina Louise MD Work Phone: [facility] Comment on above: Did not take BP medication this morning 01-31-2024 10:19-0400 Systolic blood pressure 150 mm[Hg] Betina Louise MD Work Phone: [facility] Comment on above: Did not take BP medication this morning 01-13-2024 13:19-0400 Body height 168.1 cm Gissel Oliveira COMPUTER TRAINING SPECIALIST-FINANCIAL SERVICES TECHNICIAN [facility] 01-13-2024 13:19-0400 Body mass index (BMI) [Ratio] 39.81 kg/m2 Gissel Oliveira COMPUTER TRAINING SPECIALIST-FINANCIAL SERVICES TECHNICIAN [facility] 01-13-2024 13:19-0400 Body temperature 98.49 [degF] Gissel Oliveira COMPUTER TRAINING SPECIALIST-FINANCIAL SERVICES TECHNICIAN [facility] 01-13-2024 13:19-0400 Body weight 112.49 kg Gissel Oliveira COMPUTER TRAINING SPECIALIST-FINANCIAL SERVICES TECHNICIAN [facility] [employer] [facility] 01-13-2024 13:19-0400 Diastolic blood pressure 88 mm[Hg] Gissel Oliveira COMPUTER TRAINING SPECIALIST-FINANCIAL SERVICES TECHNICIAN [facility] 01-13-2024 13:19-0400 Heart rate 88 /min Gissel Oliveira COMPUTER TRAINING SPECIALIST-FINANCIAL SERVICES TECHNICIAN [facility] 01-13-2024 13:19-0400 Respiratory rate 20 /min Gissel Oliveira COMPUTER TRAINING SPECIALIST-FINANCIAL SERVICES TECHNICIAN [facility] 01-13-2024 13:19-0400 SaO2% (BldA) [Mass fraction] 98 % Gissel Oliveira COMPUTER TRAINING SPECIALIST-FINANCIAL SERVICES TECHNICIAN [facility] 01-13-2024 13:19-0400 Systolic blood pressure 150 mm[Hg] Gissel Oliveira COMPUTER TRAINING SPECIALIST-FINANCIAL SERVICES TECHNICIAN Work Phone[facility] Encounters Encounter Date Encounter Type Care Provider Facility Start: 12-26-2024 End: 12-26-2024 Office outpatient visit 25 minutes Elton Yarbrough APRN-AS400 PROGRAMMER Work Phone: [facility] Comment on above: 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 ([facility]) (Primary Dx); Numbness and tingling in both hands; Hypomagnesemia; Restless leg syndrome Start: 12-25-2024 End: 12-25-2024 [facility] Work Phone: [facility] Medicine Comment on above: Essential hypertensi on; Reactive depression; Vitamin D deficiency; Hypomagnesemia Start: 11-23-2024 End: 11-23-2024 [facility] Work Phone: [facility] Family Medicine Comment on above: Vitamin D deficiency ; Hypomagnesemia; Reactive depression Reactive depression Start: 09-22-2024 End: 09-25-2024 [facility]ill [facility]fawn [facility]rough [facility] Work Phone: [facility] Comment on above: Reactive depression; Vitamin D deficiency Start: 09-04-2024 End: 09-04-2024 Refill [facility]fawn [facility]rough [facility] Work Phone: [facility] Comment on above: Hypomagnesemia; Reactive depression Start: 08-23-2024 End: 08-23-2024 Office outpatient visit 25 minutes [facility] Work Phone: [facility] Medicine Comment on above: Mass of left breast, unspecified quadrant (Primary Dx); Reactive depression; Vitamin D deficiency Start: 08-23-2024 End: 08-23-[address] [facility]guy[facility]n [facility] Start: 08-21-2024 End: 08-21-2024 Refill Alondraleigh ann Velasco [facility] Medicine Comment on above: Reactive depression Start: 06-23-2024 End: 06-26-2024 Refill Carol Tobin AQUACULTURAL WORKER SUPERVISOR [facility] Internal Medicine Family Medicine Comment on above: Essential hypertensi on Start: 06-13-2024 End: 06-13-2024 Telephone encounter [facility] Work Phone: [facility] Start: 05-30-2024 End: 06-20-2024 Telephone encounter Carol Crista AQUACULTURAL WORKER SUPERVISOR [facility] Start: 05-03-2024 End: 05-03-2024 Office outpatient visit 15 minutes Elton Yarbrough COMPUTER TRAINING SPECIALIST-AS400 PROGRAMMER Work Phone: [facility] Comment on above: Essential hypertensi on (Primary Dx); Muscle spasm Start: 05-03-2024 End: 05-03-2024 ambulatory [facility] Start: 04-27-2024 End: 04-27-2024 Telephone encounter Elton Yarbrough COMPUTER TRAINING SPECIALIST-AS400 PROGRAMMER Work Phone: [facility] Comment on above: Hypomagnesemia (Prim quincy Dx); Vitamin D deficiency Start: 04-26-2024 End: 04-26-2024 [facility] Start: 04-26-2024 End: 04-26-2024 Office outpatient visit 15 minutes Elton Yarbrough COMPUTER TRAINING SPECIALIST-AS400 PROGRAMMER Work Phone: [facility] Comment on above: Essential hypertensi on (Primary Dx); Reactive depression; Numbness and tingling in both hands; History of anemia; Vitamin D deficiency Start: 04-26-2024 End: 04-26-2024 ambulatory [facility] Start: 04-04-2024 End: 04-04-2024 Refill Georges Pineda DO Work Phone: [facility] Comment on above: Reactive depression Start: 03-13-2024 End: 03-13-2024 Evaluation and management of inpatient JOLANTA BEY [facility] Start: 03-13-2024 End: 03-13-2024 Evaluation and management of inpatient BETINA LOUISE [facility] Start: 03-01-2024 End: 03-01-2024 Orders Only Georges Pineda DO Work Phone: [facility] Start: 02-28-2024 End: 02-28-2024 Office outpatient visit 15 minutes Georges Pineda DO Work Phone: [facility] Comment on above: Essential hypertensi on (Primary Dx); Pre-op evaluation Start: 02-28-2024 End: 02-28-2024 Preprocedural examination done Georges Pineda DO Work Phone: [facility] Start: 02-28-2024 End: 02-28-2024 ambulatory PURDY Michele [facility] Start: 02-21-2024 End: 02-21-2024 Patient encounter procedure [facility] Pre-Admission Testing 2 [facility] - Pre Admit Comment on above: Preop examination (P rimary Dx); BMI 40.0-44.9, adult ([facility] Start: 02-21-2024 End: 02-21-2024 Preprocedural examination done Pm 2 [facility] Start: 02-21-2024 End: 02-21-2024 ambulatory JOLANTA BEY [facility] Start: 02-21-2024 Encounter for other preprocedural examination GISSEL OLIVEIRA [facility] Start: 02-01-2024 End: 02-01-2024 Telephone encounter Joseph Casillas CMA [facility] Start: 01-31-2024 End: 01-31-2024 Telephone [facility] Start: 01-31-2024 End: 01-31-2024 Office outpatient visit 15 minutes Betina Louise MD Work Phone: [facility] Comment on above: Consultation for fem gisel sterilization Start: 01-31-2024 End: 01-31-2024 ambulatory BETINA LOUISE [facility] Start: 01-30-2024 End: 01-31-2024 Refill Gissel Oliveira COMPUTER TRAINING SPECIALIST-FINANCIAL SERVICES TECHNICIAN Work Phone: [facility] Comment on above: Reactive depression Start: 01-16-2024 Refill Gissel Oliveira COMPUTER TRAINING SPECIALIST-FINANCIAL SERVICES TECHNICIAN [facility] Comment on above: Reactive depression Start: 01-13-2024 End: 01-13-2024 ambulatory GISSEL OLIVEIRA [facility] Start: 01-13-2024 Encounter for genera l adult medical examination without abnormal findings GISSEL OLIVEIRA [facility] Start: 01-13-2024 End: 01-13-2024 Initial preventive medicine new pt age 18-39yrs Gissel Oliveira COMPUTER TRAINING SPECIALIST-FINANCIAL SERVICES TECHNICIAN [facility]: [facility] [...] End: 01-13-2024 Patient encounter status Gissel Oliveira COMPUTER TRAINING SPECIALIST-FINANCIAL SERVICES TECHNICIAN Work Phone: [facility] Work Phone: Start: 01-27-2023 End: 01-28-2023 ambulatory JOSE ROBERTO BOBBY . Facility: Start: 02-09-2022 End: 02-13-2022 Evaluation and management of inpatient DR FLACO FORD . Facility:[facility] Start: 2022 End: [address] GEORGES PINEDA Facility:[facility] Procedures Date Procedure Procedure Detail Performing Clinician Start: 12-26-2024 Adult depression scr eening assessment Elton Yarbrough COMPUTER TRAINING SPECIALIST-AS400 PROGRAMMER Work Phone: Start: 08-23-2024 Adult depression scr eening assessment Elton Yarbrough COMPUTER TRAINING SPECIALIST-AS400 PROGRAMMER Work Phone: Start: 04-26-2024 Adult depression scr eening assessment Elton Yarbrough COMPUTER TRAINING SPECIALIST-AS400 PROGRAMMER Work Phone: Start: 02-28-2024 Adult depression scr eening assessment Georges Pineda DO Work Phone: Start: 01-13-2024 Adult depression scr eening assessment Gissel Oliveira COMPUTER TRAINING SPECIALIST-FINANCIAL SERVICES TECHNICIAN Work Phone: Start: 02-09-2022 Delivery of Products of Conception, External Approach DR GEORGES PINEDA Start: 02-09-2022 Drainage of Amniotic Fluid, Therapeutic from Products of Conception, Via Natural or Artificial Opening DR GEORGES PINEDA Start: 02-09-2022 Introduction of Othe r Hormone into Peripheral Vein, Percutaneous Approach DR GEORGES PINEDA Plan of Treatment Date Care Activity Detail Author Start: 03-26-2026 DTaP,Tdap and Td Vac cines (7 - Td or Tdap) DTaP,Tdap and Td Vaccines (7 - Td or Tdap) [facility] Start: 12-26-2025 Adult BMI Screening Adult BMI Screen ing [facility] Start: 12-26-2025 Depression Screening Depression Scre ening [facility] Start: 12-26-2025 Tobacco Screening Tobacco Screening [facility] Start: 08-23-2025 Adult BMI Follow Up Plan Adult BMI F ollow Up Plan [facility] Start: 08-23-2025 Adult BMI Screening Adult BMI Screen ing [facility] Start: 08-23-2025 Depression Screening Depression Scre ening [facility] Start: 08-23-2025 Tobacco Screening Tobacco Screening [facility] Start: 05-03-2025 Adult BMI Follow Up Plan Adult BMI F ollow Up Plan [facility] Start: 05-03-2025 Adult BMI Screening Adult BMI Screen ing [facility] Start: 05-03-2025 Tobacco Screening Tobacco Screening [facility] Start: 04-26-2025 Adult BMI Follow Up Plan Adult BMI F ollow Up Plan [facility] Start: 04-26-2025 Adult BMI Screening Adult BMI Screen ing [facility] Start: 04-26-2025 Depression Screening Depression Scre ening [facility] Start: 04-26-2025 Tobacco Screening Tobacco Screening [facility] Start: 03-13-2025 Adult BMI Screening Adult BMI Screen ing [facility] Start: 03-13-2025 Tobacco Screening Tobacco Screening [facility] Start: 02-27-2025 Adult BMI Screening Adult BMI Screen ing [facility] Start: 02-27-2025 Depression Screening Depression Scre ening [facility] Start: 02-27-2025 Tobacco Screening Tobacco Screening [facility] Start: 02-20-2025 Adult BMI Screening Adult BMI Screen ing [facility] Start: 02-20-2025 Tobacco Screening Tobacco Screening [facility] Start: 01-30-2025 Adult BMI Screening Adult BMI Screen ing [facility] Start: 01-30-2025 Tobacco Screening Tobacco Screening [facility] Start: 01-23-2025 End: 01-23-2025 Patient encounter procedure 01/23/2025 1:40 PM EDT Office Visit [facility] [address], [place] [address] Elton Yarbrough, COMPUTER TRAINING SPECIALIST-AS400 PROGRAMMER [address] [place] [address] [facility] Start: 01-12-2025 Adult BMI Screening Adult BMI Screen ing [facility] Start: 01-12-2025 Depression Screening Depression Scre ening [facility] Start: 01-12-2025 Tobacco Screening Tobacco Screening [facility] Start: 12-26-2024 End: 12-26-2024 Patient encounter procedure 12/26/2024 7:00 AM EDT Office Visit [facility] [address], [place] [address] Elton Yarbrough, COMPUTER TRAINING SPECIALIST-AS400 PROGRAMMER [address], [place] [address] [facility] Start: 09-27-2024 End: 09-27-2024 Patient encounter procedure 09/27/2024 1:40 PM EST Office Visit [facility] [address], [place] [address] Elton Yarbrough, COMPUTER TRAINING SPECIALIST-AS400 PROGRAMMER [address] [place] [place] [address] [facility] Start: 08-23-2024 End: 08-23-2025 MG Breast duct - right Views W contrast intra duct Mammography diagnostic unilateral right with CAD Imaging Routine Mass of left breast, unspecified quadrant Expected: 08/23/2024, Expires: 08/23/2025 [facility] Work Phone: Comment on above: Expected: 08/23/2024 , Expires: 08/23/2025 Start: 08-23-2024 End: 08-23-2024 Patient encounter procedure 08/23/2024 1:40 PM EST [facility] [address] [place] [address] Elton Yarbrough, COMPUTER TRAINING SPECIALIST-AS400 PROGRAMMER [address] [place] [address] [facility] Start: 06-11-2024 Influenza vaccination Influenza Vacc ine [facility] Start: 05-15-2024 End: 05-15-2024 Patient encounter procedure 05/15/2024 2:20 PM EDT Office Visit [facility] [address] [place] [address] Elton Yarbrough, COMPUTER TRAINING SPECIALIST-AS400 PROGRAMMER [address] [place] [address] [facility] Start: 03-13-2024 End: 03-13-2024 Admission to same day surgery center 03/13/2024 9:30 AM EDT - 03/13/2024 11:00 AM EDT Surgery [facility] - Surgery [address] [place] [id number] Betina Louise MD [address] [place] [address] LAPAROSCOPIC TUBAL LIGATION [95535 (CPT )] [facility] Surgery Comment on above: LAPAROSCOPIC TUBAL L IGATION [15917 (CPT )] Start: 03-13-2024 End: 03-13-2024 Laparoscopy w/plmt occlusion device oviducts LAPAROSCOPIC TUBAL LIGATION undesired fertility 03/13/2024 9:30 AM EDT [facility] Start: 03-13-2024 End: 03-13-2024 Laparoscopy w/rmvl adnexal structures LAPAROSCOPIC SALPINGECTOMY undesired fertility 03/13/2024 9:30 AM EDT [facility] Start: 03-13-2024 Subsequent hospital visit by physician 03/13/2024 9:30 AM EDT Hospital Encounter [facility] Surgery [address] [facility] [place] [address] Betina Louise MD [address] [address] [facility] Surgery Start: 03-07-2024 End: 03-07-2024 Patient encounter procedure 03/07/2024 11:00 AM EDT Appointment [facility] -Ultrasound [address] [place] [address] [facility] -Ultrasound Start: 02-28-2024 End: 02-28-2024 Patient encounter procedure 02/28/2024 2:15 PM EDT Office Visit [facility] [address], [place] [address] Georges Pineda DO [address] [place] [address] [facility] Start: 02-21-2024 End: 02-21-2024 Patient encounter procedure 02/21/2024 9:00 AM EDT Procedure visit [facility] - Pre Admit [address] [place] [phone] [facility] - Pre Admit Start: 01-31-2024 End: 01-31-2024 Patient encounter procedure 01/31/2024 10:00 AM EDT [facility] [address] [place] [phone] Betina Louise MD [facility] [address] [place], [place] [phone] [facility] Start: 01-13-2024 End: 01-12-2025 US Extremity musculoskeletal tissue Ultrasound extremity non vascular complete right for [facility] Imaging Routine Subcutaneous Nodule Of Right Lower Extremity Expected: 01/13/2024, Expires: 01/12/2025 [facility] Work Phone: Comment on above: Expected: 01/13/2024 , Expires: 01/12/2025 Start: 2014 Screening for malign ant neoplasm of cervix Pap Smear [facility] Start: 2011 Adult BMI Follow Up Plan Adult BMI F ollow Up Plan [facility] End: 04-26-2025 CBC W Auto Differential panel - Blood CBC auto differential Lab Routine History of anemia 1 Occurrences starting 04/26/2024 until 04/26/2025 [facility] Comment on above: 1 Occurrences starti ng 04/26/2024 until 04/26/2025 End: 04-26-2025 Comprehensive metabolic 2000 panel - Serum or Plasma Comprehensive metabolic panel Lab Routine Numbness and tingling in both hands 1 Occurrences starting 04/26/2024 until 04/26/2025 [facility] Comment on above: 1 Occurrences starti ng 04/26/2024 until 04/26/2025 End: 12-26-2025 Comprehensive metabolic 2000 panel - Serum or Plasma Comprehensive metabolic panel Lab Routine Numbness and tingling in both hands 1 Occurrences starting 12/26/2024 until 12/26/2025 [facility] [employer] Comment on above: 1 Occurrences starti ng 12/26/2024 until 12/26/2025 End: 04-26-2025 Cyanocobalamin vitamin b-12 Vitamin B12 Lab Routine Numbness and tingling in both hands History of anemia 1 Occurrences starting 04/26/2024 until 04/26/2025 [facility]: 1 Occurrences starti ng 04/26/2024 until 04/26/2025 End: 12-26-2025 Cyanocobalamin vitamin b-12 Vitamin B12 Lab Routine Numbness and tingling in both hands 1 Occurrences starting 12/26/2024 until 12/26/2025 [facility] [employer] Comment on above: 1 Occurrences starti ng 12/26/2024 until 12/26/2025 End: 04-26-2025 Ferritin [Mass/volume] in Serum or Plasma Ferritin Lab Routine Numbness and tingling in both hands History of anemia 1 Occurrences starting 04/26/2024 until 04/26/2025 [facility] [employer] Comment on above: 1 Occurrences starti ng 04/26/2024 until 04/26/2025 End: 04-26-2025 Iron and TIBC Iron and TIBC Lab Routine Numbness and tingling in both hands History of anemia 1 Occurrences starting 04/26/2024 until 04/26/2025 [employer] Work Phone: Comment on above: 1 Occurrences starti ng 04/26/2024 until 04/26/2025 End: 04-26-2025 Magnesium [Mass/volume] in Serum or Plasma Magnesium Lab Routine Numbness and tingling in both hands 1 Occurrences starting 04/26/2024 until 04/26/[facility] [employer] Comment on above: 1 Occurrences starti ng 04/26/2024 until 04/26/2025 End: 12-26-2025 Magnesium [Mass/volume] in Serum or Plasma Magnesium Lab Routine Hypomagnesemia 1 Occurrences starting 12/26/2024 until 12/26/2025 [employer] Work Phone: Comment on above: 1 Occurrences starti ng 12/26/2024 until 12/26/2025 End: 04-27-2025 Vitamin D 25 hydroxy Vitamin D 25 hydroxy Lab Routine Vitamin D deficiency 1 Occurrences starting 04/26/2024 until 04/27/2025 [facility] Comment on above: 1 Occurrences starti ng 04/26/2024 until 04/27/2025 Immunizations Immunization Date Immunization Notes Care Provider Mani diamond 03-26-2016 tetanus toxoid, redu sally diphtheria toxoid, and acellular pertussis vaccine, adsorbed Gissel Oliveira COMPUTER TRAINING SPECIALIST-FINANCIAL SERVICES TECHNICIAN Work Phone: [facility] 08-16-2012 influenza virus vaccine, whole virus Gissel Oliveira COMPUTER TRAINING SPECIALIST-FINANCIAL SERVICES TECHNICIAN Work Phone: [facility] 08-16-2012 influenza virus vaccine, unspecified formulation Gissel Oliveira COMPUTER TRAINING SPECIALIST-FINANCIAL SERVICES TECHNICIAN Work Phone: [facility] 02-22-1998 diphtheria, tetanus toxoids and acellular pertussis vaccine, unspecified formulation Gissel Oliveira COMPUTER TRAINING SPECIALIST-FINANCIAL SERVICES TECHNICIAN Work Phone: [facility] 02-22-1998 measles, mumps and rubella virus vaccine Gissel Oliveira COMPUTER TRAINING SPECIALIST-FINANCIAL SERVICES TECHNICIAN Work Phone: [facility] 02-22-1998 trivalent poliovirus vaccine, live, oral Gissel Oliveira COMPUTER TRAINING SPECIALIST-FINANCIAL SERVICES TECHNICIAN Work Phone: [facility] 04-26-1995 diphtheria, tetanus toxoids and acellular pertussis vaccine, unspecified formulation Gissel Oliveira COMPUTER TRAINING SPECIALIST-FINANCIAL SERVICES TECHNICIAN Work Phone: [facility] 04-26-1995 haemophilus influenz ae type b vaccine, conjugate unspecified formulation Gissel Oliveira COMPUTER TRAINING SPECIALIST-FINANCIAL SERVICES TECHNICIAN Work Phone: [facility] 04-26-1995 measles, mumps and rubella virus vaccine Gissel Oliveira COMPUTER TRAINING SPECIALIST-FINANCIAL SERVICES TECHNICIAN Work Phone: [facility] 04-26-1995 trivalent poliovirus vaccine, live, oral Gissel Oliveira COMPUTER TRAINING SPECIALIST-FINANCIAL SERVICES TECHNICIAN Work Phone: [facility] 1993 diphtheria, tetanus toxoids and pertussis vaccine Gissel Oliveira COMPUTER TRAINING SPECIALIST-FINANCIAL SERVICES TECHNICIAN Work Phone: [facility] 1993 haemophilus influenz ae type b vaccine, conjugate unspecified formulation Gissel Oliveira COMPUTER TRAINING SPECIALIST-FINANCIAL SERVICES TECHNICIAN Work Phone: [facility] 1993 hepatitis B vaccine, pediatric or pediatric/adolescent dosage Gissel Oliveira COMPUTER TRAINING SPECIALIST-FINANCIAL SERVICES TECHNICIAN Work Phone: [facility] 1993 diphtheria, tetanus toxoids and pertussis vaccine Gissel Oliveira COMPUTER TRAINING SPECIALIST-FINANCIAL SERVICES TECHNICIAN Work Phone: [facility] 1993 haemophilus influenz ae type b vaccine, conjugate unspecified formulation Gissel Oliveira COMPUTER TRAINING SPECIALIST-FINANCIAL SERVICES TECHNICIAN Work Phone: [facility] 1993 trivalent poliovirus vaccine, live, oral Gissel Oliveira COMPUTER TRAINING SPECIALIST-FINANCIAL SERVICES TECHNICIAN Work Phone: [facility] 1993 diphtheria, tetanus toxoids and pertussis vaccine Gissel Oliveira COMPUTER TRAINING SPECIALIST-FINANCIAL SERVICES TECHNICIAN Work Phone: [facility] 1993 haemophilus influenz ae type b vaccine, conjugate unspecified formulation Gissel Oliveira COMPUTER TRAINING SPECIALIST-FINANCIAL SERVICES TECHNICIAN Work Phone: [facility] 1993 trivalent poliovirus vaccine, live, oral Gissel Oliveira COMPUTER TRAINING SPECIALIST-FINANCIAL SERVICES TECHNICIAN Work Phone: [facility] 1993 hepatitis B vaccine, pediatric or pediatric/adolescent dosage Gissel Oliveira COMPUTER TRAINING SPECIALIST-FINANCIAL SERVICES TECHNICIAN Work Phone: [facility] 1993 hepatitis B vaccine, pediatric or pediatric/adolescent dosage Gissel Oliveira COMPUTER TRAINING SPECIALIST-FINANCIAL SERVICES TECHNICIAN Work Phone: [facility] Payers Date Payer Category Payer Medicaid [place] [employer] [id number] 2023 Medicaid [id number] 1993 Unknown [id number] 1993 Unknown [id number] [id number] 1993 Unknown [id number] [id number] 1993 Unknown [id number] [id number] 1993 Unknown [id number] [id number] 1993 Unknown [id number] [id number] 1993 Unknown [id number] [id number] 1993 Unknown [id number] [id number] 1993 Unknown [id number] [id number] 1993 Unknown [id number] [id number] 1993 Unknown [id number] [id number] 1993 Unknown [id number] [id number] 1993 Unknown [id number] [id number] 1993 Unknown [id number] [id number] 1993 Unknown [id number] [id number] 1993 Unknown [id number] [id number] 1959 Unknown [id number] 1959 Unknown [id number] Social History Date Type Detail Facility Start: 01-13-2024 Tobacco smoking stat [facility] Never smoked tobacco [facility] Start: 01-13-2024 Tobacco use and exposure Smokeless tobacco non-user [facility] Start: 05-03-2024 End: 12-26-2024 Alcoholic beverage intake Ex-drinker (finding) [facility] Start: 11-21-2020 End: 05-03-2024 History of Social function [facility] Start: 11-21-2020 End: 05-03-2024 Tobacco use panel [facility] Adolescent depressio n screening assessment 0 [facility] Start: 1993 Sex assigned at Not on file P [facility] Start: 05-15-2015 Sex Female (finding) [facility] Clinical Notes 01-13-2024 to 12-26-2024 JACQUES [email or web address] PROGRAMMER - 12/26/2024 7:00 AM EDTElton Yarbrough APRN- SONALI - 08/23/2024 1:40 PM ESTTelephone Encounter - Carol Crista, [facility] - 06/23/2024 1:03 PM EDTPatient Instructions Note Date & Type Note Facility 12-26-2024 History of Presen t illness Narrative Images from the original note were not included. [address] [facility] [id number] SUBJECTIVE: Patient ID: Judie Rodriguez is a 29 y.o. female. Chief Complaint Patient presents with Legs jerking, hands shaking x2 months Presents today for multiple complaints. Her primary concern is her moods. She has been depressed for several months. States she sometimes snaps at my kids and . She feels bad for doing this but does not now why she does this. Is currently taking Cymbalta and fluoxetine for her depression. reports while she sleeps, she moves her legs and the jerk. Patient reports not being able to sleep due to her legs. Has history of hypomagnesia. Depression Visit: Follow-up Initial visit: Symptoms: decreased concentration Symptoms: no chest pain, no palpitations and no shortness of breath Follow-up visit: Symptoms: decreased concentration, depressed mood, insomnia, irritability, malaise, muscle tension, nervous/anxious and restlessness Frequency: Most days Severity: Causing significant distress Current Treatment: Non-SSRI antidepressants and SSRI's Response to treatment: Worsening The following portions of the patient's history were reviewed and updated as appropriate: allergies, current medications, past family history, past medical history, past social history, past surgical history and problem list. Past Surgical History: Procedure Laterality Date KNEE ARTHROPLASTY Right 02/08/2021 KNEE ARTHROPLASTY Right 12/09/2008 LAPAROSCOPIC SALPINGECTOMY Bilateral 03/13/2024 Performed by Betina Louise MD at [facility] Past Medical History: Diagnosis Date Abnormal finding on screening of mother 01/22/2016 Overview: 02/03/16 NIPT wnl Delivery normal 06/04/2016 Depression 05/11/2021 HTN in , chronic 03/12/2016 Overview: -BPs in ED in September 2015 were 150/90 - 24 hour urine Creatinine/protein ordered 03/26/16 - pt did this in April, but the lab did not run the protein, only the Creatinine - pt will need to repeat the collection -Initiate antihypertensives if patient's BP is consistently greater than 150/105 Infection in 10/29/2015 Overview: 10/17/15 +Chlamydia; treatment given 10/29 Will need BITA in 4 weeks 11/28/15 BITA urine GC neg/neg Obesity affecting , antepartum 01/22/2016 Other specified related conditions, unspecified trimester 01/22/2016 Overview: 02/03/16 NIPT wnl Visual impairment Immunization History Administered Date(s) Administered DTP 1993, 1993, 1993 DTaP, Unspecified 04/26/1995, 02/22/1998 Hep B, Adolescent or Pediatric 1993, 1993, 1993 HiB 1993, 1993, 1993, 04/26/1995 Influenza Whole 08/16/2012 MMR 04/26/1995, 02/22/1998 OPV 1993, 1993, 04/26/1995, 02/22/1998 Tdap 03/26/2016 REVIEW OF SYSTEMS: Review of Systems Constitutional: Negative for chills and fever. HENT: Negative. Eyes: Negative for visual disturbance. Respiratory: Negative for chest tightness and shortness of breath. Cardiovascular: Negative for chest pain and palpitations. Gastrointestinal: Negative. Endocrine: Negative. Genitourinary: Negative for menstrual problem and pelvic pain. Musculoskeletal: Negative. Skin: Negative. Allergic/Immunologic: Negative. Neurological: Negative for syncope and facial asymmetry. Hematological: Does not bruise/bleed easily. Psychiatric/Behavioral: Positive for decreased concentration, dysphoric mood and sleep disturbance. PHYSICAL EXAMINATION: Vitals: 12/26/24 0649 BP: 120/70 BP Site: Left Arm BP Postition: Sitting Pulse: 108 Resp: 18 Temp: 36.6 C (97.8 F) TempSrc: Tympanic SpO2: 99% Weight: 117.5 kg (259 lb) Height: 167 cm (5' 5.75 ) Patient noted to have elevated BMI and the following intervention(s) were applied: encouragement to exercise. Physical Exam Vitals and nursing note reviewed. Constitutional: General: She is not in acute distress. Appearance: She is well-developed. She is not diaphoretic. HENT: Head: Normocephalic and atraumatic. Right Ear: Tympanic membrane and external ear normal. Left Ear: Tympanic membrane and external ear normal. Nose: Nose normal. Mouth/Throat: Mouth: Mucous membranes are moist. Pharynx: No oropharyngeal exudate. Eyes: General: Right eye: No discharge. Left eye: No discharge. Conjunctiva/sclera: Conjunctivae normal. Pupils: Pupils are equal, round, and reactive to light. Neck: Thyroid: No thyromegaly. Vascular: No JVD. Cardiovascular: Rate and Rhythm: Normal rate and regular rhythm. Heart sounds: Normal heart sounds. No murmur heard. No friction rub. No gallop. Pulmonary: Effort: Pulmonary effort is normal. Breath sounds: Normal breath sounds. Abdominal: General: Bowel sounds are normal. There is no distension. Palpations: Abdomen is soft. There is no mass. Tenderness: There is no abdominal tenderness. Musculoskeletal: General: Normal range of motion. Cervical back: Normal range of motion and neck supple. Lymphadenopathy: Cervical: No cervical adenopathy. Skin: General: Skin is warm and dry. Capillary Refill: Capillary refill takes less than 2 seconds. Neurological: Mental Status: She is alert and oriented to person, place, and time. Deep Tendon Reflexes: Reflexes are normal and symmetric. Psychiatric: Mood and Affect: Mood normal. Behavior: Behavior normal. Thought Content: Thought content normal. Judgment: Judgment normal. ASSESSMENT/PLAN: Judie was seen today for legs jerking, hands shaking x2 months. Diagnoses and all orders for this visit: Current severe episode of major depressive disorder without psychotic features without prior episode ([facility]) - cariprazine (VRAYLAR) 1.5 mg capsule; Take 1 capsule (1.5 mg total) by mouth in the morning. Numbness and tingling in both hands - Comprehensive metabolic panel; Future - Vitamin B12; Future Hypomagnesemia - Magnesium; Future Restless leg syndrome - rOPINIRole (REQUIP) 0.25 mg tablet; Take 1 tablet (0.25 mg total) by mouth nightly. Depression Depression: At risk (12/26/2024) PHQ-2 PHQ-2 Score: 15 Depression score of 15 today. Depressive symptoms have been higher for several months. Is interfering with her daily life. Continue Cymbalta 60 mg oral daily Discontinue fluoxetine. Start Vraylar 1.5 mg oral daily. Samples provided today Hypomagnesemia History of low magnesium. She is taking Mag Ox 400 mg oral daily Check magnesium and CMP levels B12 deficiency Check level today Restless leg syndrome Start trial of ropinirole 0.25 mg oral nightly Body mass index is 42.12 kg/m . Patient noted to have elevated BMI and the following intervention(s) were applied: Discussed current weight today. Consider healthy food choices, portion control. Avoid sugary beverages and high concentrated sweets. Routine exercise regimen encouraged. ALL QUESTIONS ANSWERED Total time spent was 30 minutes: Preparing to see the patient (e.g., review of tests) Obtaining and/or reviewing separately obtained history Performing a medically appropriate examination and/or evaluation Counseling and educating the patient/family/caregiver Ordering medications, tests, or procedures Follow-up: One month TOM Grimes 12/26/24 0809 documented in this encounter [facility] 08-23-2024 History of Presen t illness Narrative Images from the original note were not included. [address] [place] [facility] [id number] SUBJECTIVE: Patient ID: Judie Rodriguez is a 29 y.o. female. Chief Complaint Patient presents with Breast Mass Under breast. Discuss other medication, look at moles Tender breast lump under nipple of right breast. States she has a history of this and had a mammogram in the past. What concerns her about the lump is the tenderness. Additional concern today is her moods. Tearful today. States her moods have been down since July and she does not know why. Denies any triggering events. States she has been irritable and has yelled at the people she loves. Does not mean to do this and makes her feel more sad when this happens. The following portions of the patient's history were reviewed and updated as appropriate: allergies, current medications, past family history, past medical history, past social history, past surgical history and problem list. Past Surgical History: Procedure Laterality Date KNEE ARTHROPLASTY Right 02/08/2021 KNEE ARTHROPLASTY Right 12/09/2008 LAPAROSCOPIC SALPINGECTOMY Bilateral 03/13/2024 Performed by Betina Louise MD at [facility] Past Medical History: Diagnosis Date Abnormal finding on screening of mother 01/22/2016 Overview: 02/03/16 NIPT wnl Delivery normal 06/04/2016 Depression 05/11/2021 HTN in , chronic 03/12/2016 Overview: -BPs in ED in September 2015 were 150/90 - 24 hour urine Creatinine/protein ordered 03/26/16 - pt did this in [place], but the lab did not run the protein, only the Creatinine - pt will need to repeat the collection -Initiate antihypertensives if patient's BP is consistently greater than 150/105 Infection in 10/29/2015 Overview: 10/17/15 +Chlamydia; treatment given 10/29 Will need BITA in 4 weeks 11/28/15 BITA urine GC neg/neg Obesity affecting , antepartum 01/22/2016 Other specified related conditions, unspecified trimester 01/22/2016 Overview: 02/03/16 NIPT wnl Visual impairment Immunization History Administered Date(s) Administered DTP 1993, 1993, 1993 DTaP, Unspecified 04/26/1995, 02/22/1998 Hep B, Adolescent or Pediatric 1993, 1993, 1993 HiB 1993, 1993, 1993, 04/26/1995 Influenza Whole 08/16/2012 MMR 04/26/1995, 02/22/1998 OPV 1993, 1993, 04/26/1995, 02/22/1998 Tdap 03/26/2016 REVIEW OF SYSTEMS: Review of Systems Constitutional: Negative for chills and fever. HENT: Negative. Eyes: Negative for visual disturbance. Respiratory: Negative for chest tightness and shortness of breath. Cardiovascular: Negative for chest pain and palpitations. Gastrointestinal: Negative. Endocrine: Negative. Genitourinary: Negative for menstrual problem and pelvic pain. Musculoskeletal: Negative. Skin: Negative. Allergic/Immunologic: Negative. Neurological: Negative for syncope and facial asymmetry. Hematological: Does not bruise/bleed easily. Psychiatric/Behavioral: Positive for decreased concentration. The patient is nervous/anxious. PHYSICAL EXAMINATION: Vitals: 08/23/24 1340 BP: 112/78 BP Site: Left Arm BP Postition: Sitting BP CUFF SIZE: L (13-17 inches) Pulse: 90 Resp: 18 Temp: 36.7 C (98 F) TempSrc: Oral SpO2: 98% Weight: 116.3 kg (256 lb 6.4 oz) Height: 167 cm (5' 5.75 ) Patient noted to have elevated BMI and the following intervention(s) were applied: encouragement to exercise. Physical Exam Vitals and nursing note reviewed. Constitutional: General: She is not in acute distress. Appearance: She is well-developed. She is not diaphoretic. HENT: Head: Normocephalic and atraumatic. Right Ear: Tympanic membrane and external ear normal. Left Ear: Tympanic membrane and external ear normal. Nose: Nose normal. Mouth/Throat: Mouth: Mucous membranes are moist. Pharynx: No oropharyngeal exudate. Eyes: General: Right eye: No discharge. Left eye: No discharge. Conjunctiva/sclera: Conjunctivae normal. Pupils: Pupils are equal, round, and reactive to light. Neck: Thyroid: No thyromegaly. Vascular: No JVD. Cardiovascular: Rate and Rhythm: Normal rate and regular rhythm. Heart sounds: Normal heart sounds. No murmur heard. No friction rub. No gallop. Pulmonary: Effort: Pulmonary effort is normal. Breath sounds: Normal breath sounds. Chest: Comments: Breast lump, tenderness with palpation at 7 o Clock. Abdominal: General: Bowel sounds are normal. There is no distension. Palpations: Abdomen is soft. There is no mass. Tenderness: There is no abdominal tenderness. Musculoskeletal: General: Normal range of motion. Cervical back: Normal range of motion and neck supple. Lymphadenopathy: Cervical: No cervical adenopathy. Skin: General: Skin is warm and dry. Capillary Refill: Capillary refill takes less than 2 seconds. Neurological: Mental Status: She is alert and oriented to person, place, and time. Deep Tendon Reflexes: Reflexes are normal and symmetric. Psychiatric: Mood and Affect: Mood normal. Behavior: Behavior normal. Thought Content: Thought content normal. Judgment: Judgment normal. ASSESSMENT/PLAN: Judie was seen today for breast mass. Diagnoses and all orders for this visit: Mass of left breast, unspecified quadrant - Mammography diagnostic unilateral right with CAD; Future Reactive depression - FLUoxetine (PROzac) 10 mg capsule; Take 1 capsule (10 mg total) by mouth in the morning. Vitamin D deficiency - cholecalciferol, vitamin D3, 5,000 units tablet; Take 1 tablet (5,000 Units total) by mouth in the morning. Depression: At risk (08/23/2024) PHQ-2 PHQ-2 Score: 11 States her moods have been down since July and she does not know why. States she has been irritable and has yelled at the people she loves. Does not mean to do this and makes her feel more sad when this happens. -Continue Cymbalta 60 mg oral daily. Start fluoxetine 10 mg oral daily. Right breast lump Breast exam Lump at 7'o clock, just below nipple. Tender to touch. Diagnostic mammogram Patient reports history of having mammogram for fibrocystic breasts in the past. Reorder vitamin D Body mass index is 41.7 kg/m . Patient noted to have elevated BMI and the following intervention(s) were applied: Discussed current weight today. Consider healthy food choices, portion control. Avoid sugary beverages and high concentrated sweets. Routine exercise regimen encouraged. ALL QUESTIONS ANSWERED Total time spent was 30 minutes: Preparing to see the patient (e.g., review of tests) Obtaining and/or reviewing separately obtained history Performing a medically appropriate examination and/or evaluation Counseling and educating the patient/family/caregiver Ordering medications, tests, or procedures Follow-up: 4-5 weeks, depression TOM Grimes 08/23/24 1403 documented in this encounter [facility] 06-23-2024 Miscellaneous Notes Pt requested this to be refilled she stated she never went and picked it up documented in this encounter [facility] 06-23-2024 Telephone encounter Note Pt requested this to be refilled she stated she never went and picked it up [facility] 06-13-2024 Miscellaneous Notes Patient called and she changed her insurance to [employer] [place] [employer] would cover it. Can we send another [facility] order to [facility] Go ahead and send the same previous order. Put a note her insurance changed / updated DONE documented in this encounter [facility] 06-13-2024 Telephone encounter Note Patient called and she changed her insurance to [employer] that way [employer] would cover it. Can we send another EMG order to [facility] 06-13-2024 Telephone encounter Note Go ahead and send the same previous order. Put a note her insurance changed / updated [facility] 06-13-2024 Telephone encounter Note DONE [facility] 05-30-2024 Miscellaneous Notes Pt called back she stated that [facility] dont take her insurance is there another place she could go ? Per our discussion, [facility] does not take patient's insurance to complete [facility]. If you could call her. Left message to call back Patient is going to reach out to insurance company to see who accept her insurance. documented in this encounter [facility] 05-30-2024 Telephone encounter Note Pt called back she stated that [facility] dont take her insurance is there another place she could go ? [facility] 05-30-2024 Telephone encounter Note Per our discussion, [facility] does not take patient's insurance to complete EMG. If you could call her. [facility] 05-30-2024 Telephone encounter Note Left message to call back [facility] 05-30-2024 Telephone encounter Note Patient is going to reach out to insurance company to see who accept her insurance. [facility] 05-03-2024 History of Presen t illness Narrative Images from the original note were not included. [address] MD [phone] SUBJECTIVE: Patient ID: Judie Rodriguez is a 29 y.o. female. Chief Complaint Patient presents with Hand Pain Onset of symptoms started approximately 1.5 weeks ago. She is experiencing tingling and muscle spasms of right hand and wrist. Sometimes fingers lock with muscle spasms. She is dominant right handed. Denies trauma. The following portions of the patient's history were reviewed and updated as appropriate: allergies, current medications, past family history, past medical history, past social history, past surgical history and problem list. Past Surgical History: Procedure Laterality Date KNEE ARTHROPLASTY Right 02/08/2021 KNEE ARTHROPLASTY Right 12/09/2008 LAPAROSCOPIC SALPINGECTOMY Bilateral 03/13/2024 Performed by Betina Louise MD at [facility] Past Medical History: Diagnosis Date Abnormal finding on screening of mother 01/22/2016 Overview: 02/03/16 NIPT wnl Delivery normal 06/04/2016 Depression 05/11/2021 HTN in , chronic 03/12/2016 Overview: -BPs in ED in September 2015 were 150/90 - 24 hour urine Creatinine/protein ordered 03/26/16 - pt did this in April, but the lab did not run the protein, only the Creatinine - pt will need to repeat the collection -Initiate antihypertensives if patient's BP is consistently greater than 150/105 Infection in 10/29/2015 Overview: 10/17/15 +Chlamydia; treatment given 10/29 Will need BITA in 4 weeks 11/28/15 BITA urine GC neg/neg Obesity affecting , antepartum 01/22/2016 Other specified related conditions, unspecified trimester 01/22/2016 Overview: 02/03/16 NIPT wnl Visual impairment Immunization History Administered Date(s) Administered DTP 1993, 1993, 1993 DTaP, Unspecified 04/26/1995, 02/22/1998 Hep B, Adolescent or Pediatric 1993, 1993, 1993 HiB 1993, 1993, 1993, 04/26/1995 Influenza Whole 08/16/2012 MMR 04/26/1995, 02/22/1998 OPV 1993, 1993, 04/26/1995, 02/22/1998 Tdap 03/26/2016 REVIEW OF SYSTEMS: Review of Systems Constitutional: Negative for chills and fever. HENT: Negative. Eyes: Negative for visual disturbance. Respiratory: Negative for chest tightness and shortness of breath. Cardiovascular: Negative for palpitations. Gastrointestinal: Negative. Endocrine: Negative. Genitourinary: Negative for menstrual problem and pelvic pain. Musculoskeletal: Negative. Skin: Negative. Allergic/Immunologic: Negative. Neurological: Negative for syncope and facial asymmetry. Hematological: Does not bruise/bleed easily. Psychiatric/Behavioral: Negative. PHYSICAL EXAMINATION: Vitals: 05/03/24 1455 BP: 150/90 BP Site: Left Arm BP Postition: Sitting Pulse: 99 Resp: 18 Temp: 36.9 C (98.5 F) TempSrc: Oral SpO2: 97% Weight: 118.5 kg (261 lb 4.8 oz) Height: 167 cm (5' 5.75 ) Patient noted to have elevated BMI and the following intervention(s) were applied: encouragement to exercise. Physical Exam Vitals and nursing note reviewed. Constitutional: General: She is not in acute distress. Appearance: She is well-developed. She is not diaphoretic. HENT: Head: Normocephalic and atraumatic. Right Ear: Tympanic membrane and external ear normal. Left Ear: Tympanic membrane and external ear normal. Nose: Nose normal. Mouth/Throat: Mouth: Mucous membranes are moist. Pharynx: No oropharyngeal exudate. Eyes: General: Right eye: No discharge. Left eye: No discharge. Conjunctiva/sclera: Conjunctivae normal. Pupils: Pupils are equal, round, and reactive to light. Neck: Thyroid: No thyromegaly. Vascular: No JVD. Cardiovascular: Rate and Rhythm: Normal rate and regular rhythm. Heart sounds: Normal heart sounds. No murmur heard. No friction rub. No gallop. Pulmonary: Effort: Pulmonary effort is normal. Breath sounds: Normal breath sounds. Abdominal: General: Bowel sounds are normal. There is no distension. Palpations: Abdomen is soft. There is no mass. Tenderness: There is no abdominal tenderness. Musculoskeletal: General: Normal range of motion. Cervical back: Normal range of motion and neck supple. Lymphadenopathy: Cervical: No cervical adenopathy. Skin: General: Skin is warm and dry. Capillary Refill: Capillary refill takes less than 2 seconds. Neurological: Mental Status: She is alert and oriented to person, place, and time. Deep Tendon Reflexes: Reflexes are normal and symmetric. Psychiatric: Mood and Affect: Mood normal. Behavior: Behavior normal. Thought Content: Thought content normal. Judgment: Judgment normal. ASSESSMENT/PLAN: Judie was seen today for hand pain. Diagnoses and all orders for this visit: Muscle spasm - tiZANidine (ZANAFLEX) 2 mg tablet; Take 1 tablet (2 mg total) by mouth every 6 (six) hours as needed for muscle spasms. May cause drowsiness Essential hypertension - lisinopriL (PRINIVIL,ZESTRIL) 40 mg tablet; Take 1 tablet (40 mg total) by mouth in the morning. Increase lisinopril to 40 mg oral daily. BP 150/90 Muscle spasm of hand. Right hand and wrist only Recent magnesium level 1.5. She was started on Magox 400 mg oral daily this past week Vitamin D level 18. Started D3 5,000 units oral daily New orders EMG right hand ALL QUESTIONS ANSWERED Total time spent was 25 minutes: Preparing to see the patient (e.g., review of tests) Obtaining and/or reviewing separately obtained history Performing a medically appropriate examination and/or evaluation Counseling and educating the patient/family/caregiver Ordering medications, tests, or procedures Follow-up: Next scheduled 05/15/24 TOM Grimes 05/03/24 1745 [facility] Miscellaneous Notes ----- Message from TOM Durbin sent at 04/27/2024 9:51 AM EDT ----- Reviewed. Inform patient vitamin D and magnesium is low. I sent over prescriptions for vitamin D 5,000 units daily and MagOx 400 mg oral daily to [facility] Relayed result note to patient. She asked if that is what's causing the numbness in her hand. She said that the numbness has increased to include her middle finger as well. It is caused from the vitamin D deficiency and low magnesium. This is why I ordered her supplements. [facility] Telephone encounter Note ----- Message from TOM Durbin sent at 04/27/2024 9:51 AM EDT ----- Reviewed. Inform patient vitamin D and magnesium is low. I sent over prescriptions for vitamin D 5,000 units daily and MagOx 400 mg oral daily to [facility] 04-27-2024 Telephone encounter Note Relayed result note to patient. She asked if that is what's causing the numbness in her hand. She said that the numbness has increased to include her middle finger as well. [facility] 04-27-2024 Telephone encounter Note It is caused from the vitamin D deficiency and low magnesium. This is why I ordered her supplements. T [facility] 04-26-2024 History of Presen t illness Narrative Images from the original note were not included. [address] [facility] [id number] SUBJECTIVE: Patient ID: Judie Rodriguez is a 29 y.o. female. Chief Complaint Patient presents with Numbness Fingers Restless Leg At night Judie presents with numbness of toes and right 5th finger tip. States onset started yesterday. Is not constant. Denies injury. Denies fever, shortness of breath, or chest pain. Numbness This is a new problem. The current episode started yesterday. The problem occurs intermittently. The problem has been waxing and waning. Pertinent negatives include no abdominal pain, anorexia, arthralgias, change in bowel habit, chest pain, chills, congestion, coughing, diaphoresis, fatigue, fever, headaches, joint swelling, myalgias, nausea, neck pain, numbness, rash, sore throat, swollen glands, urinary symptoms, vertigo, visual change, vomiting or weakness. Nothing aggravates the symptoms. She has tried nothing for the symptoms. The treatment provided no relief. The following portions of the patient's history were reviewed and updated as appropriate: allergies, current medications, past family history, past medical history, past social history, past surgical history and problem list. Past Surgical History: Procedure Laterality Date KNEE ARTHROPLASTY Right 02/08/2021 KNEE ARTHROPLASTY Right 12/09/2008 LAPAROSCOPIC SALPINGECTOMY Bilateral 03/13/2024 Performed by Betina Louise MD at [facility] Past Medical History: Diagnosis Date Abnormal finding on screening of mother 01/22/2016 Overview: 02/03/16 NIPT wnl Delivery normal 06/04/2016 Depression 05/11/2021 HTN in , chronic 03/12/2016 Overview: -BPs in ED in September 2015 were 150/90 - 24 hour urine Creatinine/protein ordered 03/26/16 - pt did this in April, but the lab did not run the protein, only the Creatinine - pt will need to repeat the collection -Initiate antihypertensives if patient's BP is consistently greater than 150/105 Infection in 10/29/2015 Overview: 10/17/15 +Chlamydia; treatment given 10/29 Will need BITA in 4 weeks 11/28/15 BITA urine GC neg/neg Obesity affecting , antepartum 01/22/2016 Other specified related conditions, unspecified trimester 01/22/2016 Overview: 02/03/16 NIPT wnl Visual impairment Immunization History Administered Date(s) Administered DTP 1993, 1993, 1993 DTaP, Unspecified 04/26/1995, 02/22/1998 Hep B, Adolescent or Pediatric 1993, 1993, 1993 HiB 1993, 1993, 1993, 04/26/1995 Influenza Whole 08/16/2012 MMR 04/26/1995, 02/22/1998 OPV 1993, 1993, 04/26/1995, 02/22/1998 Tdap 03/26/2016 REVIEW OF SYSTEMS: Review of Systems Constitutional: Negative for chills, diaphoresis, fatigue and fever. HENT: Negative. Negative for congestion and sore throat. Eyes: Negative for visual disturbance. Respiratory: Negative for cough, chest tightness and shortness of breath. Cardiovascular: Negative for chest pain and palpitations. Gastrointestinal: Negative. Negative for abdominal pain, anorexia, change in bowel habit, nausea and vomiting. Endocrine: Negative. Genitourinary: Negative for menstrual problem and pelvic pain. Musculoskeletal: Negative. Negative for arthralgias, joint swelling, myalgias and neck pain. Skin: Negative. Negative for rash. Allergic/Immunologic: Negative. Neurological: Negative for vertigo, syncope, facial asymmetry, weakness, numbness and headaches. Hematological: Does not bruise/bleed easily. Psychiatric/Behavioral: Negative. PHYSICAL EXAMINATION: Vitals: 04/26/24 0948 BP: 110/80 BP Site: Left Arm BP Postition: Sitting Pulse: 84 Resp: 18 Temp: 36.8 C (98.3 F) TempSrc: Oral SpO2: 99% Weight: 115.6 kg (254 lb 12.8 oz) Height: 167 cm (5' 5.75 ) Patient noted to have elevated BMI and the following intervention(s) were applied: encouragement to exercise. Physical Exam Vitals and nursing note reviewed. Constitutional: General: She is not in acute distress. Appearance: She is well-developed. She is not diaphoretic. HENT: Head: Normocephalic and atraumatic. Right Ear: Tympanic membrane and external ear normal. Left Ear: Tympanic membrane and external ear normal. Nose: Nose normal. Mouth/Throat: Mouth: Mucous membranes are moist. Pharynx: No oropharyngeal exudate. Eyes: General: Right eye: No discharge. Left eye: No discharge. Conjunctiva/sclera: Conjunctivae normal. Pupils: Pupils are equal, round, and reactive to light. Neck: Thyroid: No thyromegaly. Vascular: No JVD. Cardiovascular: Rate and Rhythm: Normal rate and regular rhythm. Heart sounds: Normal heart sounds. No murmur heard. No friction rub. No gallop. Pulmonary: Effort: Pulmonary effort is normal. Breath sounds: Normal breath sounds. Abdominal: General: Bowel sounds are normal. There is no distension. Palpations: Abdomen is soft. There is no mass. Tenderness: There is no abdominal tenderness. Musculoskeletal: General: Normal range of motion. Cervical back: Normal range of motion and neck supple. Lymphadenopathy: Cervical: No cervical adenopathy. Skin: General: Skin is warm and dry. Capillary Refill: Capillary refill takes less than 2 seconds. Neurological: Mental Status: She is alert and oriented to person, place, and time. Deep Tendon Reflexes: Reflexes are normal and symmetric. Psychiatric: Mood and Affect: Mood normal. Behavior: Behavior normal. Thought Content: Thought content normal. Judgment: Judgment normal. ASSESSMENT/PLAN: Judie was seen today for numbness and restless leg. Diagnoses and all orders for this visit: Essential hypertension - lisinopriL (PRINIVIL,ZESTRIL) 20 mg tablet; Take 1 tablet (20 mg total) by mouth in the morning. Reactive depression - DULoxetine (CYMBALTA) 60 mg capsule; Take 1 capsule (60 mg total) by mouth in the morning. Numbness and tingling in both hands - Iron and TIBC; Future - Vitamin B12; Future - Ferritin; Future - Comprehensive metabolic panel; Future - Magnesium; Future History of anemia - Iron and TIBC; Future - Vitamin B12; Future - Ferritin; Future - CBC auto differential; Future Vitamin D deficiency - Vitamin D 25 hydroxy; Future HTN Discontinue labetalol. Start lisinopril 20 mg oral daily History of anemia Check iron panel Numbness and tingling fingers Check iron panel, CBC, magnesium and CMP Body mass index is 41.44 kg/m . Patient noted to have elevated BMI and the following intervention(s) were applied: Discussed current weight today. Consider healthy food choices, portion control. Avoid sugary beverages and high concentrated sweets. Routine exercise regimen encouraged. ALL QUESTIONS ANSWERED Total time spent was 25 minutes: Preparing to see the patient (e.g., review of tests) Obtaining and/or reviewing separately obtained history Performing a medically appropriate examination and/or evaluation Counseling and educating the patient/family/caregiver Ordering medications, tests, or procedures Follow-up: One week Blood pressure recheck TOM Grimes 04/26/24 [id number] documented in this encounter [facility] 02-28-2024 History of Presen t illness Narrative Subjective Patient ID: Judie Rodriguez is a 29 y.o. female. Judie presents for pre-operative clearance. She is having surgery for elective sterilization. She has a history of hypertension. She takes labetolol. Her blood pressure was high at the [place] office. She is taking her medication. She can do 4 METS of activity without chest pain or shortness of breath. Pre-op Exam The following portions of the patient's history were reviewed and updated as appropriate: allergies, current medications, past family history, past medical history, past social history, past surgical history, problem list, and medication reconciliation was completed including current medication and post discharge medication. Review of Systems Constitutional: Negative. HENT: Negative. Respiratory: Negative. Cardiovascular: Negative. Neurological: Negative. Objective Physical Exam Vitals reviewed. Constitutional: General: She is not in acute distress. Appearance: She is morbidly obese. HENT: Head: Normocephalic. Right Ear: Tympanic membrane, ear canal and external ear normal. Left Ear: Tympanic membrane, ear canal and external ear normal. Nose: Nose normal. Mouth/Throat: Mouth: Mucous membranes are moist. Pharynx: Oropharynx is clear. Eyes: General: No scleral icterus. Extraocular Movements: Extraocular movements intact. Conjunctiva/sclera: Conjunctivae normal. Cardiovascular: Rate and Rhythm: Normal rate and regular rhythm. Pulses: Normal pulses. Heart sounds: Normal heart sounds. No murmur heard. Pulmonary: Effort: Pulmonary effort is normal. No respiratory distress. Breath sounds: Normal breath sounds. No wheezing, rhonchi or rales. Musculoskeletal: Cervical back: Neck supple. Lymphadenopathy: Cervical: No cervical adenopathy. Neurological: General: No focal deficit present. Mental Status: She is alert and oriented to person, place, and time. Psychiatric: Mood and Affect: Mood normal. Behavior: Behavior normal. Thought Content: Thought content normal. Judgment: Judgment normal. Assessment/Plan Judie was seen today for pre-op exam. Diagnoses and all orders for this visit: Essential hypertension Her blood pressure is under control currently. Continue current regimen. Pre-op evaluation She can do 4 METS of activity without symptoms of angina. No further cardiac workup indicated. She is medically cleared for surgery. documented in this encounter [facility] 02-21-2024 Instructions Susan Cavanaugh RN - 02/21/2024 9:00 AM EDT Preoperative Education Checklist- General Surgery date: 03/13/24 Surgery time: 0930 a.m. Arrival time: 0730 a.m. 1. Bring a photo ID and your insurance card with you the day of surgery. You will check in at the main lobby of the [facility]- registration desk is straight ahead as soon as you walk in. Tell them you are here for surgery. 2. If you have a Living Will/Durable Power of [employer] C[employer] T[employer] for Health Care that is not on file here, please bring a copy the day of surgery. 3. Please shower/bathe the night before surgery with the provided soap or wipes. Do not shower the morning of surgery- you will do use wipes when you arrive here at the hospital before getting into your surgical gown. Do not shave the area of your procedure for 2 days prior to your surgery. 4. NO powder, lotion, perfume/cologne, aftershave, make-up, deodorant, or hair products after you have bathed. 5. NO nail kosovan/acrylic on at least one finger. If you are having a hand, wrist or foot surgery then all nail kosovan and artificial/acrylic nails must be removed from that hand or foot. 6. Avoid ALL Aspirin and non-steroidal anti-inflammatory drugs and certain vitamins (Ibuprofen, Advil, Aleve, Excedrin, Meloxicam, Celebrex, fish/krill oil, etc.) for 7 days prior to surgery as instructed by your surgeon and/or your prescribing doctor. Tylenol IS ALLOWED. If you are on Ticlid, Xarelto, Eliquis, Pradaxa, Plavix or Coumadin, please check with your prescribing doctor for instructions for when to stop them. 7. If you use an inhaler, continue to use it routinely. 8. Nothing to eat or drink (not even water, gum, mints, or hard candy!) AFTER midnight prior to your surgery. 9. Take only medications that you are instructed to on the morning of surgery with a TINY SIP OF WATER. 10. Choose a responsible adult that will be able to drive you home when you are discharged from your hospital stay for your surgery and can stay with you in your home for 24 hours after your procedure. You must NOT drive any vehicle or operate any machinery for 24 hours after surgery. 11. When you dress for your appointment, please wear loose fitting clothing that is appropriate to accommodate your surgical area procedure. BRING WITH YOU ANY DEVICES YOU MAY NEED: SAMMI hose, ice machine, sling/swath, brace or special shoe, oversized zip-up or button up shirt, CPAP machine if staying overnight. 12. Do NOT wear jewelry, watches, or any piercings or metal for surgery- leave these valuables and money at home. 13. Do NOT wear contact lenses for surgery- glasses are okay if needed. 14. The anesthesiologist will talk with you the day of surgery and will ask you to sign a Consent Form. 15. Refrain from smoking or any type of tobacco use for at least 8 hours and marijuana for 24 hours prior to arrival for your surgery. 16. If a GREEN BLOOD band is given to you, please bring it with you for the day of surgery. 17. Notify your surgeon if you develop any illness before your surgery. 18. If you are staying overnight, please DO NOT BRING your home medications with you. 19. If you have any questions prior to surgery, please call the [facility] office at [phone], Mon.-Fri. 7 a.m.-3 p.m. Leave a voicemail if needed. Pre-Surgery Instructions: Medication Instructions DULoxetine (CYMBALTA) 60 mg capsule Stop taking 0 days prior to procedure labetaloL (NORMODYNE) 200 mg tablet Take morning of procedure norethindrone (MICRONOR) 0.35 mg tablet Stop taking 0 days prior to procedure How to Avoid an Infection after Your Surgery Your doctor will give you specific instructions, but remember: -ALWAYS wash hands before caring for your incision. -No picking, scratching, or rubbing your incision. -No creams, lotion, powder, rubbing alcohol or hydrogen peroxide on the incision (can harm the tissue and slow healing). -Your doctor will give you specific instructions for what type of dressing you will need and how often it will need changed for infection purposes. -No tight clothing on incision. -Do not allow anyone to touch your incision unless they are cleaning, checking, or redressing it (be sure they wash their hands first). -No contact of your incision with pets; avoid sleeping with pets. -Take full course of antibiotic if prescribed for you after surgery- do not stop unless directed to by your physician. You may also be given an antibiotic prior to your surgery to help prevent surgical site infections. -Eat a healthy and varied diet including proteins, fruits, and vegetables to help promote wound healing and keep blood sugars under control if you are diabetic. -Smoking slows the healing process by decreasing the amount of oxygen in your blood that is needed for tissue healing. Try to avoid or stop smoking if possible. LOOK at your incision each morning and each night to check the progress of healing. Some soreness, numbness, itching and/or mild bruising around the incision is normal. Call your doctor if you notice any of the following: -Increased redness or hardening around the incision area. -Increased pain at the incision site. -Incision feels hot to the touch. -Swelling or pulling apart of the incision edges. -Yellow or green drainage or foul odor coming from the incision. -Bleeding from the incision (apply pressure as needed). -Fever higher than 101 degrees Fahrenheit for more than 4 hours. SHOWERING: Your doctor will give you specific instructions, but remember: -Be careful getting into and out of the shower. -Showers should be quick (5 minutes or less). -Use a clean washcloth to gently wash your incision with soap and water and pat the area dry with a clean towel. -No re-using wash cloths or towels; get a fresh one to clean your incision. -Do not soak in the bathtub, go swimming or use a hot tub (Jacuzzi), or perform activities where your incision is submerged in water or exposed to any fluids or substances until instructed by your doctor. -If your have the sticky strips (steri-strips) over the incision, it is OK to shower with them. Do not remove them. Let them fall off on their own. If you have a question, call your doctor s office. Go to the follow-up appointment with your doctor. documented in this encounter [facility] 02-21-2024 Miscellaneous Notes Preoperative Education Checklist- General Surgery date: 03/13/24 Surgery time: 0930 a.m. Arrival time: 0730 a.m. 1. Bring a photo ID and your insurance card with you the day of surgery. You will check in at the main lobby of the [facility]- registration desk is straight ahead as soon as you walk in. Tell them you are here for surgery. 2. If you have a Living Will/Durable Power of Thread Cutter Tender for Health Care that is not on file here, please bring a copy the day of surgery. 3. Please shower/bathe the night before surgery with the provided soap or wipes. Do not shower the morning of surgery- you will do use wipes when you arrive here at the hospital before getting into your surgical gown. Do not shave the area of your procedure for 2 days prior to your surgery. 4. NO powder, lotion, perfume/cologne, aftershave, make-up, deodorant, or hair products after you have bathed. 5. NO nail kosovan/acrylic on at least one finger. If you are having a hand, wrist or foot surgery then all nail kosovan and artificial/acrylic nails must be removed from that hand or foot. 6. Avoid ALL Aspirin and non-steroidal anti-inflammatory drugs and certain vitamins (Ibuprofen, Advil, Aleve, Excedrin, Meloxicam, Celebrex, fish/krill oil, etc.) for 7 days prior to surgery as instructed by your surgeon and/or your prescribing doctor. Tylenol IS ALLOWED. If you are on Ticlid, Xarelto, Eliquis, Pradaxa, Plavix or Coumadin, please check with your prescribing doctor for instructions for when to stop them. 7. If you use an inhaler, continue to use it routinely. 8. Nothing to eat or drink (not even water, gum, mints, or hard candy!) AFTER midnight prior to your surgery. 9. Take only medications that you are instructed to on the morning of surgery with a TINY SIP OF WATER. 10. Choose a responsible adult that will be able to drive you home when you are discharged from your hospital stay for your surgery and can stay with you in your home for 24 hours after your procedure. You must NOT drive any vehicle or operate any machinery for 24 hours after surgery. 11. When you dress for your appointment, please wear loose fitting clothing that is appropriate to accommodate your surgical area procedure. BRING WITH YOU ANY DEVICES YOU MAY NEED: SAMMI hose, ice machine, sling/swath, brace or special shoe, oversized zip-up or button up shirt, CPAP machine if staying overnight. 12. Do NOT wear jewelry, watches, or any piercings or metal for surgery- leave these valuables and money at home. 13. Do NOT wear contact lenses for surgery- glasses are okay if needed. 14. The anesthesiologist will talk with you the day of surgery and will ask you to sign a Consent Form. 15. Refrain from smoking or any type of tobacco use for at least 8 hours and marijuana for 24 hours prior to arrival for your surgery. 16. If a GREEN BLOOD band is given to you, please bring it with you for the day of surgery. 17. Notify your surgeon if you develop any illness before your surgery. 18. If you are staying overnight, please DO NOT BRING your home medications with you. 19. If you have any questions prior to surgery, please call the Preadmission Testing office at [phone], Mon.-Fri. 7 a.m.-3 p.m. Leave a voicemail if needed. Pre-Surgery Instructions: Medication Instructions DULoxetine (CYMBALTA) 60 mg capsule Stop taking 0 days prior to procedure labetaloL (NORMODYNE) 200 mg tablet Take morning of procedure norethindrone (MICRONOR) 0.35 mg tablet Stop taking 0 days prior to procedure How to Avoid an Infection after Your Surgery Your doctor will give you specific instructions, but remember: -ALWAYS wash hands before caring for your incision. -No picking, scratching, or rubbing your incision. -No creams, lotion, powder, rubbing alcohol or hydrogen peroxide on the incision (can harm the tissue and slow healing). -Your doctor will give you specific instructions for what type of dressing you will need and how often it will need changed for infection purposes. -No tight clothing on incision. -Do not allow anyone to touch your incision unless they are cleaning, checking, or redressing it (be sure they wash their hands first). -No contact of your incision with pets; avoid sleeping with pets. -Take full course of antibiotic if prescribed for you after surgery- do not stop unless directed to by your physician. You may also be given an antibiotic prior to your surgery to help prevent surgical site infections. -Eat a healthy and varied diet including proteins, fruits, and vegetables to help promote wound healing and keep blood sugars under control if you are diabetic. -Smoking slows the healing process by decreasing the amount of oxygen in your blood that is needed for tissue healing. Try to avoid or stop smoking if possible. LOOK at your incision each morning and each night to check the progress of healing. Some soreness, numbness, itching and/or mild bruising around the incision is normal. Call your doctor if you notice any of the following: -Increased redness or hardening around the incision area. -Increased pain at the incision site. -Incision feels hot to the touch. -Swelling or pulling apart of the incision edges. -Yellow or green drainage or foul odor coming from the incision. -Bleeding from the incision (apply pressure as needed). -Fever higher than 101 degrees Fahrenheit for more than 4 hours. SHOWERING: Your doctor will give you specific instructions, but remember: -Be careful getting into and out of the shower. -Showers should be quick (5 minutes or less). -Use a clean washcloth to gently wash your incision with soap and water and pat the area dry with a clean towel. -No re-using wash cloths or towels; get a fresh one to clean your incision. -Do not soak in the bathtub, go swimming or use a hot tub (Jacuzzi), or perform activities where your incision is submerged in water or exposed to any fluids or substances until instructed by your doctor. -If your have the sticky strips (steri-strips) over the incision, it is OK to shower with them. Do not remove them. Let them fall off on their own. If you have a question, call your doctor s office. Go to the follow-up appointment with your doctor. Hibiclens and surgical instructions reviewed. Patient verbalized understanding. documented in this encounter [facility] 02-21-2024 Nurse Note Preoperative Education Checklist- General Surgery date: 03/13/24 Surgery time: 0930 a.m. Arrival time: 0730 a.m. 1. Bring a photo ID and your insurance card with you the day of surgery. You will check in at the main lobby of the [facility]- registration desk is straight ahead as soon as you walk in. Tell them you are here for surgery. 2. If you have a Living Will/Durable Power of Thread Cutter Tender for Health Care that is not on file here, please bring a copy the day of surgery. 3. Please shower/bathe the night before surgery with the provided soap or wipes. Do not shower the morning of surgery- you will do use wipes when you arrive here at the hospital before getting into your surgical gown. Do not shave the area of your procedure for 2 days prior to your surgery. 4. NO powder, lotion, perfume/cologne, aftershave, make-up, deodorant, or hair products after you have bathed. 5. NO nail kosovan/acrylic on at least one finger. If you are having a hand, wrist or foot surgery then all nail kosovan and artificial/acrylic nails must be removed from that hand or foot. 6. Avoid ALL Aspirin and non-steroidal anti-inflammatory drugs and certain vitamins (Ibuprofen, Advil, Aleve, Excedrin, Meloxicam, Celebrex, fish/krill oil, etc.) for 7 days prior to surgery as instructed by your surgeon and/or your prescribing doctor. Tylenol IS ALLOWED. If you are on Ticlid, Xarelto, Eliquis, Pradaxa, Plavix or Coumadin, please check with your prescribing doctor for instructions for when to stop them. 7. If you use an inhaler, continue to use it routinely. 8. Nothing to eat or drink (not even water, gum, mints, or hard candy!) AFTER midnight prior to your surgery. 9. Take only medications that you are instructed to on the morning of surgery with a TINY SIP OF WATER. 10. Choose a responsible adult that will be able to drive you home when you are discharged from your hospital stay for your surgery and can stay with you in your home for 24 hours after your procedure. You must NOT drive any vehicle or operate any machinery for 24 hours after surgery. 11. When you dress for your appointment, please wear loose fitting clothing that is appropriate to accommodate your surgical area procedure. BRING WITH YOU ANY DEVICES YOU MAY NEED: SAMMI hose, ice machine, sling/swath, brace or special shoe, oversized zip-up or button up shirt, CPAP machine if staying overnight. 12. Do NOT wear jewelry, watches, or any piercings or metal for surgery- leave these valuables and money at home. 13. Do NOT wear contact lenses for surgery- glasses are okay if needed. 14. The anesthesiologist will talk with you the day of surgery and will ask you to sign a Consent Form. 15. Refrain from smoking or any type of tobacco use for at least 8 hours and marijuana for 24 hours prior to arrival for your surgery. 16. If a GREEN BLOOD band is given to you, please bring it with you for the day of surgery. 17. Notify your surgeon if you develop any illness before your surgery. 18. If you are staying overnight, please DO NOT BRING your home medications with you. 19. If you have any questions prior to surgery, please call the Preadmission Testing office at [phone], Mon.-Fri. 7 a.m.-3 p.m. Leave a voicemail if needed. Pre-Surgery Instructions: Medication Instructions DULoxetine (CYMBALTA) 60 mg capsule Stop taking 0 days prior to procedure labetaloL (NORMODYNE) 200 mg tablet Take morning of procedure norethindrone (MICRONOR) 0.35 mg tablet Stop taking 0 days prior to procedure How to Avoid an Infection after Your Surgery Your doctor will give you specific instructions, but remember: -ALWAYS wash hands before caring for your incision. -No picking, scratching, or rubbing your incision. -No creams, lotion, powder, rubbing alcohol or hydrogen peroxide on the incision (can harm the tissue and slow healing). -Your doctor will give you specific instructions for what type of dressing you will need and how often it will need changed for infection purposes. -No tight clothing on incision. -Do not allow anyone to touch your incision unless they are cleaning, checking, or redressing it (be sure they wash their hands first). -No contact of your incision with pets; avoid sleeping with pets. -Take full course of antibiotic if prescribed for you after surgery- do not stop unless directed to by your physician. You may also be given an antibiotic prior to your surgery to help prevent surgical site infections. -Eat a healthy and varied diet including proteins, fruits, and vegetables to help promote wound healing and keep blood sugars under control if you are diabetic. -Smoking slows the healing process by decreasing the amount of oxygen in your blood that is needed for tissue healing. Try to avoid or stop smoking if possible. LOOK at your incision each morning and each night to check the progress of healing. Some soreness, numbness, itching and/or mild bruising around the incision is normal. Call your doctor if you notice any of the following: -Increased redness or hardening around the incision area. -Increased pain at the incision site. -Incision feels hot to the touch. -Swelling or pulling apart of the incision edges. -Yellow or green drainage or foul odor coming from the incision. -Bleeding from the incision (apply pressure as needed). -Fever higher than 101 degrees Fahrenheit for more than 4 hours. SHOWERING: Your doctor will give you specific instructions, but remember: -Be careful getting into and out of the shower. -Showers should be quick (5 minutes or less). -Use a clean washcloth to gently wash your incision with soap and water and pat the area dry with a clean towel. -No re-using wash cloths or towels; get a fresh one to clean your incision. -Do not soak in the bathtub, go swimming or use a hot tub (Jacuzzi), or perform activities where your incision is submerged in water or exposed to any fluids or substances until instructed by your doctor. -If your have the sticky strips (steri-strips) over the incision, it is OK to shower with them. Do not remove them. Let them fall off on their own. If you have a question, call your doctor s office. Go to the follow-up appointment with your doctor. [facility] 02-21-2024 Nurse Note Hibiclens and surgical instructions reviewed. Patient verbalized understanding. [facility] 02-01-2024 Miscellaneous Notes Called and spoke to pt and per Dr Louise, pt is to have PCP clearance and get her blood pressure under control prior to her surgery. Pt is also to stop using the contraception patch and switch to the Micronor that Dr Louise has sent to her pharmacy. Pt aware of all information and is agreeable. PCP request for surgical clearance sent to Gissel Oliveira NP office. documented in this encounter [facility] 02-01-2024 Telephone encounter Note Called and spoke to pt and per Dr Louise, pt is to have PCP clearance and get her blood pressure under control prior to her surgery. Pt is also to stop using the contraception patch and switch to the Micronor that Dr Louise has sent to her pharmacy. Pt aware of all information and is agreeable. [facility] 02-01-2024 Telephone encounter Note PCP request for surgical clearance sent to Gissel Oliveira NP office. [facility] 01-31-2024 Miscellaneous Notes Patient scheduled for surgery with Dr. Louise on 03/13/24 at 9:30am with hospital arrival at 7:30am. PAT 02/21/24 at 9:00am. LVM for patient to return my call to discuss dates & times. Patient returned my call & was notified of dates & times. Patient voiced understanding. Surgery information letter mailed to the patient. documented in this encounter [facility] 01-31-2024 Telephone encounter Note Patient scheduled for surgery with Dr. Louise on 03/13/24 at 9:30am with hospital arrival at 7:30am. PAT 02/21/24 at 9:00am. LVM for patient to return my call to discuss dates & times. [facility] 01-31-2024 Telephone encounter Note Patient returned my call & was notified of dates & times. Patient voiced understanding. Surgery information letter mailed to the patient. [facility] 01-31-2024 History of Presen t illness Narrative Judie Rodriguez is a 28 y.o.female. PATIENT DESIRES NO FUTURE FERTILITY. She presents for a surgical consult for a tubal. Pt is a RBAI OF TUBAL DW PT AT LENGTH TO INCL BUT NOT LIMITED TO BLEEDING TRANSFUSION INFX ANESTHESIA DAEATH INJURY TO SURROUNDING TISSUES OR NEED FOR MORE EXTENSIVE SURGERY. VOICES UNDERSTANDING AND DESIRES TO PROCEED. CONSENT SIGNED AND ON CHART. Current contraception:Patch OB History 1 Para Term AB Living SAB IAB Ectopic Multiple Live Births MEDICAL HX Past Medical History: Diagnosis Date Abnormal finding on screening of mother 01/22/2016 Overview: 02/03/16 NIPT wnl Delivery normal 06/04/2016 Depression 05/11/2021 HTN in , chronic 03/12/2016 Overview: -BPs in ED in September 2015 were 150/90 - 24 hour urine Creatinine/protein ordered 03/26/16 - pt did this in April, but the lab did not run the protein, only the Creatinine - pt will need to repeat the collection -Initiate antihypertensives if patient's BP is consistently greater than 150/105 Infection in 10/29/2015 Overview: 10/17/15 +Chlamydia; treatment given 10/29 Will need BITA in 4 weeks 11/28/15 BITA urine GC neg/neg Obesity affecting , antepartum 01/22/2016 Other specified related conditions, unspecified trimester 01/22/2016 Overview: 02/03/16 NIPT wnl SURGICAL HX Past Surgical History: Procedure Laterality Date KNEE ARTHROPLASTY Right 02/08/2021 KNEE ARTHROPLASTY Right 12/09/2008 FAMILY HX Family History Problem Relation Age of Onset Hypertension Mother Diabetes Mother Cancer Father Hypertension Father Glaucoma Neg Hx Macular degeneration Neg Hx Cataracts Neg Hx MEDS Current Outpatient Medications Medication Sig Dispense Refill DULoxetine (CYMBALTA) 30 mg capsule take 1 capsule by mouth every morning for 14 days 14 capsule 0 DULoxetine (CYMBALTA) 60 mg capsule Take 1 capsule (60 mg total) by mouth in the morning. 30 capsule 2 labetaloL (NORMODYNE) 200 mg tablet Take 1 tablet (200 mg total) by mouth in the morning and 1 tablet (200 mg total) before bedtime. 60 tablet 5 norelgestromin-ethin.estradioL (XULANE) 150-35 mcg/[address] 1 patch on the skin once a week. 3 patch 12 No current facility-administered medications for this visit. ALLERGIES No Known Allergies Review of Systems Review of Systems Objective There were no vitals taken for this visit. Physical Exam BP (!) 150/108 Comment: Did not take BP medication this morning Ht 167.6 cm (5' 6 ) Wt 115.1 kg (253 lb 12.8 oz) LMP 01/25/2024 (Exact Date) BMI 40.96 kg/m Physical Exam GEN AAOX3, NAD HEENT UNREMARKABLE HEART RRR LUNGS CTAB ABD BENIGN, OBESE, NTND PELVIS: DEFERRED RECTAL DEFERRED EXTREM NO CCE, NO CALF TENDERNESS Assessment/Plan: Judie was seen today for tubal consult. Diagnoses and all orders for this visit: Consultation for female sterilization - [facility] Physician's INVESTIGATOR OPERATOR - [facility] - [place], [place] - Consult ELEVATED BP TO SEE PCP FOR BP CONTROL STOP PATCH START MICRONOR OCP ENCOURAGED TO GET VASECTOMY--INFO GIVEN BMI 40+ PATIENT STRONGLY DESIRES PERMANENT STERILIZATION NEXT RISKS BENEFITS ALTERNATIVES INDICATIONS DISCUSSED WITH THE PATIENT AT GREAT LENGTH ABOVE SHE VOICED UNDERSTANDING OF ALL RISKS MD JOSEPH WARNER CMA documented in this encounter [facility] 01-31-2024 Miscellaneous Notes Addended by: BETINA LOUISE on: 01/31/2024 05:13 PM Modules accepted: Orders documented in this encounter [facility] 01-31-2024 Note Addended by: BETINA LOUISE on: 01/31/2024 05:13 PM Modules accepted: Orders [facility] 01-13-2024 History of Presen t illness Narrative Images from the original note [...] MSK; Future [facility] - [facility] - [place], [place] - Consult; Future Reactive depression - [...] Rodriguez 01/13/24 1443 documented in this encounter [facility] Evaluation note Diagnosis Reactive depression documented in this encounter [facility] Diagnosis Consultation for female sterilization documented in this encounter [facility]* Diagnosis Reactive depression documented in this encounter [facility]* Diagnosis Vitamin D deficiency Hypomagnesemia Disorders of magnesium metabolism Reactive depression [facility] Diagnosis Reactive depression [facility] Diagnosis Preop examination- Primary Unspecified pre-operative examination BMI 40.0-44.9, adult ([facility]) Preop examination Unspecified pre-operative examination BMI 40.0-44.9, adult ([facility]) documented in this encounter [facility]* Diagnosis Essential hypertension- Primary Unspecified essential hypertension Pre-op evaluation documented in this encounter [facility]* Diagnosis Reactive depression [facility] Diagnosis Essential hypertension- Primary Unspecified essential hypertension Reactive depression Numbness and tingling in both hands History of anemia Personal history of diseases of blood and blood-forming organs Vitamin D deficiency documented in this encounter [facility]* Diagnosis Hypomagnesemia- Primary Disorders of magnesium metabolism Vitamin D deficiency documented in this encounter [facility]* Diagnosis Essential hypertension- Primary Unspecified essential hypertension Muscle spasm Spasm of muscle documented in this encounter [facility]* Diagnosis Encounter for wellness examination- Primary Essential hypertension Unspecified essential hypertension Encounter for surveillance of transdermal patch hormonal contraceptive device Subcutaneous nodule of right lower extremity Consultation for female sterilization Reactive depression Class 2 obesity due to excess calories without serious comorbidity with body mass index (BMI) of 39.0 to 39.9 in adult documented in this encounter [facility]* Diagnosis Essential hypertension Unspecified essential hypertension documented in this encounter [facility]* Diagnosis Mass of left breast, unspecified quadrant- Primary Reactive depression Vitamin D deficiency documented in this encounter [facility]* Diagnosis Hypomagnesemia Disorders of magnesium metabolism Reactive depression documented in this encounter [facility]* Diagnosis Reactive depression Vitamin D deficiency documented in this encounter [facility]* Diagnosis Essential hypertension Unspecified essential hypertension Reactive depression Vitamin D deficiency Hypomagnesemia Disorders of magnesium metabolism documented in this encounter [facility]* Diagnosis Current severe episode of major depressive disorder without psychotic features without prior episode ([facility])- Primary Numbness and tingling in both hands Hypomagnesemia Disorders of magnesium metabolism Restless leg syndrome Restless legs syndrome (RLS) documented in this encounter [facility] SystemInstructionsNot on filedocumented in this encounter [facility] SystemInstructionsNot on filedocumented in this encounter [facility] SystemInstructionsNot on filedocumented in this encounter [facility] SystemInstructionsNot on filedocumented in this encounter [facility] System[facility]ructionsNot on filedocumented in this encounter [facility] SystemInstructionsNot on filedocumented in this encounter [facility] SystemInstructionsNot on filedocumented in this encounter [facility] SystemInstructions* Attachments The following attachments cannot be sent through Care Everywhere. * High blood pressure emergencies ([place]) documented in this [facility] SystemInstructionsNot on file documented in this encounterProSt. [facility] SystemInstructionsNot on file documented [facility] SystemInstructions* Attachments The following attachments cannot be sent through Care Everywhere. * Heart Healthy Diet ([place]) documented in this encounterProSt. [facility] Health SystemInstructionsNot on file documented in this encounterProSt. [facility] SystemInstructionsNot on file documented in this encounterProSt. [facility] SystemInstructionsNot on file documented in this encounterProMercy Health St[facility] SystemInstructionsNot on file documented in this encounterProMercy Health St[facility] SystemInstructions* Attachments The following attachments cannot be sent through Care Everywhere. * Fibrocystic Breast Changes Discharge Instructions ([place]) documented in this encounterProSt. [facility] SystemInstructionsNot on file documented in this encounterProMercy Health St. [facility] SystemInstructions* Attachments The following attachments cannot be sent through Care Everywhere. * Depression in adults ([place]) documented in this encounterBlanchard Valley Health System [facility] SystemReason for referral (narrative)* Consultation (Routine) - Authorized Specialty Diagnoses / Procedures Referred By Karsten friedman Referred To Contact Obstetrics and Gynecology Diagnoses Consultation for female sterilization Gissel Oliveira APRN-FNP [address] [place] [address] [facility] [address] [place] [address] Referral ID Status Reason Start Date Expiration Date Visits Requested Visits Authorized [id number] Authorized Specialty Services Required 01/13/2024 01/12/2025 1 1 [facility] Summary Purpose Family History No Family History Records FoundNo Family History Records FoundNo Family History Records FoundNo Family History Records Found Advance Directives No Advanced Directives Records FoundNo Advanced Directives Records FoundNo Advanced Directives Records FoundNo Advanced Directives Records Found Reason for Referral Specialty Diagnoses / Procedures Referred By Contac t Referred To Contact Diagnoses Preop examination BMI 40.0-44.9, adult ([facility]) Procedures ECG 12 lead Jolanta Bey MD [address] [place] [address] Referral ID Status Reason Start Date Expiration Date V isits Requested Visits Authorized [id number] Pending Review 02/15/2024 02/14/2025 1 1 Additional Source Comments INFORMATION SOURCE (unrecogn ized section and content) DATE CREATED AUTHOR 01/31/2023 [facility] DATE CREATED AUTHOR AUTHOR'S ORGANIZ ATION 03/18/2024 [facility] DATE CREATED AUTHOR AUTHOR'S ORGANIZ ATION 04/30/2024 [facility] DATE CREATED AUTHOR AUTHOR'S ORGANIZ ATION 08/25/2024 [facility] Reason for Visit (unrecogniz ed section and content) Reason Onset Date Comments Med Refill 08/21/2024 Reason Comments Tubal Consult Specialty Diagnoses / Procedures Referred By Contac t Referred To Contact Obstetrics and Gynecology Diagnoses Consultation for female sterilization Gissel Oliveira, COMPUTER TRAINING SPECIALIST-FINANCIAL SERVICES TECHNICIAN [address] [place] [address] Betina Louise MD [facility] [place] [address] Referral ID Status Reason Start Date Expiration Date V isits Requested Visits Authorized [id number] Closed Specialty Services Required 01/13/2024 01/12/2025 1 1 Reason Comments Med Refill Reason Onset Date Comments Med Refill 11/23/2024 Reason Comments Pre-op Exam Clearance / bilatera l tubal occlusion dr Louise Reason Comments Numbness Fingers Restless Leg At night Reason Comments Hand Pain Reason Comments New Patient Lumps in legs Reason Onset Date Comments Med Refill 06/23/2024 Reason Comments Breast Mass Under breast. Discus s other medication, look at moles Reason Onset Date Comments Med Refill 09/04/2024 Reason Onset Date Comments Med Refill 09/22/2024 Reason Onset Date Comments Med Refill 12/25/2024 Reason Comments Legs jerking, hands shaking x2 months Care Teams (unrecognized sec tion and content) Surveying Technician Relationship Specialty Start Date End Date Elton [facility]arbrough [facility] [address] [place], [place] [address] PCP - General Family Medicine 04/26/24 Surveying Technician Relationship Specialty Start Date End Date Gissel Oliveira, COMPUTER TRAINING SPECIALISTHENRY J[facility] [address] [place], [place] [address] PCP - General Internal Medicine 01/13/24 Surveying Technician Relationship Specialty Start Date End Date Gissel Oliveira COMPUTER TRAINING SPECIALISTHENRY [facility] [address] [place], [place] [address] PCP - General Internal Medicine 01/13/24 Surveying Technician Relationship Specialty Start Date End Date Gissel Oliveira COMPUTER TRAINING SPECIALISTHEN[facility] [address] [place], [place] [address] PCP - General Internal Medicine 01/13/24 Surveying Technician Relationship Specialty Start Date End Date Elton Yarbrough [facility] [address] [place], [place] [address] PCP - General Family Medicine 04/26/24 Surveying Technician Relationship Specialty Start Date End Date Elton Yarbrough [facility] [address] [place], [place] [address] PCP - General Family Medicine 04/26/24 Surveying Technician Relationship Specialty Start Date End Date Gissel OliveiraAUGUSTO-[facility] [address] [place], [place] [address] PCP - General Internal Medicine 01/13/24 Surveying Technician Relationship Specialty Start Date End Date Gissel Oliveira, COMPUTER TRAINING SPECIALIST-[facility] [address] [place], [place] [address] PCP - General Internal Medicine 01/13/24 Surveying Technician Relationship Specialty Start Date End Date Elton Yarbrough [facility] [address] [place] [address] PCP - General Family Medicine 04/26/24 Surveying Technician Relationship Specialty Start Date End Date Elton Yarbrough [facility] [address] [place], [place] [address] PCP - General Family Medicine 04/26/24 Surveying Technician Relationship Specialty Start Date End Date Elton Yarbrough [facility] [address] [place], [place] [address] PCP - General Family Medicine 04/26/24 Surveying Technician Relationship Specialty Start Date End Date Elton Yarbrough [facility] [address] [place] [address] PCP - General Family Medicine 04/26/24 Surveying Technician Relationship Specialty Start Date End Date Gissel Oliveira, COMPUTER TRAINING SPECIALISTST. [facility] [address] [place], [place] [address] PCP - General Internal Medicine 01/13/24 Surveying Technician Relationship Specialty Start Date End Date Elton [facility]roughAUGUSTOBAY[facility] [address] [place] [address] PCP - [facility] 04/26/24 Surveying Technician Relationship Specialty Start Date End Date Elton [facility]arbroughAU[facility]USTOBAY[facility] [address] [place], [place] [address] PCP - [facility] 04/26/24 Surveying Technician Relationship Specialty Start Date End Date Agustina Yarbroughe [facility]guy[facility]nAUGUSTOBA[facility]STATE [facility] [address] [place], [place] [address] PCP - [facility] 04/26/24 Surveying Technician Relationship Specialty Start Date End Date Elton [facility]roughAU[facility]USTOBAYSTATE [facility] [address] [place], [place] [address] PCP - [facility] 04/26/24 FOR RECORDS PERTAINING TO PATIENTS WHO ARE [...] BE BASED ON THE PRIMARY CLINICAL RECORDS. [facility] [employer] provides no warranty or guarantee of the accuracy or completeness of information in this document.
[2024-12-26] MEDS: CEPHALEXIN 500 MG CAPSULE PO (23:58)
[2024-12-26] MEDS: IBUPROFEN 400 MG TABLET 800 MG PO (23:58)
== END 2024-12-27 00:03 | disposition home or self-care (01) ==
PROVIDERS: Emergency Provider Emergency Medicine; PCP Family Medicine
DX: L72.9 Follicular cyst of the skin and subcutaneous tissue, unspecified (principal); F17.200 Nicotine dependence, unspecified, uncomplicated; Z98.51 Tubal ligation status
CPT/HCPCS: 99283

== ENCOUNTER 2025-04-06 20:28 | Emergency (ER) | payer OTHER, SELFPAY ==
--- OUTSIDE RECORDS SUMMARY | 2024-06-19 04:40 | XMS_ITS ---
Author Organization [facility] Address [address] [place] [address] Care Team Providers Care Insurance Checker Name Role Phone Physician, Non-Staff Primary Care Provider UnaMauricio Glover [facility] [phone] REASON FOR VISIT LEFT ELBOW SPRAIN Encounters Encounter Location Date Provider Diagnosis [facility] [address] [place] [address] [place] [address] 06/19/2024 Mauricio Pandya Plan Of Treatment No Information Progress Notes * AMANDA RODRIGUEZOB:1995 (30 yo F)Acc No.[id number]:06/19/2024 Patient: JUDIE ESCOBAR Provider: Reji Pandya MD :1995 A ge:29 Y S ex:Female Date:06/19/2024 Address:[address] [facility], [id number] Pcp:Non-Staff Physician Subjective: * Chief Complaints: * 1 . LEFT ELBOW SPRAIN. * Medical History: Objective: * Vitals: Assessment: Plan: * Treatment: Forms: * Images: * Electronic signature of Zachary Pandya MD on 04/06/2025 at 08:37 PM EDT Sign off status: Pending * Provider: Reji Pandya MD Date: 0 06/19/2024 Generated for Gab page/Kamar/eTransmitting on: 04/06/2025 08:37 PM EDT
--- OUTSIDE RECORDS SUMMARY | 2025-03-28 10:10 | XMS_ITS | Encounter Summary ---
Author Organization [facility] tem Address [id number] [address] [place] [address] Care Team Providers Care Eddy Current Inspector Name Role Phone Jennifer Yarbrough APRN-BUSINESS ATTORNEY Primary Care Provid er Reason for Referral * Diagnostic Imaging (Routine) - Closed Specialty Diagnoses / Procedures Referred By Contac t Referred To Contact Radiology Diagnoses Swelling, mass, or lump on face Procedures CT neck soft tissue with contrast Solo Sheehan DO [address] [place] [address] Phone: tel: fax: Referral ID Status Reason Start Date Expiration Date Visits Re quested Visits Authorized [id number] Closed 02/28/2025 02/28/2026 1 0 Reason for Visit * Diagnostic Imaging (Routine) - Closed Specialty Diagnoses / Procedures Referred By Contac t Referred To Contact Radiology Diagnoses Swelling, mass, or lump on face Procedures CT neck soft tissue with contrast Solo Sheehan DO [address] [place] [address] Phone: tel: fax: Referral ID Status Reason Start Date Expiration Date Visits Re quested Visits Authorized [id number] Closed 02/28/2025 02/28/2026 1 0 Encounter Details Date Type Department Care Team (Latest Contact Info) Description 03/28/2025 10:10 AM EDT - 03/28/2025 11:59 PM EDT Hospital Encounter [facility] [address] [place] [address] Solo Sheehan, DO [address] [place] [address] Swelling, mass, or lump on face Discharge Disposition: Home Social History Tobacco Use Types Packs/Day Years Used Date Smoking Tobacco: Former Cigarettes Smokeless Tobacco: Never Alcohol Use Standard Drinks/Week Comments Not Currently 0 (1 standard drink = 0.6 oz pur e alcohol) PHQ-2 Answer Date Recorded Total Score 15 12/26/2024 Childcare Answer Date Recorded Childcare Unknown 03/22/2019 Employment Answer Date Recorded Employment Unknown 03/22/2019 Hunger Screening Answer Date Recorded Within the past 12 months we worried whether our food would run out before we got money to buy more. Never True 02/28/2025 Within the past 12 months th e food we bought just didn't last and we didn't have money to get more. Never True 02/28/2025 Purpose - Life Answer Date Recorded Purpose and direction in life Unknown Comments No Sex and Gender Information Value Date Recorded Sex Assigned at Not on file Legal Sex Female 5:19 PM EDT Gender Identity Not on file Sexual Orientation Not on file documented as of this encounter Medications at Time of Discharge cariprazine (VRAYLAR) 1.5 mg capsuleIndications :Current severe episode of major depressive disorder without psychotic features without prior episode (CMS-HCC) Take 1 capsule (1.5 mg total) by mouth in the morning. 30 capsule 03/06/2025 cholecalciferol, vitamin D3, 5,000 units tabletIndications: Vitamin D deficiency Take 1 tablet (5,000 Units total) by mouth in the morning. 30 each 03/06/2025 DULoxetine (CYMBALTA) 60 mg capsuleIndications :Reactive depression Take 1 capsule (60 mg total) by mouth in the morning. 30 capsule 03/06/2025 FLUoxetine (PROzac) 10 mg capsuleIndications :Reactive depression Take 1 capsule (10 mg total) by mouth in the morning. 30 capsule 03/06/2025 lisinopriL (PRINIVIL,ZESTRIL) 40 mg tabletIndications: Essential hypertension Take 1 tablet (40 mg total) by mouth in the morning. 90 tablet 1 03/20/2025 magnesium oxide (MAGOX) 400 mg tabletIndications: Hypomagnesemia Take 1 tablet (400 mg total) by mouth in the morning. 30 tablet 5 03/06/2025 rOPINIRole (REQUIP) 0.25 mg tabletIndications: Restless leg syndrome Take 1 tablet (0.25 mg total) by mouth nightly. 30 tablet 5 03/06/2025 documented as of this encounter Plan of Treatment Not on file documented as of this encounter Procedures Procedure Name Priority Date/Time Associated Diagnosis Comments CT NECK SOFT TISSUE W CONT Routine 03/28/2025 11:08 AM EDT Swelling, mass, or lump on face documented in this encounter Results * CT neck soft tissue with contrast (03/28/2025 11:08 AM EDT) Anatomical Region Laterality Modality Neuro, Neck, Neuro Covera N/A Comput ed Tomography 03/30/2025 11:1 7 AM EDT Narrative 03/30/2025 12:32 PM EDT EXAM: CT NECK SOFT TISSUE W CONT INDICATION: Swelling, mass, right-sided facial lump COMPARISON: Soft tissue ultrasound of the head and neck 03/15/2025 TECHNIQUE/PROTOCOL: Standard post contrast axial neck CT axial images obtained with coronal and sagittal reformats generated. All CT scans at this facility use dose modulation, iterative reconstruction, and/or weight based dosing when appropriate to reduce radiation dose to as low as reasonably achievable. CONTRAST: 100 mL Omnipaque IV. FINDINGS: Suprahyoid Neck: The nasopharynx, oropharynx, oral cavity, parapharyngeal space, and retropharyngeal space are normal. Infrahyoid Neck: The larynx and hypopharynx are normal. Lymph Nodes: No enlarged or abnormal appearing lymph nodes. A BB marker was placed at the palpable area of concern overlying the right temporal region. Immediately deep to the marker there is a 0.5 cm soft tissue observation adjacent to the superficial temporal artery. This is better characterized on recent ultrasound as a nonenlarged lymph node with benign architecture. Salivary Glands: The parotid and submandibular glands are normal. Thyroid: Normal. Brain and Skull Base: The visualized portions of the brain and skull base are normal. Orbits: Normal. Paranasal Sinuses: Normal. Partially Visualized Thorax: The visualized lung apices and upper thorax are unremarkable. Vasculature: The visualized major vessels of the neck are normal. Common origin of the brachiocephalic and left common carotid arteries, a normal variant. Bones: No lytic or blastic osseous lesions. Left mandibular head sclerosis and subchondral cysts. IMPRESSION: * Nonenlarged lymph node corresponding to the BB marker, better characterized on recent ultrasound. Otherwise, no significant soft tissue abnormalities of the neck. 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 Approved by Resident: Bairon Willis DO on 03/30/2025 11:17 AM Solo Mancia have personally reviewed the image(s) and agree with and/or edited the report Finalized by Solo Ibrahim on 03/30/2025 12:32 PM Procedure Note Solo Ibrahim MD - 03/30/2025 EXAM: CT NECK SOFT TISSUE W CONT INDICATION: Swelling, mass, right-sided facial lump COMPARISON: Soft tissue ultrasound of the head and neck 03/15/2025 TECHNIQUE/PROTOCOL: Standard post contrast axial neck CT axial imagesobtained with coronal and sagittal reformats generated. All CT scans at this facility use dose modulation, iterativereconstruction, and/or weight based dosing when appropriate to reduceradiation dose to as low as reasonably achievable. CONTRAST: 100 mL Omnipaque IV. FINDINGS: Suprahyoid Neck: The nasopharynx, oropharynx, oral cavity, parapharyngealspace, and retropharyngeal space are normal. Infrahyoid Neck: The larynx and hypopharynx are normal. Lymph Nodes: No enlarged or abnormal appearing lymph nodes. A BB marker was placed at the palpable area of concern overlying the righttemporal region. Immediately deep to the marker there is a 0.5 cm softtissue observation adjacent to the superficial temporal artery. This isbetter characterized on recent ultrasound as a nonenlarged lymph node withbenign architecture. Salivary Glands: The parotid and submandibular glands are normal. Thyroid: Normal. Brain and Skull Base: The visualized portions of the brain and skull baseare normal. Orbits: Normal. Paranasal Sinuses: Normal. Partially Visualized Thorax: The visualized lung apices and upper thoraxare unremarkable. Vasculature: The visualized major vessels of the neck are normal. Commonorigin of the brachiocephalic and left common carotid arteries, a normalvariant. Bones: No lytic or blastic osseous lesions. Left mandibular head sclerosisand subchondral cysts. IMPRESSION: * Nonenlarged lymph node corresponding to the BB marker, bettercharacterized on recent ultrasound. Otherwise, no significant soft tissueabnormalities of the neck. * Left mandibular head sclerosis with subchondral cysts, compatible withTMJ arthritis. Approved by Resident: Bairon Willis DO on 03/30/2025 11:17 AM ISolo have personally reviewed the image(s) and agree withand/or edited the report Finalized by Solo Ibrahim on 03/30/2025 12:32 PM Solo Sheehan DO IMG CT ORDERABLES Final Res ult documented in this encounter Visit Diagnoses Diagnosis Swelling, mass, or lump on face Swelling, mass, or lump in head and neck documented in this encounter Administered Medications Inactive Administered Medications - up to 3 most recent administrations Medication Order MAR Action Action Date Dose Rate Site iohexoL (OMNIPAQUE) 300 mg iodine/mL 100 mL 100 mL, intravenous, Once in imaging, contrast, Starting on Wed03/28/25 at 1100, For 1 dose, VESICANT (RED) Given 03/28/2025 11:00 AM EDT 100 mL sodium chloride 0.9 % flush 10 mL 10 mL, intravenous, As needed, line care, Starting on Wed03/28/25 at 1100 Given 03/28/2025 11:00 AM EDT 10 mL sodium chloride 0.9 % radiology injection 80 mL, intravenous, Once in imaging, pre/post contrast, Starting on Wed03/28/25 at 1100, For 1 dose Given 03/28/2025 11:00 AM EDT 80 mL documented in this encounter Additional Health Concerns Assessment Noted Time PHQ-9 Depression Total Score: 15 025 6:46 AM EDT A Body Mass Index follow-up plan has been documented for the patient 12/26/2024 8:09 AM EDT documented as of this encounter Care Teams Eddy Current Inspector Relationship Specialty Start Date End Date Jennifer Yarbrough, BOOKBINDING MACHINE OPERATOR-BUSINESS ATTORNEY [address] PM 04/09/25 [place] [id number] PCP - General Family Medicine 04/26/24 documented as of this encounter
--- OUTSIDE RECORDS SUMMARY | 2025-04-03 09:20 | XMS_ITS | Encounter Summary ---
Author Organization [facility] Address [address] [place] [address] Care Team Providers Care Emergency Services Professional Name Role Phone Solo Sheehan DO Unavailable [phone] Agustina Yarbroughe ADELITA Unavailable [phone] Reason for Visit * Reason Comments Lump On Face [facility] Encounter Details Date Type Department Care Team (Late st Contact Info) Description 04/03/2025 9:20 AM EDT Office Visit [facility] [address] [facility] [address] [place] [address] Linda Goss MD [address] [facility] [address] [place], [place] [id number] Chronic parotitis (Primary Dx); Parotid nodule Social History Tobacco Use Types Packs/Day Years Used Date Smoking Tobacco: Never Smokeless Tobacco: Never Tobacco Cessation:Counseling Given: Not Answered Comments:Patient vapes Alcohol Use Standard Drinks/Week Comments Yes 0 (1 standard drink = 0.6 oz pur e alcohol) Occasional Alcohol use Comments Unknown Sex and Gender Information Value Date Recorded Sex Assigned at Not on file Legal Sex Female 6:52 PM EDT Gender Identity Not on file Sexual Orientation Not on file documented as of this encounter Last Filed Vital Signs Vital Sign Reading Time Taken Comments Blood Pressure - - Pulse - - Temperature - - Respiratory Rate - - Oxygen Saturation - - Inhaled Oxygen Concentration - - Weight 121 kg (266 lb) 04/03/2025 9:11 AM EDT Height 167 cm (5' 5.75 ) 04/03/2025 9:11 AM EDT Body Mass Index 43.26 04/03/2025 9:11 AM EDT documented in this encounter Progress Notes * Linda Goss MD - 04/03/2025 9:20 AM EDT Subjective Patient ID: Tomasa Leon is a 30 y.o. female who presents for Lump On Face ([facility] ) Pt reports a couple months ago she noticed a preauricular lump. Has grown somewhat since first noticed. Tx with mult abx. CT neck obtained that shows mult felisa intraparotid LN. Review of Systems All other systems reviewed and are negative. Family History Problem Relation Name Age of Onset Arthritis Mother Mental illness Mother Diabetes Father Testicular cancer Father Active Ambulatory Problems Diagnosis Date Noted Breast lump 03/30/2025 Class 2 obesity 03/30/2025 Depression 03/30/2025 History of tobacco use 10/29/2015 HTN in , chronic ([facility]) 03/12/2016 Astigmatism 04/05/2017 Closed nondisplaced fracture of head of left radius 04/03/2025 Resolved Ambulatory Problems Diagnosis Date Noted No Resolved Ambulatory Problems Past Medical History: Diagnosis Date BMI 38.0-38.9,adult Breast lump in female Lump on face Past Surgical History: Procedure Laterality Date [place] ARTHROSCOPY KNEE DIAGNOSTIC W/WO SYNOVIAL BX SPX 06/2011 [place] ARTHROSCOPY KNEE DIAGNOSTIC W/WO SYNOVIAL BX SPX Right 09/2010 [place] LAP,CHOLECYSTECTOMY 2011 TUBAL LIGATION No Known Allergies Current Outpatient Medications on File Prior to Visit Medication Sig Dispense Refill Cariprazine HCl 1.5 MG capsule Take 1.5 mg by mouth in the morning. cholecalciferol (Vitamin D-3) 125 MCG (5000 UT) tablet Take 5,000 Units by mouth in the morning. cyanocobalamin (Vitamin B-12) 100 MCG tablet Take 100 mcg by mouth Daily DULoxetine (Cymbalta) [address] capsule Take 60 mg by mouth in the morning. FLUoxetine (PROzac) 10 MG capsule Take 10 mg by mouth in the morning. lisinopril 20 MG tablet Take 20 mg by mouth in the morning. magnesium oxide (Mag-Ox) 400 MG tablet Take 400 mg by mouth in the morning. rOPINIRole (Requip) 0.25 MG tablet Take 0.25 mg by mouth at bedtime [DISCONTINUED] citalopram (CeleXA) 20 MG tablet Take 1 tablet (20 mg) by mouth 1 (one) time each day at the same time. 30 tablet 2 [DISCONTINUED] norelgestromin-ethinyl estradiol (Xulane) 150-35 MCG/24HR Place 1 patch on the skin 1 (one) time per week. 3 patch 12 No current facility-administered medications on file prior to visit. Objective Last Recorded Vitals There were no vitals filed for this visit. ENT Physical Exam Constitutional Appearance: patient appears well-developed, well-nourished and well-groomed, Head and Face Appearance: head appears normal and face appears atraumatic; Ear Ear Canals: right ear canal normal; left ear canal normal; Tympanic Membranes: right tympanic membrane normal; left tympanic membrane normal; Nose External Nose: nares patent bilaterally; external nose normal; Internal Nose: septum normal; Oral Cavity/Oropharynx Tongue: normal; Oral mucosa: normal; Hard palate: normal; Soft palate: normal; Tonsils: normal; Neck Neck: neck normal; neck palpation normal; Thyroid: thyroid normal; Respiratory Inspection: breathing unlabored; normal breathing rate; Auscultation: breath sounds are clear; Cardiovascular Inspection: extremities are warm and well perfused; no peripheral edema present; Auscultation: regular rate and rhythm; Assessment/Plan Diagnoses and all orders for this visit: Chronic parotitis Parotid nodule No palpable parotid abnormality and CT normal. I will check a CBC and ESR as pt states nodule tender. I will also plan to repeat the parotid US in 2 mo to evaluate for growth. documented in this encounter Miscellaneous Notes * Addendum Note - Gabbie Ramirez MA - 04/03/2025 9:20 AM EDTAddended by: GABBIE RAMIREZ on: 04/04/2025 03:11 PM Modules accepted: Orders * Addendum Note - Gabbie Ramirez MA - 04/03/2025 9:20 AM EDTAddended by: GABBIE RAMIREZ on: 04/04/2025 03:37 PM Modules accepted: Orders documented in this encounter Plan of Treatment Upcoming Encounters Date Type Department Care Team (Late st Contact Info) Description 06/06/2025 1:00 PM EDT Office Visit [facility] [address] [facility] [address] [place] [address] Linda Goss MD [address] [facility] [address] [place] [address] Scheduled Orders Name Type Priority Associated Diagnoses Orde r Schedule CBC and differential Lab Routine Chronic parotitis Parotid nodule Expected: 04/04/2025 (Approximate), Expires: 04/04/2026 US neck parotid Imaging Routine Chronic parotitis Parotid nodule Expected: 04/04/2025, Expires: 04/04/2026 Sedimentation rate, automated Lab Routine Chronic parotitis Parotid nodule Expected: 04/04/2025 (Approximate), Expires: 04/04/2026 documented as of this encounter Visit Diagnoses Diagnosis Chronic parotitis- Primary Parotid nodule documented in this encounter Care Teams Emergency Services Professional Relationship Specialty Start Date End Date Solo Sehehan DO [address] [place] [address] Referring Physician General Surgery 02/28/25 Jennifer Yarbrough CRNP [address] [facility] [place] [address] Referring Physician Nurse Practitioner 04/03/25 documented as of this encounter
--- OUTSIDE RECORDS SUMMARY | 2025-04-06 20:37 | XMS_ITS | Encounter Summary ---
Author Organization [facility] Address [address] [place] [address] Care Team Providers Care Assistant Professor Of Physics Name Role Phone Solo Sheehan DO Unavailable [phone] Jennifer Yarbrough Unavailable [phone] Encounter Details Date Type Department Care Team (Latest Contact Info) Description 04/03/2025 Travel Social History Tobacco Use Types Packs/Day Years Used Date Smoking Tobacco: Never Smokeless Tobacco: Never Comments:Patient vapes Alcohol Use Standard Drinks/Week Comments Yes 0 (1 standard drink = 0.6 oz pur e alcohol) Occasional Alcohol use Comments Unknown Sex and Gender Information Value Date Recorded Sex Assigned at Not on file Legal Sex Female 6:52 PM EDT Gender Identity Not on file Sexual Orientation Not on file documented as of this encounter Plan of Treatment Upcoming Encounters Date Type Department Care Team (Late st Contact Info) Description 06/06/2025 1:00 PM EDT Office Visit [facility] [address] [facility] [address] [place] [id number] Linda Goss MD [address] [facility] [address] [place], [place] [id number] documented as of this encounter Visit Diagnoses Not on filedocumented in this encounter Care Teams Assistant Professor Of Physics Relationship Specialty Start Date End Date Solo Sheehan DO [address] [place] [id number] Referring Physician General Surgery 02/28/25 Jennifer Yarbrough CRNP [address] [place] [address] Referring Physician Nurse Practitioner 04/03/25 documented as of this encounter
--- OUTSIDE RECORDS SUMMARY | 2025-04-06 20:37 | XMS_ITS | Encounter Summary ---
Author Organization [employer] Address [id number] [place] [address] Care Team Providers Care Shipper/Receiver Name Role Phone ZenonJennifer Nguyễn BARROW WORKER HELPER-SOAKER HELPER Primary Care Provid er Encounter Details Date Type Department Care Team (Late st Contact Info) Description 06/14/2024 [facility] [address] [place] [address] Carol Tobin CMA Social History Tobacco Use Types Packs/Day Years Used Date Smoking Tobacco: Never Smokeless Tobacco: Never Alcohol Use Standard Drinks/Week Comments Not Currently 0 (1 standard drink = 0.6 oz pur e alcohol) PHQ-2 Answer Date Recorded Total Score 0 04/26/2024 Childcare Answer Date Recorded Childcare Unknown 03/22/2019 Employment Answer Date Recorded Employment Unknown 03/22/2019 Hunger Screening Answer Date Recorded Within the past 12 months we worried whether our food would run out before we got money to buy more. Never True 04/26/2024 Within the past 12 months th e food we bought just didn't last and we didn't have money to get more. Never True 04/26/2024 Purpose - Life Answer Date Recorded Purpose and direction in life Unknown Comments No Sex and Gender Information Value Date Recorded Sex Assigned at Not on file Legal Sex Female 5:19 PM EDT Gender Identity Not on file Sexual Orientation Not on file documented as of this encounter Miscellaneous Notes * Telephone Encounter - Carol Tobin CMA - 06/14/2024 11:01 AM EDT [facility] not accept her insurance unless she has changed itsince January documented in this encounter Plan of Treatment Not on file documented as of this encounter Visit Diagnoses Not on filedocumented in this encounter Additional Health Concerns Assessment Noted Time PHQ-9 Depression Total Score: 0 04/26/20 9:47 AM EDT A Body Mass Index follow-up plan has been documented for the patient 05/03/2024 5:45 PM EDT documented as of this encounter Care Teams Shipper/Receiver Relationship Specialty Start Date End Date Jennifer Yarbrough, BARROW WORKER HELPER-SOAKER HELPER [address] LEFT PM 04/09/25 [place] [address] PCP - General Family Medicine 04/26/24 documented as of this encounter
--- OUTSIDE RECORDS SUMMARY | 2025-04-06 20:37 | XMS_ITS | CCD ---
Author Organization [facility] Care Team Providers Care [employer] Ref[employer] Firer Name Role Phone AMAURY, DR GEORGES Bautista Primary Care Unavailable DAVID SILVA Attending Unavailable KELLYTON, DR JOLANTA Grant Consulting Unavailable DAVID SILVA [...] SAM Attending Unavailable JOSELO LEWIS Consulting Unavailable FURLONG, DR GEORGES Bautista Primary Care Unavailable TEO ., DR SAM Consulting Unavailable TEO ., DR SAM Procedure Practitioner Unavail able Zenon GOLD MINER-RELISH BLENDER, Elton Adrian Primary Care Provid er Roxanne GOLD MINER-DIRECTOR OF IN SERVICE EDUCATIONGissel Primary Care Provider ELTON YARBROUGH Referring Unavailable ELTON YARBROUGH Primary Care Unavailable ELTON YARBROUGH Referring Unavailable ZENON, ELTON Adrian Primary Care Unavailable Yarbrough GOLD MINER-RELISH BLENDER, Elton Adrian Primary Care Provid er ELTON YARBROUGH Attending Unavailable GISSEL OLIVEIRA Referring Unavailable ELTON YARBROUGH Primary Care Unavailable ELTON YARBROGUH Attending Unavailable ELTON YARBROUGH Referring Unavailable YARBROUGH, ELTON Adrian Primary Care Unavailable ELTON YARBROUGH Attending Unavailable ELTON YARBROUGH Referring Unavailable YARBROUGH, ELTON Adrian Primary Care Unavailable ELTON YARBROUGH Attending Unavailable ELTON YARBROUGH Referring Unavailable YARBROUGH, ELTON Adrian Primary Care Unavailable ANILA WALTON Attending Unavailable ELTON YARBROUGH Referring Unavailable ELTON YARBROUGH Primary Care Unavailable SIOBHAN RICHARD Attending Unavailable SIOBHAN RICHARD Referring Unavailable ELTON YARBROUGH Primary Care Unavailable ANILA WALTON Attending Unavailable ANILA WALTON Referring Unavailable ELTON YARBROUGH Primary Care Unavailable Anila Walton DO Unavailable [phone] Elton Carty Unavailable CHIKIS GARCIA Attending Unavailable Medications Current Medications Medication Drug Class(es) Dates Sig (Normalized) Sig (Original) amoxicillin 875 mg / clavulanate 125 mg oral tablet (3 sources) Penicillin-class Antibacterial Start: 02-28-2025 End: 03-10-2025 take 1 tablet by mouth once in the morning amoxicillin-pot clavulanate (AUGMENTIN) 875-125 mg per tablet Take 1 tablet by mouth in the morning and 1 tablet before bedtime. Do all this for 10 days. 20 tablet 02/28/2025 03/10/2025 Active cariprazine 1.5 mg oral capsule (14 sources) Atypical Antipsychotic Start: 12-26-2024 End: 03-05-2025 take 1 capsule by mouth in the morning Cariprazine HCl 1.5 MG capsule Take 1.5 mg by mouth in the morning. 03/06/2025 Active cholecalciferol 0.125 mg oral tablet (20 sources) Vitamin D Start: 03-06-2025 take 1 tablet by mouth in the morning cholecalciferol (Vitamin D-3) 125 MCG (5000 UT) tablet Take 5,000 Units by mouth in the morning. 03/06/2025 Active Start: 10-09-2024 End: 03-05-2025 take 1 tablet by mouth once in the morning cholecalciferol, vitamin D3, 5,000 units tablet Indications: Vitamin D deficiency Take 1 tablet (5,000 Units total) by mouth in the morning. 30 each 5 03/06/2025 Active Start: 09-25-2024 take 1 tablet by hermes [...] 30 each 5 08/23/2024 09/22/2024 Discontinued (Reorder) citalopram 20 mg oral tablet (3 sources) Serotonin Reuptake Inhibitor Start: 03-30-2023 End: 04-03-2025 take 1 tablet by mouth once daily citalopram (CeleXA) 20 MG tablet Indications: Major depressive disorder with current active episode, unspecified depression episode severity, unspecified whether recurrent Take 1 tablet (20 mg) by mouth 1 (one) time each day at the same time. 30 tablet 2 03/30/2023 04/03/2025 Discontinued (Therapy completed) DULoxetine 60 mg delayed release oral capsule (20 sources) Serotonin and Norepinephrine Reuptake Inhibitor Start: 10-09-2024 End: 03-05-2025 take 1 capsule by mouth in the morning DULoxetine (Cymbalta) [address] capsule Take 60 mg by mouth in the morning. 03/06/2025 Active Start: 01-16-2024 take 1 capsule by mo [...] 14 days 14 capsule 01/16/2024 01/31/2024 Discontinued 168 hr ethinyl estradiol 0.97784 mg/hr / norelgestromin 0.56841 mg/hr transdermal system (7 sources) Progestin, Estrogen Start: 03-30-2023 End: 04-03-2025 apply 1 dose transdermal route every week norelgestromin-ethinyl estradiol (Xulane) 150-35 MCG/24HR Indications: Encounter for surveillance of contraceptive pills Place 1 patch on the skin 1 (one) time per week. 3 patch 12 03/30/2023 04/03/2025 Discontinued (Therapy completed) FLUoxetine 10 mg oral capsule (20 sources) Serotonin Reuptake Inhibitor Start: 09-25-2024 End: 03-05-2025 take 1 capsule by mouth in the morning FLUoxetine (PROzac) 10 MG capsule Take 10 mg by mouth in the morning. 03/06/2025 Active Start: 08-23-2024 End: 09-22-2024 take 1 capsule by mouth in the morning FLUoxetine (PROzac) 10 mg capsule Indications: Reactive depression Take 1 capsule (10 mg total) by mouth in the morning. 30 capsule 2 08/23/2024 09/22/2024 Discontinued (Reorder) lisinopril 40 mg oral tablet (20 sources) Angiotensin Converting Enzyme Inhibitor Start: 03-20-2025 take 1 tablet by mouth in the morning lisinopriL (PRINIVIL,ZESTRIL) 40 mg tablet Indications: Essential hypertension Take 1 tablet (40 mg total) by mouth in the morning. 90 tablet 1 03/20/2025 Active Start: 10-09-2024 End: 03-20-2025 take 1 tablet by mouth in the morning lisinopriL (PRINIVIL,ZESTRIL) 40 mg tablet Indications: Essential hypertension Take 1 tablet (40 mg total) by mouth in the morning. 90 tablet 1 03/06/2025 03/20/2025 Discontinued (Reorder) Start: 06-26-2024 take 1 tablet [...] 1 tablet by mouth in the morning lisinopril 20 MG tablet Take 20 mg by mouth in the morning. 04/26/2024 Active magnesium oxide 400 mg oral tablet (20 sources) Start: 10-09-2024 End: 03-05-2025 take 1 tablet by mouth in the morning magnesium oxide (Mag-Ox) 400 MG tablet Take 400 mg by mouth in the morning. 03/06/2025 Active Start: 04-27-2024 End: 09-04-2024 take 1 tablet [...] 01/31/2024 Active rOPINIRole 0.25 mg oral tablet (14 sources) Nonergot Dopamine Agonist Start: 12-26-2024 End: 03-05-2025 take 1 tablet by mouth at bedtime rOPINIRole (Requip) 0.25 MG tablet Take 0.25 mg by mouth at bedtime 03/06/2025 Active vitamin b12 0.1 mg oral tablet (2 sources) Vitamin B12 take 1 tablet by mouth once daily cyanocobalamin (Vitamin B-12) 100 MCG tablet Take 100 mcg by mouth Daily Active Completed/Discontinued Medications Medication Drug Class(es) Dates Sig (Normalized) Sig (Original) ibuprofen 800 mg oral tablet (10 sources) [...] Active Problems Problem Classification Problem Date Documented Da te Episodic/Chronic Diseases of mouth; excluding dental (4 sources) Parotitis; Translations: [Chronic sialoadenitis] 04-03-2025 Episodic Essential hypertension (9 sources) Essential hypertension; Translations: [Essential (primary) hypertension] Onset: 04-26-2024 02-28-2024 Chronic Fracture of upper limb (2 sources) Closed fracture of head of radius; Translations: [Nondisplaced fracture of head of left radius, initial encounter for closed fracture] Onset: 04-03-2025 04-03-2025 Episodic Hypertension complicating ; childbirth and the puerperium (20 sources) Pre-existing hypertension in obstetric context; Translations: [Unspecified pre-existing hypertension complicating , unspecified trimester] Onset: 03-12-2016 Resolved: 01-13-2024 02-28-2024 Chronic Mood disorders (20 sources) Reactive depression (situational); Translations: [Major depressive disorder, single episode, unspecified] Onset: 04-26-2024 08-21-2024 Chronic Nonmalignant breast conditions (9 sources) Unspecified lump in unspecified breast; Translations: [Unspecified lump in the right breast, lower outer quadrant] Onset: 01-27-2023 Episodic Nutritional deficiencies (11 sources) Vitamin D deficiency; Translations: [Vitamin D deficiency, unspecified] Onset: 04-26-2024 11-23-2024 Chronic Other congenital anomalies (1 source) Finding of face 02-28-2025 Chronic Other hereditary and degenerative nervous system conditions (4 sources) Restless legs; Translations: [Restless legs syndrome] 12-26-2024 Chronic Other hereditary and degenerative nervous system conditions (1 source) Restless legs syndrome; Translations: [Restless legs syndrome] Onset: 12-26-2024 Chronic Other nervous system disorders (2 sources) Paresthesia of hand ; Translations: [Anesthesia of skin] 04-26-2024 Episodic Other nutritional; endocrine; and metabolic disorders (8 sources) Hypomagnesemia; Translations: [Hypomagnesemia] 11-23-2024 Chronic Other nutritional; endocrine; and metabolic disorders (1 source) Body mass index 40+ - severely obese; Translations: [Body mass index (BMI) 40.0-44.9, adult] 02-15-2024 Chronic Other nutritional; endocrine; and metabolic disorders (1 source) Obesity caused by energy imbalance; Translations: [Other obesity due to excess calories] 01-13-2024 Chronic Other nutritional; endocrine; and metabolic disorders (2 sources) Hypomagnesemia; Translations: [Hypomagnesemia] Onset: 12-26-2024 Chronic Other nutritional; endocrine; and metabolic disorders (1 source) Morbid (severe) obesity due to excess calories; Translations: [Morbid (severe) obesity due to excess calories] Onset: 02-28-2025 Chronic Other nutritional; endocrine; and metabolic disorders (1 source) Body mass index (BMI) 40.0-44.9, adult; Translations: [Body mass index (BMI) 40.0-44.9, adult] Onset: 02-28-2025 Chronic Other nutritional; endocrine; and metabolic disorders (3 sources) Obese class II; Translations: [Class 2 obesity] Onset: 03-30-2025 03-30-2025 Chronic Other skin disorders (2 sources) Finding of face; Translations: [Localized swelling, mass and lump, head] 02-28-2025 Episodic Other skin disorders (2 sources) Localized swelling, mass and lump, head; Translations: [Localized swelling, mass and lump, head] Onset: 02-28-2025 Episodic Unclassified (1 source) CONTACT W/AND (SUSP) EXPOS COVID-19; Translations: [CONTACT W/AND (SUSP) EXPOS COVID-19] Onset: 02-17-2022 Unclassified (1 source) Cyst Onset: 02-28-2025 Unclassified (1 source) Legs jerking, hands shaking x2 months Onset: 12-26-2024 Unclassified (1 source) Breast Mass Onset: 08-23-2024 Unclassified (1 source) Restless Leg Onset: 04-26-2024 Past or Other Problems Problem Classification Problem Date Documented Da te Episodic/Chronic Blindness and vision defects (20 sources) Myopia; Translations: [Myopia, unspecified eye] Onset: 04-05-2017 04-05-2017 Episodic Contraceptive and procreative management (3 sources) Patient encounter status; Translations: [Encounter for other general counseling and advice on contraception] 01-31-2024 Episodic Hypertension complicating ; childbirth and [...] applicable or unspecified; Translations: [MAT CARE EXCSS FT GR 3RD TRI UNS] Onset: 02-09-2022 Episodic Other [...] Translations: [Other muscle spasm] 05-03-2024 Episodic Other connective tissue disease (1 source) Other muscle spasm; Translations: [Other muscle spasm] Onset: 05-03-2024 Episodic Other connective tissue disease (1 source) Hand pain Onset: 05-03-2024 Episodic Other hematologic conditions (1 source) History of anemia; Translations: [Personal history of diseases of the blood and blood-forming organs and certain disorders involving the immune mechanism] 04-26-2024 Episodic Other hematologic conditions (2 sources) Personal [...] health and substance abuse codes (20 sources) Tobacco use and exposure - finding; Translations: [Personal history of nicotine dependence] Onset: 10-29-2015 01-13-2024 Episodic Unclassified (20 sources) Onset: 05-03-2024 Resolved: 12-26-2024 05-03-2024 Results Test Name Value Interpretation Reference Range Facility CT NECK SOFT TISSUE W CONTon 03-30-2025 CT NECK SOFT TISSUE W CONT CT NECK SOFT TISSUE W CONT EXAM: CT NECK SOFT TISSUE W CONT [...] Bairon Willis DO on 03/30/2025 11:17 AM I, Anila Ibrahim have personally reviewed the image(s) and agree with and/or edited the report 1 Finalized by Anila Ibrahim on 03/30/2025 12:32 PM Normal [facility] COMPREHENSIVE METABOLIC PANE Wilver 12-26-2024 Albumin [Mass/Vol] 4.6 g/dL Normal 3.2-5.3 [facility] Comment on above: Performed By: #### C HALEY, , 2132-06 #### [facility] ([id number]) [address], [address] [place] [address] ALP [Catalytic activity/Vol] 88 U/L Normal 39-130 [facility] Comment on above: Performed By: #### C HALEY, , 2132-06 #### [facility] ([id number]) [address], [address] [place] [address] ALT [Catalytic activity/Vol] 99 U/L High 0-31 [facility] Comment on above: Performed By: #### C HALEY, , 2132-06 #### [facility] ([id number]) [address], [address] [place] [address] Anion gap [Moles/Vol] 10 mmol/L Normal 5-15 [facility] Comment on above: Performed By: #### C HALEY, , 2132-06 #### [facility] ([id number]) [address], [address] [place] [address] AST [Catalytic activity/Vol] 192 U/L High 0-41 [facility] Comment on above: Performed By: #### C HALEY, , 2132-06 #### [facility] ([id number]) [address], [address] [place] [address] Bilirubin [Mass/Vol] 0.7 mg/dL Normal 0.3-1.2 [facility] Comment on above: Performed By: #### Kashif DE LEON, , 2132-06 #### [facility] ([id number]) [address], [address] [place] [address] Calcium [Mass/Vol] 10.0 mg/dL Normal 8.5-10.5 [facility] Comment on above: Performed By: #### Kashif DE LEON, , 2132-06 #### [facility] ([id number]) [address], [address] [place] [address] Chloride [Moles/Vol] 94 mmol/L Low 98-109 [facility] Comment on above: Performed By: #### Kashif DE LEON, , 2132-06 #### [facility] ([id number]) [address], [address] [place] [address] CO2 [Moles/Vol] 27 mmol/L Normal 22-32 [facility] Comment on above: Performed By: #### Kashif DE LEON, , 2132-06 #### [facility] ([id number]) [address], [address] [place] [address] Creatinine [Mass/Vol] 0.59 mg/dL Normal 0.40-1.00 [facility] Comment on above: Result Comment: METH OD TRACEABLE TO IDMS STANDARD Performed By: #### Kashif DE LEON, , 2132-06 #### [facility] ([id number]) [address], [address] [place] [address] eGFR (CKD-EPI) NON-RACE DEPENDENT >90 Normal >59 [facility] Comment on above: Result Comment: Reported eGFR is based on the CKD-EPI 2020 equation that does not use a race coefficient. Performed By: #### Kashif DE LEON, , 2132-06 #### [facility] ([id number]) [address], [address] [place] [address] Glucose [Mass/Vol] 117 mg/dL High 65-99 [facility] Comment on above: Performed By: #### Kashif DE LEON, , 2132-06 #### [facility] ([id number]) [address], [address] [place] [address] Potassium [Moles/Vol] 4.3 mmol/L Normal 3.5-5.0 [facility] Comment on above: Performed By: #### Kashif DE LEON, , 2132-06 #### [facility] ([id number]) [address], [address] [place] [address] Protein [Mass/Vol] 8.2 g/dL High 6.0-8.0 [facility] Comment on above: Performed By: #### Kashif DE LEON, , 2132-06 #### [facility] ([id number]) [address], [address] [place] [address] Sodium [Moles/Vol] 131 mmol/L Low 134-146 [facility] Comment on above: Performed By: #### Kashif DE LEON, , 2132-06 #### [facility] ([id number]) [address], [address] [place] [address] Urea nitrogen [Mass/Vol] 10 mg/dL Normal 5-23 [facility] Comment on above: Performed By: #### Kashif DE LEON, , 2132-06 #### [facility] ([id number]) [address], [address] [place] [address] MAGNESIUMon 12-26-2024 Magnesium [Mass/Vol] 1.8 mg/dL Normal 1.8-2.6 [facility] Comment on above: Performed By: #### Kashif DE LEON, , 2132-06 #### [facility] ([id number]) [address], [address] [place] [address] VITAMIN B12on 12-26-2024 Cobalamin (Vitamin B12) [Mass/Vol] 471 pg/mL Normal 180-914 [facility] Comment on above: Performed By: #### C MP, , 2132-06 #### [facility] ([id number]) [address], [address] [place] [address] CBC AND AUTO DIFFon 04-26-20 ABSOLUTE BASOPHIL 0.1 X10E9/L Normal 0.0-0.2 [facility] Comment on above: Performed By: #### C BCA, CMP, FEPR, , 2276-01, 2132-06, 40022-7 #### [facility] ([id number]) [address], [address] [place] [address] ABSOLUTE NEUTROPHIL 5.3 X10E9/L Normal 1.5-6.6 [facility] Comment on above: Performed By: #### C BCA, CMP, FEPR, , 2276-01, 2132-06, 14352-5 #### [facility] ([id number]) [address], [address] [place] [address] Basophils/100 WBC (Bld) 0.8 % Normal [facility] Comment on above: Performed By: #### C BCA, CMP, FEPR, , 2276-01, 2132-06, 08917-8 #### [facility] ([id number]) [address], [address] [place] [address] Eosinophils (Bld) [#/Vol] 0.4 10*3/uL Normal 0.0-0.4 [facility] Comment on above: Performed By: #### C BCA, CMP, FEPR, , 2276-01, 2132-06, 18127-5 #### [facility] ([id number]) [address], [address] [place] [address] Eosinophils/100 WBC (Bld) 4.1 % Normal [facility] Comment on above: Performed By: #### C BCA, CMP, FEPR, 65570-4, 2275-, 2132-06, 11005-4 #### [facility] ([id number]) [address], [address] [place] [address] Erythrocyte distribution width (RBC) [Ratio] 13.6 % Normal 11.5-15.0 [facility] Comment on above: Performed By: #### C BCA, CMP, FEPR, , 2276-01, 2132-06, 29055-9 #### [facility] ([id number]) [address] [place] [address] Hematocrit (Bld) [Volume fraction] 39.2 % Normal 35-47 [facility] Comment on above: Performed By: #### C BCA, CMP, FEPR, , 2276-01, 2132-06, 75251-7 #### [facility] ([id number]) [address] [place] [address] Hemoglobin (Bld) [Mass/Vol] 13.4 g/dL Normal 11.7-15.5 [facility] Comment on above: Performed By: #### C BCA, CMP, FEPR, , 2276-01, 2132-06, 40050-6 #### [facility] ([id number]) [address] [place] [address] Lymphocytes (Bld) [#/Vol] 2.7 10*3/uL Normal 1.0-3.5 [facility] Comment on above: Performed By: #### C BCA, CMP, FEPR, , 2276-01, 2132-06, 86108-2 #### [facility] ([id number]) [address] [place] [address] Lymphocytes/100 WBC (Bld) 30.3 % Normal [facility] Comment on above: Performed By: #### C BCA, CMP, FEPR, 17318-6, 2275-, 2132-06, 21361-5 #### [facility] ([id number]) [address], [address] [place] [address] MCH (RBC) [Entitic mass] 31.4 pg Normal 27-34 [facility] Comment on above: Performed By: #### C BCA, CMP, FEPR, , 2276-01, 2132-06, 41051-4 #### [facility] ([id number]) [address], [address] [place] [address] MCHC (RBC) [Mass/Vol] 34.1 g/dL Normal 32-36 [facility] Comment on above: Performed By: #### C BCA, CMP, FEPR, , 2276-01, 2132-06, 35497-4 #### [facility] ([id number]) [address], [address] [place] [address] MCV (RBC) [Entitic vol] 92 fL Normal 80-100 [facility] Comment on above: Performed By: #### C BCA, CMP, FEPR, , 2276-01, 2132-06, 30632-4 #### [facility] ([id number]) [address], [address] [place] [address] Monocytes (Bld) [#/Vol] 0.4 10*3/uL Normal 0-0.9 [facility] Comment on above: Performed By: #### C BCA, CMP, FEPR, , 2276-01, 2132-06, 49555-5 #### [facility] ([id number]) [address], [address] [place] [address] Monocytes/100 WBC (Bld) 4.1 % Normal [facility] Comment on above: Performed By: #### C BCA, CMP, FEPR, 80473-6, 6-4, 2131-9, 99198-0 #### [facility] ([id number]) [address], [address] [place] [address] Neutrophils/100 WBC (Bld) 60.7 % Normal [facility] Comment on above: Performed By: #### C BCA, CMP, FEPR, 47318-2, 2275-4, 9, 07292-3 #### [facility] ([id number]) [address], [facility] [address] [place] [address] Platelet mean volume (Bld) [Entitic vol] 8.9 fL Normal 7-12 [facility] Comment on above: Performed By: #### C BCA, CMP, FEPR, 07728-3, 2275-, 9, 62888-6 #### [facility] ([id number]) [address], [address] [place] [address] Platelets (Bld) [#/Vol] 266 10*3/uL Normal 150-450 [facility] Comment on above: Performed By: #### C BCA, CMP, FEPR, 25559-3, 2275-4, 9, 99618-1 #### [facility] ([id number]) [address], [address] [place] [address] RBC COUNT 4.26 X10E12/L Normal 3.80-5.20 [facility] Comment on above: Performed By: #### C BCA, CMP, FEPR, 46980-4, 2275-4, 2131-9, 07493-8 #### [facility] ([id number]) [address], [address] [place] [address] WBC (Bld) [#/Vol] 8.8 10*3/uL Normal 4.0-11.0 [facility] Comment on above: Performed By: #### C BCA, CMP, FEPR, 91457-6, 6-4, 2131-9, 31927-1 #### [facility] ([id number]) [address], [address] [place] [address] COMPREHENSIVE METABOLIC PANE [facility] 04-26-2024 Albumin [Mass/Vol] 4.4 g/dL Normal 3.2-5.3 [facility] Comment on above: Performed By: #### C BCA, CMP, FEPR, 34087-3, 2275-4, 2131-9, 11622-6 #### [facility] ([id number]) [address], [address] [place] [address] ALP [Catalytic activity/Vol] 71 U/L Normal 39-130 [facility] Comment on above: Performed By: #### C BCA, CMP, FEPR, 12006-6, 2275-4, 2131-9, 22939-1 #### [facility] ([id number]) [address], [address] [place] [address] ALT [Catalytic activity/Vol] 145 U/L High 0-31 [facility] Comment on above: Performed By: #### C BCA, CMP, FEPR, 42649-5, 2275-4, 2131-9, 83381-5 #### [facility] ([id number]) [address], [address] [place] [address] Anion gap [Moles/Vol] 11 mmol/L Normal 5-15 [facility] Comment on above: Performed By: #### C BCA, CMP, FEPR, 61097-9, 6-4, 2131-9, 67369-4 #### [facility] ([id number]) [address], [address] [place] [address] AST [Catalytic activity/Vol] 157 U/L High 0-41 [facility] Comment on above: Performed By: #### C BCA, CMP, FEPR, , 2276-01, 2132-06, 58518-8 #### [facility] ([id number]) [address], [address] [place] [address] Bilirubin [Mass/Vol] 0.3 mg/dL Normal 0.3-1.2 [facility] Comment on above: Performed By: #### C BCA, CMP, FEPR, , 2276-01, 2132-06, 67711-4 #### [facility] ([id number]) [address] [place] [address] Calcium [Mass/Vol] 9.7 mg/dL Normal 8.5-10.5 [facility] Comment on above: Performed By: #### C BCA, CMP, FEPR, , 2276-01, 2132-06, 52894-5 #### [facility] ([id number]) [address], [address] [place] [address] Chloride [Moles/Vol] 104 mmol/L Normal 98-109 [facility] Comment on above: Performed By: #### C BCA, CMP, FEPR, , 2276-01, 2132-06, 37724-9 #### [facility] ([id number]) [address], [address] [place] [address] CO2 [Moles/Vol] 23 mmol/L Normal 22-32 [facility] Comment on above: Performed By: #### C BCA, CMP, FEPR, , 2276-01, 2132-06, 75796-7 #### [facility] ([id number]) [address], [address] [place] [address] Creatinine [Mass/Vol] 0.56 mg/dL Normal 0.40-1.00 [facility] Comment on above: Result Comment: METH OD TRACEABLE TO IDMS STANDARD Performed By: #### C BCA, CMP, FEPR, , 2276-01, 2132-06, 61864-8 #### [facility] ([id number]) [address], [address] [place] [address] eGFR (CKD-EPI) NON-RACE DEPENDENT >90 Normal >59 [facility] Comment on above: Result Comment: Reported eGFR is based on the CKD-EPI 2020 equation that does not use a race coefficient. Performed By: #### C BCA, CMP, FEPR, , 2276-01, 2132-06, 73890-4 #### [facility] ([id number]) [address], [address] [place] [address] Glucose [Mass/Vol] 118 mg/dL High 65-99 [facility] Comment on above: Performed By: #### C BCA, CMP, FEPR, , 2276-01, 2132-06, 53077-1 #### [facility] ([id number]) [address], [address] [place] [address] Potassium [Moles/Vol] 4.1 mmol/L Normal 3.5-5.0 [facility] Comment on above: Performed By: #### C BCA, CMP, FEPR, , 2276-01, 2132-06, 78022-6 #### [facility] ([id number]) [address], [address] [place] [address] Protein [Mass/Vol] 7.6 g/dL Normal 6.0-8.0 [facility] Comment on above: Performed By: #### C BCA, CMP, FEPR, , 2276-01, 2132-06, 82628-5 #### [facility] ([id number]) [address], [address] [place] [address] Sodium [Moles/Vol] 138 mmol/L Normal 134-146 [facility] Comment on above: Performed By: #### C BCA, CMP, FEPR, , 2276-01, 2131-9, 29162-1 #### [facility] ([id number]) [address], [address] [place] [address] Urea nitrogen [Mass/Vol] 11 mg/dL Normal 5-23 [facility] Comment on above: Performed By: #### C BCA, CMP, FEPR, 28748-5, 2275-4, 2131-9, 44446-6 #### [facility] ([id number]) [address], [address] [place] [address] FERRITINon 04-26-2024 Ferritin [Mass/Vol] 94 ng/mL Normal 11-307 [facility] Comment on above: Performed By: #### C BCA, CMP, FEPR, 96648-9, 2275-4, 2131-9, 69853-0 #### [facility] ([id number]) [address], [address] [place] [address] IRON PROFILEon 04-26-2024 Iron [Mass/Vol] 66 ug/dL Normal 50-170 [facility] Comment on above: Performed By: #### C BCA, CMP, FEPR, 39829-4, 2275-4, 9, 29851-2 #### [facility] ([id number]) [address], [address] [place] [address] IRON BINDING 451 ug/dL High 250-425 [facility] Comment on above: Performed By: #### C BCA, CMP, FEPR, 20525-1, 2275-4, 2131-9, 69200-2 #### [facility] ([id number]) [address], [address] [place] [address] IRON SATURATION 15 % SATURATION Normal 15-50 [facility] Comment on above: Performed By: #### C BCA, CMP, FEPR, 30159-0, 2275-4, 2131-9, 58880-1 #### [facility] ([id number]) [address], [address] [place] [address] MAGNESIUMon 04-26-2024 Magnesium [Mass/Vol] 1.5 mg/dL Low 1.8-2.6 [facility] Comment on above: Performed By: #### C BCA, CMP, FEPR, , 2276-01, 2132-06, 61281-6 #### [facility] ([id number]) [address] [place] [address] VITAMIN B12on 04-26-2024 Cobalamin (Vitamin B12) [Mass/Vol] 416 pg/mL Normal 180-914 [facility] Comment on above: Performed By: #### C BCA, CMP, FEPR, , 2276-01, 2132-06, 70531-1 #### [facility] ([id number]) [address], [address] [place] [address] Vitamin D+Metabolites [Mass/ Vol]on 04-26-2024 VITAMIN D 25 HYD TOT 18.0 ng/mL Low 30-100 [facility] Comment on above: Result Comment: Vitamin D status 25 [place] Vitamin D Deficiency <20 ng/mL Insufficiency 20-29 ng/mL Sufficiency 30-100 ng/mL Toxicity >100 ng/mL NOTE: A pediatric reference range has not been established by the property developer of this kit. The [place] [employer] recommends a Vitamin D level of = or >20ng/mL in infants and children. Performed By: #### C BCA, CMP, FEPR, , 2276-01, 2132-06, 37527-5 #### [facility] ([id number]) [address] [place] [address] Basic Metabolic Panelon 05- Anion gap [Moles/Vol] 9 mmol/L 5 - 15 mmol/L [facility] Calcium [Mass/Vol] 9.1 mg/dL 8.5 - 10. 5 mg/dL [facility] Chloride [Moles/Vol] 103 mmol/L 98 - 109 mmol/L [facility] CO2 [Moles/Vol] 26 mmol/L 22 - 32 mmol/L [facility] Creatinine [Mass/Vol] 0.49 mg/dL 0.40 - 1.00 mg/dL [facility] Comment on above: METHOD TRACEABLE TO [facility] STANDARD eGFR (CKD-EPI)non-race dependent - PINF [facility] Comment on above: Reported eGFR is based on the CKD-EPI 2020 equation that does not use a race coefficient. Glucose [Mass/Vol] 99 mg/dL 65 - 99 mg/dL [facility] Potassium [Moles/Vol] 3.8 mmol/L 3.5 - 5.0 mmol/L [facility] Sodium [Moles/Vol] 138 mmol/L 134 - 146 mmol/L [facility] Urea nitrogen [Mass/Vol] 11 mg/dL 5 - 23 mg/dL [facility] CBC auto differentialon 05-1 Basophils (Bld) [#/Vol] 0.0 10*3/uL [facility] Basophils/100 WBC (Bld) 0.5 % [facility] Eosinophils (Bld) [#/Vol] 0.4 10*3/uL [facility] Eosinophils/100 WBC (Bld) 4.6 % [facility] Erythrocyte distribution width (RBC) [Ratio] 12.9 % 11.5 - 15.0 % [facility] Hematocrit (Bld) [Volume fraction] 38.9 % 35 - 47 % [facility] Hemoglobin (Bld) [Mass/Vol] 13.0 g/dL 11.7 - 15.5 g/dL [facility] Lymphocytes (Bld) [#/Vol] 2.9 10*3/uL [facility] Lymphocytes/100 WBC (Bld) 31.5 % [facility] MCH (RBC) [Entitic mass] 30.1 pg 27 - 34 pg [facility] MCHC (RBC) [Mass/Vol] 33.3 g/dL 32 - 36 g/dL [facility] MCV (RBC) [Entitic vol] 90 fL 80 - 100 fL [facility] Monocytes (Bld) [#/Vol] 0.5 10*3/uL [facility] Monocytes/100 WBC (Bld) 5.5 % [facility] Neutrophils (Bld) [#/Vol] 5.3 10*3/uL [facility] Neutrophils/100 WBC (Bld) 57.9 % [facility] Platelet mean volume (Bld) [Entitic vol] 9.0 fL 7 - 12 fL [facility] Platelets (Bld) [#/Vol] 273 10*3/uL [facility] RBC (Bld) [#/Vol] 4.30 10*6/uL [facility] WBC corrected for nucl RBC Auto (Bld) [#/Vol] 9.1 [facility] ECG 12 leadon 02-21-2024 TRACEMASTERVUE [facility] MG MAMM DIAGNOSTIC 3D FELISA CA Don 01-27-2023 MG MAMM DIAGNOSTIC 3D FELISA CAD Patient: JUDIE RODRIGUEZ Exam Date: 01/27/2023 : 1995 Gender:F Ordering : FATOU BOBBY . Admission #: [id number] Family : Order #: [id number] CLICK HERE TO VIEW EXAM RADIOLOGY REPORT PROCEDURE: MAMMOGRAM DIAGNOSTIC 3D BILATERAL CAD, 01/27/2023, 13:46 ULTRASOUND BREAST RIGHT LIMITED, 01/27/2023, 14:23 COMPARISON: None. INDICATIONS: Breast lump Calculator Name NCI Breast Cancer Risk Assessment Tool 5 Year Breast Cancer Risk Not Applicable. Lifetime Breast Cancer Risk Not Applicable. Personal Breast Cancer No Personal Ovarian Cancer No Treatments None Family Cancers None LOCATION: [facility] BREAST COMPOSITION: Scattered areas fibroglandular density. [...] M.D. on 01/27/2023 at 15:02 Normal [facility] US BREAST RIGHT LIMITEDon US BREAST RIGHT LIMITED Patient: JUDIE RODRIGUEZ Exam Date: 01/27/2023 : 1995 Gender:F Ordering : FATOU BOBBY . Admission #: [id number] Family : Order #: [id number] CLICK HERE TO VIEW EXAM RADIOLOGY REPORT PROCEDURE: MAMMOGRAM DIAGNOSTIC 3D BILATERAL CAD, 01/27/2023, 13:46 ULTRASOUND BREAST RIGHT LIMITED, 01/27/2023, 14:23 COMPARISON: None. INDICATIONS: Breast lump Calculator Name NCI Breast Cancer Risk Assessment Tool 5 Year Breast Cancer Risk Not Applicable. Lifetime Breast Cancer Risk Not Applicable. Personal Breast Cancer No Personal Ovarian Cancer No Treatments None Family Cancers None LOCATION: [facility] BREAST COMPOSITION: Scattered areas fibroglandular density. [...] Baldwin M.D. on 01/27/2023 at 15:02 Normal [facility] PROTEIN 24HR URINEon 022 T PROT, 24 HR UR 554.3 mg/24 hr Critically high <=149.1 [facility] Comment on above: Performed By: #### P [id number] #### [facility] [address] [address] [address] Zainab John UR PROT 24.1 mg/dL Critically high <=11.9 [facility] Comment on above: Performed By: #### P ROT24U #### [facility] [address] [address] [address] Zainab John UR TOT VOL 2300 ml/24 HR Normal [facility] Comment on above: Performed By: #### P ROT24U #### [facility] [address] [place] [address] Dr. Zainab John UA (CLEAN/CATCH) SENIOR SHAREPOINT DEVELOPER/MICRO I F IND.on 02-12-2022 Bilirubin Ql (U) Negative Normal NEGATIVE [facility] Comment on above: Performed By: #### T NS #### [facility] [address] [place] [address] Dr. Zainab John Clarity (U) CLEAR Normal CLEAR [facility] Comment on above: Performed By: #### T NS #### [facility] [address] [place] [address] Dr. Zainab John Color (U) LT. YELLOW Normal YELLOW [facility] Comment on above: Performed By: #### T NS #### [facility] [address] [place] [address] Dr. Zainab John Glucose Ql (U) Negative Normal NEGATIVE [facility] Comment on above: Performed By: #### T NS #### [facility] [address] [place] [address] Dr. Zainab John Hemoglobin Ql (U) LARGE Abnormal NEGATIVE [facility] Comment on above: Performed By: #### T NS #### [facility] [address] [place] [address] Dr. Zainab John Ketones Ql (U) Negative Normal NEGATIVE [facility] Comment on above: Performed By: #### T NS #### [facility] [address] [place] [address] Dr. Zainab John LEUKOCYTES Negative Normal NEGATIVE [facility] Comment on above: Performed By: #### T NS #### [facility] [address] [place] [address] Dr. Zainab John Nitrite Ql (U) Negative Normal NEGATIVE [facility] Comment on above: Performed By: #### T NS #### [facility] [address] [place] [address] Dr. Zainab John pH (U) 5.5 [pH] Normal 5-9 [facility] Comment on above: Performed By: #### T NS #### [facility] [address] [place] [address] Dr. Zainab John SPEC GRAVITY 1.030 Abnormal 1.005-<=1.025 [facility] Comment on above: Performed By: #### T NS #### [facility] [address] [place] [address] Dr. Zainab John UA PROTEIN Negative Normal NEGATIVE/ TRACE [facility] Comment on above: Performed By: #### T NS #### [facility] [address] [place] [address] Dr. Zainab John UR MICRO IND INDICATED Normal [facility] Comment on above: Performed By: #### T NS #### [facility] [address] [place] [address] Dr. Zainab John Urobilinogen Qn (U) 0.2 {Sarabjit'U}/dL Normal 0.2 - 1. 0 [facility] Comment on above: Performed By: #### T NS #### [facility] [address] [place] [address] Dr. Zainab John URINE MICROSCOPIC ONLYon BACTERIA NONE SEEN Normal NONE SEEN [facility] Comment on above: Performed By: #### T NS #### [facility] [address] [place] [address] Dr. Zainab John Bacteria identified Cx Nom (U) NOT INDICATED Normal [facility] Comment on above: Performed By: #### T NS #### [facility] [address] [place] [address] Dr. Zainab John CAST NONE SEEN Normal NONE SEEN [facility] Comment on above: Performed By: #### T NS #### [facility] [address] [place] [address] Dr. Zainab John Crystals LM Nom (Urine sed) NONE SEEN Normal NONE SEEN [facility] Comment on above: Performed By: #### T NS #### [facility] [address] [place] [address] Dr. Zainab John Epithelial cells LM Ql (Urine sed) RARE Normal NONE SEEN /RARE [facility] Comment on above: Performed By: #### T NS #### [facility] [address] [place] [address] Dr. Zainab John MUCOUS NONE SEEN Normal NONE SEEN [facility] Comment on above: Performed By: #### T NS #### [facility] [address] [place] [address] Dr. Zainab John RBC 20-50 Abnormal 0-2 [facility] Comment on above: Performed By: #### T NS #### [facility] [address] [place] [address] Dr. Zainab John WBC 0-2 Abnormal NONE SEEN [facility] Comment on above: Performed By: #### T NS #### [facility] [address] [place] [address] Dr. Zainab John CBC AUTO DIFFon 02-11-2022 BASO # 0.0 103/ul Normal 0.0-0.1 [facility] Comment on above: Performed By: #### C BC #### [facility] [address] [place] [address] Dr. Zainab John Basophils/100 WBC (Bld) 0.4 % Normal 0.2-2.0 [facility] Comment on above: Performed By: #### C BC #### [facility] [address] [place] [address] Dr. Zainab John EO # 0.3 103/ul Normal 0.0-0.7 [facility] Comment on above: Performed By: #### C BC #### [facility] [address] [place] [address] Dr. Zainab John Eosinophils/100 WBC (Bld) 2.5 % Normal 0.9-7.0 [facility] Comment on above: Performed By: #### C BC #### [facility] [address] [place] [address] Dr. Zainab John Erythrocyte distribution width (RBC) [Ratio] 13.2 % Normal 11.0-15.0 [facility] Comment on above: Performed By: #### C BC #### [facility] [address] [address] [address] Zainab John Hematocrit (Bld) [Volume fraction] 27.8 % Critically low 36.0-48.0 [facility] Comment on above: Performed By: #### C BC #### [facility] [address] [place] [address] Dr. Zainab John Hemoglobin (Bld) [Mass/Vol] 9.3 g/dL Critically low 12.0-16.0 [facility] Comment on above: Performed By: #### C BC #### [facility] [address] [place] [address] Dr. Zainab John IG # 0.08 10e3/ul Critically high 0.00-0.03 [facility] Comment on above: Performed By: #### C BC #### [facility] [address] [place] [address] Dr. Zainab John IG % 0.7 % Critically high 0.0-0.5 [facility] Comment on above: Performed By: #### C BC #### [facility] [address] [place] [address] Dr. Zainab John LYMPH # 2.7 103/ul Normal 1.2-3.8 [facility] Comment on above: Performed By: #### C BC #### [facility] [address] [place] [address] Dr. Zainab John Lymphocytes/100 WBC (Bld) 23.6 % Normal 20.5-60.0 [facility] Comment on above: Performed By: #### C BC #### [facility] [address] [place] [address] Dr. Zainab John MANUAL DIFF REQ NO Normal [facility] Comment on above: Performed By: #### C BC #### [facility] [address] [place] [address] Dr. Zainab John MCH (RBC) [Entitic mass] 29.6 pg Normal 26.7-34.0 [facility] Comment on above: Performed By: #### C BC #### [facility] [address] [place] [address] Dr. Zainab John MCHC (RBC) [Mass/Vol] 33.5 g/dL Normal 29.9-35.2 [facility] Comment on above: Performed By: #### C BC #### [facility] [address] [address] [address] Zainab John MCV (RBC) [Entitic vol] 88.5 fL Normal 81.0-99.0 [facility] Comment on above: Performed By: #### C BC #### [facility] [address] [address] [address] Zainab John MONO # 0.6 103/ul Normal 0.3-0.8 [facility] Comment on above: Performed By: #### C BC #### [facility] [address] [address] [address] Zainab John Monocytes/100 WBC (Bld) 5.1 % Normal 1.7-12.0 [facility] Comment on above: Performed By: #### C BC #### [facility] [address] [address] [address] Zainab John NEUT # 7.7 103/ul Critically high 1.4-6.5 [facility] Comment on above: Performed By: #### C BC #### [facility] [address] [address] [address] Zainab John Neutrophils/100 WBC (Bld) 67.7 % Normal 43.0-75.0 [facility] Comment on above: Performed By: #### C BC #### [facility] [address] [address] [address] Zainab John Platelet mean volume (Bld) [Entitic vol] 10.7 fL Normal 9.5-13.5 [facility] Comment on above: Performed By: #### C BC #### [facility] [address] [address] [address] Zainab John PLT 267 103/ul Normal 150-450 [facility] Comment on above: Performed By: #### C BC #### [facility] [address] [address] [address] Zainab John RBC 3.14 106/ul Critically low 4.20-5.40 [facility] Comment on above: Performed By: #### C BC #### [facility] [address] [place] [address] Dr. Zainab John WBC 11.4 103/ul Critically high 4.0-11.0 [facility] Comment on above: Performed By: #### C BC #### [facility] [address] [place] [address] Dr. Zainab John LDHon 02-11-2022 LDH 214 U/L Normal 81-234 [facility] Comment on above: Performed By: #### T NS #### [facility] [address] [place] [address] Dr. Zainab John PROF 14(COMP METB)on 022 Albumin [Mass/Vol] 2.4 g/dL Critically low 3.4-5.0 [facility] Comment on above: Performed By: #### T NS #### [facility] [address] [place] [address] Dr. Zainab John Albumin/Globulin [Mass ratio] 0.7 {ratio} Normal [facility] Comment on above: Performed By: #### T NS #### [facility] [address] [place] [address] Dr. Zainab John ALP [Catalytic activity/Vol] 98 U/L Normal 46-116 [facility] Comment on above: Performed By: #### T NS #### [facility] [address] [place] [address] Dr. Zainab John ALT [Catalytic activity/Vol] 12 U/L Critically low 14-59 [facility] Comment on above: Performed By: #### T NS #### [facility] [address] [place] [address] Dr. Zainab John Anion gap [Moles/Vol] 15.4 mmol/L Normal [facility] Comment on above: Performed By: #### T NS #### [facility] [address] [place] [address] Dr. Zainab John AST [Catalytic activity/Vol] 20 U/L Normal 15-37 [facility] Comment on above: Performed By: #### T NS #### [facility] [address] [place] [address] Dr. Zainab John Bilirubin [Mass/Vol] 0.1 mg/dL Critically low 0.2-1.0 [facility] Comment on above: Performed By: #### T NS #### [facility] [address] [place] [address] Dr. Zainab John Calcium [Mass/Vol] 8.1 mg/dL Critically low 8.5-10.1 [facility] Comment on above: Performed By: #### T NS #### [facility] [address] [place] [address] Dr. Zainab John Chloride [Moles/Vol] 102 mmol/L Normal 98-107 [facility] Comment on above: Performed By: #### T NS #### [facility] [address] [place] [address] Dr. Zainab John CO2 [Moles/Vol] 24.2 mmol/L Normal 21.0-32.0 [facility] Comment on above: Performed By: #### T NS #### [facility] [address] [place] [address] Dr. Zainab John Creatinine [Mass/Vol] 0.52 mg/dL Critically low 0.55-1.02 [facility] Comment on above: Performed By: #### T NS #### [facility] [address] [place] [address] Dr. Zainab John EGFR-AF EGYPTIAN >60 Normal >=60 [facility] Comment on above: Performed By: #### T NS #### [facility] [address] [place] [address] Dr. Zainab John EGFR-NON AF EGYPTIAN >60 Normal >=60 [facility] Comment on above: Performed By: #### T NS #### [facility] [address] [place] [address] Dr. Zainab John Globulin (S) [Mass/Vol] 3.4 g/dL Normal [facility] Comment on above: Performed By: #### T NS #### [facility] [address] [address] [address] Zainab John Glucose [Mass/Vol] 91 mg/dL Normal 74-106 [facility] Comment on above: Performed By: #### T NS #### [facility] [address] [address] [address] Zainab John Potassium [Moles/Vol] 3.6 mmol/L Normal 3.5-5.1 [facility] Comment on above: Performed By: #### T NS #### [facility] [address] [address] [address] Zainab John Protein [Mass/Vol] 5.8 g/dL Critically low 6.1-8.2 [facility] Comment on above: Performed By: #### T NS #### [facility] [address] [place] [address] Dr. Zainab John Sodium [Moles/Vol] 138 mmol/L Normal 136-145 [facility] Comment on above: Performed By: #### T NS #### [facility] [address] [place] [address] Dr. Zainab John Urea nitrogen [Mass/Vol] 8.0 mg/dL Normal 7.0-18.0 [facility] Comment on above: Performed By: #### T NS #### [facility] [address] [address] [address] Zainab John Urea nitrogen/Creatinine [Mass ratio] 15.4 mg/mg Normal [facility] Comment on above: Performed By: #### T NS #### [facility] [address] [address] [address] Zainab John URIC ACID SERUMon 02-11-2022 Urate [Mass/Vol] 5.2 mg/dL Normal 2.5-6.2 [facility] Comment on above: Performed By: #### U TRUPTI, LDH, CMP #### [facility] [address] [address] [address] Zainab John CBC AUTO DIFFon 02-10-2022 BASO # 0.0 103/ul Normal 0.0-0.1 [facility] Comment on above: Performed By: #### C BC #### [facility] [address] [place] [address] Dr. Zainab John Basophils/100 WBC (Bld) 0.3 % Normal 0.2-2.0 [facility] Comment on above: Performed By: #### C BC #### [facility] [address] [place] [address] Dr. Zainab John EO # 0.1 103/ul Normal 0.0-0.7 [facility] Comment on above: Performed By: #### C BC #### [facility] [address] [place] [address] Dr. Zainab John Eosinophils/100 WBC (Bld) 1.1 % Normal 0.9-7.0 [facility] Comment on above: Performed By: #### C BC #### [facility] [address] [place] [address] Dr. Zainab John Erythrocyte distribution width (RBC) [Ratio] 13.1 % Normal 11.0-15.0 [facility] Comment on above: Performed By: #### C BC #### [facility] [address] [place] [address] Dr. Zainab John Hematocrit (Bld) [Volume fraction] 27.9 % Critically low 36.0-48.0 [facility] Comment on above: Performed By: #### C BC #### [facility] [address] [place] [address] Dr. Zainab John Hemoglobin (Bld) [Mass/Vol] 9.4 g/dL Critically low 12.0-16.0 [facility] Comment on above: Performed By: #### C BC #### [facility] [address] [place] [address] Dr. Zainab John IG # 0.05 10e3/ul Critically high 0.00-0.03 [facility] Comment on above: Performed By: #### C BC #### [facility] [address] [place] [address] Dr. Zainab John IG % 0.4 % Normal 0.0-0.5 [facility] Comment on above: Performed By: #### C BC #### [facility] [address] [place] [address] Dr. Zainab John LYMPH # 2.6 103/ul Normal 1.2-3.8 [facility] Comment on above: Performed By: #### C BC #### [facility] [address] [place] [address] Dr. Zainab John Lymphocytes/100 WBC (Bld) 22.1 % Normal 20.5-60.0 [facility] Comment on above: Performed By: #### C BC #### [facility] [address] [place] [address] Dr. Zainab John MANUAL DIFF REQ NO Normal [facility] Comment on above: Performed By: #### C BC #### [facility] [address] [place] [address] Dr. Zainab John MCH (RBC) [Entitic mass] 30.1 pg Normal 26.7-34.0 [facility] Comment on above: Performed By: #### C BC #### [facility] [address] [place] [address] Dr. Zainab John MCHC (RBC) [Mass/Vol] 33.7 g/dL Normal 29.9-35.2 [facility] Comment on above: Performed By: #### C BC #### [facility] [address] [place] [address] Dr. Zainab John MCV (RBC) [Entitic vol] 89.4 fL Normal 81.0-99.0 [facility] Comment on above: Performed By: #### C BC #### [facility] [address] [place] [address] Dr. Zainab John MONO # 0.9 103/ul Critically high 0.3-0.8 [facility] Comment on above: Performed By: #### C BC #### [facility] [address] [place] [address] Dr. Zainab John Monocytes/100 WBC (Bld) 7.7 % Normal 1.7-12.0 [facility] Comment on above: Performed By: #### C BC #### [facility] [address] [address] [address] Zainab John NEUT # 8.1 103/ul Critically high 1.4-6.5 [facility] Comment on above: Performed By: #### C BC #### [facility] [address] [address] [address] Zainab John Neutrophils/100 WBC (Bld) 68.4 % Normal 43.0-75.0 [facility] Comment on above: Performed By: #### C BC #### [facility] [address] [address] [address] Zainab John Platelet mean volume (Bld) [Entitic vol] 10.4 fL Normal 9.5-13.5 [facility] Comment on above: Performed By: #### C BC #### [facility] [address] [place] [address] Dr. Zainab John PLT 224 103/ul Normal 150-450 [facility] Comment on above: Performed By: #### C BC #### [facility] [address] [address] [address] Zainab John RBC 3.12 106/ul Critically low 4.20-5.40 [facility] Comment on above: Performed By: #### C BC #### [facility] [address] [address] [address] Zainab John WBC 11.8 103/ul Critically high 4.0-11.0 [facility] Comment on above: Performed By: #### C BC #### [facility] [address] [address] [address] Zainab John CBC AUTO DIFFon 02-09-2022 BASO # 0.0 103/ul Normal 0.0-0.1 [facility] Comment on above: Performed By: #### C BC #### [facility] [address] [address] [address] Zainab John Basophils/100 WBC (Bld) 0.3 % Normal 0.2-2.0 [facility] Comment on above: Performed By: #### C BC #### [facility] [address] [address] [address] Zainab John EO # 0.2 103/ul Normal 0.0-0.7 [facility] Comment on above: Performed By: #### C BC #### [facility] [address] [place] [address] Dr. Zainab John Eosinophils/100 WBC (Bld) 1.1 % Normal 0.9-7.0 [facility] Comment on above: Performed By: #### C BC #### [facility] [address] [place] [address] Dr. Zainab John Erythrocyte distribution width (RBC) [Ratio] 12.9 % Normal 11.0-15.0 [facility] Comment on above: Performed By: #### C BC #### [facility] [address] [place] [address] Dr. Zainab John Hematocrit (Bld) [Volume fraction] 32.9 % Critically low 36.0-48.0 [facility] Comment on above: Performed By: #### C BC #### [facility] [address] [place] [address] Dr. Zainab John Hemoglobin (Bld) [Mass/Vol] 11.3 g/dL Critically low 12.0-16.0 [facility] Comment on above: Performed By: #### C BC #### [facility] [address] [place] [address] Dr. Zainab John IG # 0.07 10e3/ul Critically high 0.00-0.03 [facility] Comment on above: Performed By: #### C BC #### [facility] [address] [place] [address] Dr. Zainab John IG % 0.5 % Normal 0.0-0.5 [facility] Comment on above: Performed By: #### C BC #### [facility] [address] [place] [address] Dr. Zainab John LYMPH # 2.8 103/ul Normal 1.2-3.8 [facility] Comment on above: Performed By: #### C BC #### [facility] [address] [place] [address] Dr. Zainab John Lymphocytes/100 WBC (Bld) 21.5 % Normal 20.5-60.0 [facility] Comment on above: Performed By: #### C BC #### [facility] [address] [place] [address] Dr. Zainab John MANUAL DIFF REQ NO Normal [facility] Comment on above: Performed By: #### C BC #### [facility] [address] [place] [address] Dr. Zainab John MCH (RBC) [Entitic mass] 29.9 pg Normal 26.7-34.0 [facility] Comment on above: Performed By: #### C BC #### [facility] [address] [place] [address] Dr. Zainab John MCHC (RBC) [Mass/Vol] 34.3 g/dL Normal 29.9-35.2 [facility] Comment on above: Performed By: #### C BC #### [facility] [address] [place] [address] Dr. Zainab John MCV (RBC) [Entitic vol] 87.0 fL Normal 81.0-99.0 [facility] Comment on above: Performed By: #### C BC #### [facility] [address] [place] [address] Dr. Zainab John MONO # 0.9 103/ul Critically high 0.3-0.8 [facility] Comment on above: Performed By: #### C BC #### [facility] [address] [place] [address] Dr. Zainab John Monocytes/100 WBC (Bld) 6.5 % Normal 1.7-12.0 [facility] Comment on above: Performed By: #### C BC #### [facility] [address] [place] [address] Dr. Zainab John NEUT # 9.3 103/ul Critically high 1.4-6.5 [facility] Comment on above: Performed By: #### C BC #### [facility] [address] [address] [address] Zaniab John Neutrophils/100 WBC (Bld) 70.1 % Normal 43.0-75.0 [facility] Comment on above: Performed By: #### C BC #### [facility] [address] [address] [address] Zainab John Platelet mean volume (Bld) [Entitic vol] 10.1 fL Normal 9.5-13.5 [facility] Comment on above: Performed By: #### C BC #### [facility] [address] [place] [address] Dr. Zainab John PLT 271 103/ul Normal 150-450 [facility] Comment on above: Performed By: #### C BC #### [facility] [address] [place] [address] Dr. Zainab John RBC 3.78 106/ul Critically low 4.20-5.40 [facility] Comment on above: Performed By: #### C BC #### [facility] [address] [place] [address] Dr. Zainab John WBC 13.2 103/ul Critically high 4.0-11.0 [facility] Comment on above: Performed By: #### C BC #### [facility] [address] [place] [address] Dr. Zainab John Covid-19 PCR ([facility])on SARS-CoV-2 (COVID-19) RNA PAOLA+probe Ql (Unsp spec) Not detected Normal NOT DETECTED [facility] Comment on above: Result Comment: When [...] for this test is supported by the Mat Worker of Health and Human Service's declaration that [...] used). Performed By: #### C VDTBH #### [facility] [address] [place] [address] Dr. Zainab John DRUG SCREEN RAPID (URINE)on 02-09-2022 AMP Negative Normal NEGATIVE [facility] Comment on above: Performed By: #### D RUGRPD #### [facility] [address] [place] [address] Dr. Zainab John BAR Negative Normal NEGATIVE [facility] Comment on above: Performed By: #### D RUGRPD #### [facility] [address] [place] [address] Dr. Zainab John BUP Negative Normal NEGATIVE [facility] Comment on above: Performed By: #### D RUGRPD #### [facility] [address] [place] [address] Dr. Zainab John BZO Negative Normal NEGATIVE [facility] Comment on above: Performed By: #### D RUGRPD #### [facility] [address] [place] [address] Dr. Zainab John BRISA Negative Normal NEGATIVE [facility] Comment on above: Performed By: #### D RUGRPD #### [facility] [address] [place] [address] Dr. Zainab John CUT-OFFS SEE BELOW Normal [facility] Comment on above: Result Comment: AMP [...] ng/mL Performed By: #### D RUGRPD #### [facility] [address] [place] [address] Dr. Zainab John DRUG CUT HEADER DRUG CLASS TEST SYSTEM CUT-OFF CONCENTRATIONS ARE FOLLOWS: Normal [facility] Comment on above: Performed By: #### D RUGRPD #### [facility] [address] [place] [address] Dr. Zainab John mAMP Negative Normal NEGATIVE [facility] Comment on above: Performed By: #### D RUGRPD #### [facility] [address] [place] [address] Dr. Zainab John MTD Negative Normal NEGATIVE [facility] Comment on above: Performed By: #### D RUGRPD #### [facility] [address] [place] [address] Dr. Zainba John OPI Negative Normal NEGATIVE [facility] Comment on above: Performed By: #### D RUGRPD #### [facility] [address] [place] [address] Dr. Zainab John OXY Negative Normal NEGATIVE [facility] Comment on above: Performed By: #### D RUGRPD #### [facility] [address] [place] [address] Dr. Zainab John PCP Negative Normal NEGATIVE [facility] Comment on above: Performed By: #### D RUGRPD #### [facility] [address] [place] [address] Dr. Zainab John PPX Negative Normal NEGATIVE [facility] Comment on above: Performed By: #### D RUGRPD #### [facility] [address] [place] [address] Dr. Zainab John TCA Negative Normal NEGATIVE [facility] Comment on above: Performed By: #### D RUGRPD #### [facility] [address] [place] [address] Dr. Zainab John THC Negative Normal NEGATIVE [facility] Comment on above: Performed By: #### D RUGRPD #### [facility] [address] [address] [address] Zainab John TYPE AND SCREENon 02-09-2022 TYPE AND SCREEN Antibody Screen NEGATIVE ABO Rh Typing O Rh Positive Blood Bank Notes performed by [facility] Comment on above: Performed By: #### T NS #### [facility] [address] [address] [address] Zainab John US PREG BIOPHY W [...] authenticated by: JOLANTA REYNOLDS Date: 2022 16:57 [facility] Vital Signs Date Time Vital Sign Value Performing Clinician Facility 04-03-2025 09:11-0400 Body height 167 cm Chikis Garcia MD Work Phone: [facility] 04-03-2025 09:11-0400 Body mass index (BMI) [Ratio] 43.26 kg/m2 Chikis Garcia MD Work Phone: [facility] 04-03-2025 [id number] Body weight 120.66 kg Chikis Garcia MD Work Phone: [facility] 12-26-2024 06:49-0400 Body height 167 cm Elton Yarbrough APRN-[employer]ISH [employer]ER Work Phone: [facility] 12-26-2024 06:49-0400 Body mass index (BMI) [Ratio] 42.12 kg/m2 Elton Yarbrough APRN-[employer]ISH [employer]ER Work Phone: [facility] 12-26-2024 06:49-0400 Body temperature 97.81 [degF] Elton Yarbrough APRN-SONALI Work Phone: [facility] 12-26-2024 06:49-0400 Body weight 117.48 kg Elton Yarbrough APRN-SONALI Work Phone: [facility] [employer] 12-26-2024 06:49-0400 Diastolic blood pressure 70 mm[Hg] Elton Yarbrough APRN-SONALI Work Phone: [facility] [employer] 12-26-2024 06:49-0400 Heart rate 108 /min Elton Yarbrough APRN-SONALI Work Phone: [facility] [employer] 12-26-2024 06:49-0400 Respiratory rate 18 /min Elton Yarbrough APRN-SONALI Work Phone: [facility] [employer] 12-26-2024 06:49-0400 SaO2% (BldA) [Mass fraction] 99 % Elton Yarbrough APRN-SONALI Work Phone: [facility] [employer] 12-26-2024 06:49-0400 Systolic blood pressure 120 mm[Hg] Elton Yarbrough APRN-SONALI Work Phone: [facility] [employer] 08-23-2024 13:40-0500 Body height 167 cm Elton Yarbrough APRN-SONALI Work Phone: [facility] [employer] 08-23-2024 13:40-0500 Body mass index (BMI) [Ratio] 41.7 kg/m2 Elton Yarbrough APRN-SONALI Work Phone: [facility] [employer] 08-23-2024 13:40-0500 Body temperature 98.01 [degF] Elton Yarbrough APRN-SONALI Work Phone: [facility] [employer] 08-23-2024 13:40-0500 Body weight 116.3 kg Elton Yarbrough APRN-SONALI Work Phone: [facility] [employer] 08-23-2024 13:40-0500 Diastolic blood pressure 78 mm[Hg] Elton Yarbrough APRN-[employer]ISH [employer]ER Work Phone: [facility] [employer] 08-23-2024 13:40-0500 Heart rate 90 /min Elton Yarbrough APRN-[employer]ISH [employer]ER Work Phone: [facility] 08-23-2024 13:40-0500 Respiratory rate 18 /min Elton Yarbrough APRN-[employer]ER Work Phone: [facility] 08-23-2024 13:40-0500 SaO2% (BldA) [Mass fraction] 98 % Elton Yarbrough APRN-[employer]ISH [employer]ER Work Phone: [facility] 08-23-2024 13:40-0500 Systolic blood pressure 112 mm[Hg] Elton Yarbrough APRN-[employer]ISH [employer]ER Work Phone: [facility] 05-03-2024 14:55-0400 Body height 167 cm Elton Yarbrough APRN-[employer]ISH [employer]ER Work Phone: [facility] 05-03-2024 14:55-0400 Body mass index (BMI) [Ratio] 42.5 kg/m2 Elton Yarbrough APRN-[employer]ER Work Phone: [facility] 05-03-2024 14:55-0400 Body temperature 98.49 [degF] Elton Yarbrough APRN-[employer]ISH [employer]ER Work Phone: [facility] 05-03-2024 14:55-0400 Body weight 118.53 kg Elton Yarbrough APRN-[employer]ISH [employer]ER Work Phone: [facility] 05-03-2024 14:55-0400 Diastolic blood pressure 90 mm[Hg] Elton Yarbrough APRN-[employer]ISH [employer]ER Work Phone: [facility] 05-03-2024 14:55-0400 Heart rate 99 /min Elton Yarbrough APRN-[employer]ISH [employer]ER Work Phone: [facility] 05-03-2024 14:55-0400 Respiratory rate 18 /min Elton Yarbrough APRN-[employer]ISH [employer]ER Work Phone: [facility] 05-03-2024 14:55-0400 SaO2% (BldA) [Mass fraction] 97 % Elton Yarbrough APRN-[employer]ISH BL[employer]ER Work Phone: [facility] 05-03-2024 14:55-0400 Systolic blood pressure 150 mm[Hg] Elton Yarbrough APRN-[employer]ISH [employer]ER Work Phone: [facility] 04-26-2024 09:48-0400 Body height 167 cm Elton Yarbrough APRN-[employer]ISH [employer]ER Work Phone: [facility] 04-26-2024 09:48-0400 Body mass index (BMI) [Ratio] 41.44 kg/m2 Elton Yarbrough APRN-[employer]ISH [employer]ER Work Phone: [facility] 04-26-2024 09:48-0400 Body temperature 98.29 [degF] Elton Yarbrough APRN-[employer]ISH BL[employer]ER Work Phone: [facility] [employer] 04-26-2024 09:48-0400 Body weight 115.58 kg Elton Yarbrough APRN-[employer]ISH BL[employer]ER Work Phone: [facility] 04-26-2024 09:48-0400 Diastolic blood pressure 80 mm[Hg] Elton Yarbrough APRN-[employer]ISH [employer]ER Work Phone: [facility] 04-26-2024 09:48-0400 Heart rate 84 /min Elton Yarbrough APRN-[employer]ISH [employer]ER Work Phone: [facility] 04-26-2024 09:48-0400 Respiratory rate 18 /min Elton Yarbrough GOLD MINER-[employer]ISH [employer]ER Work Phone: [facility] 04-26-2024 09:48-0400 SaO2% (BldA) [Mass fraction] 99 % Elton Yarbrough APRN-[employer]ISH BL[employer]ER Work Phone: [facility] 04-26-2024 09:48-0400 Systolic blood pressure 110 mm[Hg] Elton Yarbrough APRN-[employer]ISH BL[employer]ER Work Phone: [facility] 02-28-2024 14:21-0400 Body height 167.6 cm Georges Furlong DO Work Phone: [facility] 02-28-2024 14:21-0400 Body mass index (BMI) [Ratio] 41.05 kg/m2 Georges Furlong DO Work Phone: [facility] 02-28-2024 14:21-0400 Body temperature 98.4 [degF] Georges Furlong DO Work Phone: [facility] 02-28-2024 14:21-0400 Body weight 115.35 kg Georges Furlong DO Work Phone: [facility] 02-28-2024 14:21-0400 Diastolic blood pressure 80 mm[Hg] Georges Furlong DO Work Phone: [facility] 02-28-2024 14:21-0400 Heart rate 86 /min Georges Furlong DO Work Phone: [facility] 02-28-2024 14:21-0400 Respiratory rate 18 /min Georges Furlong DO Work Phone: [facility] 02-28-2024 14:21-0400 SaO2% (BldA) [Mass fraction] 98 % Georges Furlong DO Work Phone: [facility] 02-28-2024 14:21-0400 Systolic blood pressure 110 mm[Hg] Georges Furlong DO Work Phone: [facility] 02-21-2024 09:03-0400 Body height 167.6 cm [facility] 2 [facility] 02-21-2024 09:03-0400 Body mass index (BMI) [Ratio] 40.35 kg/m2 Pm 2 [facility] 02-21-2024 09:03-0400 Body weight 113.4 kg [facility] 2 [facility] [employer] 01-31-2024 [id number] Body height 167.6 cm Betina Louise MD Work Phone: [facility] [employer] 01-31-2024 10:190400 Body mass index (BMI) [Ratio] 40.96 kg/m2 Betina Louise MD Work Phone: [facility] 01-31-2024 10:[id number] Body weight 115.12 kg Betina Louise MD Work Phone: [facility] [employer] 01-31-2024 10:19-0400 Diastolic blood pressure 108 mm[Hg] Betina Louise MD Work Phone: [facility] Comment on above: Did not take BP medication this morning 01-31-2024 10:19-0400 Systolic blood pressure 150 mm[Hg] Betina Louise MD Work Phone: [facility] [employer] Comment on above: Did not take BP medication this morning 01-13-2024 13:19-0400 Body height 168.1 cm Gissel Oliveira AUGUSTO-DIRECTOR OF IN SERVICE EDUCATION Work Phone: [facility] [facility] 01-13-2024 13:19-0400 Body mass index (BMI) [Ratio] 39.81 kg/m2 Gissel Oliveira AUGUSTO-DIRECTOR OF IN SERVICE EDUCATION Work Phone: [facility] [employer] [facility] 01-13-2024 13:19-0400 Body temperature 98.49 [degF] Gissel Oliveira GOLD MINER-DIRECTOR OF IN SERVICE EDUCATION Work Phone: [facility] [employer] [facility] 01-13-2024 13:19-0400 Body weight 112.49 kg Gissel Oliveira GOLD MINER-DIRECTOR OF IN SERVICE EDUCATION Work Phone: [facility] 01-13-2024 13:19-0400 Diastolic blood pressure 88 mm[Hg] Gissel Oliveira GOLD MINER-DIRECTOR OF IN SERVICE EDUCATION Work Phone: [facility] [employer] [facility] 01-13-2024 13:19-0400 Heart rate 88 /min Gissel Oliveira GOLD MINER-DIRECTOR OF IN SERVICE EDUCATION Work Phone: [facility] [employer] 01-13-2024 13:19-0400 Respiratory rate 20 /min Gissel Oliveira GOLD MINER-DIRECTOR OF IN SERVICE EDUCATION [facility] 01-13-2024 13:19-0400 SaO2% (BldA) [Mass fraction] 98 % Gissel Oliveira GOLD MINER-DIRECTOR OF IN SERVICE EDUCATION Work Phone: [facility] [employer] [facility] 01-13-2024 13:19-0400 Systolic blood pressure 150 mm[Hg] Gissel Oliveira GOLD MINER-DIRECTOR OF IN SERVICE EDUCATION Work Phone: [facility] Encounters Encounter Date Encounter Type Care Provider Facility Start: 04-03-2025 End: 04-03-2025 Althea Garcia MD Work Phone: [facility] Start: 04-03-2025 End: 04-03-2025 Althea Garcia MD Work Phone: [facility] Start: 04-03-2025 End: 04-03-2025 Office outpatient new 45 minutes Chikis Garcia MD Work Phone: [facility] Comment on above: Chronic parotitis (P rimary Dx); Parotid nodule Start: 04-03-2025 End: 04-03-2025 ambulatory CHIKIS GARCIA Not Available Start: 03-28-2025 End: 03-28-2025 ambulatory ANILA WALTON [facility] Start: 03-20-2025 End: 03-20-2025 Refill Elton Yarbrough G[employer] Work Phone: [facility] Internal Medicine - Family Medicine Comment on above: Essential hypertensi on Start: 03-19-2025 End: 03-19-2025 Telephone encounter Brenda Paula CMA [facility] General Surgery Start: 03-15-2025 End: 03-15-2025 ambulatory SIOBHAN RICHARD [facility] Start: 03-09-2025 End: 03-09-2025 Orders Only Siobhan Jones Richard G[employer] MINER-[employer] Work Phone: [facility] General Surgery Comment on above: Swelling, mass, or l ump on face (Primary Dx) Start: 03-05-2025 End: 03-06-2025 Refill Elton Yarbrough [employer] Work Phone: [facility] Internal Medicine - Family Medicine Comment on above: Essential hypertensi on; Reactive depression; Vitamin D deficiency; Hypomagnesemia; Current severe episode of major depressive disorder without psychotic features without prior episode ([facility]); Restless leg syndrome Start: 02-28-2025 End: 02-28-2025 Orders Only Anila Walton DO Work Phone: [facility] General Surgery Comment on above: Swelling, mass, or l ump on face (Primary Dx) Start: 02-12-2025 End: 02-12-2025 Refill Elton Yarbrough [employer] Work Phone: [facility] Internal Medicine - Family Medicine Comment on above: Reactive depression; Vitamin D deficiency; Hypomagnesemia; Current severe episode of major depressive disorder without psychotic features without prior episode (CMS-HCC); Restless leg syndrome Start: 01-18-2025 End: 01-18-2025 Refill Elton Yarbrough [employer] [facility] Comment on above: Vitamin D deficiency ; Hypomagnesemia; Reactive depression; Current severe episode of major depressive disorder without psychotic features without prior episode (CMS-HCC); Restless leg syndrome Start: 01-01-2025 End: 01-01-2025 Telephone encounter Anila Walton DO Work Phone: [facility] General Surgery Start: 12-26-2024 End: 12-26-2024 ambulatory ELTON YARBROUGH [facility] Start: 12-26-2024 End: 12-26-2024 Office outpatient visit 25 minutes Elton Yarbrough [employer] Work Phone: [facility] Internal Medicine - Family Medicine Comment on above: 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 ([facility]) (Primary Dx); Numbness and tingling in both hands; Hypomagnesemia; Restless leg syndrome Start: 12-26-2024 End: 12-26-2024 ambulatory [facility] Start: 12-25-2024 End: 12-25-2024 Refill Elton Yarbrough [employer] Work Phone: [facility] Internal Medicine - Family Medicine Comment on above: Essential hypertensi on; Reactive depression; Vitamin D deficiency; Hypomagnesemia Start: 11-23-2024 End: 11-23-2024 Refill Elton Parnellillo [employer] Work Phone: [facility] Internal Medicine [facility] Medicine Comment on above: Vitamin D deficiency ; Hypomagnesemia; Reactive depression Reactive depression Start: 09-22-2024 End: 09-25-2024 Refill Elton Yarbrough [employer] Work Phone: [facility] Internal Medicine [facility] Medicine Comment on above: Reactive depression; Vitamin D deficiency Start: 09-04-2024 End: 09-04-2024 Refill Elton Parnellillo [employer] Work Phone: [facility] Internal Medicine [facility] Comment on above: Hypomagnesemia; Reactive depression Start: 08-23-2024 End: 08-23-2024 Office outpatient visit 25 minutes Elton Yarbrough [employer] Work Phone: [facility] Internal Medicine - Family Medicine Comment on above: Mass of left breast, unspecified quadrant (Primary Dx); Reactive depression; Vitamin D deficiency Start: 08-23-2024 End: 08-23-2024 ambulatory [facility] Start: 08-21-2024 End: 08-21-2024 Refill Alondra Velasco [employer] [facility] Internal Medicine Family Medicine Comment on above: Reactive depression Start: 06-23-2024 End: 06-26-2024 Refill Carol Crista [employer] [facility] Internal Medicine - Family Medicine Comment on above: Essential hypertensi on Start: 06-13-2024 End: 06-13-2024 Telephone encounter Elton Nguyễn Yarbrough G[employer]ER-[employer] [facility] Start: 05-30-2024 End: 06-20-2024 Telephone encounter Carol Crista [facility] Internal Medicine - Family [facility] Start: 05-03-2024 End: 05-03-2024 Office outpatient visit 15 minutes Elton Nguyễn Yarbrough GOLD MINER-[facility] Work Phone: [facility] Internal Medicine - Family Medicine Comment on above: Essential hypertensi on (Primary Dx); Muscle spasm Start: 05-03-2024 End: 05-03-2024 ambulatory [facility] Start: 04-27-2024 End: 04-27-2024 Telephone encounter Eltonfawn Yarbrough GOLD MINER-[facility] Work Phone: [facility] Internal Medicine [facility] Medicine Comment on above: Hypomagnesemia (Prim quincy Dx); Vitamin D deficiency Start: 04-26-2024 End: 04-26-2024 ambulatory [facility] Start: 04-26-2024 End: 04-26-2024 Office outpatient visit 15 minutes Elton Nguyễn Yarbrough G[employer] MINER-[facility] Work Phone: [facility] Internal Medicine [facility] Comment on above: Essential hypertensi on (Primary Dx); Reactive depression; Numbness and tingling in both hands; History of anemia; Vitamin D deficiency Start: 04-26-2024 End: 04-26-2024 ambulatory [facility] Start: 04-04-2024 End: 04-04-2024 Refill Georges Pineda DO Work Phone: [facility] Internal Medicine - Family Medicine Comment on above: Reactive depression Start: 03-01-2024 End: 03-01-2024 Orders Only Georges Pineda DO Work Phone: [facility] Internal Medicine - Family Medicine Start: 02-28-2024 End: 02-28-2024 Office outpatient visit 15 minutes Georges Pineda DO Work Phone: [facility] Internal Medicine - Family Medicine Comment on above: Essential hypertensi on (Primary Dx); Pre-op evaluation Start: 02-28-2024 End: 02-28-2024 Preprocedural examination done Georges Pineda DO Work Phone: [facility] [employer] [facility] Start: 02-21-2024 End: 02-21-2024 Patient encounter procedure [facility] Pre-Admission Testing 2 [facility] - Pre Admit Comment on above: Preop examination (P rimary Dx); BMI 40.0-44.9, adult ([facility]) Start: 02-21-2024 End: 02-21-2024 Preprocedural examination done Pm 2 [facility] Start: 02-01-2024 End: 02-01-2024 Telephone encounter Joseph Richard CMA [facility] Obstetrics/Gynecology Start: 01-31-2024 End: 01-31-2024 Telephone [facility] Start: 01-31-2024 End: 01-31-2024 Office outpatient visit 15 minutes Betina Louise MD [facility] Comment on above: Consultation for fem gisel sterilization Start: 01-30-2024 End: 01-31-2024 Refill May Kuns GOLD MINER-DIRECTOR OF IN SERVICE EDUCATION Work Phone: [facility] Comment on above: Reactive depression Start: 01-16-2024 Refill May Kuns GOLD MINER-DIRECTOR OF IN SERVICE EDUCATION Work Phone: [facility] Internal Medicine - Family Medicine Comment on above: Reactive depression Start: 01-13-2024 End: 01-13-2024 Initial preventive medicine new pt age 18-39yrs Gissel Mckenna Roxanne GOLD MINER-DIRECTOR OF IN SERVICE EDUCATION [facility] Phone: [facility] [...] End: 01-13-2024 Patient encounter status Gissel Oliveira GOLD MINER-[facility] Work Phone: [facility] Work Phone: Start: 01-27-2023 End: 01-28-2023 ambulatory JOSE ROBERTO KANU . Facility: Start: 02-09-2022 End: 02-13-2022 Evaluation and management of inpatient DR FLACO FORD . Facility: Start: 2022 End: [address] GEORGES PINEDA Facility: Procedures Date Procedure Procedure Detail Performing Clinician Start: 12-26-2024 Adult depression scr eening assessment Elton Yarbrough [facility] Work Phone: Start: 08-23-2024 Adult depression scr eening assessment Elton Yarbrough [facility] Work Phone: Start: 04-26-2024 Adult depression scr eening assessment Elton Yarbrough [facility] Work Phone: Start: 02-28-2024 Adult depression scr eening assessment Georges Pineda DO Work Phone: Start: 01-13-2024 Adult depression scr eening assessment Gissel Oliveira [facility] Work Phone: Start: 02-09-2022 Delivery of Products [...] Td Vaccines (7 - Td or Tdap) [facility] Start: 02-28-2026 Adult BMI Screening Adult BMI Screen ing [facility] Start: 02-28-2026 Tobacco Screening Tobacco Screening [facility] Start: 12-31-2025 Tobacco Screening Tobacco Screening [facility] Start: 12-26-2025 Adult BMI Follow Up Plan Adult BMI F ollow Up Plan [facility] Start: 12-26-2025 Adult BMI Screening Adult BMI Screen ing [facility] Start: 12-26-2025 Depression Screening Depression Scre ening [facility] Start: 12-26-2025 Tobacco Screening Tobacco Screening [facility] Start: 08-23-2025 Adult BMI Follow Up Plan Adult BMI F ollow Up Plan [facility] Start: 08-23-2025 Adult BMI Screening Adult BMI Screen ing [facility] Start: 08-23-2025 Depression Screening Depression Scre ening [facility] Start: 08-23-2025 Tobacco Screening Tobacco Screening [facility] Start: 06-11-2025 Influenza vaccination Influenza Vacc ine [facility] Start: 06-06-2025 End: 06-06-2025 Patient encounter procedure 06/06/2025 1:00 PM EDT Office Visit [facility] [address] [facility] [address] [place] [id number] Chikis Garcia MD [address] [facility] [address] [place] [address] [facility] Start: 05-03-2025 Adult BMI Follow Up Plan Adult BMI F ollow Up Plan [facility] Start: 05-03-2025 Adult BMI Screening Adult BMI Screen ing [facility] Start: 05-03-2025 Tobacco Screening Tobacco Screening [facility] Start: 04-26-2025 Adult BMI Follow Up Plan Adult BMI F ollow Up Plan [facility] Start: 04-26-2025 Adult BMI Screening Adult BMI Screen ing [facility] Start: 04-26-2025 Depression Screening Depression Scre ening [facility] Start: 04-26-2025 Tobacco Screening Tobacco Screening [facility] Start: 04-03-2025 End: 04-03-2025 Patient encounter procedure 04/03/2025 9:20 AM EDT Office Visit [facility] [address] [facility] [address] [place] [id number] Chikis Garcia MD [address] [facility] [address] [place] [address] Arrived [facility] Comment on above: Arrived Start: 03-28-2025 End: 03-28-2025 Patient encounter procedure 03/28/2025 11:00 AM EDT Appointment [facility] Imaging [address] [place] [phone] Anila Walton, DO [address] [place] [address] [id number] [facility] Start: 03-15-2025 End: 03-15-2025 Patient encounter procedure 03/15/2025 1:30 PM EDT Appointment [facility] CT Imaging [address] [place] [id number] Anila Walton, DO [address] [place] [address] [id number] [facility] Start: 03-13-2025 Adult BMI Screening Adult BMI Screen [facility] Start: 03-13-2025 Tobacco Screening Tobacco Screening [facility] Start: 03-09-2025 End: 03-09-2026 US Head and neck soft tissue Ultrasound soft tissue head neck Imaging Routine Swelling, mass, or lump on face Expected: 03/09/2025, Expires: 03/09/2026 [employer] Work Phone: Comment on above: Expected: 03/09/2025 , Expires: 03/09/2026 Start: 02-28-2025 End: 02-28-2026 CT Neck W contrast IV CT neck soft tissue with contrast Imaging Routine Swelling, mass, or lump on face Expected: 02/28/2025, Expires: 02/28/2026 [facility] Work Phone: Comment on above: Expected: 02/28/2025 , Expires: 02/28/2026 Start: 02-27-2025 Adult BMI Screening Adult BMI Screen ing [facility] Start: 02-27-2025 Depression Screening Depression Scre ening [facility] Start: 02-27-2025 Tobacco Screening Tobacco Screening [facility] Start: 02-20-2025 Adult BMI Screening Adult BMI Screen ing [facility] Start: 02-20-2025 Tobacco Screening Tobacco Screening [facility] Start: 01-30-2025 Adult BMI Screening Adult BMI Screen ing [facility] Start: 01-30-2025 Tobacco Screening Tobacco Screening [facility] Start: 01-23-2025 End: 01-23-2025 Patient encounter procedure 01/23/2025 1:40 PM EDT Office Visit [facility] - Family Medicine [address] [place] [address] Elton Yarbrough, G[employer] [address] [place] [address] [facility] - [facility] Start: 01-12-2025 Adult BMI Screening Adult BMI Screen ing [facility] Start: 01-12-2025 Depression Screening Depression Scre ening [facility] Start: 01-12-2025 Tobacco Screening Tobacco Screening [facility] Start: 12-26-2024 End: 12-26-2024 Patient encounter procedure 12/26/2024 7:00 AM EDT Office Visit [facility] - Family Medicine [address] [place] [address] Elton Yarbrough, [employer] [address] [place] [address] [facility] - [facility] Start: 09-27-2024 End: 09-27-2024 Patient encounter procedure 09/27/2024 1:40 PM EST Office Visit [facility] Internal Medicine - Family Medicine [address] [place], [place] [address] Elton Yarbrough, [employer] [address], [place] [address] [facility] Internal Medicine - Family [...] procedure 08/23/2024 1:40 PM EST Office Visit [facility] Medicine - Family Medicine [address] [place], [place] [address] Elton Yarbrough, [employer] [address], [place] [address] [facility] Internal Medicine - Family Medicine Start: 06-11-2024 Influenza vaccination Influenza Vacc ine [facility] Start: 05-15-2024 End: 05-15-2024 Patient encounter procedure 05/15/2024 2:20 PM EDT [facility] [address] [place], [place] [address] Elton Yarbrough, [employer] [address], [place] [address] [facility] Internal Medicine - Family Medicine Start: 03-13-2024 End: 03-13-2024 Admission to same day surgery center 03/13/2024 9:30 AM EDT - 03/13/2024 11:00 AM EDT Surgery [facility] [address] [place] [address] Betina Louise MD [address] [address] LAPAROSCOPIC TUBAL LIGATION [63034 (CPT )] [facility] Comment on above: LAPAROSCOPIC TUBAL L IGATION [48605 (CPT )] Start: 03-13-2024 End: 03-13-2024 Laparoscopy w/plmt occlusion device oviducts LAPAROSCOPIC TUBAL LIGATION undesired fertility 03/13/2024 9:30 AM EDT [facility] Start: 03-13-2024 End: 03-13-2024 Laparoscopy w/rmvl adnexal structures LAPAROSCOPIC SALPINGECTOMY undesired fertility 03/13/2024 9:30 AM EDT [facility] Start: 03-13-2024 Subsequent hospital visit by physician 03/13/2024 9:30 AM EDT Hospital Encounter [facility] [address] [place] [address] Betina Louise MD [address] [facility] [place] [address] [facility] Start: 03-07-2024 End: 03-07-2024 Patient encounter procedure 03/07/2024 11:00 AM EDT Appointment [facility] [address] [facility] [address] [facility] Start: 02-28-2024 End: 02-28-2024 Patient encounter procedure 02/28/2024 2:15 PM EDT Office Visit [facility] Internal Medicine - Family Medicine [address], [place] [address] Georges Pineda, DO [address] [place] [address] [facility] Internal Medicine - Family Medicine Start: 02-21-2024 End: 02-21-2024 Patient encounter procedure 02/21/2024 9:00 AM EDT Procedure visit [facility] - Pre Admit [address] [place] [phone] [facility] - Pre Admit Start: 01-31-2024 End: 01-31-2024 Patient encounter procedure 01/31/2024 10:00 AM EDT [facility] [address] [place] [phone] Betina Louise MD [address] [place] [address] [facility] Obstetrics/Gynecolo gy Start: 01-13-2024 End: 01-12-2025 US Extremity musculoskeletal tissue Ultrasound extremity non vascular complete right for [facility] Imaging Routine Subcutaneous Nodule Of Right Lower Extremity Expected: 01/13/2024, Expires: 01/12/2025 [facility] Work [facility]: Comment on above: Expected: 01/13/2024 , Expires: 01/12/2025 Start: 2014 Screening for malign ant neoplasm of cervix Pap Smear [facility] Start: 2011 Adult BMI Follow Up Plan Adult BMI F ollow Up Plan [facility] End: 04-26-2025 CBC W Auto Differential panel - Blood CBC auto differential Lab Routine History of anemia 1 Occurrences starting 04/26/2024 until 04/26/2025 [facility] [employer] [facility] Comment on above: 1 Occurrences starti ng 04/26/2024 until 04/26/2025 End: 04-26-2025 Comprehensive metabolic 2000 panel - Serum or Plasma Comprehensive metabolic panel Lab Routine Numbness and tingling in both hands 1 Occurrences starting 04/26/2024 until 04/26/2025 [facility] [employer] [facility] Comment on above: 1 Occurrences starti ng 04/26/2024 until 04/26/2025 End: 12-26-2025 Comprehensive metabolic 2000 panel - Serum or Plasma Comprehensive metabolic panel Lab Routine Numbness and tingling in both hands 1 Occurrences starting 12/26/2024 until 12/26/2025 [facility] Comment on above: 1 Occurrences starti ng 12/26/2024 until 12/26/2025 End: 04-26-2025 Cyanocobalamin vitamin b-12 Vitamin B12 Lab Routine Numbness and tingling in both hands History of anemia 1 Occurrences starting 04/26/2024 until 04/26/2025 [facility] Comment on above: 1 Occurrences starti ng 04/26/2024 until 04/26/2025 End: 12-26-2025 Cyanocobalamin vitamin b-12 Vitamin B12 Lab Routine Numbness and tingling in both hands 1 Occurrences starting 12/26/2024 until 12/26/2025 [facility] Comment on above: 1 Occurrences starti ng 12/26/2024 until 12/26/2025 End: 04-26-2025 Ferritin [Mass/volume] in Serum or Plasma Ferritin Lab Routine Numbness and tingling in both hands History of anemia 1 Occurrences starting 04/26/2024 until 04/26/2025 [facility] Comment on above: 1 Occurrences starti ng 04/26/2024 until 04/26/2025 End: 04-26-2025 Iron and TIBC Iron and TIBC Lab Routine Numbness and tingling in both hands History of anemia 1 Occurrences starting 04/26/2024 until 04/26/2025 [employer] Phone: Comment on above: 1 Occurrences starti ng 04/26/2024 until 04/26/2025 End: 04-26-2025 Magnesium [Mass/volume] in Serum or Plasma Magnesium Lab Routine Numbness and tingling in both hands 1 Occurrences starting 04/26/2024 until 04/26/2025 [facility] Comment on above: 1 Occurrences starti ng 04/26/2024 until 04/26/2025 End: 12-26-2025 Magnesium [Mass/volume] in Serum or Plasma Magnesium Lab Routine Hypomagnesemia 1 Occurrences starting 12/26/2024 until 12/26/2025 [employer] Phone: Comment on above: 1 Occurrences starti ng 12/26/2024 until 12/26/2025 End: 04-27-2025 Vitamin D 25 hydroxy Vitamin D 25 hydroxy Lab Routine Vitamin D deficiency 1 Occurrences starting 04/26/2024 until 04/27/2025 [facility] Comment on above: 1 Occurrences starti ng 04/26/2024 until 04/27/2025 Immunizations Immunization Date Immunization Notes Care Provider Fa lobo 03-26-2016 tetanus toxoid, redu sally diphtheria toxoid, and acellular pertussis vaccine, adsorbed Gissel Oliveira GOLD MINER-DIRECTOR OF IN SERVICE EDUCATION Work Phone: [facility] 08-16-2012 influenza virus vaccine, whole virus Gissel Oliveira GOLD MINER-DIRECTOR OF IN SERVICE EDUCATION Work Phone: [facility] 08-16-2012 influenza virus vaccine, unspecified formulation Gissel Oliveira GOLD MINER-DIRECTOR OF IN SERVICE EDUCATION Work Phone: [facility] 02-22-1998 diphtheria, tetanus toxoids and acellular pertussis vaccine, unspecified formulation Gissel Oliveira GOLD MINER-DIRECTOR OF IN SERVICE EDUCATION Work Phone: [facility] 02-22-1998 measles, mumps and rubella virus vaccine Gissel Oliveira GOLD MINER-DIRECTOR OF IN SERVICE EDUCATION Work Phone: [facility] 02-22-1998 trivalent poliovirus vaccine, live, oral Gissel Oliveira GOLD MINER-DIRECTOR OF IN SERVICE EDUCATION Work Phone: [facility] 04-26-1995 diphtheria, tetanus toxoids and acellular pertussis vaccine, unspecified formulation Gissel Oliveira GOLD MINER-DIRECTOR OF IN SERVICE EDUCATION Work Phone: [facility] 04-26-1995 haemophilus influenz ae type b vaccine, conjugate unspecified formulation Gissel Oliveira GOLD MINER-DIRECTOR OF IN SERVICE EDUCATION Work Phone: [facility] 04-26-1995 measles, mumps and rubella virus vaccine Gissel Oliveira GOLD MINER-DIRECTOR OF IN SERVICE EDUCATION Work Phone: [facility] 04-26-1995 trivalent poliovirus vaccine, live, oral Gissel Kuns GOLD MINER-DIRECTOR OF IN SERVICE EDUCATION Work Phone: [facility] 1993 diphtheria, tetanus toxoids and pertussis vaccine Gissel Oliveira GOLD MINER-DIRECTOR OF IN SERVICE EDUCATION Work Phone: [facility] 1993 haemophilus influenz ae type b vaccine, conjugate unspecified formulation Gissel Oliveira GOLD MINER-DIRECTOR OF IN SERVICE EDUCATION Work Phone: [facility] 1993 hepatitis B vaccine, pediatric or pediatric/adolescent dosage Gissel Oliveira GOLD MINER-DIRECTOR OF IN SERVICE EDUCATION Work Phone: [facility] 1993 diphtheria, tetanus toxoids and pertussis vaccine Gissel Oliveira GOLD MINER-DIRECTOR OF IN SERVICE EDUCATION Work Phone: [facility] 1993 haemophilus influenz ae type b vaccine, conjugate unspecified formulation Gissel Oliveira GOLD MINER-DIRECTOR OF IN SERVICE EDUCATION Work Phone: [facility] 1993 trivalent poliovirus vaccine, live, oral Gissel Oliveira GOLD MINER-DIRECTOR OF IN SERVICE EDUCATION Work Phone: [facility] 1993 diphtheria, tetanus toxoids and pertussis vaccine Gissel Oliveira GOLD MINER-DIRECTOR OF IN SERVICE EDUCATION Work Phone: [facility] 1993 haemophilus influenz ae type b vaccine, conjugate unspecified formulation Gissel Oliveira GOLD MINER-DIRECTOR OF IN SERVICE EDUCATION Work Phone: [facility] 1993 trivalent poliovirus vaccine, live, oral Gissel Oliveira GOLD MINER-DIRECTOR OF IN SERVICE EDUCATION Work Phone: [facility] 1993 hepatitis B vaccine, pediatric or pediatric/adolescent dosage Gissel Oliveira GOLD MINER-DIRECTOR OF IN SERVICE EDUCATION Work Phone: [facility] 1993 hepatitis B vaccine, pediatric or pediatric/adolescent dosage Gissel Oliveira GOLD MINER-DIRECTOR OF IN SERVICE EDUCATION Work Phone: [facility] Payers Date Payer Category Payer Medicaid (Managed Care) [employer] [id number] 2024 Medicaid [place] [employer] [id number] 2023 Medicaid [id number] 1993 Unknown [id number] [id number]. 593 1993 Unknown [id number] [id number]. 593 1993 Unknown [id number] [id number]. 593 1993 Unknown [id number] [id number]. 1286 1993 Unknown [id number] [id number]. 1286 1993 Unknown [id number] 2.16840.1.106857.3.579.2. 1286 1993 Unknown [id number] 2.16.840.1.564762.3.579.2. 1286 1993 Unknown [id number] 2.16.840.1.796340.3.579.2. 1285 1993 Unknown [id number] 2.16.840.1.587453.3.579.2. 1285 1993 Unknown [id number] 2.16.840.1.032779.3.579.2. 128 1993 Unknown [id number] 2.16.840.1.958427.3.579.2. 1285 1993 Unknown [id number] 2.16.840.1.785379.3.579.2. 128 1993 Unknown [id number] [id number]. 1259 1959 Unknown [id number] 1959 Unknown [id number] Social History Date Type Detail Facility Start: 01-13-2024 End: 04-03-2025 Tobacco smoking status MDIS Never smoked tobacco [facility] Start: 01-13-2024 End: 04-03-2025 Tobacco use and exposure Smokeless tobacco non-user [facility] Start: 05-03-2024 End: 02-28-2025 Alcoholic beverage intake Ex-drinker (finding) [facility] Start: 05-03-2024 End: 04-03-2025 History of Social function [facility] Start: 05-03-2024 End: 04-03-2025 Tobacco use panel [facility] Adolescent depressio n screening assessment 0 [facility] Start: 1993 Sex assigned at Not on file [facility] Start: 05-15-2015 Sex Female (finding) [facility] Start: 02-28-2025 Tobacco smoking stat us MDIS Ex-smoker [facility] History of tobacco use Current smoker [facility] History of tobacco use Cigarette Smoker P [facility] Start: 05-02-2023 End: 04-03-2025 Alcoholic beverage intake Current drinker of alcohol (finding) [facility] Start: 05-02-2023 Alcohol Comment Occasional Alcohol u se [facility] Start: 04-03-2025 Tobacco Comment Patient vapes [facility] Clinical Notes 01-13-2024 to 04-03-2025 Chikis Garcia MD - 04/03/2025 9:20 AM EDTTelephone Encounter - Brenda Paula, [facility] - 03/19/2025 11:01 AM EDTTelephone Encounter - Brenda Paula, [facility] - 03/19/2025 11:01 AM EDTPatient Instructions Note Date & Type Note Facility 04-03-2025 History of Present illness Narrative Subjective Patient ID: Judie Rodriguez is a 30 y.o. female who presents [...] tobacco use 10/29/2015 HTN in , chronic ([facility]) 03/12/2016 Astigmatism 04/05/2017 Closed nondisplaced fracture of head of left radius 04/03/2025 Resolved Ambulatory Problems Diagnosis Date Noted No Resolved Ambulatory Problems Past Medical History: Diagnosis Date BMI 38.0-38.9,adult Breast lump in female Lump on face Past Surgical History: Procedure Laterality Date [place] ARTHROSCOPY KNEE DIAGNOSTIC W/WO SYNOVIAL BX SPX 06/2011 [place] ARTHROSCOPY KNEE DIAGNOSTIC W/WO SYNOVIAL BX SPX Right 09/2010 [place] LAP,CHOLECYSTECTOMY 2011 TUBAL LIGATION No Known Allergies [...] evaluate for growth. documented in this encounter [facility] 03-19-2025 Miscellaneous Notes ----- Message from TOM Tucker sent at 03/19/2025 8:58 AM EDT ----- Regarding: Results Please let patient know ultrasound showed nonenlarged parotid lymph nodes. Has the lump gone down in size? ----- Message ----- From: Interface - Rad Results/Orders In 1 Sent: 03/19/2025 8:06 AM EDT To: TOM Velez Spoke with patient regarding Ultrasound results. Patient verbally understood with no further questions. Patient stated the lump is still the same size. Informed patient I would call the ENT's office to see if they still wanted her to have the CT done. Once I receive a response from the ENT office, will call patient with an answer. Spoke with the front desk supervisor at Dr. Garcia's office. Informed them that patient completed the ultrasound and asked if they still wanted patient to complete the CT. Was informed to fax the ultrasound results to their office for Dr. Garcia to review to see if they still want the CT completed. documented in this encounter [facility] 03-19-2025 Telephone encounter Note ----- Message from TOM Tucker sent at 03/19/2025 8:58 AM EDT ----- Regarding: Results Please let patient know ultrasound showed nonenlarged parotid lymph nodes. Has the lump gone down in size? ----- Message ----- From: Interface - Rad Results/Orders In 1 Sent: 03/19/2025 8:06 AM EDT To: TOM Velez [facility] 03-19-2025 Telephone encounter Note Spoke with patient regarding Ultrasound results. Patient verbally understood with no further questions. Patient stated the lump is still the same size. Informed patient I would call the ENT's office to see if they still wanted her to have the CT done. Once I receive a response from the ENT office, will call patient with an answer. [facility] 03-19-2025 Telephone encounter Note Spoke with the front desk supervisor at Dr. Garcia's office. Informed them that patient completed the ultrasound and asked if they still wanted patient to complete the CT. Was informed to fax the ultrasound results to their office for Dr. Garcia to review to see if they still want the CT completed. [facility] 03-19-2025 Note US SOFT TISS HEAD NE CK Procedure: US SOFT TISS HEAD NECK; Reason for Exam: Swelling, mass, or lump on face; Comparison: None FINDINGS/IMPRESSION: Targeted scanning to evaluate patient's area of concern demonstrates nonenlarged lymph nodes within the right parotid measuring up to 1.1 x 0.4 x 0.6 cm. No suppurative components appreciated. Normal morphology. Continue clinical follow-up, recommend reimaging if enlarging or worsening symptoms. Finalized by Gavin Tomas on 03/19/2025 8:05 AM [facility] 01-01-2025 Miscellaneous Notes Called Judie as she no called no showed for her appointment on 01/01/[address] Walton, we had moved her up from 01/03/25, left a message on voicemail to see if she wanted to reschedule. documented in this encounter [facility] 01-01-2025 Telephone encounter Note Called Judie as she no called no showed for her appointment on 01/01/[address] Walton, we had moved her up from 01/03/25, left a message on voicemail to see if she wanted to reschedule. [facility] 12-26-2024 History of Present illness Narrative Images from the original note were not included. 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 [address] [place] [address] SUBJECTIVE: Patient ID: Judie Rodriguez is a [...] 03/13/2024 Performed by Betina Louise MD at [facility] Past Medical History: Diagnosis Date Abnormal finding [...] 1403 documented in this encounter [facility] 06-23-2024 Miscellaneous Notes Pt requested this to be refilled she stated she never went and picked it up documented in this encounter [facility] 06-23-2024 Telephone encounter Note Pt requested this to be refilled she stated she never went and picked it up [facility] 06-13-2024 Miscellaneous Notes Patient called and she changed her insurance to [place] [facility] would cover it. Can we send another [facility] order to [facility] Go ahead and send the same previous order. Put a note her insurance changed / updated DONE documented in this encounter [facility] 06-13-2024 Telephone encounter Note Patient called and she changed her insurance to [place] [facility] [place] [facility] would cover it. Can we send another EMG order to [facility] 06-13-2024 Telephone encounter Note Go ahead and send the same previous order. Put a note her insurance changed / updated [facility] 06-13-2024 Telephone encounter Note DONE [facility] 05-30-2024 Miscellaneous Notes Pt called back she stated that [facility] dont take her insurance is there another place she could go ? Per our discussion, [facility] does not take patient's insurance to complete EMG. If you could call her. Left message to call back Patient is going to reach out to insurance company to see who accept her insurance. [facility] Telephone encounter Note Pt called back she stated that [facility] dont take her insurance is there another place she could go ? [facility] 05-30-2024 Telephone encounter Note Per our discussion, [facility] does not take patient's insurance to complete EMG. If you could call her. [facility]-30-[facility]24 Telephone encounter Note Left message to call back [facility] 05-30-2024 Telephone encounter Note Patient is going to reach out to insurance company to see who accept her insurance. [facility] History of Present illness Narrative Images from the original note were not included. [address] [place] [address] SUBJECTIVE: Patient ID: Judie Rodriguez is a [...] 03/13/2024 Performed by Betina Louise MD at [facility] Past Medical History: Diagnosis Date Abnormal finding [...] Follow-up: Next scheduled 05/15/24 TOM Grimes 05/03/24 4223 documented in this encounter [facility] 04-27-2024 Miscellaneous Notes ----- Message from TOM Durbin sent at 04/27/2024 9:51 AM EDT ----- Reviewed. Inform patient vitamin D and magnesium is low. I sent over prescriptions for vitamin D 5,000 units daily and MagOx 400 mg oral daily to [facility] Relayed result note to patient. She asked if that is what's causing the numbness in her hand. She said that the numbness has increased to include her middle finger as well. It is caused from the vitamin D deficiency and low magnesium. This is why I ordered her supplements. documented in this encounter [facility] 04-27-2024 Telephone encounter Note ----- Message from TOM Durbin sent at 04/27/2024 9:51 AM EDT ----- Reviewed. Inform patient vitamin D and magnesium is low. I sent over prescriptions for vitamin D 5,000 units daily and MagOx 400 mg oral daily to [facility] 04-27-2024 Telephone encounter Note Relayed result note to patient. She asked if that is what's causing the numbness in her hand. She said that the numbness has increased to include her middle finger as well. [facility] 04-27-2024 Telephone encounter Note It is caused from the vitamin D deficiency and low magnesium. This is why I ordered her supplements. [facility] 04-26-2024 History of Present illness Narrative Images from the original note were not included. [address] [place] [address] SUBJECTIVE: Patient ID: Judie Rodriguez is a [...] 03/13/2024 Performed by Betina Louise MD at [facility] Past Medical History: Diagnosis Date Abnormal finding [...] procedures Follow-up: One week Blood pressure recheck Elton Yarbrough APRN-RELISH BLENDER 04/26/24 5714 documented in this encounter [facility] 02-28-2024 History of Present illness Narrative Subjective Patient ID: Judie Rodriguez is a 29 y.o. female. Judie presents for pre-operative clearance. She is having surgery for elective sterilization. She has a history of hypertension. She takes labetolol. Her blood pressure was high at the [employer] office. She is taking her medication. She [...] cleared for surgery. documented in this encounter [facility] 02-21-2024 Instructions Susan Cavanaugh RN - 02/21/2024 9:00 AM EDT Preoperative Education Checklist- General Surgery date: 03/13/24 Surgery time: 0930 a.m. Arrival time: 0730 a.m. 1. Bring a photo ID and your insurance card with you the day of surgery. You will check in at the main lobby of the [facility]- registration desk is straight ahead as soon as you walk in. Tell them you are here for surgery. 2. If you have a Living Will/Durable Power of Finance Manager for Health Care that is not on [...] after you have bathed. 5. NO nail fijian/acrylic on at least one finger. If you are having a hand, wrist or foot surgery then all nail fijian and artificial/acrylic nails must be removed from [...] please call the Preadmission Testing office at [phone], Mon.-Fri. 7 a.m.-3 p.m. Leave a voicemail [...] with your doctor. documented in this encounter [facility] 02-21-2024 Miscellaneous Notes Preoperative Education Checklist- General Surgery date: 03/13/24 Surgery time: 0930 a.m. Arrival time: 0730 a.m. 1. Bring a photo ID and your insurance card with you the day of surgery. You will check in at the main lobby of the [facility]- registration desk is straight ahead as soon as you walk in. Tell them you are here for surgery. 2. If you have a Living Will/Durable Power of Finance Manager for Health Care that is not on [...] after you have bathed. 5. NO nail fijian/acrylic on at least one finger. If you are having a hand, wrist or foot surgery then all nail fijian and artificial/acrylic nails must be removed from [...] please call the Preadmission Testing office at [phone], Mon.-Fri. 7 a.m.-3 p.m. Leave a voicemail [...] understanding. documented in this encounter [facility] 02-21-2024 Nurse Note Preoperative Education Checklist- General Surgery date: 03/13/24 Surgery time: 0930 a.m. Arrival time: 0730 a.m. 1. Bring a photo ID and your insurance card with you the day of surgery. You will check in at the main lobby of the [facility]- registration desk is straight ahead as soon as you walk in. Tell them you are here for surgery. 2. If you have a Living Will/Durable Power of Finance Manager for Health Care that is not on [...] after you have bathed. 5. NO nail fijian/acrylic on at least one finger. If you are having a hand, wrist or foot surgery then all nail fijian and artificial/acrylic nails must be removed from [...] please call the Preadmission Testing office at [phone], Mon.-Fri. 7 a.m.-3 p.m. Leave a voicemail [...] to the follow-up appointment with your doctor. [facility] 02-21-2024 Nurse Note Hibiclens and surgical instructions reviewed. Patient verbalized understanding. [facility] 02-01-2024 Miscellaneous Notes Called and [...] office. documented in this encounter [facility] 02-01-2024 Telephone encounter Note Called and spoke to pt and per Dr Louise, pt is to have PCP clearance and get her blood pressure under control prior to her surgery. Pt is also to stop using the contraception patch and switch to the Micronor that Dr Louise has sent to her pharmacy. Pt aware of all information and is agreeable. [facility] 02-01-2024 Telephone encounter Note PCP request for surgical clearance sent to Gissel Oliveira NP office. [facility] 01-31-2024 Miscellaneous Notes Patient scheduled for surgery with Dr. Louise on 03/13/24 at 9:30am with hospital arrival at 7:30am. PAT 02/21/24 at 9:00am. LVM for patient to return my call to discuss dates & times. Patient returned my call & was notified of dates & times. Patient voiced understanding. Surgery information letter mailed to the patient. documented in this encounter [facility] 01-31-2024 Telephone encounter Note Patient scheduled for surgery with Dr. Louise on 03/13/24 at 9:30am with hospital arrival at 7:30am. PAT 02/21/24 at 9:00am. LVM for patient to return my call to discuss dates & times. [facility] 01-31-2024 Telephone encounter Note Patient returned my call & was notified of dates & times. Patient voiced understanding. Surgery information letter mailed to the patient. [facility] 01-31-2024 History of Present illness Narrative Judie Rodriguez is a 28 [...] finding on screening of mother 01/22/2016 Overview: 4/25/16 NIPT wnl Delivery normal 06/04/2016 Depression 05/11/2021 [...] this visit: Consultation for female sterilization - [facility] Physician's RAIL MAINTENANCE WORKER - [facility] - [place], [place] - Consult ELEVATED BP TO SEE PCP FOR BP CONTROL STOP PATCH START MICRONOR OCP ENCOURAGED TO GET VASECTOMY--INFO GIVEN BMI 40+ PATIENT STRONGLY DESIRES PERMANENT STERILIZATION NEXT RISKS BENEFITS ALTERNATIVES INDICATIONS DISCUSSED WITH THE PATIENT AT GREAT LENGTH ABOVE SHE VOICED UNDERSTANDING OF ALL RISKS MD JOSEPH WARNER, WOOD CASKET MAKER documented in this encounter [facility] 01-31-2024 Miscellaneous Notes Addended by: BETINA LOUISE on: 01/31/2024 05:13 PM Modules accepted: Orders documented in this encounter [facility] 01-31-2024 Note Addended by: BETINA LOUISE on: 01/31/2024 05:13 PM Modules accepted: Orders [facility] 01-13-2024 History of Present illness Narrative Images [...] MSK; Future Consultation for female sterilization - [facility] Physician's RAIL MAINTENANCE WORKER - [facility] - [place], [place] - Consult; Future Reactive depression - [...] 1443 documented in this encounter [facility] Evaluation note Diagnosis Reactive depression [facility] for female [facility]ilization [facility] Re[facility] Diagnosis Vitamin D deficiency Hypomagnesemia Disorders of magnesium metabolism Reactive depression [facility] Reactive depression [facility] Diagnosis Preop examination- Primary Unspecified pre-operative examination BMI 40.0-44.9, adult ([facility]) Preop examination Unspecified pre-operative examination BMI 40.0-44.9, adult ([facility]) [facility] Diagnosis Essential hypertension- Primary Unspecified essential hypertension Pre-op evaluation [facility] Reactive depression [facility] Diagnosis Essential hypertension- Primary Unspecified essential hypertension Reactive depression Numbness and tingling in both hands History of anemia Personal history of diseases of blood and blood-forming organs Vitamin D deficiency [facility] Diagnosis Hypomagnesemia- Primary Disorders of magnesium metabolism Vitamin D deficiency [facility] Diagnosis Essential hypertension- Primary Unspecified essential hypertension Muscle spasm Spasm of muscle [facility] Diagnosis Encounter for wellness examination- Primary Essential hypertension Unspecified essential hypertension Encounter for surveillance of transdermal patch hormonal contraceptive device Subcutaneous nodule of right lower extremity Consultation for female sterilization Reactive depression Class 2 obesity due to excess calories without serious comorbidity with body mass index (BMI) of 39.0 to 39.9 in adult [facility] Diagnosis Essential hypertension Unspecified essential hypertension [facility] Diagnosis Mass of left breast, unspecified quadrant- Primary Reactive depression Vitamin D deficiency [facility] Diagnosis Hypomagnesemia Disorders of magnesium metabolism Reactive depression [facility] Diagnosis Reactive depression Vitamin D deficiency [facility] Diagnosis Essential hypertension Unspecified essential hypertension Reactive depression Vitamin D deficiency Hypomagnesemia Disorders of magnesium metabolism [facility] Diagnosis Current severe episode of major depressive disorder without psychotic features without prior episode ([facility])- Primary Numbness and tingling in both hands Hypomagnesemia Disorders of magnesium metabolism Restless leg syndrome Restless legs syndrome (RLS) [facility] Diagnosis Vitamin D deficiency Hypomagnesemia Disorders of magnesium metabolism Reactive depression Current severe episode of major depressive disorder without psychotic features without prior episode ([facility]) Restless leg syndrome Restless legs syndrome (RLS) [facility] Diagnosis Reactive depression Vitamin D deficiency Hypomagnesemia 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 ([facility]) Restless leg syndrome Restless legs syndrome (RLS) [facility] Diagnosis Swelling, mass, or lump on face- Primary Swelling, mass, or lump in head and neck [facility] Diagnosis Essential hypertension Unspecified essential hypertension Reactive depression Vitamin D deficiency Hypomagnesemia 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 ([facility]) Restless leg syndrome Restless legs syndrome (RLS) [facility] Diagnosis Swelling, mass, or lump on face- Primary Swelling, mass, or lump in head and neck [facility] Diagnosis Essential hypertension Unspecified essential hypertension [facility] Diagnosis Chronic parotitis- Primary Parotid nodule [facility]InstructionsNot on filedocumented in this encounterProUsa Health [facility] Health SystemInstructionsNot on filedocumented in this encounterProUsa Health University Hospital Health SystemInstructionsNot on filedocumented in this encounterProUsa Health University Hospital Health SystemInstructionsNot on filedocumented in this encounterProUsa Health [facility] System InstructionsNot on filedocumented in this encounterProUsa Health [facility] System InstructionsNot on filedocumented in this encounterProUsa Health [facility] System InstructionsNot on filedocumented in this encounterProSt. Anthony'[facility] Instructions* Attachments The following attachments cannot be sent through Care Everywhere. * High blood pressure emergencies (Brazilian) documented in this encounterProMedica Action[facility] SystemInstructionsNot on file documented in this encounterProUsa Health University Hospital ActionIQ SystemInstructionsNot on file documented in this encounterProUsa [facility] ActionIQ SystemInstructions* Attachments The following attachments cannot be sent through Care Everywhere. * Heart Healthy Diet (Brazilian) documented in this encounterProUsa Health University Hospital ActionIQ SystemInstructionsNot on file documented in this encounterProUsa Health [facility] Hospital ActionIQ SystemInstructionsNot on file documented in this encounterProUsa Health [facility] Hospital ActionIQ SystemInstructionsNot on file documented in this encounterProUsa Health [facility] Hospital ActionIQ SystemInstructionsNot on file documented in this encounterAd[facility] SystemInstructions* Attachments The following attachments cannot be sent through Care Everywhere. * Fibrocystic Breast Changes Discharge Instructions (Brazilian) documented in this encounterProUsa Health University Hospital ActionIQ SystemInstructionsNot on file documented in this encounterProUsa Health [facility] Action[facility] SystemInstructions* Attachments The following attachments cannot be sent through Care Everywhere. * Depression in adults (Brazilian) documented in this encounterProUsa Health University Hospital ActionIQ SystemInstructionsNot on file documented in this encounterProUsa Health University Hospital ActionIQ SystemInstructionsNot on file documented in this encounterProUsa Health [facility] Hospital ActionIQ SystemInstructionsNot on file documented in this encounterProUsa Health [facility] ActionIQ SystemInstructionsNot on file documented in this encounterProUsa Health University Hospital ActionIQ SystemReason for referral (narrative)* Consultation (Routine) - Authorized Specialty Diagnoses / Procedures Referred By Karsten friedman Referred To Contact Obstetrics and Gynecology Diagnoses Consultation for female sterilization Gissel Oliveira APRN-FNP [address] [place] [address] [facility] [address] [place] [address] Referral ID Status Reason Start Date Expiration Date Visits Requested Visits Authorized [id number] Authorized Specialty Services Required 01/13/2024 01/12/2025 1 1 [facility] Summary Purpose Family History No Family [...] Contact Diagnoses Preop examination BMI 40.0-44.9, adult ([facility]) Procedures ECG 12 lead Jolanta King MD [address] [place] [address] Referral ID Status Reason Start Date Expiration Date V isits Requested Visits Authorized [id number] Pending Review 02/15/2024 02/14/2025 1 1 Additional Source Comments INFORMATION SOURCE (unrecogn ized section and content) DATE CREATED AUTHOR 01/31/2023 [facility] DATE CREATED AUTHOR AUTHOR'S ORGANIZ ATION [facility]/29/[facility] DATE CREATED AUTHOR AUTHOR'S ORGANIZ ATION 03/07/2025 [facility] DATE CREATED AUTHOR AUTHOR'S ORGANIZ ATION 03/31/2025 [facility] DATE CREATED AUTHOR AUTHOR'S ORGANIZ ATION 04/04/2025 [facility] EPIC Reason for Visit (unrecogniz ed section and content) Reason Onset Date Comments Med Refill 08/21/2024 Reason Comments Tubal Consult Specialty Diagnoses / Procedures Referred By Contac t Referred To Contact Obstetrics and Gynecology Diagnoses Consultation for female sterilization Gissel Oliveira, GOLD MINER-DIRECTOR OF IN SERVICE EDUCATION [address] [place] [address] Betina Louise MD [address] [place] [address] [place] [address] Referral ID Status Reason Start Date Expiration Date V isits Requested Visits Authorized [id number] Closed Specialty Services Required 01/13/2024 01/12/2025 1 [...] Comments Legs jerking, hands shaking x2 months Reason Onset Date Comments Med Refill 01/18/2025 Reason Onset Date Comments Med Refill 02/12/2025 Reason Onset Date Comments Med Refill 03/05/2025 Reason Onset Date Comments Med Refill 03/20/2025 Reason Comments Lump On Face [facility] Teams (unrecognized sec tion and content) Petroleum Refining Firer Relationship Specialty Start Date End Date Elton Yarbrough APRN-RELISH BLENDER [address] [place], [place] [address] PCP - General Family Medicine 04/26/24 Petroleum Refining Firer Relationship Specialty Start Date End Date Gissel Oliveira GOLD MINER-[facility] [address] [facility] [place] [address] PCP - General Internal Medicine 01/13/24 Petroleum Refining Firer Relationship Specialty Start Date End Date [facility] [address] [place], [place] [address] PCP - General Internal Medicine 01/13/24 Petroleum Refining Firer Relationship Specialty Start Date End Date [facility] [address] [place] [address] PCP - General Internal Medicine 01/13/24 Petroleum Refining Firer Relationship Specialty Start Date End Date Elton Yarbrough GOLD MINER-[facility] [address] [place], [place] [address] PCP - General Family Medicine 04/26/24 Petroleum Refining Firer Relationship Specialty Start Date End Date Elton Yarbrough GOLD MINER-[facility] [address] [place], [place] [address] PCP - General Family Medicine 04/26/24 Petroleum Refining Firer Relationship Specialty Start Date End Date Gissel Oliveira, GOLD MINER-[facility] [address] [place], [place] [address] PCP - General Internal Medicine 01/13/24 Petroleum Refining Firer Relationship Specialty Start Date End Date Gissel Oliveira, [facility] [address] [place], [place] [address] PCP - General Internal Medicine 01/13/24 Petroleum Refining Firer Relationship Specialty Start Date End Date Elton Yarbrough [facility] [address] [place], [place] [address] PCP - General Family Medicine 04/26/24 Petroleum Refining Firer Relationship Specialty Start Date End Date Elton Yarbrough GOLD MINER-[facility] [address] [place], [place] [address] PCP - General Family Medicine 04/26/24 Petroleum Refining Firer Relationship Specialty Start Date End Date Elton Yarbrough [facility] [address] [place], [place] [address] PCP - General Family Medicine 04/26/24 Petroleum Refining Firer Relationship Specialty Start Date End Date Elton Yarbrough [facility] [address] [place], [place] [address] PCP - General Family Medicine 04/26/24 Petroleum Refining Firer Relationship Specialty Start Date End Date Gissel Oliveira, GOLD MINER-[facility] [address] [place], [place] [address] PCP - General Internal Medicine 01/13/24 Petroleum Refining Firer Relationship Specialty Start Date End Date Elton Yarbrough [facility] [address] [place], [place] [address] PCP - General Family Medicine 04/26/24 Petroleum Refining Firer Relationship Specialty Start Date End Date Elton Yarbrough [facility] [address] [place], [place] [address] PCP - General Family Medicine 04/26/24 Petroleum Refining Firer Relationship Specialty Start Date End Date Eltno Yarbrough [facility] [address] [place], [place] [address] PCP - General Family Medicine 04/26/24 Petroleum Refining Firer Relationship Specialty Start Date End Date Elton Yarbrough [facility] [address] [place], [place] [address] PCP - General Family Medicine 04/26/24 Petroleum Refining Firer Relationship Specialty Start Date End Date Elton Yarbrough GOLD MINER-[facility] [address] [place], [place] [address] PCP - General Family Medicine 04/26/24 Petroleum Refining Firer Relationship Specialty Start Date End Date Elton Yarbrough [facility] [address] [place], [place] [address] PCP - General Family Medicine 04/26/24 Petroleum Refining Firer Relationship Specialty Start Date End Date Elton Yarbrough [facility] [address] [place], [place] [address] PCP - General Family Medicine 04/26/24 Petroleum Refining Firer Relationship Specialty Start Date End Date Elton Yarbrough [facility] [address] [place], [place] [address] PCP - General Family Medicine 04/26/24 Petroleum Refining Firer Relationship Specialty Start Date End Date Elton Yarbrough [facility] [address] [place], [place] [address] PCP - General Family Medicine 04/26/24 Petroleum Refining Firer Relationship Specialty Start Date End Date Anila Walton DO [address] [place] [address] Referring Physician General Surgery 02/28/25 Elton Yarbrough CRNP [address] [place] [address] Referring Physician Nurse Practitioner 04/03/25 Petroleum Refining Firer Relationship Specialty Start Date End Date Anila Walton DO [address] [place] [id number] Referring Physician General Surgery 02/28/25 Elton Yarbrough CRNP [address] [place] [address] Referring Physician Nurse Practitioner 04/03/25 FOR RECORDS PERTAINING TO PATIENTS WHO ARE [...] BE BASED ON THE PRIMARY CLINICAL RECORDS. [employer] [facility]. provides no warranty or guarantee of the accuracy or completeness of information in this document.
--- OUTSIDE RECORDS SUMMARY | 2025-04-06 20:37 | XMS_ITS | Encounter Summary ---
Author Organization [employer] Address [id number] [address] [place] [address] Care Team Providers Care Base Loader Name Role Phone YarbroughJennifer vyas Nguyễn DIGITAL IMAGING SPECIALIST-WARP TRUCKER Primary Care Provid er Encounter Details Date Type Department Care Team (Late st Contact Info) Description 01/20/2024 Orders Only [facility] Internal Medicine - Family Medicine [address] [place] [address] Gissel Oliveira, DIGITAL IMAGING SPECIALIST-GLASS CURVATURE GAUGER [address] [place] [address] Subcutaneous nodule of right lower extremity Social History Tobacco Use Types Packs/Day Years Used Date Smoking Tobacco: Never Smokeless Tobacco: Never Alcohol Use Standard Drinks/Week Comments Not Currently 0 (1 standard drink = 0.6 oz pur e alcohol) PHQ-2 Answer Date Recorded Total Score 11 01/13/2024 Childcare Answer Date Recorded Childcare Unknown 03/22/2019 Employment Answer Date Recorded Employment Unknown 03/22/2019 Hunger Screening Answer Date Recorded Within the past 12 months we worried whether our food would run out before we got money to buy more. Never True 01/13/2024 Within the past 12 months th e food we bought just didn't last and we didn't have money to get more. Never True 01/13/2024 Purpose - Life Answer Date Recorded Purpose and direction in life Unknown Comments Yes Sex and Gender Information Value Date Recorded Sex Assigned at Not on file Legal Sex Female 5:19 PM EDT Gender Identity Not on file Sexual Orientation Not on file documented as of this encounter Plan of Treatment Not on file documented as of this encounter Procedures Procedure Name Priority Date/Time Associated Diagnosis Comments US EXT NON VASC RT COMP - MSK Routine 01/19/2024 3:28 PM EDT Subcutaneous nodule of right lower extremity documented in this encounter Results * Ultrasound extremity non vascular complete right for MSK (01/19/2024 3:28 PM EDT) Anatomical Region Laterality Modality MSK Ultrasound us Gissel Oliveira DIGITAL IMAGING SPECIALIST-GLASS CURVATURE GAUGER IMG US ORDERABLES Final Res ult documented in this encounter Visit Diagnoses Diagnosis Subcutaneous nodule of right lower extremity documented in this encounter Additional Health Concerns Assessment Noted Time PHQ-9 Depression Total Score: 11 024 1:13 PM EDT documented as of this encounter Care Teams Base Loader Relationship Specialty Start Date End Date Jennifer Yarbrough APRN-WARP TRUCKER [address] LEFT PM 04/09/25 [place] [address] PCP - General Family Medicine 04/26/24 documented as of this encounter
--- OUTSIDE RECORDS SUMMARY | 2025-04-06 20:37 | XMS_ITS | Encounter Summary ---
Author Organization [facility] Address [address] [facility] [place] [address] Care Team Providers Care Clinical Data Manager Name Role Phone Solo Sheehan Unavailable [phone] Jennifer Yarbrough Unavailable Encounter Details Date Type Department Care Team (Late st Contact Info) Description 03/19/2025 Orders Only [facility] [place] [address] [place] [address] Jennifer Yarbrough CRNP [address] [facility] [place] [address] Social History Tobacco Use Types Packs/Day Years Used Date Smoking Tobacco: Never Smokeless Tobacco: Never Alcohol Use Standard Drinks/Week Comments Yes 0 [...] Office Visit [facility] [address] [facility] [address] [place] [address] Linda Goss MD [address] [place], [place] [address] documented as of this encounter Procedures Procedure Name Priority Date/Time Associated Diagnosis Comments US SOFT TISSUE HEAD/NECK Routine 03/15/2025 3:24 PM EDT documented in this encounter Results * US SOFT TISSUE HEAD/NECK (03/15/2025 3:24 PM EDT) Anatomical Region Laterality Modality Radiographic Rocio ging Jennifer UREÑA IMG XR PROCEDURES Final Re sult documented in this encounter Visit Diagnoses Not on filedocumented in this encounter Care Teams Clinical Data Manager Relationship Specialty Start Date End Date Solo Sheehan DO [address] [place] [address] Referring Physician General Surgery 02/28/25 Jennifer Yarbrough CRNP [address] [place] [address] Referring Physician Nurse Practitioner 04/03/25 documented as of this encounter
--- OUTSIDE RECORDS SUMMARY | 2025-04-06 20:37 | XMS_ITS | Encounter Summary ---
Author Organization [facility] Address [address] [place] [address] Care Team Providers Care Oim Consultant Name Role Phone Solo Sheehan DO Unavailable [phone] Jennifer Yarbrough Unavailable [phone] Encounter Details Date Type Department Care Team ([facility] Contact Info) Description 04/03/2025 Bamboo flowsheet [facility] [address] [facility] [address] [place] [address] Linda Goss MD [address] [facility] [address] [place] [address] Social History Tobacco Use Types Packs/Day Years [...] Office Visit [facility] [address] [facility] [address] [place] [address] Linda Goss MD [address] [facility] [address] [place], [place] [address] documented as of this encounter Visit Diagnoses Not on filedocumented in this encounter Care Teams Oim Consultant Relationship Specialty Start Date End Date Solo Sheehan DO [address] [place] [address] Referring Physician General Surgery 02/28/25 Jennifer Yarbrough CRNP [address] [facility] [place] [address] Referring Physician Nurse Practitioner 04/03/25 documented as of this encounter
--- OUTSIDE RECORDS SUMMARY | 2025-04-06 20:37 | XMS_ITS | Encounter Summary ---
Author Organization [employer] Address [id number] [address] [place] [address] Care Team Providers Care Apartment Hotel Manager Name Role Phone ZenonJennifer Nguyễn CAVAZOSN-ASSISTANT MERCHANDISE MANAGER Primary Care Provid er Encounter Details Date Type Department Care Team (Late st Contact Info) Description 01/25/2024 Orders Only [facility] Internal Medicine - Family Medicine [address] [place] [address] External, Scanning Provider Social History Tobacco Use Types Packs/Day Years [...] Procedure Name Priority Date/Time Associated Diagnosis Comments XR ANKLE LT MIN 3 VWS Routine 01/22/2024 3:47 PM EDT documented in this encounter Results * X-ray ankle left minimum 3 views (01/22/2024 3:47 PM EDT) Anatomical Region Laterality Modality Lower Extremities, MSK, Ankle Left Co mputed Radiography us Scanning Provider External IMG DIAGNOSTIC IMAGIN G ORDERABLES Final Result documented in this encounter Visit Diagnoses Not on filedocumented in this encounter Additional Health Concerns Assessment Noted Time PHQ-9 Depression Total Score: 11 024 1:13 PM EDT documented as of this encounter Care Teams Apartment Hotel Manager Relationship Specialty Start Date End Date Jennifer Yarbrough, DRIVER LIFTER OF SANITATION TRUCK-ASSISTANT MERCHANDISE MANAGER [address] LEFT PM 04/09/25 [place] [address] PCP - General Family Medicine 04/26/24 documented as of this encounter
--- OUTSIDE RECORDS SUMMARY | 2025-04-06 20:38 | XMS_ITS | Encounter Summary ---
Author Organization [employer] Address [id number] [address] [place] [address] Care Team Providers Care Bilingual Medical Assistant Name Role Phone ZenonJennifer Nguyễn CAVAZOSN-EMBEDDED DEVELOPER Primary Care Provid er Encounter Details Date Type Department Care Team (Late st Contact Info) Description 05/29/2024 [facility]phone [facility] [address] [place] [address] Carol Tobin CMA Social History [...] Telephone Encounter - Carol Tobin CMA - 05/29/2024 11:45 AM EDT Pt called stated that she didn't make it to the pharmacy to sisal picker a muscle relaxer and ibprofen that you had prescribed and want to know if you could resend it , and wanted to know if you had sent any paperwork for a neuro for her hand it is getting worse to the point she can't use it ? * Telephone Encounter - TOM Grimes - 05/29/2024 11:45 AM EDT Once medications are sent, she can request for the pharmacy to fill it. I do not need to resend it.Second, Gretel sent the paperwork to [facility] for [facility]. All she needs to do is call and schedule the leeanna * Telephone Encounter - Carol Tobin CMA - 05/29/2024 11:45 AM EDT We dont see a referral , josep helped me look for the EMG and didn't find anything * Telephone Encounter - Carol Tobin CMA - 05/29/2024 11:45 AM EDT Called left vm to cb * Telephone Encounter - Carol Tobin CMA - 05/29/2024 11:45 AM EDT Pt cb gave her the information she will call and set up an appt documented in this encounter Plan of Treatment Not on file documented as of this encounter Visit Diagnoses Not on filedocumented in this encounter Additional Health Concerns Assessment Noted Time PHQ-9 Depression Total Score: 0 04/26/20 9:47 AM EDT A Body Mass Index follow-up plan has been documented for the patient 05/03/2024 5:45 PM EDT documented as of this encounter Care Teams Bilingual Medical Assistant Relationship Specialty Start Date End Date Jennifer Yarbrough, SCREW MACHINE HAND-EMBEDDED DEVELOPER [address] [facility] LEFT PM 04/09/25 [place] [address] PCP - General Family Medicine 04/26/24 documented as of this encounter
--- OUTSIDE RECORDS SUMMARY | 2025-04-06 20:38 | XMS_ITS | Encounter Summary ---
Author Organization [facility] Address [id number] [address] [place] [address] Care Team Providers Care [employer] Rep Name Role Phone ZenonJennifer Nguyễn CAVAZOSN-FARM PLANNER Primary Care Provid er Encounter Details Date Type Department Care Team (Late st Contact Info) Description 05/16/2024 Orders Only [facility] Internal Medicine - Family Medicine [address] [place] [phone] External, Scanning Provider Social History Tobacco Use [...] Name Priority Date/Time Associated Diagnosis Comments XR ELBOW LT MIN 3 VWS Routine 05/12/2024 8:55 AM EDT documented in this encounter Results * X-ray elbow left minimum 3 views (05/12/2024 8:55 AM EDT) Anatomical Region Laterality Modality Upper Extremities, MSK, Elbow Left Co mputed Radiography us Scanning Provider [...] documented as of this encounter Care Teams [employer] Rep Relationship Specialty Start Date End Date Jennifer Yarbrough, UNDERGROUND ROOF BOLTER-FARM PLANNER [address] LEFT PM 04/09/25 [place] [address] PCP - General Family Medicine 04/26/24 documented as of this encounter
--- OUTSIDE RECORDS SUMMARY | 2025-04-06 20:38 | XMS_ITS | Encounter Summary ---
Author Organization [employer] [facility] Address [facility] [place]-[id number] [address] [place] [address] Care Team Providers Care Window Treatment Installer Name Role Phone ZenonJennifer Nguyễn CAVAZOSN-MAP CLERK Primary Care Provid er Encounter Details Date Type Department Care Team (Late st Contact Info) Description 05/17/2024 Orders Only [facility] Internal Medicine - Family Medicine [address] [place] [phone] External, Scanning Provider Social History Tobacco Use [...] Procedure Name Priority Date/Time Associated Diagnosis Comments ECG 12-LEAD Routine 05/16/2024 9:30 AM EDT XR CHEST 1 VW Routine 05/16/2024 9:02 AM EDT documented in this encounter Results * ECG 12 lead (05/16/2024 9:30 AM EDT) us Scanning Provider External ECG ORDERABLES Final Result MANUALLY TRANSCRIBED RESULTS * X-ray chest 1 view (05/16/2024 9:02 AM EDT) Anatomical Region Laterality Modality Body, Chest N/A Computed Radiogr aphy us Scanning Provider External IMG DIAGNOSTIC IMAGIN G ORDERABLES Final Result documented in this encounter Visit Diagnoses Not on filedocumented in this encounter Additional Health Concerns Assessment Noted Time PHQ-9 Depression Total Score: 0 04/26/20 9:47 AM EDT A Body Mass Index follow-up plan has been documented for the patient 05/03/2024 5:45 PM EDT documented as of this encounter Care Teams Window Treatment Installer Relationship Specialty Start Date End Date Jennifer Yarbrough, WINDMILL MECHANIC-MAP CLERK [address] LEFT PM 04/09/25 [place] [address] PCP - General Family Medicine 04/26/24 documented as of this encounter
--- OUTSIDE RECORDS SUMMARY | 2025-04-06 20:38 | XMS_ITS | Encounter Summary ---
Author Organization [employer] [facility] Address [facility] [place]-[id number] [address] [place] [address] Care Team Providers Care Warehouse And Receiving Supervisor Name Role Phone ZenonAgustinajocelynn SANTOS Primary Care Provid er Encounter Details Date Type Department Care Team (Late st Contact Info) Description 03/19/2025 Telephone [facility] General Surgery [address] [place] [phone] Brenda Stafford CMA Social History Tobacco Use Types Packs/Day [...] encounter Miscellaneous Notes * Telephone Encounter - Brenda Paula CMA - 03/19/2025 11:01 AM EDT ----- Message from TOM Tucker sent at 03/19/2025 8:58 AM EDT ----- Regarding: Results Please let patient know ultrasound showed nonenlarged parotid lymph nodes. Has the lump gone down in size? ----- Message ----- From: Interface - Rad Results/Orders In 1 Sent: 03/19/2025 8:06 AM EDT To: TOM Velez * Telephone Encounter - Brenda Paula CMA - 03/19/2025 11:01 AM EDT Spoke with patient regarding Ultrasound results. Patient verbally understood with no further questions. Patient stated the lump is still the same size. Informed patient I would call the ENT's office to see if they still wanted her to have the CT done. Once I receive a response from the ENT office, will call patient with an answer. * Telephone Encounter - Brenda Paula CMA - 03/19/2025 11:01 AM EDT Spoke with the front end alignment specialist at Dr. Goss's office. Informed them that patient completed the ultrasound and asked if they still wanted patient to complete the CT. Was informed to fax the ultrasound results to their office for Dr. Goss to review to see if they still want the CT completed. * Telephone Encounter - Brenda Paula CMA - 03/19/2025 11:01 AM EDT Received a call from Dr. Goss's office stating they still want patient to have the CT performed. Will inform the patient. * Telephone Encounter - Brenda Paula CMA - 03/19/2025 11:01 AM EDT Images from the original note were not included. Message Received: 3 days ago Solo Sheehan, DO Brenda Paula CMA Please give results of CT scan to patient showing a nonenlarged lymph node and make sure she had been referred to the ENT and has an appointment with them. Please document that for me. Thanks, Dr. Bautista * Telephone Encounter - Brenda Paula CMA - 03/19/2025 11:01 AM EDT Spoke with patient regarding CT results. Patient verbally understood and is scheduled with ENT on 04/03/25. Will inform Dr. Sheehan. documented in this encounter Plan of Treatment Not on file documented as of this encounter Visit Diagnoses Not on filedocumented in this encounter Additional Health Concerns Assessment Noted Time PHQ-9 Depression Total Score: 15 025 6:46 AM EDT A Body Mass Index follow-up plan has been documented for the patient 12/26/2024 8:09 AM EDT documented as of this encounter Care Teams Warehouse And Receiving Supervisor Relationship Specialty Start Date End Date Jennifer Yarbrough, FREELANCE RECRUITER-MEN'S LOCKER ROOM ATTENDANT [address] LEFT PM 04/09/25 [place] [address] PCP - General Family Medicine 04/26/24 documented as of this encounter
--- OUTSIDE RECORDS SUMMARY | 2025-04-06 20:38 | XMS_ITS | Patient Health Record ---
Author Organization [facility] Address [address] [place] [address] Care Team Providers Care Bead Cutter Name Role Phone Physician, Non-Staff Primary Care Provider Unava ilable Mauricio Pandya Unavailable [phone] Janie Wasserman Unavailable Allergies No Known Allergies Reason For Referral Reason APPROVED............ ............PLEASE OBTAIN AUTHORIZATION FOR LEFT ELBOW MRI Diagnosis 1 Closed nondisplaced fracture of head of left radius, initial encounter (S52.323K) Referral Organization [facility] Referring Provider First Name Mauricio Referring Provider Last Name Mumtaz Referring Provider Speciality Orthopedic Surgery Referred Organization [facility] john Referred Address [place], [place], Procedure 1 MRI Joint Upper Ext w/o Dye ([id number]) General Notes Rahel Tapia 024 11:59:25 AM >APPROVED PER ONEAL AUTH #[id number] VALID 05/16/2024-07/15/2024 COPY IN CHART MA NOTIFIED REF FAXED TO Miky JIMENEZ Kimberly 05/19/2024 10:26:17 AM >patient is scheduled Referral Priority Routine Social History Tobacco Use: Social History Observation Description Date Details (start date - stop date) Unknown AUDIT-C (Standard) Question Answer Notes Did you have a drink contain ing alcohol in the past year? Yes How often did you have six o r more drinks on one occasion in the past year? Never (0 point) How many drinks did you have on a typical day when you were drinking in the past year? 3 or 4 drinks (1 point) How often did you have a dri nk containing alcohol in the past year? 2 to 4 times a month (2 points) Points 3 Interpretation Positive Tobacco Control (Standard) Question Answer Notes Tobacco use: Uses tobacco in other forms Additional Findings: Tobacco user e-cigarette Problems Problem Type SNOMED Code ICD Code Onset Dates Problem Status W/U Status Risk Notes Problem [id number] Closed nondisplaced fracture of head of left radius, initial encounter (S52.125A) Active confirmed Vital Signs Height 5'6 in 05/29/2024 Weight 250 lbs 05/29/2024 BMI 40.35 05/29/2024 Encounters Encounter Location Date Provider Diagnosis [facility] [address] [place] [phone] 05[facility] nondisplaced fracture of head of left radius, initial encounter S52.125A [facility] [address] [place] [phone] 05/29/2024 [facility] Sprain of left elbow, initial encounter S53.402A Assessments Encounter Date Diagnosis (ICD Code) Assessment Notes Treatment Notes Treatment Clinical Notes Section Notes 05/15/2024 Closed nondisplaced fracture of head of left radius, initial encounter (ICD-10 - S52.125A) Left radial head fracture Left elbow effusion 05/29/2024 Sprain of left elbow, initial encounter (ICD-10 - S53.402A) Left elbow sprain 05/15/2024 Other For the patient 's left radial head fracture and joint effusion I will keep her in a posterior splint with sling. I have ordered an MRI of the left elbow to evaluate for further injury given her joint effusion, decreased range of motion, and diffuse pain. We will see her back in the office once MRI is complete to further provide recommendations. Left radial head fracture Left elbow effusion 05/29/2024 Other Patient's pain and swelling have improved with immobilization thus far. There is no acute fracture noted on her MRI and therefore she can wean out of her sling. We have discontinued the splint. I discussed having her work on ROM of her elbow. We will have her follow-up in 3 weeks to reassess her progress. Left elbow sprain Plan Of Treatment Pending Test Test Name Order Date MRI : Elbow W/O Contrast Left - [id number] Insurance Providers Payer Name Payer Address Payer Phone Subscriber Number Group Number Insured Name Patient Relationship to Insured Coverage Start Date Coverage End Date Medicaid [employer] [address] [place] [address] [id number] JUDIE RODRIGUEZ Self - patient is the insured Medical (General) History Medical History History ICD Code High Blood Pressure Depression Mental Illness: Anxiety Surgical History Surgery Date(Month/Year) Right knee
--- OUTSIDE RECORDS SUMMARY | 2025-04-06 20:38 | XMS_ITS | Encounter Summary ---
Author Organization [employer] Address [facility] [place]-[id number] [address] [place] [address] Care Team Providers Care Coke Burner Name Role Phone Zenon Jennifer Nguyễn CAVAZOSN-TUNNELING MACHINE OPERATOR Primary Care Provid er Encounter Details Date Type Department Care Team (Late st Contact Info) Description 05/24/2024 Orders Only [facility] Internal Medicine - Family Medicine [address] [place] [phone] External, Scanning Provider Social History Tobacco Use [...] Procedure Name Priority Date/Time Associated Diagnosis Comments MR ELBOW LT W WO CONT Routine 05/22/2024 11:33 AM EDT documented in this encounter Results * MR elbow left with and without contrast (05/22/2024 11:33 AM EDT) Anatomical Region Laterality Modality MSK, Upper Extremities, Elbow, MSK [place] Left Magnetic Resonance us Scanning Provider External IMG MRI ORDERABLES Fi nal Result documented in this encounter Visit Diagnoses Not on filedocumented in this encounter Additional Health Concerns Assessment Noted Time PHQ-9 Depression Total Score: 0 04/26/20 9:47 AM EDT A Body Mass Index follow-up plan has been documented for the patient 05/03/2024 5:45 PM EDT documented as of this encounter Care Teams Coke Burner Relationship Specialty Start Date End Date Jennifer Yarbrough, EXTRUDER OPERATOR HELPER-TUNNELING MACHINE OPERATOR [address] LEFT PM 04/09/25 [place] [address] PCP - General Family Medicine 04/26/24 documented as of this encounter
--- OUTSIDE RECORDS SUMMARY | 2025-04-06 20:38 | XMS_ITS | Encounter Summary ---
Author Organization [employer] Address [facility]-[id number] [address] [place] [address] Care Team Providers Care Supplier Quality Manager Name Role Phone Zenon Jennifer Nguyễn CAVAZOSN-CIRCUIT BOARD ASSEMBLER Primary Care Provid er Encounter Details Date Type Department Care Team (Late st Contact Info) Description 04/27/2024 [facility] [address] [place] [address] Carol Tobin CMA Social History [...] Telephone Encounter - Carol Tobin CMA - 04/27/2024 12:52 PM EDT Pt called , I returned her call and read your msg about the supplements , she stated she understoodand will be going to gt them documented in this encounter Plan of Treatment Not on file documented as of this encounter Visit Diagnoses Not on filedocumented in this encounter Additional Health Concerns Assessment Noted Time PHQ-9 Depression Total Score: 0 04/26/20 9:47 AM EDT A Body Mass Index follow-up plan has been documented for the patient 04/26/2024 2:54 PM EDT documented as of this encounter Care Teams Supplier Quality Manager Relationship Specialty Start Date End Date Jennifer Yarbrough, MOVEMENT ASSEMBLY FINAL INSPECTOR-CIRCUIT BOARD ASSEMBLER [address] LEFT PM 04/09/25 [place] [phone] PCP - General Family Medicine 04/26/24 documented as of this encounter
--- OUTSIDE RECORDS SUMMARY | 2025-04-06 20:38 | XMS_ITS | Encounter Summary ---
Author Organization [employer] Address [facility] [place]-[id number] [address] [place] [address] Care Team Providers Care Surveying Or Spatial Science Technician Name Role Phone Jennifer Yarbrough ASSISTANT STRENGTH COACH-UTILITIES GROUND WORKER Primary Care Provid er Encounter Details Date Type Department Care Team (Latest Contact Info) Description 03/28/2025 Travel Social History Tobacco Use Types Packs/Day [...] documented as of this encounter Care Teams Surveying Or Spatial Science Technician Relationship Specialty Start Date End Date Jennifer Yarbrough, ASSISTANT STRENGTH COACH-UTILITIES GROUND WORKER [address] [facility] LEFT PM 04/09/25 [place] [phone] PCP - General Family Medicine 04/26/24 documented as of this encounter
--- OUTSIDE RECORDS SUMMARY | 2025-04-06 20:38 | XMS_ITS | Encounter Summary ---
Author Organization [facility] Address [facility] [place]-[id number] [address] [place] [address] Care Team Providers Care Grades 1 Through 5 Teacher Name Role Phone Jennifer Yarbrough APRN-PARTS COUNTER SALES PERSON Primary Care Provid er Reason for Visit * Reason Onset Date Comments Med Refill 09/22/2024 Encounter Details Date Type Department Care Team (Late st Contact Info) Description 09/22/2024 Refill [facility] Internal Medicine - Family Medicine [address] [place] [phone] Jennifer Yarbrough APRN-PARTS COUNTER SALES PERSON [address] LEFT PM 04/09/25 [place] [address] Social History Tobacco Use Types Packs/Day Years Used Date Smoking Tobacco: Never Smokeless Tobacco: Never Alcohol Use Standard Drinks/Week Comments Not Currently 0 (1 standard drink = 0.6 oz pur e alcohol) PHQ-2 Answer Date Recorded Total Score 08/23/2024 Childcare Answer Date Recorded Childcare Unknown 03/22/2019 Employment Answer Date Recorded Employment Unknown 03/22/2019 Hunger Screening Answer Date Recorded Within the past 12 months we worried whether our food would run out before we got money to buy more. Never True 08/23/2024 Within the past 12 months th e food we bought just didn't last and we didn't have money to get more. Never True 08/23/2024 Purpose - Life Answer Date Recorded Purpose and direction in life Unknown Comments No Sex and Gender Information Value Date Recorded Sex Assigned at Not on file Legal Sex Female 5:19 PM EDT Gender Identity Not on file Sexual Orientation Not on file documented as of this encounter Miscellaneous Notes * Telephone Encounter - TOM Bocanegra - 09/22/2024 1:37 PM EST I do not have a muscle relaxant that is active on pt's list. She will need to ask Katty about this ather upcoming appt tomorrow documented in this encounter Plan of Treatment Not on file documented as of this encounter Visit Diagnoses Not on filedocumented in this encounter Additional Health Concerns Assessment Noted Time PHQ-9 Depression Total Score: 024 1:36 PM EST A Body Mass Index follow-up plan has been documented for the patient 08/23/2024 2:03 PM EST documented as of this encounter Care Teams Grades 1 Through 5 Teacher Relationship Specialty Start Date End Date Jennifer Yarbrough APRN-CNP [address] LEFT PM 04/09/25 [place] [address] PCP - General Family Medicine 04/26/24 documented as of this encounter
--- OUTSIDE RECORDS SUMMARY | 2025-04-06 20:38 | XMS_ITS | Clinical Summary ---
Author Organization [employer] Address [id number] [address] [place] [address] Care Team Providers Care Air Brake Man Name Role Phone Jennifer Yarbrough APRN-CREDIT PROFESSIONAL Primary Care Provid er Allergies No known active allergies Medications FLUoxetine (PROzac) 10 mg capsuleIndicatio ns:Reactive depression Take 1 capsule (10 mg total) by mouth in the morning. 30 capsule 5 5 Active cholecalciferol, vitamin D3, 5,000 units tabletIndication s:Vitamin D deficiency Take 1 tablet (5,000 Units total) by mouth in the morning. 30 each 5 Active magnesium oxide (MAGOX) 400 mg tabletIndication s:Hypomagnesemia Take 1 tablet (400 mg total) by mouth in the morning. 30 tablet 5 5 Active DULoxetine (CYMBALTA) 60 mg capsuleIndicatio ns:Reactive depression Take 1 capsule (60 mg total) by mouth in the morning. 30 capsule 5 5 Active cariprazine (VRAYLAR) 1.5 mg capsuleIndicatio ns:Current severe episode of major depressive disorder without psychotic features without prior episode (CMS-HCC) Take 1 capsule (1.5 mg total) by mouth in the morning. 30 capsule 5 5 Active rOPINIRole (REQUIP) 0.25 mg tabletIndication s:Restless leg syndrome Take 1 tablet (0.25 mg total) by mouth nightly. 30 tablet 5 5 Active lisinopriL (PRINIVIL,ZESTRI L) 40 mg tabletIndication s:Essential hypertension Take 1 tablet (40 mg total) by mouth in the morning. 90 tablet 1 5 Active amoxicillin-pot clavulanate (AUGMENTIN) 875-125 mg per tablet Take 1 tablet by mouth in the morning and 1 tablet before bedtime. Do all this for 10 days. 20 tablet 5 03/10/20 25 lisinopriL (PRINIVIL,ZESTRI L) 40 mg tabletIndication s:Essential hypertension Take 1 tablet (40 mg total) by mouth in the morning. 90 tablet 1 5 03/20/20 25 Discontinue d(Reorder) Active Problems Problem Noted Date Diagnosed Date Myopia 04/05/2017 Astigmatism 04/05/2017 HTN in , chronic 03/12/2016 Overview (01/13/2024): Overview: -BPs in ED in September 2015 were 150/90 - 24 hour urine Creatinine/protein ordered 03/26/16 - pt did this in April, but the lab did not run the protein, only the Creatinine - pt will need to repeat the collection -Initiate antihypertensives if patient's BP is consistently greater than 150/105 History of tobacco use 10/29/2015 Overview (01/13/2024): Overview: Quit in 09/2015 Resolved Problems Problem Noted Date Diagnosed Date Resolved Date Delivery normal 06/04/2016 01/13/2024 Abnormal finding on antenata l screening of mother 01/22/2016 01/13/2024 Overview (01/13/2024): Overview: 02/03/16 NIPT wnl Obesity affecting , antepartum 01/22/2016 01/13/2024 Other specified re lated conditions, unspecified trimester 01/22/2016 01/13/2024 Overview (01/13/2024): Overview: 02/03/16 NIPT wnl High-risk 10/29/2015 01/13/20 24 Overview (01/13/2024): Overview: Rx for [place] gummie vitamins sent to pharmacy on 11/27/15 02/03/16 NIPT wnl Infection in 10/29/201501/12 Overview (01/13/2024): Overview: 10/17/15 +Chlamydia; treatment given 10/29 Will need BITA in 4 weeks 11/28/15 BITA urine GC neg/neg Encounters Date Type Department Care Team Description 03/28/2025 10:10 AM EDT - 03/28/2025 11:59 PM EDT Hospital Encounter [facility] - CT Imaging [address] [place] [address] Solo Sheehan DO Swelling, mass, or lump on face Discharge Disposition: Home 03/28/2025 Travel 03/20/2025 Refill [facility] - Family Medicine [address] [place] [address] Jennifer Yarbrough APRN-CREDIT PROFESSIONAL Essential hypertension 03/19/2025 Telephone [facility] General Surgery [address] [place] [address] Brenda Stafford [facility] 03/15/2025 8:57 AM EDT - 03/15/2025 11:59 PM EDT Hospital Encounter [facility] - Ultrasound [address] [place] [address] Siobhan Casillas, FOREMAN/PILE DRIVING AND ERECTION-CREDIT PROFESSIONAL Swelling, mass, or lump on face Discharge Disposition: Home 03/14/2025 Travel 03/09/2025 Orders Only [facility] [address] [place] [address] Siobhan Casillas, FOREMAN/PILE DRIVING AND ERECTION-CREDIT PROFESSIONAL Swelling, mass, or lump on face (Primary Dx) 03/05/2025 Refill [facility] - Family Medicine [address] [place] [address] Jennifer Yarbrough FOREMAN/PILE DRIVING AND ERECTION-CREDIT PROFESSIONAL Essential hypertension; Reactive depression; Vitamin D deficiency; Hypomagnesemia; Current severe episode of major depressive disorder without psychotic features without prior episode ([facility] Restless leg syndrome 02/28/2025 9:30 AM EDT Office Visit [facility] [address] [place] [id number] Solo Sheehan, DO Swelling, mass, or lump on face (Primary Dx); Morbid obesity with BMI of 40.0-44.9, adult ([facility] [place]) 02/28/2025 Orders Only [facility] [address] [place] [address] Solo Sheehan, DO Swelling, mass, or lump on face (Primary Dx) 02/28/2025 Travel 02/12/2025 Refill [facility] - Family Medicine [address] [place] [address] Jennifer Yarbrough, FOREMAN/PILE DRIVING AND ERECTION-CREDIT PROFESSIONAL Reactive depression; Vitamin D deficiency; Hypomagnesemia; Current severe episode of major depressive disorder without psychotic features without prior episode ([facility] [place]); Restless leg syndrome 01/18/2025 [facility] [address] [place] [id number] Jennifer Yarbrough, FOREMAN/PILE DRIVING AND ERECTION-CREDIT PROFESSIONAL Vitamin D deficiency; Hypomagnesemia; Reactive depression; Current severe episode of major depressive disorder without psychotic features without prior episode ([facility] [place]); Restless leg syndrome from Last 3 Months Immunizations Immunization Administration Dates Next Due DTP 1993,1993,1993 DTaP, Unspecified 02/22/1998,04/26/1995 Hep B, Adolescent or Pediatric 1993,1992,1993 HiB 04/26/1995,1993,1993 ,1993 Influenza Whole 08/16/2012 MMR 02/22/1998,04/26/1995 OPV 02/22/1998,04/26/1995,1993 ,1993 Tdap 03/26/2016 Family History Medical History Relation Name Comments Colon cancer Father Diabetes Father Hypertension Father Hypertension Mother Cataracts Neg Hx Glaucoma Neg Hx Macular degeneration Neg Hx Relation Name Status Comments Father Alive Mother Alive Social History Tobacco Use Types Packs/Day Years Used Date Smoking Tobacco: Former Cigarettes Smokeless Tobacco: Never Tobacco Cessation:Counseling Given: Not Answered Alcohol Use Standard Drinks/Week Comments Not Currently [...] on file Sexual Orientation Not on file Last Filed Vital Signs Vital Sign Reading Time Taken Comments Blood Pressure 122/75 02/28/2025 9:32 AM EDT Pulse 79 02/28/2025 9:32 AM EDT Temperature 36.6 C (97.8 F) 12/26/2024 6:49 AM EDT Respiratory Rate 18 12/26/2024 6:49 AM EDT Oxygen Saturation 99% 12/26/2024 6:49 AM EDT Inhaled Oxygen Concentration - - Weight 120.7 kg (266 lb 3.2 oz) 02/28/2025 9:32 AM EDT Height 167 cm (5' 5.75 ) 02/28/2025 9:32 AM EDT Body Mass Index 43.29 02/28/2025 9:32 AM EDT Plan of Treatment Health Maintenance Due Date Last Done Comments Pap Smear 2014 Influenza Vaccine 06/11/2025 08/16/2012 Adult BMI Follow Up Plan 12/26/2025 12/26/2024 Depression Screening 12/26/2025 12/26/2024 Adult BMI Screening 02/28/2026 02/28/2025 Tobacco Screening 02/28/2026 02/28/2025 DTaP,Tdap and Td Vaccines (7 - Td or Tdap) 03/26/2026 03/26/2016, 02/22/1998, 04/26/1995, Additional history exists Medical Devices Not on file Procedures Procedure Name Priority Date/Time Associated Diagnosis Comments CT NECK SOFT TISSUE W CONT Routine 03/28/2025 11:08 AM EDT Swelling, mass, or lump on face US SOFT TISS HEAD NECK Routine 03/15/2025 9:23 AM EDT Swelling, mass, or lump on face from Last 3 Months Results * CT neck soft tissue with [...] by Solo Ibrahim on 03/30/2025 12:32 PM us Solo Sheehan DO IMG CT ORDERABLES Final Res ult * Ultrasound soft tissue head neck (03/15/2025 9:23 AM EDT) Anatomical Region Laterality Modality Neuro, Neck Ultrasound 03/19/2025 8:04 AM EDT Narrative 03/19/2025 8:05 AM EDT Procedure: US SOFT TISS HEAD NECK; Reason [...] by Gavin Tomas on 03/19/2025 8:05 AM Procedure Note Gavin Tomas MD - 03/19/2025 Procedure: US SOFT TISS HEAD NECK; Reason for Exam: Swelling, mass, or lump on face; Comparison: None FINDINGS/IMPRESSION: Targeted scanning to evaluate patient's area of concern demonstratesnonenlarged lymph nodes within the right parotid measuring up to 1.1 x 0.4x 0.6 cm. No suppurative components appreciated. Normal morphology. Continue clinical follow-up, recommend reimaging if enlarging or worseningsymptoms. Finalized by Gavin Tomsa on 03/19/2025 8:05 AM Siobhan Jones Vinny CASAS-CREDIT PROFESSIONAL [facility] US ORDERABLES Fin al Result from Last 3 Months Insurance [place] [employer] Care Teams Air Brake Man Relationship Specialty Start Date End Date Jennifer Yarbrough APRN-SONALI [address] [facility] LEFT PM 04/09/25 [place] [address] PCP - General Family Medicine 04/26/24
--- OUTSIDE RECORDS SUMMARY | 2025-04-06 20:38 | XMS_ITS | Encounter Summary ---
Author Organization [employer] Address [id number] [address] [place] [address] Care Team Providers Care Water Pollution Control Technician Name Role Phone Zenon Jennifer Nguyễn CAVAZOSN-FIRE CONTROL MECHANIC Primary Care Provid er Encounter Details Date Type Department Care Team (Late st Contact Info) Description 05/02/2024 [facility] [address] [place] [address] Carol Tobin CMA Social History [...] Telephone Encounter - Carol Tobin CMA - 05/02/2024 12:32 PM EDT Pt called still having a lot of numbness in her right hand she can't even put her hair up , states she's been taking the meds everyday. She can hema use her thumb and index finger everything else is numb up to her wrist . Pls advise * Telephone Encounter - TOM Grimes - 05/02/2024 12:32 PM EDT I recommend follow up in regards to pain. Sounds like it is now worse. She can call first thing in the AM and request same day. * Telephone Encounter - Carol Tobin CMA - 05/02/2024 12:32 PM EDT Scheduled documented in this encounter Plan of Treatment Not on file documented as of this encounter Visit Diagnoses Not on filedocumented in this encounter Additional Health Concerns Assessment Noted Time PHQ-9 Depression Total Score: 0 04/26/20 9:47 AM EDT A Body Mass Index follow-up plan has been documented for the patient 04/26/2024 2:54 PM EDT documented as of this encounter Care Teams Water Pollution Control Technician Relationship Specialty Start Date End Date Jennifer Yarbrough APRN-CNP [address] LEFT PM 04/09/25 [place] [address] PCP - General Family Medicine 04/26/24 documented as of this encounter
[2025-04-06 20:47] VITALS: BP 110/78; PULSE 116; TEMP 36.7; O2SAT 97; BMI 41.9
--- NOTE | 2025-04-06 21:13 | XR_ITS ---
The [address] [address] Patient Name: JUDIE RODRIGUEZ MRN: [id number] date: 1995 Sex: F Assigned Patient Location: ER Current Patient Location: ER Accession/Order Number: [id number] Exam Date: 04/06/2025 21:50 Report Date: 04/06/2025 21:51 At the request of: YENNY MOTA Procedure: XR knee LT 4V LEFT KNEE - 3 views CLINICAL HISTORY: left knee injury, left knee pain COMPARISON: None FINDINGS: No fracture or dislocation. Joint spaces preserved. Soft tissues unremarkable XR/XR knee LT 4V IMPRESSION: Negative acute osseous abnormality. Impression dictated by: Terrell Parra M.D. 04/06/2025 9:51 PM Dictation Location: [place] [address] Electronically authenticated by: [id number] Y Date: 04/06/2025 21:51
[2025-04-06] MEDS: IBUPROFEN 600 MG TABLET PO (21:45)
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
[2025-04-06 22:28] VITALS: BP 105/64; PULSE 103; O2SAT 16
== END 2025-04-06 22:31 | disposition home or self-care (01) ==
PROVIDERS: Emergency Provider Emergency Medicine; PCP Family Medicine
DX: M25.562 Pain in left knee (principal); S83.8X2A Sprain of other specified parts of left knee, initial encounter; V86.55XA Driver of 3- or 4- wheeled all-terrain vehicle (ATV) injured in nontraffic accident, initial encounter; M79.662 Pain in left lower leg
CPT/HCPCS: 73564; 99283

== ENCOUNTER 2025-05-17 10:33 | Outpatient (OUT) | payer OTHER, SELFPAY ==
--- OUTSIDE RECORDS SUMMARY | 2024-06-19 04:40 | XMS_ITS ---
Author Organization [facility] Address [address] [place] [address] Care Team Providers Care Derrick Boat Operator Name Role Phone Physician, Non-Staff Primary Care Provider Una[facility]auricio [facility] [phone] REASON FOR VISIT LEFT ELBOW SPRAIN Encounters Encounter Location Date Provider Diagnosis [facility] [address] [place] [address] [place] [address] 06/19/2024 Mauricio Pandya Plan Of Treatment No Information Progress Notes * AMANDA RODRIGUEZOB:1995 (30 yo F)Acc No.[id number]:06/19/2024 Patient: JUDIE ESCOBAR Provider: Reji Pandya MD :1995 A ge:29 Y S ex:Female Date:06/19/2024 Address:[address] [facility], [id number] Pcp:Non-Staff Physician Subjective: * Chief Complaints: * 1 . LEFT ELBOW SPRAIN. * Medical History: Objective: * Vitals: Assessment: Plan: * Treatment: Forms: * Images: * Electronic signature of Zachary Pandya MD on 05/17/2025 at 10:27 AM EDT Sign off status: Pending * Provider: Reji Pandya MD Date: 0 06/19/2024 Generated for Gab page/Kamar/eTransmitting on: 05/17/2025 10:27 AM EDT
--- OUTSIDE RECORDS SUMMARY | 2025-05-11 09:30 | XMS_ITS | Encounter Summary ---
Author Organization [facility] Address [address] [facility] [place] [address] Care Team Providers Care Nurse Manager Name Role Phone Solo Sheehan DO Unavailable [phone] Jennifer Yarbrough Unavailable [phone] Reason for Visit * Rehabilitation - Outpatient (Routine) - Authorized Specialty Diagnoses / Procedures Referred By Karsten friedman Referred To Contact Physical Therapy Diagnoses S/P Left Knee ACL / MCL Reconstruction Procedures [place] PHYSICAL THERAPY EVALUATION LOW COMPLEX 20 MINS IA OFFICE/OUTPATIENT NEW HIGH MDM 60 MINUTES Davi Tucker MD [address] [place] [address] Phone: tel: fax: Teresa Villa PT Referral ID Status Reason Start Date Expiration Date V isits Requested Visits Authorized [id number] Authorized 05/11/2025 10/10/2025 6 6 Encounter Details Date Type Department Care Team (Late st Contact Info) Description 05/11/2025 9:30 AM EDT Evaluation [facility] [address] [place] [address] Teresa Villa PT Left knee pain, unspecified chronicity (Primary Dx); Sprain of anterior cruciate ligament of left knee, subsequent encounter Social History Tobacco Use Types Packs/Day Years [...] on file documented as of this encounter Progress Notes * Teresa Allen, PT - 05/11/2025 9:30 AM EDT Images from the original note were not included. Physical Therapy Evaluation Visit Patient Name: Tomasa Leon Today's Date: 05/11/2025 Encounter Diagnoses Name Primary? Left knee pain, unspecified chronicity Yes Sprain of anterior cruciate ligament of left knee, subsequent encounter Visit number: 1 Timed Code Treatment Minutes: 35 minutes Total Treatment Time: 35 minutes Time In: 0925 Time Out: 1000 History: Underwent surgery for left ACL, MCL, LCL, and meniscus repair on 05/09/25. Pt is NWB for the next for week. Ambulating with use of axillary crutches. Taking pain meds and using ice machine athome. Precautions: NWB x 4 week; follow protocol Subjective: left knee, mostly in the front Pain: 8/10 Objective: PT Evaluation (05/11/2025) KNEE AROM: 0 to 35 degrees in supine PROM: 0 to 45 degrees in supine MMT: quad 2/5, hip 3-/5, ankle 4/5 Palpation: moderate tenderness medial knee Special Test: N/A Treatment: Education: HEP education with demonstration, Educated on Eval Findings and POC Manual Therapy: Passive ROM, Joint mobilization, Soft Tissue Mobilization, Myofascial Release, Muscle Energy Technique, Neural Mobilization, Myofascial Cupping, Dry Needling, IASTM, and Scar mobilization as needed. Therapeutic Exercise: (14 minutes) Strength, Endurance, Flexibility, ROM, HEP, Neural Mobilization,Power, and Core Stability as needed. Pt performed and instructed in home program this date; writteninstructions and pictures issued with good pt understanding. Therapeutic Activity: Exercises to improve dynamic activities, functional tasks, functional mobility to return to prior activity level as needed. Neuromuscular re-education: Balance Training, Muscle Facilitation, Dynamic Stability, Core Stabilization, and Blood Flow Restriction Training (BFRT) as needed. Modalities: Heat, Ice, Electrical Stimulation, Ultrasound, Cervical Mechanical Traction, Lumbar Mechanical Traction, Iontophoresis, and Fluidotherapy as needed. Assessment: Pt is 30 y/o female with recent left knee surgery. Pt with significantly limited ROM. Decrease strength left LE with inability to perform SLR. Good VMO contraction. Pt instructed in home program and will benefit from further PT. Outcome Measure: Lower Extremity Functional Scale (LEFS): 25/80 Rehab Diagnosis: left knee pain and weakness, decrease ROM and mobility, difficulty walking Short Term Goal: To be met in 2 weeks Goal 1: Pt to be instructed in home exercise program. Oracle Database Administrator Goals: To be met in 10 weeks Goal 1: Pt to report independence and compliance with home program. Goal 2: Pt to achieve 120 degrees left knee flexion to assist with functional tasks such as squatting. Goal 3: Pt to achieve 5/5 strength left knee flexion and extension to assist with functional mobility and ADL's. Goal 4: Pt to achieve 4+/5 strength left hip to assist with functional activities. Goal 5: Pt to score no less than 60/80 on LEFS indicating improved QOL. Pt will benefit from skilled PT for 2-3x/week from 05/11/2025 to 08/03/2025 to address the above impairments. I hereby deem this POC medically necessary. Please sign below. Date: documented in this encounter Plan of Treatment Upcoming Encounters Date Type Department Care Team (Late st Contact Info) Description 05/18/2025 2:00 PM EDT Treatment [facility] [address] [facility] [address] [place] [address] Santiago Lopez, SALES AND SERVICE REPRESENTATIVE 05/21/2025 1:00 PM EDT Treatment [facility] [place] [facility] [address] [place] [address] Melissa Villavicencio, SALES AND SERVICE REPRESENTATIVE 05/23/2025 1:00 PM EDT Treatment [facility] [place] [facility] [address] [place] [address] Santiago Lopez, SALES AND SERVICE REPRESENTATIVE 05/25/2025 12:30 PM EDT Treatment [facility] [place] [facility] [address] [place] [address] Teresa Villa, PT 05/28/2025 1:00 PM EDT Treatment [facility] [address] [place] [address] Melissa Villavicencio, SALES AND SERVICE REPRESENTATIVE 05/30/2025 1:30 PM EDT Treatment [facility] [address] [place] [address] Melissa Villavicencio, SALES AND SERVICE REPRESENTATIVE 06/01/2025 1:00 PM EDT Treatment [facility] [place] [facility] [address] [place] [address] Yusuf Hodges, SALES AND SERVICE REPRESENTATIVE 06/04/2025 1:00 PM EDT Treatment [facility] [address] [place] [address] PrashanthMelissa villar, SALES AND SERVICE REPRESENTATIVE 06/06/2025 1:00 PM EDT Office Visit [facility] [place] [facility] [address] [place] [address] Linda Goss MD [address] [facility] [address] [place] [address] 06/06/2025 1:30 PM EDT Treatment [facility] [place] [facility] [address] [facility] [address] [place] [address] Yusuf Hodges, SALES AND SERVICE REPRESENTATIVE 06/08/2025 1:00 PM EDT Treatment [facility] [place] [facility] [address] [facility] [address] [place] [address] Yusuf Hodges, SALES AND SERVICE REPRESENTATIVE documented as of this encounter Visit Diagnoses Diagnosis Left knee pain, unspecified chronicity- Primary Sprain of anterior cruciate ligament of left knee, subsequent encounter documented in this encounter Care Teams Nurse Manager Relationship Specialty Start Date End Date Solo Sheehan DO [address] [place] [address] Referring Physician General Surgery 02/28/25 Jennifer Yarbrough CRNP [address] [facility] [place] [address] Referring Physician Nurse Practitioner 04/03/25 documented as of this encounter
--- OUTSIDE RECORDS SUMMARY | 2025-05-14 12:00 | XMS_ITS | Encounter Summary ---
Author Organization [facility] Address [address] [facility] [place] [address] Care Team Providers Care Grants Specialist Name Role Phone Solo Sheehan DO Unavailable [phone] Jennifer Yarbrough Unavailable [phone] Reason for Visit * Rehabilitation - Outpatient (Routine) - Authorized Specialty Diagnoses / Procedures Referred By Karsten friedman Referred To Contact Physical Therapy Diagnoses S/P Left Knee ACL / MCL Reconstruction Procedures [place] PHYSICAL THERAPY EVALUATION LOW COMPLEX 20 MINS MA OFFICE/OUTPATIENT NEW HIGH MDM 60 MINUTES Davi Tucker MD [address] [place] [address] Phone: tel: fax: Teresa Villa PT Referral ID Status Reason Start Date Expiration Date V isits Requested Visits Authorized [id number] Authorized 05/11/2025 10/10/2025 6 6 Encounter Details Date Type Department Care Team (Late st Contact Info) Description 05/14/2025 12:00 PM EDT Treatment [facility] [address] [place] [address] Santiago Lopez, OMEGA Sprain of anterior cruciate ligament of left knee, subsequent encounter (Primary Dx); Left knee pain, unspecified chronicity Social History Tobacco Use Types Packs/Day Years [...] as of this encounter Progress Notes * Santiago Lopez, TWISTER HAND - 05/14/2025 12:00 PM EDT Images from the original note were not included. Physical Therapy Treatment Visit Patient Name: Tomasa Leon Today's Date: 05/14/2025 Encounter Diagnoses Name Primary? Sprain of anterior cruciate ligament of left knee, subsequent encounter Yes Left knee pain, unspecified chronicity Visit number: 2 Timed Code Treatment Minutes: 30 minutes Total Treatment Time: 45 minutes Time In: 1200 Time Out: 1245 History: Underwent surgery for left ACL, MCL, LCL, and meniscus repair on 05/09/25. Pt is NWB for the next for week. Ambulating with use of axillary crutches. Taking pain meds and using ice machine athome. Precautions: NWB x 4 week; follow protocol Subjective: Pt reports maintaining precautions and knee pain is 5/10. Pt states still having n/t inlower leg. Pain: 8/10 Objective: PT Evaluation (05/11/2025) KNEE AROM: 0 to 35 degrees in supine PROM: 0 to 45 degrees in supine MMT: quad 2/5, hip 3-/5, ankle 4/5 Palpation: moderate tenderness medial knee Special Test: N/A Treatment: Education: HEP education with demonstration, Educated on Eval Findings and POC Manual Therapy: (10 minutes) Pat mobs, STM to quad. Passive ROM, Joint mobilization, Soft Tissue Mobilization, Myofascial Release, Muscle Energy Technique, Neural Mobilization, Myofascial Cupping, Dry Needling, IASTM, and Scar mobilization as needed. Therapeutic Exercise: (20 minutes) Strength, Endurance, Flexibility, ROM, HEP, Neural [...] Flow Restriction Training (BFRT) as needed. Modalities: CP in supine with LE elevated (10 minutes) Heat, Ice, Electrical Stimulation, Ultrasound, Cervical Mechanical Traction, Lumbar Mechanical Traction, Iontophoresis, and Fluidotherapy as needed. Assessment: Pt is 30 y/o female with recent left knee surgery. Pt able to perform SLR this date with brace on. Good quad contraction with QS. Discussed with pt to continue elevation, AP, and use of CP at home for swelling control. Pt instructed in home program and will benefit from further PT. Pt has follow-up with surgeon on 05/17/25. Outcome Measure: Lower Extremity Functional Scale (LEFS): 25/80 Rehab Diagnosis: left knee pain and weakness, decrease ROM and mobility, difficulty walking Short Term Goal: To be met in 2 weeks Goal 1: Pt to be instructed in home exercise program. Care Home Goals: To be met in 10 weeks [...] POC medically necessary. Please sign below. Date: Cosigned by Teresa Villa PT at 05/16/2025 8:29 AM EDT documented in this encounter Plan of Treatment Upcoming Encounters Date Type Department Care Team (Late st Contact Info) Description 05/18/2025 2:00 PM EDT Treatment [facility] [place] [facility] [address] [facility] [address] [place] [address] Santiago Lopez PTA 05/21/2025 1:00 PM EDT Treatment [facility] [place] [facility] [address] [place] [address] Melissa Villavicencio, TWISTER HAND 05/23/2025 1:00 PM EDT Treatment [facility] [place] [facility] [address] [place] [address] Santiago Lopez, TWISTER HAND 05/25/2025 12:30 PM EDT Treatment [facility] [address] [place] [address] Teresa Villa, PT 05/28/2025 1:00 PM EDT Treatment [facility] [place] [facility] [address] [place] [address] Melissa Villavicencio, TWISTER HAND 05/30/2025 1:30 PM EDT Treatment [facility] [place] [facility] [address] [place] [address] Melissa Villavicencio, TWISTER HAND 06/01/2025 1:00 PM EDT Treatment [facility] [place] [facility] [address] [place] [address] Yusuf Hodges, TWISTER HAND 06/04/2025 1:00 PM EDT Treatment [facility] [place] [facility] [address] [place] [address] Melissa Villavicencio, TWISTER HAND 06/06/2025 1:00 PM EDT Office Visit [facility] [place] [facility] [address] [place] [address] Linda Goss MD [address] [place] [address] 06/06/2025 1:30 PM EDT Treatment [facility] [place] [facility] [address] [place] [address] Yusuf Hodges, TWISTER HAND 06/08/2025 1:00 PM EDT Treatment [facility] [place] [facility] [address] [place] [address] Yusuf Hodges PTA documented as of this encounter Visit Diagnoses Diagnosis Sprain of anterior cruciate ligament of left knee, subsequent encounter- Primary Left knee pain, unspecified chronicity documented in this encounter Care Teams Grants Specialist Relationship Specialty Start Date End Date Solo Sheehan DO [address] [place] [address] Referring Physician General Surgery 02/28/25 Jennifer Yarbrough CRNP [address] [place] [address] Referring Physician Nurse Practitioner 04/03/25 documented as of this encounter
--- OUTSIDE RECORDS SUMMARY | 2025-05-16 12:00 | XMS_ITS | Encounter Summary ---
Author Organization [facility] Address [address] [facility] [place] [address] Care Team Providers Care Professor Of History Name Role Phone Solo Sheehan DO Unavailable [phone] Jennifer Yarbrough Unavailable Reason for Visit * Rehabilitation - Outpatient (Routine) - Authorized Specialty Diagnoses / Procedures Referred By Karsten friedman Referred To Contact Physical Therapy Diagnoses S/P Left Knee ACL / MCL Reconstruction Procedures [place] PHYSICAL THERAPY EVALUATION LOW COMPLEX 20 MINS [place] OFFICE/OUTPATIENT NEW HIGH MDM 60 MINUTES Davi Tucker MD [address] [place] [address] Phone: tel: fax: Teresa Villa PT Referral ID Status Reason Start Date Expiration Date V isits Requested Visits Authorized [id number] Authorized 05/11/2025 10/10/2025 6 6 Encounter Details Date Type Department Care Team (Late st Contact Info) Description 05/16/2025 12:00 PM EDT Treatment [facility] [address] [place] [address] Santiago Lopez, OMEGA Sprain of [...] [address] [place] [address] Santiago Lopez, PIPELINES SUPERVISOR 05/21/2025 1:00 PM EDT Treatment [facility] [place] [facility] [address] [place] [address] Melissa Villavicencio, PIPELINES SUPERVISOR 05/23/2025 1:00 PM EDT Treatment [facility] [place] [facility] [address] [place] [address] Santiago Lopez, PIPELINES SUPERVISOR 05/25/2025 12:30 PM EDT Treatment [facility] [place] [facility] [address] [place] [address] Teresa Villa, PT 05/28/2025 1:00 PM EDT Treatment [facility] [place] [facility] [address] [place] [address] Melissa Villavicencio, PIPELINES SUPERVISOR 05/30/2025 1:30 PM EDT Treatment [facility] [place] [facility] [address] [place] [address] Melissa Villavicencio, PIPELINES SUPERVISOR 06/01/2025 1:00 PM EDT Treatment [facility] [place] [facility] [address] [place] [address] Yusuf Hodges, PIPELINES SUPERVISOR 06/04/2025 1:00 PM EDT Treatment [facility] [place] [facility] [address] [place] [address] Melissa Villavicencio, PIPELINES SUPERVISOR 06/06/2025 1:00 PM EDT Office Visit [facility] [place] [facility] [address] [place] [address] Linda Goss MD [address] [place] [address] 06/06/2025 1:30 PM EDT Treatment [facility] [place] [facility] [address] [facility] [address] [place] [address] Yusuf Hodges, OMEGA 06/08/2025 1:00 PM EDT Treatment [facility] [address] [facility] [address] [place] [address] Yusuf Hodges PTA documented as of this encounter Visit Diagnoses Diagnosis Sprain of anterior cruciate ligament of left knee, subsequent encounter- Primary Left knee pain, unspecified chronicity documented in this encounter Care Teams Professor Of History Relationship Specialty Start Date End Date Solo Sheehan DO [address] [place] [address] Referring Physician General Surgery 02/28/25 Jennifer Yarbrough CRNP [address] [place] [address] Referring Physician Nurse Practitioner 04/03/25 documented as of this encounter
--- NOTE | 2025-05-17 | XR_ITS ---
[facility] [place] [id number] Patient Name: JUDIE RODRIGUEZ MRN: [id number] date: 1995 Sex: F Assigned Patient Location: [facility] Current Patient Location: [facility] Accession/Order Number: [id number] Exam Date: 05/17/2025 11:30 Report Date: 05/17/2025 11:32 At the request of: ALEXANDRIA MATHEW DO Procedure: XR knee LT 2V LEFT KNEE - 2 views COMPARISON: 04/06/2025 CLINICAL DATA: Follow-up after knee surgery. AP and lateral views were obtained. There are new tracts and anchor buttons at the lateral femoral condyle and tibial tubercle. Findings suggest potential ACL repair. There are no developing fractures or dislocation. A bone island is seen at the distal femoral metaphysis. A knee effusion is seen. XR/XR knee LT 2V IMPRESSION: NEW POSTOPERATIVE CHANGES, DESCRIBED. Impression dictated by: Kristen Dover M.D. 05/17/2025 11:32 AM Dictation Location: [facility] Electronically authenticated by: [id number] Y Date: 05/17/2025 11:32
--- OUTSIDE RECORDS SUMMARY | 2025-05-17 10:37 | XMS_ITS | Clinical Summary ---
Author Organization [facility] Healthcare Address [address] [place] [address] Care Team Providers Care Caterers Helper Name Role Phone Solo Sheehan DO Unavailable [phone] Agustina Yarbroughe ADELITA Unavailable [phone] Allergies No known active allergies Medications DULoxetine (Cymbalta) [address] capsule Take 60 mg by mouth in the morning. 03/06/2025 Active FLUoxetine (PROzac) 10 MG capsule Take 10 mg by mouth in the morning. 03/06/2025 Active lisinopril 20 MG tablet Take 20 mg by mouth in the morning. 04/26/2024 Active magnesium oxide (Mag-Ox) 400 MG tablet Take 400 mg by mouth in the morning. 03/06/2025 Active cholecalciferol (Vitamin D-3) 125 MCG (5000 UT) tablet Take 5,000 Units by mouth in the morning. 03/06/2025 Active Cariprazine HCl 1.5 MG capsule Take 1.5 mg by mouth in the morning. 03/06/2025 Active rOPINIRole (Requip) 0.25 MG tablet Take 0.25 mg by mouth at bedtime 03/06/2025 Active cyanocobalamin (Vitamin B-12) 100 MCG tablet Take 100 mcg by mouth Daily Active Active Problems Problem Noted Date Diagnosed Date Closed nondisplaced fracture of head of left rad ius 04/03/2025 Breast lump 03/30/2025 Class 2 obesity 03/30/2025 Depression 03/30/2025 Astigmatism 04/05/2017 HTN in , chronic ([facility]) 03/12/2016 Overview (03/30/2025): -BPs in ED in September 2015 were 150/90 - 24 hour urine Creatinine/protein ordered 03/26/16 - pt did this in April, but the lab did not run the protein, only the Creatinine - pt will need to repeat the collection -Initiate antihypertensives if patient's BP is consistently greater than 150/105 History of tobacco use 10/29/2015 Overview (03/30/2025): Quit in 09/2015 Encounters Date Type Department Care Team Description 05/16/2025 12:00 PM EDT Treatment [facility] [address] [place] [address] Santiago Lopez, STOCK ROOM MANAGER Sprain of anterior cruciate ligament of left knee, subsequent encounter (Primary Dx); Left knee pain, unspecified chronicity 05/16/2025 Bamboo flowsheet [facility] [address] [place] [address] Santiago Lopez, STOCK ROOM MANAGER 05/16/2025 Travel 05/14/2025 12:00 PM EDT Treatment [facility] [address] [place] [address] Santiago Lopez, STOCK ROOM MANAGER Sprain of anterior cruciate ligament of left knee, subsequent encounter (Primary Dx); Left knee pain, unspecified chronicity 05/14/2025 Bamboo flowsheet [facility] [address] [place] [address] Santiago Lopez, STOCK ROOM MANAGER 05/14/2025 Travel 05/11/2025 9:30 AM EDT Evaluation [facility] [address] [place] [address] Teresa Villa, PT Left knee pain, unspecified chronicity (Primary Dx); Sprain of anterior cruciate ligament of left knee, subsequent encounter 05/11/2025 Plan of Care Documentation [facility] [address] [place] [address] 05/11/2025 Bamboo flowsheet [facility] [address] [place] [address] Teresa Villa, PT 05/11/2025 Travel 05/07/2025 Telephone [facility] [address] [place] [address] Santiago Lopez, STOCK ROOM MANAGER Missed PT (x2) 04/30/2025 12:00 PM EDT Treatment [facility] [address] [place] [address] Santiago Lopez, STOCK ROOM MANAGER Left knee pain, unspecified chronicity (Primary Dx) 04/30/2025 Bamboo flowsheet [facility] [address] [place] [address] Santiago Lopez, STOCK ROOM MANAGER 04/30/2025 Travel 04/25/2025 2:30 PM EDT Evaluation [facility] [address] [place] [address] Teresa Villa, PT Left knee pain, unspecified chronicity (Primary Dx) 04/25/2025 Plan of Care Documentation [facility] [address] [place] [address] 04/25/2025 Bamboo flowsheet [facility] [address] [place] [address] Teresa Villa, PT 04/25/2025 Travel 04/03/2025 9:20 AM EDT Office Visit [facility] [address] [place] [address] Linda Goss MD Chronic parotitis (Primary Dx); Parotid nodule 04/03/2025 Bamboo flowsheet [facility] [address] [place] [address] Linda Goss MD 04/03/2025 Travel 03/19/2025 Orders Only [facility] [address] [place] [address] Jennifer Yarbrough CRNP from Last 3 Months Family History Medical History Relation Name Comments Diabetes Father Testicular cancer Father Arthritis Mother Mental illness Mother Relation Name Status Comments Father Alive Mother [...] Sign Reading Time Taken Comments Blood Pressure 136/86 01/21/2023 12:00 PM EDT Pulse - - Temperature - - Respiratory Rate - - Oxygen Saturation - - Inhaled Oxygen Concentration - - Weight 121 kg (266 lb) 04/03/2025 9:11 AM EDT Height 167 cm (5' 5.75 ) 04/03/2025 9:11 AM EDT Body Mass Index 43.26 04/03/2025 9:11 AM EDT Plan of Treatment Upcoming Encounters Date Type Department Care Team (Late st Contact Info) Description 05/18/2025 2:00 PM EDT Treatment [facility] [address] [facility] [address] [place] [address] Santiago Lopez, STOCK ROOM MANAGER 05/21/2025 1:00 PM EDT Treatment [facility] [address] [facility] [address] [place] [address] Melissa Villavicencio, STOCK ROOM MANAGER 05/23/2025 1:00 PM EDT Treatment [facility] [address] [facility] [address] [place] [address] Santiago Lopez, STOCK ROOM MANAGER 05/25/2025 12:30 PM EDT Treatment [facility] [address] [facility] [address] [place] [address] Teresa Villa PT 05/28/2025 1:00 PM EDT Treatment [facility] [address] [place] [address] Melissa Villavicencio, STOCK ROOM MANAGER 05/30/2025 1:30 PM EDT Treatment [facility] [address] [place] [address] PrashanthMelissa villar, STOCK ROOM MANAGER 06/01/2025 1:00 PM EDT Treatment [facility] [address] [facility] [address] [place] [address] Yusuf Hodges, STOCK ROOM MANAGER 06/04/2025 1:00 PM EDT Treatment [facility] [place] [facility] [address] [place] [address] Maye , STOCK ROOM MANAGER 06/06/2025 1:00 PM EDT Office Visit [facility] [place] [facility] [address] [facility] [address] [place] [address] Linda Goss MD [address] [facility] [address] [place] [address] 06/06/2025 1:30 PM EDT Treatment [facility] [place] [facility] [address] [facility] [address] [place] [address] Yusuf Hodges, STOCK ROOM MANAGER 06/08/2025 1:00 PM EDT Treatment [facility] [address] [facility] [address] [place] [address] Yusuf Hodges, STOCK ROOM MANAGER Procedures Procedure Name Priority Date/Time Associated Diagnosis Comments US SOFT TISSUE HEAD/NECK Routine 03/15/2025 3:24 PM EDT from Last 3 Months Results * US SOFT TISSUE HEAD/NECK (03/15/2025 3:24 PM EDT) Anatomical Region Laterality Modality Radiographic Rocio ging us Jennifer UREÑA IMG XR PROCEDURES Final Re sult from Last 3 Months Insurance [employer] Care Teams Caterers Helper Relationship Specialty Start Date End Date Solo Sheehan DO [address] [place] [address] Referring Physician General Surgery 02/28/25 Jennifer Yarbrough CRNP [address], [place] [address] Referring Physician Nurse Practitioner 04/03/25
--- OUTSIDE RECORDS SUMMARY | 2025-05-17 10:37 | XMS_ITS | Encounter Summary ---
Author Organization [facility] Address [facility]-[id number] [address] [place] [address] Care Team Providers Care Parking Meter Servicer Name Role Phone Glenn So FLIGHT SERVICE SPECIALIST-NATURAL SCIENCE CURATOR Primary Care Provider + Encounter Details Date Type Department Care Team ([facility] st Contact Info) Description 05/02/2024 [facility] Medicine [address] [place] [address] Carol Tobin CMA Social History [...] Care Team (Late st Contact Info) Description 05/21/2025 9:30 AM EDT Appointment [facility] - Ultrasound [address] [place] [address] documented as of this encounter Visit Diagnoses Not on filedocumented in this encounter Additional Health Concerns Assessment Noted Time PHQ-9 Depression Total Score: 0 04/26/20 9:47 AM EDT A Body Mass Index follow-up plan has been documented for the patient 04/26/2024 2:54 PM EDT documented as of this encounter Care Teams Parking Meter Servicer Relationship Specialty Start Date End Date Glenn So APRN-CNP [address] [place] [address] PCP - General Internal Medicine 05/07/25 documented as of this encounter
--- OUTSIDE RECORDS SUMMARY | 2025-05-17 10:37 | XMS_ITS | Encounter Summary ---
Author Organization [facility] Address [address] [place] [address] Care Team Providers Care Hospital Orderly Name Role Phone Solo Sheehan DO Unavailable [phone] Agustina Yarbroughe ADELITA Unavailable [phone] Encounter Details Date Type Department Care Team (Latest Contact Info) Description 05/16/2025 Travel Social History Tobacco Use Types Packs/Day [...] [facility] [address] [facility] [address] [place] [address] Santiago Lopez, VOCATIONAL NURSE 05/21/2025 1:00 PM EDT Treatment [facility] [address] [place] [address] Melissa Villavicencio, VOCATIONAL NURSE 05/23/2025 1:00 PM EDT Treatment [facility] [address] [place] [address] Santiago Lopez, VOCATIONAL NURSE 05/25/2025 12:30 PM EDT Treatment [facility] [address] [place] [address] Teresa Villa, PT 05/28/2025 1:00 PM EDT Treatment [facility] [address] [place] [address] Melissa Villavicencio, VOCATIONAL NURSE 05/30/2025 1:30 PM EDT Treatment [facility] [address] [place] [address] Melissa Villavicencio, VOCATIONAL NURSE 06/01/2025 1:00 PM EDT Treatment [facility] [address] [place] [address] Yusuf Hodges, VOCATIONAL NURSE 06/04/2025 1:00 PM EDT Treatment [facility] [place] [facility] [address] [place] [address] MayeLedy, VOCATIONAL NURSE 06/06/2025 1:00 PM EDT Office Visit [facility] [place] [facility] [address] [place] [address] Linda Goss MD [address] [place] [address] 06/06/2025 1:30 PM EDT Treatment [facility] [place] [facility] [address] [place] [address] Yusuf Hodges, VOCATIONAL NURSE 06/08/2025 1:00 PM EDT Treatment [facility] [address] [place] [address] Yusuf Hodges, VOCATIONAL NURSE documented as of this encounter Visit Diagnoses Not on filedocumented in this encounter Care Teams Hospital Orderly Relationship Specialty Start Date End Date Solo Sheehan DO [address] [place] [address] Referring Physician General Surgery 02/28/25 Jennifer Yarbrough CRNP [facility] [address] [place] [place] [address] Referring Physician Nurse Practitioner 04/03/25 documented as of this encounter
--- OUTSIDE RECORDS SUMMARY | 2025-05-17 10:37 | XMS_ITS | Encounter Summary ---
Author Organization [facility] Address [id number] [address] [place] [address] Care Team Providers Care Plant Chief Name Role Phone Zenon Jennifer Adrian APRN-CHEMISTRY QUALITY CONTROL TECHNICIAN Primary Care Provid er Reason for Visit * Reason Onset Date Comments Med Refill 05/03/2025 Encounter Details Date Type Department Care Team (Late st Contact Info) Description 05/03/2025 Refill [facility] Internal Medicine - Family Medicine [address] [place] [address] Georges Pineda, DO [address] [facility] [address] [place] [id number] Reactive depression; Vitamin D deficiency; Hypomagnesemia; Current severe episode of major depressive disorder without psychotic features without prior episode (CMS-HCC); Restless leg syndrome Social History Tobacco Use Types Packs/Day Years [...] Info) Description 05/21/2025 9:30 AM EDT Appointment [facility] - Ultrasound [address] [place] [address] documented as of this encounter Visit Diagnoses Diagnosis Reactive depression Vitamin D deficiency Hypomagnesemia 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 ([facility]) Restless leg syndrome Restless legs syndrome (RLS) documented in this encounter Additional Health Concerns Assessment Noted Time PHQ-9 Depression Total Score: 15 025 6:46 AM EDT A Body Mass Index follow-up plan has been documented for the patient 12/26/2024 8:09 AM EDT documented as of this encounter Care Teams Plant Chief Relationship Specialty Start Date End Date Jennifer Yarbrough, TALENT SPECIALIST-CHEMISTRY QUALITY CONTROL TECHNICIAN [address] LEFT PM 04/09/25 [place] [address] PCP - General Family Medicine 04/26/24 05/06/25 documented as of this encounter
--- OUTSIDE RECORDS SUMMARY | 2025-05-17 10:37 | XMS_ITS | Encounter Summary ---
Author Organization [facility] Address [address] [facility] [place] [address] Care Team Providers Care Basketball Commentator Name Role Phone Solo Sheehan DO Unavailable [phone] Jennifer Yarbrough ADELITA Unavailable [phone] Encounter Details Date Type Department Care Team (Late Contact Info) Description 05/14/2025 Bamboo flowsheet [facility] [address] [facility] [address] [place] [address] Santiago Lopez, CHICKEN TENDER Social History Tobacco Use Types Packs/Day Years [...] Encounters Date Type Department Care Team (Late Contact Info) Description 05/18/2025 2:00 PM EDT Treatment [facility] [address] [facility] [address] [place] [address] Santiago Lopez, OMEGA 05/21/2025 1:00 PM EDT Treatment [facility] [address] [place] [address] Melissa Villavicencio, OMEGA 05/23/2025 1:00 PM EDT Treatment [facility] [address] [place] [address] Rahul Lopezneth, CHICKEN TENDER 05/25/2025 12:30 PM EDT Treatment [facility] [place] [facility] [address] [place] [address] Teresa Villa, PT 05/28/2025 1:00 PM EDT Treatment [facility] [place] [facility] [address] [place] [address] Maye , CHICKEN TENDER 05/30/2025 1:30 PM EDT Treatment [facility] [place] [facility] [address] [place] [address] Melissa Villavicencio, CHICKEN TENDER 06/01/2025 1:00 PM EDT Treatment [facility] [place] [facility] [address] [place] [address] Yusuf Hodges, CHICKEN TENDER 06/04/2025 1:00 PM EDT Treatment [facility] [address] [place] [address] Melissa Villavicencio, CHICKEN TENDER 06/06/2025 1:00 PM EDT Office Visit [facility] [place] [facility] [address] [place] [address] Linda Goss MD [address] [place] [address] 06/06/2025 1:30 PM EDT Treatment [facility] [place] [facility] [address] [place] [address] Yusuf Hodges, CHICKEN TENDER 06/08/2025 1:00 PM EDT Treatment [facility] [place] [facility] [address] [place] [address] Yusuf Hodges, CHICKEN TENDER documented as of this encounter Visit Diagnoses Not on filedocumented in this encounter Care Teams Basketball Commentator Relationship Specialty Start Date End Date Solo Sheehan DO [address] [place] [address] Referring Physician General Surgery 02/28/25 Jennifer Yarbrough CRNP [address], [facility] [place] [address] Referring Physician Nurse Practitioner 04/03/25 documented as of this encounter
--- OUTSIDE RECORDS SUMMARY | 2025-05-17 10:37 | XMS_ITS | Encounter Summary ---
Author Organization [facility] Address [address] [place] [address] Care Team Providers Care Product Development Worker Name Role Phone Solo Sheehan DO Unavailable [phone] Agustina Yarbroughe ADELITA Unavailable [phone] Encounter Details Date Type Department Care Team (Latest Contact Info) Description 05/14/2025 Travel Social History Tobacco Use Types Packs/Day [...] [facility] [address] [facility] [address] [place] [address] Santiago Lopez, DENTAL FRONT OFFICE ASSISTANT 05/21/2025 1:00 PM EDT Treatment [facility] [place] [facility] [address] [place] [address] Melissa Villavicencio, DENTAL FRONT OFFICE ASSISTANT 05/23/2025 1:00 PM EDT Treatment [facility] [place] [facility] [address] [place] [address] Santiago Lopez, DENTAL FRONT OFFICE ASSISTANT 05/25/2025 12:30 PM EDT Treatment [facility] [place] [facility] [address] [place] [address] Teresa Villa, PT 05/28/2025 1:00 PM EDT Treatment [facility] [place] [facility] [address] [place] [address] Melissa Villavicencio, DENTAL FRONT OFFICE ASSISTANT 05/30/2025 1:30 PM EDT Treatment [facility] [place] [facility] [address] [place] [address] Melissa Villavicencio, DENTAL FRONT OFFICE ASSISTANT 06/01/2025 1:00 PM EDT Treatment [facility] [place] [facility] [address] [place] [address] Yusuf Hodges, DENTAL FRONT OFFICE ASSISTANT 06/04/2025 1:00 PM EDT Treatment [facility] [place] [facility] [address] [place] [address] MayeLedy, DENTAL FRONT OFFICE ASSISTANT 06/06/2025 1:00 PM EDT Office Visit [facility] [place] [facility] [address] [place] [address] Linda Goss MD [address] [place] [address] 06/06/2025 1:30 PM EDT Treatment [facility] [place] [facility] [address] [place] [address] Yusuf Hodges, DENTAL FRONT OFFICE ASSISTANT 06/08/2025 1:00 PM EDT Treatment [facility] [place] [facility] [address] [place] [address] Yusuf Hodges, DENTAL FRONT OFFICE ASSISTANT documented as of this encounter Visit Diagnoses Not on filedocumented in this encounter Care Teams Product Development Worker Relationship Specialty Start Date End Date Solo Sheehan DO [address] [place] [address] Referring Physician General Surgery 02/28/25 Jennifer Yarbrough CRNP [facility] [address] [place] [address] Referring Physician Nurse Practitioner 04/03/25 documented as of this encounter
--- OUTSIDE RECORDS SUMMARY | 2025-05-17 10:37 | XMS_ITS | Encounter Summary ---
Author Organization [facility] tem Address [facility]-[id number] [address] [place] [address] Care Team Providers Care Mobile Crane Operator Name Role Phone Glenn So FLORAL MERCHANDISER-FOAM FABRICATOR Primary Care Provider + Encounter Details Date Type Department Care Team (Late Contact Info) Description 01/25/2024 Orders Only [facility] Internal Medicine - Family Medicine [address] [place] [address] External, Scanning Provider Social History Tobacco Use [...] Upcoming Encounters Date Type Department Care Team ([facility] Contact Info) Description 05/21/2025 9:30 AM EDT Appointment [facility] - Ultrasound [address] [place] [address] documented as of this encounter Procedures Procedure [...] documented as of this encounter Care Teams Mobile Crane Operator Relationship Specialty Start Date End Date Glenn So, FLORAL MERCHANDISER-FOAM FABRICATOR [address] [place] [address] PCP - General Internal Medicine 05/07/25 documented as of this encounter
--- OUTSIDE RECORDS SUMMARY | 2025-05-17 10:37 | XMS_ITS | Encounter Summary ---
Author Organization [facility] Address [address] [place] [address] Care Team Providers Care Vocational Aide Name Role Phone Solo Sheehan DO Unavailable [phone] Katty Yarbrougherie ADELITA Unavailable [phone] Encounter Details Date Type Department Care Team (Latest Contact Info) Description 05/11/2025 Travel Social History Tobacco Use Types Packs/Day [...] Physical Therapy [address] [facility] [address] [place] [address] Santiago Lopez, BIOLOGICAL INSPECTOR 05/21/2025 1:00 PM EDT Treatment [facility] [place] [facility] [address] [place] [address] Melissa Villavicencio, BIOLOGICAL INSPECTOR 05/23/2025 1:00 PM EDT Treatment [facility] [place] [facility] [address] [place] [address] Santiago Lopez, BIOLOGICAL INSPECTOR 05/25/2025 12:30 PM EDT Treatment [facility] [place] [facility] [address] [place] [address] Teresa Villa, PT 05/28/2025 1:00 PM EDT Treatment [facility] [place] [facility] [address] [place] [address] Melissa Villavicencio, BIOLOGICAL INSPECTOR 05/30/2025 1:30 PM EDT Treatment [facility] [place] [facility] [address] [place] [address] Melissa Villavicencio, BIOLOGICAL INSPECTOR 06/01/2025 1:00 PM EDT Treatment [facility] [place] [facility] [address] [place] [address] Yusuf Hodges, BIOLOGICAL INSPECTOR 06/04/2025 1:00 PM EDT Treatment [facility] [place] [facility] [address] [place] [address] MayeLedy, BIOLOGICAL INSPECTOR 06/06/2025 1:00 PM EDT Office Visit [facility] [place] [facility] [address] [place] [address] Linda Goss MD [address] [place] [address] 06/06/2025 1:30 PM EDT Treatment [facility] [place] [facility] [address] [place] [address] Yusuf Hodges, BIOLOGICAL INSPECTOR 06/08/2025 1:00 PM EDT Treatment [facility] [place] [facility] [address] [place] [address] Yusuf Hodges, BIOLOGICAL INSPECTOR documented as of this encounter Visit Diagnoses Not on filedocumented in this encounter Care Teams Vocational Aide Relationship Specialty Start Date End Date Solo Sheehan DO [address] [place] [address] Referring Physician General Surgery 02/28/25 Jennifer Yarbrough CRNP [facility] [address] [place] [address] Referring Physician Nurse Practitioner 04/03/25 documented as of this encounter
--- OUTSIDE RECORDS SUMMARY | 2025-05-17 10:37 | XMS_ITS | Encounter Summary ---
Author Organization [facility] Address [address] [place] [address] Care Team Providers Care Ground Control Approach Technician Name Role Phone Solo Sheehan DO Unavailable [phone] Jennifer Yarbrough ADELITA Unavailable [phone] Encounter Details Date Type Department Care Team (Late Contact Info) Description 05/11/2025 Bamboo flowsheet [facility] [address] [facility] [address] [place] [address] Teresa Villa, PT Social History Tobacco Use Types Packs/Day Years [...] [facility] [address] [facility] [address] [place] [address] Santiago Lopez, ENTERPRISE SYSTEMS MANAGER 05/21/2025 1:00 PM EDT Treatment [facility] [address] [place] [address] Melissa Villavicencio, ENTERPRISE SYSTEMS MANAGER 05/23/2025 1:00 PM EDT Treatment [facility] [address] [place] [address] Santiago Lopez, ENTERPRISE SYSTEMS MANAGER 05/25/2025 12:30 PM EDT Treatment [facility] [place] [facility] [address] [place] [address] Teresa Villa, PT 05/28/2025 1:00 PM EDT Treatment [facility] [address] [place] [address] Maye , ENTERPRISE SYSTEMS MANAGER 05/30/2025 1:30 PM EDT Treatment [facility] [address] [place] [address] Melissa Villavicencio, ENTERPRISE SYSTEMS MANAGER 06/01/2025 1:00 PM EDT Treatment [facility] [address] [place] [address] Yusuf Hodges, ENTERPRISE SYSTEMS MANAGER 06/04/2025 1:00 PM EDT Treatment [facility] [address] [place] [address] Melissa Villavicencio, ENTERPRISE SYSTEMS MANAGER 06/06/2025 1:00 PM EDT Office Visit [facility] [place] [facility] [address] [place] [address] Linda Goss MD [address] [place] [address] 06/06/2025 1:30 PM EDT Treatment [facility] [address] [place] [address] Yusuf Hodges, ENTERPRISE SYSTEMS MANAGER 06/08/2025 1:00 PM EDT Treatment [facility] [address] [place] [address] Yusuf Hodges, ENTERPRISE SYSTEMS MANAGER documented as of this encounter Visit Diagnoses Not on filedocumented in this encounter Care Teams Ground Control Approach Technician Relationship Specialty Start Date End Date Solo Sheehan DO [address] [place] [address] Referring Physician General Surgery 02/28/25 Jennifer Yarbrough CRNP [address] [facility] [place] [address] Referring Physician Nurse Practitioner 04/03/25 documented as of this encounter
--- OUTSIDE RECORDS SUMMARY | 2025-05-17 10:37 | XMS_ITS | Encounter Summary ---
Author Organization [employer] Address [id number] [address] [place] [address] Care Team Providers Care Supercharger Repair Supervisor Name Role Phone Glenn So PINSETTER MECHANIC AUTOMATIC-PERSONNEL SECURITY SPECIALIST Primary Care Provider + Encounter Details Date Type Department Care Team ([facility] st Contact Info) Description 04/27/2024 [facility]phone [facility] - Family Medicine [address] [place] [address] Carol Tobin CMA Social History [...] Info) Description 05/21/2025 9:30 AM EDT Appointment [facility] - Ultrasound [address] [place] [address] documented as of this encounter Visit Diagnoses Not on filedocumented in this encounter Additional Health Concerns Assessment Noted Time PHQ-9 Depression Total Score: 0 04/26/20 24 9:47 AM EDT A Body Mass Index follow-up plan has been documented for the patient 04/26/2024 2:54 PM EDT documented as of this encounter Care Teams Supercharger Repair Supervisor Relationship Specialty Start Date End Date Glenn So, PINSETTER MECHANIC AUTOMATIC-PERSONNEL SECURITY SPECIALIST [address] [place] [address] PCP - General Internal Medicine 05/07/25 documented as of this encounter
--- OUTSIDE RECORDS SUMMARY | 2025-05-17 10:37 | XMS_ITS | Encounter Summary ---
Author Organization [facility] Address [address] [place] [address] Care Team Providers Care Venetian Blind Assembler Name Role Phone Solo Sheehan DO Unavailable Jennifer Yarbrough Unavailable [phone] Reason for Visit * Reason Onset Date Comments Missed PT (x2) 05/07/2025 Encounter Details Date Type Department Care Team (Late Contact Info) Description 05/07/2025 Telephone [facility] [place] [facility] [address] [place] [address] Santiago Lopez PTA Missed PT (x2) Social History Tobacco Use Types Packs/Day Years [...] encounter Miscellaneous Notes * Telephone Encounter - Tressa Molina - 05/07/2025 1:39 PM EDT Contacted and notified she was set up for PT today @ 1:30 ([facility] she said she had lost track of time and is currently at another appt. I reminded of her sx on 05/09 and then PT PO 05/11/25; she confirmed. documented in this encounter Plan of Treatment Upcoming Encounters Date Type Department Care Team (Late st Contact Info) Description 05/18/2025 2:00 PM EDT Treatment [facility] [address] [place] [address] John Santiago, FORMULA MAKER 05/21/2025 1:00 PM EDT Treatment [facility] [place] [facility] [address] [place] [address] Melissa Villavicencio, FORMULA MAKER 05/23/2025 1:00 PM EDT Treatment [facility] [place] [facility] [address] [place] [address] John Santiago, FORMULA MAKER 05/25/2025 12:30 PM EDT Treatment [facility] [place] [facility] [address] [place] [address] Teresa Villa, PT 05/28/2025 1:00 PM EDT Treatment [facility] [address] [place] [address] Melissa Villavicencio, FORMULA MAKER 05/30/2025 1:30 PM EDT Treatment [facility] [address] [place] [address] Melissa Villavicencio, FORMULA MAKER 06/01/2025 1:00 PM EDT Treatment [facility] [place] [facility] [address] [place] [address] Yusuf Hodges, FORMULA MAKER 06/04/2025 1:00 PM EDT Treatment [facility] [place] [facility] [address] [place] [address] Melissa Villavicencio, FORMULA MAKER 06/06/2025 1:00 PM EDT Office Visit [facility] [place] [facility] [address] [place] [address] Linda Goss MD [address] [place] [address] 06/06/2025 1:30 PM EDT Treatment [facility] [place] [facility] [address] [facility] [address] [place] [address] Yusuf Hodges PTA 06/08/2025 1:00 PM EDT Treatment [facility] [place] [facility] [address] [facility] [address] [place] [address] Yusuf Hodges PTA documented as of this encounter Visit Diagnoses Not on filedocumented in this encounter Care Teams Venetian Blind Assembler Relationship Specialty Start Date End Date Solo Sheehan DO [address] [place] [address] Referring Physician General Surgery 02/28/25 Jennifer Yarbrough CRNP [address] [place] [address] Referring Physician Nurse Practitioner 04/03/25 documented as of this encounter
--- OUTSIDE RECORDS SUMMARY | 2025-05-17 10:37 | XMS_ITS | Encounter Summary ---
Author Organization [facility] Address [address] [place] [address] Care Team Providers Care Electric Mule Operator Name Role Phone Solo Sheehan DO Unavailable Jennifer Yarbrough Unavailable [phone] Encounter Details Date Type Department Care Team (Late Contact Info) Description 03/19/2025 Orders Only [facility] [address] [place] [address] Jennifer Yarbrough CRNP [address] [facility], [place] [address] Social History Tobacco Use Types Packs/Day Years [...] EDT Treatment [facility] [place] [facility] [address] [facility] [address] [place] [address] Santiago Lopez, ASSISTANT PROFESSOR OF NURSING 05/21/2025 1:00 PM EDT Treatment [facility] [place] [facility] [address] [place] [address] Melissa Villavicencio, ASSISTANT PROFESSOR OF NURSING 05/23/2025 1:00 PM EDT Treatment [facility] [place] [facility] [address] [place] [address] Santiago Lopez, ASSISTANT PROFESSOR OF NURSING 05/25/2025 12:30 PM EDT Treatment [facility] [place] [facility] [address] [place] [address] Teresa Villa, PT 05/28/2025 1:00 PM EDT Treatment [facility] [place] [facility] [address] [place] [address] Maye , ASSISTANT PROFESSOR OF NURSING 05/30/2025 1:30 PM EDT Treatment [facility] [place] [facility] [address] [place] [address] Maye , ASSISTANT PROFESSOR OF NURSING 06/01/2025 1:00 PM EDT Treatment [facility] [place] [facility] [address] [place] [address] Yusuf Hodges, ASSISTANT PROFESSOR OF NURSING 06/04/2025 1:00 PM EDT Treatment [facility] [place] [facility] [address] [place] [address] Tenzinleigh annMelissa, ASSISTANT PROFESSOR OF NURSING 06/06/2025 1:00 PM EDT Office Visit [facility] [place] [facility] [address] [place] [address] Linda Goss MD [address] [place] [address] 06/06/2025 1:30 PM EDT Treatment [facility] [place] [facility] [address] [place] [address] Yusuf Hodges, ASSISTANT PROFESSOR OF NURSING 06/08/2025 1:00 PM EDT Treatment [facility] [place] [facility] [address] [place] [address] Yusuf Hodges, ASSISTANT PROFESSOR OF NURSING documented as of this encounter Procedures Procedure [...] on filedocumented in this encounter Care Teams Electric Mule Operator Relationship Specialty Start Date End Date Solo Sheehan DO [address] [place] [address] Referring Physician General Surgery 02/28/25 Jennifer Yarbrough CRNP [address] [facility] [place] [address] Referring Physician Nurse Practitioner 04/03/25 documented as of this encounter
--- OUTSIDE RECORDS SUMMARY | 2025-05-17 10:37 | XMS_ITS | Encounter Summary ---
Author Organization [employer] s tem Address [id number] [address] [place] [address] Care Team Providers Care Fireperson Name Role Phone Glenn So CONDUCTOR/ENGINEER-INDUSTRIAL MAINTENANCE MANAGER Primary Care Provider + Encounter Details Date Type Department Care Team ([facility] st Contact Info) Description 06/14/[address] [facility] - Family Medicine [address] [place] [address] Carol Tobin CMA Social History [...] Info) Description 05/21/2025 9:30 AM EDT Appointment [facility] - Ultrasound [address] [place] [address] documented as of this encounter Visit Diagnoses Not on filedocumented in this encounter Additional Health Concerns Assessment Noted Time PHQ-9 Depression Total Score: 0 04/26/20 9:47 AM EDT A Body Mass Index follow-up plan has been documented for the patient 05/03/2024 5:45 PM EDT documented as of this encounter Care Teams Fireperson Relationship Specialty Start Date End Date Glenn So, CONDUCTOR/ENGINEER-INDUSTRIAL MAINTENANCE MANAGER [address] [place] [address] PCP - General Internal Medicine 05/07/25 documented as of this encounter
--- OUTSIDE RECORDS SUMMARY | 2025-05-17 10:37 | XMS_ITS | Encounter Summary ---
Author Organization [facility] [employer] Address [id number] [address] [place] [address] Care Team Providers Care Brass Wind Instruments Tube Bender Name Role Phone Glenn So Ivette EXTENSION SERVICE SPECIALIST-INSTRUCTIONAL TECHNOLOGY TEACHER Primary Care Provider + Reason for Visit * Reason Onset Date Comments Med Refill 09/22/2024 Encounter Details Date Type Department Care Team (Late st Contact Info) Description 09/22/2024 Refill [facility] Internal Medicine - Family Medicine [address] [place] [address] Jennifer Yarbrough, EXTENSION SERVICE SPECIALIST-[facility] [address] LEFT PM 04/09/25 [place] [address] Social History Tobacco Use Types [...] Info) Description 05/21/2025 9:30 AM EDT Appointment [facility] - Ultrasound [address] [place] [address] documented as of this encounter Visit Diagnoses Not on filedocumented in this encounter Additional Health Concerns Assessment Noted Time PHQ-9 Depression Total Score: 024 1:36 PM EST A Body Mass Index follow-up plan has been documented for the patient 08/23/2024 2:03 PM EST documented as of this encounter Care Teams Brass Wind Instruments Tube Bender Relationship Specialty Start Date End Date Glenn So APRN-CNP [address] [place] [address] PCP - General Internal Medicine 05/07/25 documented as of this encounter
--- OUTSIDE RECORDS SUMMARY | 2025-05-17 10:37 | XMS_ITS | Encounter Summary ---
Author Organization [facility] Address [address] [place] [address] Care Team Providers Care Rn L And D Name Role Phone Solo Sheehan DO Unavailable [phone] Yarbrough Jennifer ADELITA Unavailable [phone] Encounter Details Date Type Department Care Team (Late Contact Info) Description 05/11/2025 Plan of Care Documentation [facility] [place] [facility] [address] [facility] [address] [place] [address] Social History Tobacco Use Types Packs/Day Years [...] [facility] [place] [facility] [address] [facility] [address] [place] [address] Santiago Lopez, PLASTIC PRINTER 05/21/2025 1:00 PM EDT Treatment [facility] [place] [facility] [address] [place] [address] Melissa Villavicencio, PLASTIC PRINTER 05/23/2025 1:00 PM EDT Treatment [facility] [place] [facility] [address] [place] [address] Santiago Lopez, PLASTIC PRINTER 05/25/2025 12:30 PM EDT Treatment [facility] [place] [facility] [address] [place] [address] Teresa Villa, PT 05/28/2025 1:00 PM EDT Treatment [facility] [place] [facility] [address] [place] [address] Prashanthjian , PLASTIC PRINTER 05/30/2025 1:30 PM EDT Treatment [facility] [place] [facility] [address] [place] [address] Maye , PLASTIC PRINTER 06/01/2025 1:00 PM EDT Treatment [facility] [place] [facility] [address] [place] [address] Yusuf Hodges, PLASTIC PRINTER 06/04/2025 1:00 PM EDT Treatment [facility] [place] [facility] [address] [place] [address] Melissa Villavicencio, PLASTIC PRINTER 06/06/2025 1:00 PM EDT Office Visit [facility] [place] [facility] [address] [place] [address] Linda Goss MD [address] [place] [address] 06/06/2025 1:30 PM EDT Treatment [facility] [place] [facility] [address] [place] [address] Yusuf Hodges, PLASTIC PRINTER 06/08/2025 1:00 PM EDT Treatment [facility] [place] [facility] [address] [place] [address] Yusuf Hodges, PLASTIC PRINTER documented as of this encounter Visit Diagnoses Not on filedocumented in this encounter Care Teams Rn L And D Relationship Specialty Start Date End Date Solo Sheehan DO [address] [place] [address] Referring Physician General Surgery 02/28/25 Jennifer Yarbrough CRNP [address], [facility] [place] [address] Referring Physician Nurse Practitioner 04/03/25 documented as of this encounter
--- OUTSIDE RECORDS SUMMARY | 2025-05-17 10:37 | XMS_ITS | Encounter Summary ---
Author Organization [facility] Address [address] [facility] [place] [address] Care Team Providers Care Clinical Dermatologist Name Role Phone Solo Sheehan DO Unavailable [phone] Jennifer Yarbrough ADELITA Unavailable [phone] Encounter Details Date Type Department Care Team (Late Contact Info) Description 05/16/2025 Bamboo flowsheet [facility] [place] [facility] [address] [facility] [address] [place] [address] Santiago Lopez, ASSISTANT EDUCATION DIRECTOR Social History Tobacco Use Types Packs/Day Years [...] [facility] [place] [facility] [address] [facility] [address] [place] [address] Santiago Lopez, OMEGA 05/21/2025 1:00 PM EDT Treatment [facility] [place] [facility] [address] [place] [address] Melissa Villavicencio, OMEGA 05/23/2025 1:00 PM EDT Treatment [facility] [place] [facility] [address] [place] [address] Rahul Lopezneth, ASSISTANT EDUCATION DIRECTOR 05/25/2025 12:30 PM EDT Treatment [facility] [place] [facility] [address] [place] [address] Teresa Villa, PT 05/28/2025 1:00 PM EDT Treatment [facility] [place] [facility] [address] [place] [address] Maye , ASSISTANT EDUCATION DIRECTOR 05/30/2025 1:30 PM EDT Treatment [facility] [place] [facility] [address] [place] [address] Melissa Villavicencio, ASSISTANT EDUCATION DIRECTOR 06/01/2025 1:00 PM EDT Treatment [facility] [place] [facility] [address] [place] [address] Yusuf Hodges, ASSISTANT EDUCATION DIRECTOR 06/04/2025 1:00 PM EDT Treatment [facility] [place] [facility] [address] [place] [address] Melissa Villavicencio, ASSISTANT EDUCATION DIRECTOR 06/06/2025 1:00 PM EDT Office Visit [facility] [place] [facility] [address] [place] [address] Linda Goss MD [address] [place] [address] 06/06/2025 1:30 PM EDT Treatment [facility] [place] [facility] [address] [place] [address] Yusuf Hodges, ASSISTANT EDUCATION DIRECTOR 06/08/2025 1:00 PM EDT Treatment [facility] [place] [facility] [address] [place] [address] Yusuf Hodges, ASSISTANT EDUCATION DIRECTOR documented as of this encounter Visit Diagnoses Not on filedocumented in this encounter Care Teams Clinical Dermatologist Relationship Specialty Start Date End Date Solo Sheehan DO [address] [place] [address] Referring Physician General Surgery 02/28/25 Jennifer Yarbrough CRNP [address], [facility] [place] [address] Referring Physician Nurse Practitioner 04/03/25 documented as of this encounter
--- OUTSIDE RECORDS SUMMARY | 2025-05-17 10:37 | XMS_ITS | Patient Health Record ---
Author Organization [facility] Address [address] [place] [address] Care Team Providers Care Craft Superintendent Name Role Phone Physician, Non-Staff Primary Care Provider UnaMauricio Glover Unavailable [phone] Janie Wasserman Unavailable Allergies No Known Allergies Reason For Referral No Information Social History Tobacco Use: Social History Observation [...] Problem Status W/U Status Risk Notes Problem [id number] Closed nondisplaced fracture of head of left radius, initial encounter (S52.125A) Active confirmed Vital Signs Height 5'6 in 05/29/2024 Weight 250 lbs 05/29/2024 BMI 40.35 05/29/2024 Encounters Encounter Location Date Provider Diagnosis [address] [place] [address] 05/29/2024 Janie Wasserman Sprain of left elbow, initial encounter S53.402A Assessments Encounter Date Diagnosis (ICD Code) Assessment Notes Treatment Notes Treatment Clinical Notes Section Notes 05/29/2024 Sprain of left elbow, initial encounter (ICD-10 - S53.402A) Left elbow sprain 05/29/2024 Other Patient's pain and swelling have [...] MRI : Elbow W/O Contrast Left - [id number] Insurance Providers Payer Name Payer Address Payer Phone Subscriber Number Group Number Insured Name Patient Relationship to Insured Coverage Start Date Coverage End Date Medicaid [employer] [place] [address] [place] [address] [id number] JUDIE RODRIGUEZ Self - patient is the insured Medical (General) History Medical History History ICD Code High Blood Pressure Depression Mental Illness: Anxiety Surgical History Surgery Date(Month/Year) Right knee
--- OUTSIDE RECORDS SUMMARY | 2025-05-17 10:37 | XMS_ITS | Encounter Summary ---
Author Organization [facility] Address [id number] [address] [place] [address] Care Team Providers Care Package Worker Name Role Phone Glenn So Ivette SEWING ROOM SUPERVISOR-CAD DESIGNER DRAFTER Primary Care Provider + Encounter Details Date Type Department Care Team ([facility] Contact Info) Description 01/20/2024 Orders Only [facility] Internal Medicine - Family Medicine [address] [place] [phone] Gissel Oliveira, SEWING ROOM SUPERVISOR-GATHERING MACHINE SETTER [address] [address] Subcutaneous nodule of right lower extremity Social [...] Upcoming Encounters Date Type Department Care Team ([facility] Contact Info) Description 05/21/2025 9:30 AM EDT Appointment [facility] - Ultrasound [address] [place] [address] documented as of this encounter Procedures Procedure Name Priority Date/Time Associated Diagnosis Comments US EXT NON VASC RT COMP - MSK Routine 01/19/2024 3:28 PM EDT Subcutaneous nodule of right lower extremity documented in this encounter Results * Ultrasound extremity non vascular complete right for MSK (01/19/2024 3:28 PM EDT) Anatomical Region Laterality Modality MSK Ultrasound us Gissel Oliveira SEWING ROOM SUPERVISOR-GATHERING MACHINE SETTER IMG US ORDERABLES Final Res ult documented in this encounter Visit Diagnoses Diagnosis Subcutaneous nodule of right lower extremity documented in this encounter Additional Health Concerns Assessment Noted Time PHQ-9 Depression Total Score: 11 024 1:13 PM EDT documented as of this encounter Care Teams Package Worker Relationship Specialty Start Date End Date Glenn So, SEWING ROOM SUPERVISOR-CAD DESIGNER DRAFTER [address] [place] [address] PCP - General Internal Medicine 05/07/25 documented as of this encounter
--- OUTSIDE RECORDS SUMMARY | 2025-05-17 10:37 | XMS_ITS | Clinical Summary ---
Author Organization [employer] tem Address [facility] [place]-[id number] [address] [place] [address] Care Team Providers Care Computer Repair Instructor Name Role Phone Glenn So Ivette CURRICULUM SPECIALIST-WICK AND BASE ASSEMBLER Primary Care Provider + Allergies No known active allergies Medications lisinopriL (PRINIVIL,ZESTRIL ) 40 mg tabletIndications :Essential hypertension Take 1 tablet (40 mg total) by mouth in the morning. 90 tablet 1 5 Active FLUoxetine (PROzac) 10 mg capsuleIndication s:Reactive depression Take 1 capsule (10 mg total) by mouth in the morning. 30 capsule 5 5 Active cholecalciferol, vitamin D3, 5,000 units tabletIndications :Vitamin D deficiency Take 1 tablet (5,000 Units total) by mouth in the morning. 30 each 5 Active magnesium oxide (MAGOX) 400 mg tabletIndications :Hypomagnesemia Take 1 tablet (400 mg total) by mouth in the morning. 30 tablet 5 Active DULoxetine (CYMBALTA) 60 mg capsuleIndication s:Reactive depression Take 1 capsule (60 mg total) by mouth in the morning. 30 capsule 5 5 Active cariprazine (VRAYLAR) 1.5 mg capsuleIndication s:Current severe episode of major depressive disorder without psychotic features without prior episode (CMS-HCC) Take 1 capsule (1.5 mg total) by mouth in the morning. 30 capsule 5 Active rOPINIRole (REQUIP) 0.25 mg tabletIndications :Restless leg syndrome Take 1 tablet (0.25 mg total) by mouth nightly. 30 tablet 5 5 Active Active Problems Problem Noted Date Diagnosed [...] Overview: 02/03/16 NIPT wnl High-risk 10/29/2015 01/13/20 Overview (01/13/2024): Overview: Rx for [place] gummie vitamins sent to pharmacy on 11/27/15 02/03/16 NIPT wnl Infection in 10/29/201501/12 Overview (01/13/2024): Overview: 10/17/15 +Chlamydia; treatment given 10/29 Will need BITA in 4 weeks 11/28/15 BITA urine GC neg/neg Encounters Date Type Department Care Team Description 05/07/2025 Refill [facility] Internal [facility] - Family Medicine [address] [place] [address] Elder Louie CNA 05/03/2025 Refill [facility] - Family Medicine [address] [place] [address] Georges Pineda, DO Reactive depression; Vitamin D deficiency; Hypomagnesemia; Current severe episode of major depressive disorder without psychotic features without prior episode ([facility]); Restless leg syndrome 04/09/2025 Refill [facility] - Family Medicine [address] [place] [address] Jennifer Yarbrough, CURRICULUM SPECIALIST-WICK AND BASE ASSEMBLER Reactive depression; Vitamin D deficiency; Hypomagnesemia; Current severe episode of major depressive disorder without psychotic features without prior episode ([facility]); Restless leg syndrome 03/28/2025 10:10 AM EDT - 03/28/2025 11:59 PM EDT Hospital Encounter [facility] - CT Imaging [address] [place] [address] Solo Sheehan DO Swelling, mass, or lump on face Discharge Disposition: Home 03/28/2025 Travel 03/20/2025 Refill [facility] - Family Medicine [address] [place] [address] Jennifer Yarbrough, CURRICULUM SPECIALIST-WICK AND BASE ASSEMBLER Essential hypertension 03/19/2025 Telephone [facility] General Surgery [address] [place] [address] Brenda Stafford CMA 03/15/2025 8:57 AM EDT - 03/15/2025 11:59 PM EDT Hospital Encounter [facility] - Ultrasound [address] [place] [address] Siobhan Casillas, CURRICULUM SPECIALIST-WICK AND BASE ASSEMBLER Swelling, mass, or lump on face Discharge Disposition: Home 03/14/2025 Travel 03/09/2025 Orders Only [facility] General Surgery [address] [place] [address] Siobhan Casillas, CURRICULUM SPECIALIST-WICK AND BASE ASSEMBLER Swelling, mass, or lump on face (Primary Dx) 03/05/2025 Refill [facility] - Family Medicine [address] [place] [place] [address] Jennifer Yarbrough APRN-SONALI Essential hypertension; Reactive depression; Vitamin D deficiency; Hypomagnesemia; Current severe episode of major depressive disorder without psychotic features without prior episode ([facility] Restless leg syndrome 02/28/2025 9:30 AM EDT Office Visit [facility] [address] [place] [address] Solo Sheehan, DO Swelling, mass, or lump on face (Primary Dx); Morbid obesity with BMI of 40.0-44.9, adult ([facility] 02/28/2025 Orders Only [facility] [address] [place] [address] Solo Sheehan, Swelling, mass, or lump on face (Primary Dx) 02/28/2025 Travel from Last 3 Months Immunizations Immunization Administration [...] 02/28/2025 9:32 AM EDT Plan of Treatment Upcoming Encounters Date Type Department Care Team (Late st Contact Info) Description 05/21/2025 9:30 AM EDT Appointment [facility] - Ultrasound [address] [place] [address] Health Maintenance Due Date Last Done Comments [...] if enlarging or worseningsymptoms. Finalized by Gavin Tomas on 03/19/2025 8:05 AM us Siobhan Casillas CURRICULUM SPECIALIST-WICK AND BASE ASSEMBLER IMG US ORDERABLES Fin al Result from Last 3 Months Insurance [place] [employer] Care Teams Computer Repair Instructor Relationship Specialty Start Date End Date Glenn So, CURRICULUM SPECIALIST-SONALI [address] [place] [address] PCP - General Internal Medicine 05/07/25
--- OUTSIDE RECORDS SUMMARY | 2025-05-17 10:38 | XMS_ITS | Encounter Summary ---
Author Organization [employer] tem Address [facility] [place]-[id number] [address] [place] [address] Care Team Providers Care Fws Faculty Assistant Name Role Phone Glenn So CELL LEAD-SECURITIES LENDING TRADER Primary Care Provider + Encounter Details Date Type Department Care Team ([facility] st Contact Info) Description 05/29/2024 Telephone [facility] [address] [place] [address] Carol Tobin CMA Social History [...] didn't make it to the pharmacy to fruit picker machine operator a muscle relaxer and ibprofen that you [...] EDT We dont see a referral , jsoep helped me look for the EMG and [...] Info) Description 05/21/2025 9:30 AM EDT Appointment [facility] - Ultrasound [address] [place] [address] documented as of this encounter Visit Diagnoses Not on filedocumented in this encounter Additional Health Concerns Assessment Noted Time PHQ-9 Depression Total Score: 0 04/26/20 9:47 AM EDT A Body Mass Index follow-up plan has been documented for the patient 05/03/2024 5:45 PM EDT documented as of this encounter Care Teams Fws Faculty Assistant Relationship Specialty Start Date End Date Glenn So, AUGUSTO-SECURITIES LENDING TRADER [address] [place] [address] PCP - General Internal Medicine 05/07/25 documented as of this encounter
--- OUTSIDE RECORDS SUMMARY | 2025-05-17 10:38 | XMS_ITS | Encounter Summary ---
Author Organization [facility] tem Address [id number] [address] [place] [address] Care Team Providers Care Roaster Supervisor Name Role Phone Glenn So MILL BEAM FITTER-POSSUM TRAPPER Primary Care Provider + Reason for Visit * Reason Onset Date Comments Med Refill 05/07/2025 Encounter Details Date Type Department Care Team (Late Contact Info) Description 05/07/2025 Refill [facility] Internal [facility] - Family Medicine [address] [place] [phone] Elder Louie CNA Social History Tobacco Use Types Packs/Day Years [...] Upcoming Encounters Date Type Department Care Team ([facility] Contact Info) Description 05/21/2025 9:30 AM EDT Appointment [facility] - Ultrasound [address] [place] [phone] documented as of this encounter Visit Diagnoses Not on filedocumented in this encounter Additional Health Concerns Assessment Noted Time PHQ-9 Depression Total Score: 15 025 6:46 AM EDT A Body Mass Index follow-up plan has been documented for the patient 12/26/2024 8:09 AM EDT documented as of this encounter Care Teams Roaster Supervisor Relationship Specialty Start Date End Date Glenn So, MILL BEAM FITTER-POSSUM TRAPPER [address] [place] [address] PCP - General Internal Medicine 05/07/25 documented as of this encounter
--- OUTSIDE RECORDS SUMMARY | 2025-05-17 10:38 | XMS_ITS | Encounter Summary ---
Author Organization [facility] tem Address [facility]-[id number] [address] [place] [address] Care Team Providers Care Trade Clerk Name Role Phone Glenn So RAILROAD DESIGN CONSULTANT-CD TECHNICIAN Primary Care Provider + Encounter Details Date Type Department Care Team (Late Contact Info) Description 05/24/2024 Orders Only [facility] - Family Medicine [address] [place] [phone] External, Scanning Provider Social History Tobacco Use [...] Upcoming Encounters Date Type Department Care Team ([facility] Contact Info) Description 05/21/2025 9:30 AM EDT Appointment [facility] - Ultrasound [address] [place] [address] documented as of this encounter Procedures Procedure [...] documented as of this encounter Care Teams Trade Clerk Relationship Specialty Start Date End Date Glenn So, RAILROAD DESIGN CONSULTANT-CD TECHNICIAN [address] [place] [address] PCP - General Internal Medicine 05/07/25 documented as of this encounter
--- OUTSIDE RECORDS SUMMARY | 2025-05-17 10:38 | XMS_ITS | Encounter Summary ---
Author Organization [facility] tem Address [id number] [address] [place] [address] Care Team Providers Care Point Of Sale Associate Name Role Phone Glenn So COMMUNICATIONS MANAGER-DOLL WIG MAKER ROOTED HAIR Primary Care Provider + Encounter Details Date Type Department Care Team (Late Contact Info) Description 05/17/2024 Orders Only [facility] Internal Medicine - Family Medicine [address] [place] [phone] External, Scanning Provider Social History Tobacco Use [...] Upcoming Encounters Date Type Department Care Team ([facility] Contact Info) Description 05/21/2025 9:30 AM EDT Appointment [facility] - Ultrasound [address] [place] [address] documented as of this encounter Procedures Procedure [...] documented as of this encounter Care Teams Point Of Sale Associate Relationship Specialty Start Date End Date Glenn So, COMMUNICATIONS MANAGER-DOLL WIG MAKER ROOTED HAIR [address] [place] [address] PCP - General Internal Medicine 05/07/25 documented as of this encounter
--- OUTSIDE RECORDS SUMMARY | 2025-05-17 10:38 | XMS_ITS | Encounter Summary ---
Author Organization [facility] tem Address [facility]-[id number] [address] [place] [address] Care Team Providers Care Credit Administration Manager Name Role Phone Glenn So CHAMPION OF SUSTAINABLE DESIGN-PILOT PLANT SUPERVISOR Primary Care Provider + Encounter Details Date Type Department Care Team (Late Contact Info) Description 05/16/2024 Orders Only [facility] Internal Medicine - Family Medicine [address] [place] [phone] External, Scanning Provider Social History Tobacco Use [...] Upcoming Encounters Date Type Department Care Team ([facility] Contact Info) Description 05/21/2025 9:30 AM EDT Appointment [facility] - Ultrasound [address] [place] [address] documented as of this encounter Procedures Procedure [...] documented as of this encounter Care Teams Credit Administration Manager Relationship Specialty Start Date End Date Glenn So, CHAMPION OF SUSTAINABLE DESIGN-PILOT PLANT SUPERVISOR [address] [place] [place] [address] PCP - General Internal Medicine 05/07/25 documented as of this encounter
== END 2025-05-17 10:34 | disposition home or self-care (01) ==
LOC: RAD 10:35
PROVIDERS: PCP Family Medicine; Visit Provider Physician Assistant
DX: Z98.890 Other specified postprocedural states (principal)
CPT/HCPCS: 73560